=== PATIENT | male | born 1930 ===

== ENCOUNTER 2016-08-26 09:41 | Inpatient (IN) | payer MEDICAID, MEDICARE ==
[2016-08-26 09:52] VITALS: BMI 18.2
--- NOTE | 2016-08-26 09:57 | ED PDOC ---
Arrival/HPI - General Time Seen by Provider: 08/26/16 09:44 Historian: EMS EM Caveat: Altered Mental Status - History of Present Illness Narrative History of Present Illness (Text): 08/26/16 09:54 A 86 year old male who is brought into the emergency department via EMS reportedly for history of altered mental status upon awaking this morning. Patient is a poor historian due to what appears to be altered mental status/ difficulty speaking. No family present at this time to obtain further history. Initial history obtain through ambulance personnel. 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 - Renal Hx Renal Disorder: No - Endocrine/Metabolic Hx Diabetes Mellitus Type 2: Yes - Hematological/Oncological Hx Blood Transfusions: No Hx Blood Transfusion Reaction: No - Integumentary Hx Dermatological Disorder: No - Musculoskeletal/Rheumatological Hx Musculoskeletal Disorders: Yes - Gastrointestinal Hx Gastrointestinal Disorders: Yes (PANCREATITIS,PANCREATIC MASS,) - Genitourinary/Gynecological Hx Genitourinary Disorders: No Hx Reproductive Disorders: Yes (PROSTATE CA) - Psychiatric Hx Emotional Abuse: No Hx Physical Abuse: No Hx Substance Use: No - Past Surgical History Past Surgical History: Unable to Obtain - Surgical History Other/Comment: Abdominal Aortic Aneurysm repair - Anesthesia Hx Anesthesia Reactions: No Hx Malignant Hyperthermia: No - Suicidal Assessment Feels Threatened In Home Enviroment: No Family/Social History - Physician Review Nursing Documentation Reviewed: Yes Family/Social History: Unknown Family HX Smoking Status: Former Smoker Hx Alcohol Use: No Hx Substance Use: No Hx Substance Use Treatment: No Allergies/Home Meds Allergies/Adverse Reactions: Allergies No Known Allergies Allergy (Verified 08/04/15 18:24) Home Medications: Home Meds Medication Instructions Recorded Confirmed Alfuzosin HCl [Uroxatral] 10 mg PO DAILY 05/03/15 08/30/15 Dutasteride 0.5 mg PO DAILY 06/02/15 08/30/15 GlipiZIDE [Glucotrol] 5 mg PO QAM 08/30/15 08/30/15 Ciprofloxacin [Cipro] 500 mg PO BID 08/31/15 08/31/15 Review of Systems - Review of Systems Systems not reviewed;Unavailable: Other (difficulty speaking) Constitutional: Weight Change (as per son) Neurological: Speech Changes (as per son since 7 pm last night) Physical Exam - Physical Exam Narrative Physical Exam (Text): Head: Atraumatic. Normocephalic. Eyes: PERRL. EOMI. Sclera appear pale, icteric. ENT: Mucous membranes are dry, poor dentition. Neck: Supple. Full ROM. No JVD. No lymphadenopathy. No pain with range of motion. No midline pain. Cardiovascular: Regular rate. Regular rhythm. Systolic murmur. Distal pulses are 2+ and symmetric. Pulmonary/Chest: No evidence of respiratory distress. Clear to auscultation bilaterally. No wheezing, rales or rhonchi. Abdominal: Soft, mildly distended. There is no tenderness. No rebound, guarding, or rigidity. No organomegaly. Good bowel sounds. Rectal: no gross blood or melena, no active bleeding Back: No CVA tenderness. No midline tenderness. Extremities: Bilateral nonpitting edema, mild. No cyanosis. No clubbing. Full range of motion in all extremities. No calf tenderness. Skin: Skin is pale. Neurological: Awake. Garbled speech, appears to have expressive aphasia. He will follow some simple commands. No pronator drift noted. Possibly mild weak drasp most notable on right. No noted asterixis. No facial droop. Reflexes intact. No facial droop. Psychiatric: Poor interaction, will follow some commands. Nonsensical speaking. Appears to express frustration from difficulty speaking. 08/26/16 16:02 Vital Signs Reviewed: Yes Vital Signs Temp Pulse Resp BP Pulse Ox 08/26/16 15:37 66 18 125/68 97 08/26/16 12:25 64 18 128/65 97 08/26/16 11:45 62 18 131/61 97 08/26/16 11:20 97.8 F 08/26/16 09:56 98.2 F 64 18 132/59 L 97 Temperature: Afebrile Appearance: Positive for: Non-Toxic, Comfortable Mental Status: Positive for: other (difficulty speaking) Medical Decision Making ED Course and Treatment: 08/26/16 09:54 Impression: A 86 year old male brought in reportedly initially for altered mental status. Will obtain EKG, Head CT, Chest X-ray, labs and urinalysis. Will attempt to contact family members and PMD regarding patient past history and baseline mental status Differential Diagnosis include but are not limited to: CVA, hypoglycemia, infection Prior Visits: Notes and results from previous visits were reviewed. The patient last presented to the emergency department on 07/31/15 for evaluation of abnormal LFTs. Progress Notes: Patient evaluated upon arrival. History obtained from ambulance personnel. Patient appears to follow commands, understand some questions, although has difficulty speaking. Unknown initially what his baseline mental status is. 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 There is no fever. No notable trauma. Time of onset of symptoms unknown. I discussed case with Dr. Montana who reports that patient is typically conversive and interactive. 08/26/16 11:50 I called the patient's family member and spoke with the patient's son. He states the patient has a history of dementia, although is normal able to speak without difficulty. He reports to me that the patient's stated he has some slurred speech that she noticed at 1900 yesterday. Son says that when he checked on his father this morning after waking up he noticed the patient had some difficulty speaking. Due to the prolonged time of onset and uncertainty of time of onset the patient is not a TPA candidate. I discussed timing of symptoms in depth with patient's son and patient.On currently examination the patient expresses aphasia, although will follow all commends and is able to move all [address] head pending. I feel given history as given by family, exam and history consistent with CVA, by history greater than 6 hours since time of onset of symptoms. Case discussed with Dr. Montana. 08/26/16 12:10 Chest X-ray: Dictator : Patricio Valentine MD COMPARISON: 07/31/2015 FINDINGS: LUNGS: Clear. PLEURA: No pneumothorax or pleural fluid seen. CARDIOVASCULAR: No radiographic findings to suggest acute or significant cardiovascular disease. OSSEOUS STRUCTURES: No significant abnormalities. VISUALIZED UPPER ABDOMEN: Normal. OTHER FINDINGS: None. IMPRESSION: No active disease. No acute/significant interval changes. 08/26/16 13:[address]: Creator : LAYLA MCCABE COMPARISON: None available. FINDINGS: HEMORRHAGE: No intracranial hemorrhage. BRAIN: No mass effect or edema. Cortical atrophy, periventricular small vessel disease. Focal areas of encephalomalacia change frontal, frontal parietal regions. VENTRICLES: Unremarkable. No hydrocephalus. CALVARIUM: Unremarkable. PARANASAL SINUSES: Unremarkable as visualized. No significant inflammatory changes. MASTOID AIR CELLS: Unremarkable as visualized. No inflammatory changes. OTHER FINDINGS: None. IMPRESSION: No acute intracranial abnormalities. No significant findings to account for the clinical presentation. CT head reviewed. Case discussed with neurologist, Dr. Vidhya Zhang. CT findings reviewed with family and patient, limitations of CT reviewed with family and suspicion of CVA discussed once again despite initial unremarkable CT. Patient seen and evaluated by neurologist in ED, further studies ordered. Patient admitted at 12:[address] Montana's service. 08/26/16 14:52 MRI report called in by radiologist. I spoke to Dr. Vidhya Zhang about MRI results. No change in patient's exam from initial presentation. Patient admitted, care turned over to admitting PMD and recommendations as per neurology. - Critical Care Critical Care Minutes: 30 minutes - Lab Interpretations Lab Results: 08/26/16 10:32 08/26/16 10:32 Lab Results 08/26/16 11:41: Ammonia < 9 L 08/26/16 11:06: Urine Color Yellow, Urine Appearance Clear, Urine pH 6.0, Ur Specific [place] 1.010, Urine Protein Negative, Urine Glucose (UA) Negative, Urine Ketones Negative, Urine Blood Trace-lysed H, Urine Nitrate Negative, Urine Bilirubin Negative, Urine Urobilinogen 0.2, Ur Leukocyte Esterase Negative , Urine RBC 0 - 2, Urine WBC Negative, Ur Epithelial Cells 0 - 2, Urine Bacteria Neg 08/26/16 11:06: Urine Opiates Screen Negative, Urine Methadone Screen Negative, Ur Barbiturates Screen Negative, Ur Phencyclidine Scrn Negative, Ur Amphetamines Screen Negative, U Benzodiazepines Scrn Negative, U Oth Cocaine Metabols Negative, U Cannabinoids Screen Negative 08/26/16 10:32: Salicylates < 1 L 08/26/16 10:32: PT 12.0 H, INR 1.11 H, APTT 28.1 08/26/16 10:32: WBC 6.4, RBC 3.84, Hgb 11.7 L, Hct 36.2 L, MCV 94.3, MCH 30.5, MCHC 32.3, RDW 15.1 H, Plt Count 164, MPV 11.9 H, Gran % 71.5 H, Lymph % (Auto) 18.2 L, [place] % (Auto) 7.7 H, Eos % (Auto) 2.3, Baso % (Auto) 0.3, Gran # 4.57, Lymph # 1.2, [place] # 0.5, Eos # 0.2, Baso # 0.02 08/26/16 10:32: Alcohol, Quantitative < 10 08/26/16 10:32: Sodium 139, Chloride 108 H, Potassium 4.5, Carbon Dioxide 26, Anion Gap 10, BUN 15, Creatinine 1.3, Est GFR ( Amer) > 60, Est GFR (Non- Af Amer) 53, Random Glucose 91, Calcium 8.7, Magnesium 1.7, Total Bilirubin 0.4 , AST 28, ALT 32, Alkaline Phosphatase 157 H, Lactate Dehydrogenase 428, Total Creatine Kinase 26 L, Troponin I < 0.01, Total Protein 6.1, Albumin 3.2, Globulin 2.9, Albumin/Globulin Ratio 1.1, Amylase 58, Lipase < 10 L 08/26/16 10:32: pO2 42, VBG pH 7.31 L, VBG pCO2 57.0, VBG HCO3 28.7 H, VBG Total CO2 30.4 H, VBG O2 Sat (Calc) 77.8 H, VBG Base Excess 1.5, VBG Potassium 4.6, Sodium 140.0, Chloride 111.0 H, Glucose 99, Lactate 0.7, FiO2 21.0, Venous Blood Potassium 4.6 I have reviewed the lab results: Yes - RAD Interpretation Radiology Orders: 08/26/16 09:54 HEAD W/O CONTRAST [CT] Stat 08/26/16 09:55 CHEST ONE VIEW [RAD] Stat Engineer Automated Equipment: Radiologist - EKG Interpretation EKG Interpretation (Text): 08/26/16 10:08 normal sinus rhythm, rate of 66, incomplete right bundle branch block Interpreted by ED Physician: Yes Type: 12 lead EKG - Medication Orders Current Medication Orders: Discontinued Medications Aspirin (Aspirin Chewable) 81 mg PO STAT STA Stop: 08/26/16 11:55 Last Admin: 08/26/16 14:40 Dose: Aspirin (Aspirin Supp) 300 mg RC STAT STA Stop: 08/26/16 14:49 Last Admin: 08/26/16 15:55 Dose: 300 mg NIHSS Scale ([place]) Time Performed: 10:00 - How Severe is the Stoke Baseline Level of Consciousness: 0=Alert LOC to Questions: 0=Both comments correct LOC to commands: 0=Obeys both correctly Best Gaze: 0=Normal Visual: 0=No visual loss Facial: 0=Normal Motor Arm - Left: 0=No drift Motor Arm - Right: 0=No drift Motor Leg - Left: 0=No drift Motor Leg - Right: 0=No drift Limb Ataxia: 0=Absent Sensory: 0=Normal Best Language: 1=Mild to moderate aphasia Dysarthia: 2=Severe, near unintelligible or worse Extinction & Inattention (Neglect): 0=Normal, no object Score: 3 Risk Level: Minor Stroke Risk rTPA Inclusion/Exclusion - Refusal of Treatment Patient Refused Treatment: No - Inclusion Criteria for Altepase Patient is 18 years or Older: Yes The Clinical Diagnosis of Ischemic Stroke That is Causing a Potentially Disabling Neurological Deficit: Yes Time of Onset is Well Established to be Less Than 270 Minute Before Treatment Would Begin: No Risk/Benefit Discussed With Patient/Family Member Present: Yes - Exclusion Criteria for Altepase Uncontrolled Hypertension at Time of Treatment (Systolic BP above 185 or Diastolic BP above 110 mmHg): No - Warning to TPA With Conditions Following Conditions Weighed Against Anticipated Benefit: Yes Condition: Age Greater Than 75 years (patient not a tpa candidate as time of onset of symptoms unknown, likely greater than 6 hours) - Scribe Statement The provider has reviewed the documentation as recorded by the Scribe Dmitriy Hamm Provider Scribe Attestation: All medical record entries made by the Scribe were at my direction and personally dictated by me. I have reviewed the chart and agree that the record accurately reflects my personal performance of the history, physical exam, medical decision making, and the department course for this patient. I have also personally directed, reviewed, and agree with the discharge instructions and disposition. Disposition/Present on Arrival - Present on Arrival Any Indicators Present on Arrival: No History of DVT/PE: No History of Uncontrolled Diabetes: No Urinary Catheter: No History Surgical Site Infection Following: None - Disposition Have Diagnosis and Disposition been Completed?: Yes Diagnosis: CVA (cerebral vascular accident), Aphasia Disposition: HOSPITALIZED Disposition Time: 12:15 Patient Plan: Admission, Telemetry Condition: SERIOUS
[2016-08-26 10:33] LABS: ADD MANUAL DIFF? NO
[2016-08-26 10:37] LABS: BASO # 0.02 K/mm3 (0.0-2.0); BASO % 0.3 % (0.0-3.0); EOS # 0.2 (0.0-0.7); EOS % 2.3 % (1.5-5.0); GRAN # 4.57 (1.4-6.5); GRAN % 71.5 % (50.0-68.0); HEMATOCRIT 36.2 % (42.0-52.0); LYMPH # 1.2 (1.2-3.4); LYMPH % 18.2 % (22.0-35.0); MEAN CELL VOLUME 94.3 fL (80.0-105.0); MEAN CORPUSCULAR HEMOGLOBIN 30.5 pg (25.0-35.0); MEAN CORPUSCULAR HGB CONC 32.3 g/dl (31.0-37.0); MEAN PLATELET VOLUME 11.9 fl (7.0-11.0); MONO # 0.5 (0.1-0.6); MONO % 7.7 % (1.0-6.0); PLATELET COUNT 164 10^3/uL (120.0-450.0); RED CELL DISTRIBUTION WIDTH 15.1 % (11.5-14.5); WHITE BLOOD COUNT 6.4 10^3/ul (4.5-11.0)
[2016-08-26 10:40] LABS: VENOUS BLOOD GAS BASE EXCESS 1.5 mmol/L (0.0-2.0); VENOUS BLOOD PH 7.31 (7.32-7.43)
[2016-08-26 10:48] LABS: ALB/GLOB RATIO 1.1 (1.1-1.8); ALKALINE PHOSPHATASE 157 U/L (38-133); ALT/SGPT 32 U/L (7-56); AMYLASE 58 U/L (35-125); AST/SGOT 28 U/L (15-59); BILIRUBIN,TOTAL 0.4 mg/dL (0.2-1.3); BLOOD UREA NITROGEN 15 mg/dL (7-21); CALCIUM 8.7 mg/dL (8.4-10.5); CARBON DIOXIDE 26 mmol/L (21-33); CHLORIDE 108 mmol/L (98-107); GFR AFRICAN-AMERICAN > 60; GLUCOSE,RANDOM 91 mg/dL (70-110); MAGNESIUM 1.7 mg/dL (1.7-2.2); POTASSIUM 4.5 mmol/L (3.6-5.0); SODIUM 139 mmol/L (132-148); TOTAL PROTEIN 6.1 g/dL (5.8-8.3)
[2016-08-26 10:49] LABS: INR 1.11 (0.93-1.08); PARTIAL THROMBOPLASTIN TIME 28.1 Seconds (23.7-30.8)
[2016-08-26 10:59] LABS: LIPASE < 10 U/L (23-300); TROPONIN I < 0.01 ng/mL
[2016-08-26 11:11] LABS: URINE BILIRUBIN NEGATIVE (NEGATIVE); URINE BLOOD TRACE-LYSED (NEGATIVE); URINE GLUCOSE (UA) NEGATIVE (NEGATIVE); URINE KETONE NEGATIVE (NEGATIVE); URINE LEUKOCYTE ESTERASE NEGATIVE Leu/uL (NEGATIVE); URINE PROTEIN NEGATIVE mg/dL (<30 mg/dL); URINE UROBILINOGEN 0.2 E.U./dL (<1 E.U./dL)
[2016-08-26 11:21] LABS: URINE APPEARANCE CLEAR (CLEAR); URINE COLOR YELLOW (YELLOW)
[2016-08-26 11:33] LABS: URINE BACTERIA NEG (NEG); URINE EPITHELIAL CELLS 0 - 2 /hpf (0-5); URINE RBC 0 - 2 /hpf (0-2); URINE WBC NEGATIVE /hpf (0-6)
--- NOTE | 2016-08-26 12:11 | RAD ---
PROCEDURE: CHEST RADIOGRAPH, 1 VIEW HISTORY: ams COMPARISON: 07/31/2015 FINDINGS: LUNGS: Clear. PLEURA: No pneumothorax or pleural fluid seen. CARDIOVASCULAR: No radiographic findings to suggest acute or significant cardiovascular disease. OSSEOUS STRUCTURES: No significant abnormalities. VISUALIZED UPPER ABDOMEN: Normal. OTHER FINDINGS: None. IMPRESSION: No active disease. No acute/significant interval changes.
--- NOTE | 2016-08-26 12:13 | CT ---
PROCEDURE: CT HEAD WITHOUT CONTRAST. HISTORY: ams COMPARISON: None available. TECHNIQUE: Axial computed tomography images were obtained through the head/brain without intravenous contrast. Radiation dose: Total exam DLP = 725.84 mGy-cm. This CT exam was performed using one or more of the following dose reduction techniques: Automated exposure control, adjustment of the mA and/or kV according to patient size, and/or use of iterative reconstruction technique. FINDINGS: HEMORRHAGE: No intracranial hemorrhage. BRAIN: No mass effect or edema. Cortical atrophy, periventricular small vessel disease. Focal areas of encephalomalacia change frontal, frontal parietal regions. VENTRICLES: Unremarkable. No hydrocephalus. CALVARIUM: Unremarkable. PARANASAL SINUSES: Unremarkable as visualized. No significant inflammatory changes. MASTOID AIR CELLS: Unremarkable as visualized. No inflammatory changes. OTHER FINDINGS: None. IMPRESSION: No acute intracranial abnormalities. No significant findings to account for the clinical presentation.
[2016-08-26 12:41] LABS: CHOLESTEROL 113 mg/dL (130-200)
--- NOTE | 2016-08-26 13:14 | CON ---
DATE: 08/26/2016 CHIEF COMPLAINT: Slurred speech. HISTORY OF PRESENT ILLNESS: An 86-year-old man with history of hard of hearing, dementia, history of pancreatitis in the past, history of prostate cancer in the past, history of type 2 diabetes mellitu s, hypertension, who is hard of hearing, he is [place] speaking, apparently was last seen normal in t erms of speaking at 7 p.m. last night, he was noticed by family to have slurred speech. Currently, d uring my evaluation he is able to understand and move all extremities equally with no pronator seen, but he has some form of expressive aphasia. He follows commands without any difficulty. CT head collin wed no acute intracranial abnormality, just some old encephalomalacia bilateral frontal parietal bay ons, otherwise no acute abnormalities at this time. He will be going for an MRI of the brain and janis l be monitored for stroke prevention, aspirin has been given 81 mg p.o. stat. His blood pressures ar e currently stable at 131/61. Case discussed with Dr. Dominique in the ED. PAST MEDICAL HISTORY: Diabetes, hypertension, dyslipidemia, hard of hearing on the right ear, pancre atitis, prior prostate cancer, history of abdominal aortic aneurysm repair. REVIEW OF SYSTEMS: A 14-point review of systems is negative except for the HPI. FAMILY HISTORY: Noncontributory. SOCIAL HISTORY: No illicit drug use, smoking or ETOH abuse. MEDICATIONS: Reviewed via nurses reconciliation sheet. ALLERGIES: No known drug allergies. REVIEW OF SYSTEMS: A 14-point review of systems negative except as listed in HPI. FAMILY HISTORY: Noncontributory. PHYSICAL EXAMINATION: VITAL SIGNS: Temperature of 97.8, pulse rate 62, blood pressure 130/61, respiratory rate 18, oxygen 97% via room air. GENERAL: The patient is sitting up in bed in no acute distress. HEENT: Atraumatic, normocephalic. PERRLA. Extraocular muscles were intact. NECK: Supple, no JVD, no adenopathy noted. LUNGS: Clear to auscultation. No adventitious sounds. HEART: S1, S2, normal rate and rhythm. No murmurs, rubs, or gallops. ABDOMEN: Soft, nontender, nondistended. Bowel sounds present. EXTREMITIES: No clubbing, no cyanosis. Peripheral pulses bilaterally. NEUROLOGIC: The patient is alert, oriented to person, place and year. Recall at 5 minutes is 0/3. Poor attention span. Slow thought process. His speech is slurred, has mild expressive aphasia, but understands the commands in [place]. Cranial nerves II-XII are intact. MOTOR: Moves all extremities equally. No pronator drift seen. May be slightly reduced finger tap o n the right. Otherwise, toes are equivocal. SENSORY: Light touch, pinprick, proprioception, vibration intact, withdraws to localized noxious sti mulus. DTRs are 2+ throughout and 1 at the ankles. COORDINATION: [id number] intact. GAIT: Deferred for now. LABORATORY DATA: Sodium is 139, potassium 4.5, chloride 108, carbon dioxide 26, BUN of 15, creatinin e 1.3, random glucose of 91. ASSESSMENT AND PLAN: This is an 86-year-old man with history of hypertension, dyslipidemia, dementia cognitive impairment type, history of pancreatitis, history of abdominal aortic aneurysm repair, his tory of diabetes, history of prostate cancer apparently, who came in with slurred speech, last seen n ha was at 08/25/2016 at 7 p.m. He has baseline cognitive impairment, but had difficulty expressin g his words and difficulty getting his out words. At this time, a CT head showed no acute intracrani al abnormalities, focal encephalomalacia in the bilateral frontal and parietal areas. Impression: I think his slurred speech could be secondary to the left middle cerebral artery small lacunar infarct secondary to diffuse atherosclerosis. He is not a TPA candidate due to more than 8 hours. At this time, I recommend: 1. Aspirin 81 mg p.o. daily. 2. Lipitor 40 mg p.o. daily. 3. Get an MRI of the brain to assess for infarction. 4. Get carotid Doppler and echocardiogram and speech assessment. At this time, continue current medical management. Thank you for this consult. Rakan Zhang MD cc: [id number] TT: 08/26/2016 13:12:40 Confirmation # [id number] Dictation # [id number] julio
--- NOTE | 2016-08-26 14:40 | MRI ---
PROCEDURE: MRI BRAIN WITHOUT CONTRAST HISTORY: cva COMPARISON: None. TECHNIQUE: Multiplanar, multisequence MR images of the brain were obtained without intravenous contrast enhancement. FINDINGS: HEMORRHAGE: None DWI: Small to moderate-sized left middle cerebral artery distribution infarct with both superficial components an 8 punctate deep component in the basal ganglia. BRAIN PARENCHYMA: No mass effect or edema. Chronic microvascular ischemic disease. VENTRICLES: Unremarkable. No hydrocephalus. CRANIUM: Unremarkable. ORBITS: Grossly unremarkable. PARANASAL SINUSES/MASTOIDS: Clear VASCULAR SYSTEM: Skull base flow voids intact. OTHER FINDINGS: None. IMPRESSION: Small to moderate-sized left middle cerebral artery distribution infarct with both superficial components an 8 punctate deep component in the basal ganglia. Dr. Dominique was notified these findings by telephone.
--- NOTE | 2016-08-26 15:40 | US ---
PROCEDURE: Bilateral carotid artery duplex ultrasound HISTORY: Carotid stenosis CVA PHYSICIAN(S): Valdo Bower MD. TECHNIQUE: Duplex sonography and color-flow Doppler were used to evaluate the carotid bifurcations and limited segments of the vertebral arteries bilaterally. FINDINGS: There is moderate heterogeneous echogenic plaque noted at the carotid bifurcations bilaterally. The peak systolic velocity in the proximal right internal carotid artery is 104 cm/sec. This corresponds to a 20 to 39% proximal right ICA stenosis. Normal systolic velocities are noted in the proximal right external carotid artery. There is antegrade flow in the right vertebral artery. The peak systolic velocity in the proximal left internal carotid artery is 73 cm/sec. This corresponds to a 20 to 39% proximal left ICA stenosis. Normal systolic velocities are noted in the proximal left external carotid artery. There is antegrade flow in the left vertebral artery. IMPRESSION: 1. Bilateral 20-39% proximal ICA stenoses. 2. Antegrade flow in both vertebral arteries.
[2016-08-26] MEDS ORDERED: Dextrose 5%/0.45% NS 1,000 ML IV SCH (16:30)
[2016-08-26] MEDS ORDERED: Pneumococcal 23-Valent Vaccine IM ONE (19:07)
[2016-08-26] MEDS: Insulin Reg-LOW-Coverage SC SCH (22:18)
[2016-08-27 08:06] LABS: ADD MANUAL DIFF? NO
[2016-08-27 08:18] LABS: BASO # 0.02 K/mm3 (0.0-2.0); BASO % 0.3 % (0.0-3.0); EOS # 0.2 (0.0-0.7); EOS % 3.5 % (1.5-5.0); GRAN # 4.01 (1.4-6.5); GRAN % 67.1 % (50.0-68.0); HEMATOCRIT 35.1 % (42.0-52.0); LYMPH # 1.3 (1.2-3.4); LYMPH % 21.1 % (22.0-35.0); MEAN CELL VOLUME 93.6 fL (80.0-105.0); MEAN CORPUSCULAR HEMOGLOBIN 30.4 pg (25.0-35.0); MEAN CORPUSCULAR HGB CONC 32.5 g/dl (31.0-37.0); MEAN PLATELET VOLUME 12.1 fl (7.0-11.0); MONO # 0.5 (0.1-0.6); PLATELET COUNT 164 10^3/uL (120.0-450.0)
[2016-08-27 08:27] LABS: BLOOD UREA NITROGEN 14 mg/dL (7-21); CALCIUM 8.5 mg/dL (8.4-10.5); CARBON DIOXIDE 27 mmol/L (21-33); CHLORIDE 108 mmol/L (95-110); CHOLESTEROL 105 mg/dL (130-200); GFR AFRICAN-AMERICAN > 60; GLUCOSE,RANDOM 87 mg/dL (70-110); POTASSIUM 3.8 mmol/L (3.6-5.0); SODIUM 139 mmol/L (132-148)
[2016-08-27 08:29] LABS: HOMOCYSTEINE 14.7 umol/L (<11.4)
[2016-08-27 08:34] LABS: IRON 45 ug/dL (45-180)
--- NOTE | 2016-08-27 09:56 | CARD ---
APPROVED REPORT EKG Measurement Heart [id number] <Conclusion> Normal sinus rhythm Incomplete right bundle branch block NSSTW changes No change
[2016-08-27] MEDS: ALFUZOSIN 10 MG PO SCH (10:06)
[2016-08-27] MEDS: DUTASTERIDE 0.5 MG PO SCH (10:07)
[2016-08-27] MEDS: Insulin Reg-LOW-Coverage SC SCH ×4 (11:45→22:00)
[2016-08-27 12:57] LABS: FOLATE > 20.0 ng/mL
--- NOTE | 2016-08-27 21:11 | PN ---
DATE: 08/27/2016 CHIEF COMPLAINT: Follow up for slurred speech. SUBJECTIVE: The patient seen and examined at bedside. His aphasia is slightly much better today. 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 He has very minimal weakness on examination, except for some mild right-sided finger tap slowin g. His carotid Doppler showed 20% to 39% proximal ICA stenosis. He is on aspirin 81 mg and atorvast atin 40 mg p.o. daily for stroke prevention. His LDL is 147, which is low. His B12 was 711, which w as normal. Homocysteine level was 14.7, which is elevated consistent with diffuse atherosclerotic di sease. PAST MEDICAL HISTORY: History of diabetes, hypertension, dyslipidemia, hard of hearing, pancreatitis , prior history of prostate cancer, history of abdominal aortic aneurysm. REVIEW OF SYSTEMS: A 14-point review of systems is negative except in the HPI. FAMILY HISTORY: Noncontributory. SOCIAL HISTORY: No illicit drug use, smoking or EtOH abuse. MEDICATIONS: Reviewed via nurse's reconciliation sheet. ALLERGIES: No known drug allergies. REVIEW OF SYSTEMS: A 14 systems was negative except as in the HPI. PHYSICAL EXAMINATION: VITAL SIGNS: Temperature of 98, pulse of 80, blood pressure of 122/52, respiratory rate of 16. GENERAL: The patient is sitting up in bed in no acute distress. HEENT: Atraumatic, normocephalic. PERRLA. Extraocular muscles intact. NECK: Supple, no JVD, no adenopathy noted. LUNGS: Clear to auscultation. No adventitious sounds. HEART: S1, S2, normal rate and rhythm. No murmurs, rubs, or gallops. ABDOMEN: Soft, nontender, nondistended. Bowel sounds are present. EXTREMITIES: No clubbing, no cyanosis. Peripheral pulses 2+ felt bilaterally. NEUROLOGIC: The patient is alert, oriented to person, place, month and year. Recall after 5 minutes is 0/3. Poor attention span, slow thought process. He has slurred speech with mild expressive apha dl, but understands the commands in Georgian. Cranial nerves II-XII are intact. Motor: Moves all extremities equally. No pronator drift seen. Some mild right slow finger tap slow ing compared to the left. Sensory: Light touch, pinprick, proprioception and vibration intact, with draws to localized noxious stimulus. DTRs 2+ at the ankles. Coordination: Lpbiwm-qm-bucd in tact. Gait is deferred for now. LABORATORY DATA: Elevated homocysteine level as well as a blood sugar of 164. LDL is 47, triglyceri gilmer 96, cholesterol is 105, HDL is 38. ASSESSMENT: This is an 86-year-old man with past history of hypertension, dyslipidemia, dementia, co gnitive impairment, history of pancreatitis, history of abdominal aortic aneurysm, history of diabete s, history of prostate cancer, came in for slurred speech on 08/25/2016 and found to have difficulty getting out his words, which is consistent with the left MCA territory infarct. The MCA territory in farct is likely secondary to diffuse atherosclerosis. PLAN: At this time, would recommend: 1. Aspirin 81 mg and Lipitor 40 mg for stroke prevention. 2. Speech therapy and PT evaluation. 3. Echocardiogram. At this time, continue with current present medical management. Thank you for this followup. Rakan Zhang MD cc: [id number] TT: 08/27/2016 21:10:55 Confirmation # [id number] Dictation # [id number] mn
--- NOTE | 2016-08-28 08:36 | HP ---
CHIEF COMPLAINT: Altered mental status. HISTORY OF PRESENT ILLNESS: The patient is my private patient, is an 86-year- old male, with multiple medical problems, brought to the Emergency Room of [facility] with altered mental status. the patient is a poor historian and due to what appears to be altered mental status and difficulty in speaking. No family was present at the bedside but I discuss patient with Dr. petersen , the ER physician. The patient has a history of hypertension, hypercholesterolemia, a history of pancreatic tumor, dementia, coronary artery disease and diabetes mellitus. We admitted the patient to telemetry. A consult with neurologist Dr. Rakan Zhang who saw the patient in the Emergency Room and gave some orders relating to the stroke. PAST MEDICAL HISTORY: Diabetes mellitus type 2, history of pancreatic mass, status post biopsy done by Dr. nicole , history of prostate cancer, hypertension , hypercholesterolemia. FAMILY HISTORY: Father and mother noncontributory. HABITS: Former smoker, no alcohol, no substance abuse. ALLERGIES: The patient is not allergic to any medications. HOME MEDICATIONS: Eyedrops, docusate, glipizide, ciprofloxacin. REVIEW OF SYSTEMS: The patient was seen and examined on the bedside. Looks comfortable. Looks like change of mental status. He is not on his baseline. He speaks Romanian. No nausea, vomiting, or diarrhea. No fever or chills. Has partial aphasia. No headache, no dizziness. No chest pain, no palpitations. PHYSICAL EXAMINATION: VITAL SIGNS: Temperature 98.2, pulse 64, respiratory rate 18, blood pressure 113/59, and pulse oximetry 97. HEENT: Head normocephalic, atraumatic. Eyes: PERRLA. Extraocular muscles intact. Conjunctivae clear. Nose patent. Mucous membranes moist. NECK: Supple. No carotid bruits, JVD, or thyromegaly. CHEST: Bilaterally symmetrical. HEART: S1 and S2 positive. LUNGS: Clear to auscultation. ABDOMEN: Soft. Bowel sounds positive. No organomegaly. EXTREMITIES: No edema, no cyanosis. NEUROLOGIC: The patient is awake, moving all 4 extremities but is not at his baseline, partially aphasic. LABORATORY DATA: White blood cells 6.4, hemoglobin 11.7, hematocrit 36.2, platelets 164. Sodium 139, potassium 4.5, BUN 15, creatinine 1.3, glucose noted . ASSESSMENT AND PLAN: The patient is an 86-year-old male with hyperchloremia, anemia, hematuria. Toxicology is negative. He came in with altered mental status. Seen by Dr. Rakan Zhang . He went for a CAT scan of the head and bilateral carotid Doppler of the neck. Has a history of hypertension, dyslipidemia, hard of hearing of the right ear, history of pancreatic tumor, prostate cancer, history of abdominal aortic aneurysm repair, history of dementia, came with slurred speech. Last seen by the family was at 08/25/16 at 7 p.m. He was at his baseline. Now he had difficulty expressing his words, difficulty getting his words out of the mouth. CAT scan shows no acute intracranial abnormality, focal encephalomalacia in the lateral frontal and parietal area. speech is secondary to the left middle cerebral small lacunar infarction secondary to diffuse atherosclerosis. He is not a TPA candidate; it has been more than 8 hours. Continue aspirin and Lipitor. Get the patient's MRA of the brain and carotid Doppler of the neck as per Dr. Valdo Bower. 39% proximal ICA stenosis, antegrade flow in both vertebral arteries. We kept the patient and will observe overnight , repeat labs. Will followup. Delmy Montana MD cc: [id number] TT: 08/26/2016 20:54:11 scottie AUGUSTIN
--- NOTE | 2016-08-28 08:37 | PN ---
DATE: 08/27/2016 SUBJECTIVE: The patient was seen and examined on the bedside. Looks a little bit better. Got speech evaluation; passed that test. Advance the diet. , nephew, nieces, cousins were sitting on the bedside. No nausea, vomiting or diarrhea. No hematuria or hematochezia. No swelling of the legs. No chest pain. No palpitation. PHYSICAL EXAMINATION: VITAL SIGNS: Temperature 98, pulse 80, blood pressure 122/52, respiratory rate 16. HEENT: Head normocephalic, atraumatic. Eyes: PERRLA. Extraocular muscles intact. Conjunctivae are clear. Nose patent. Mucous membranes moist. NECK: Supple. No carotid bruit. No JVD or thyromegaly. CHEST: Bilaterally symmetrical. HEART: S1, S2 positive. LUNGS: Clear to auscultation. ABDOMEN: Soft. Bowel sounds present. No organomegaly. EXTREMITIES: No edema, no cyanosis. NEUROLOGIC: The patient is awake, alert, moving all 4 extremities. No focal deficits. MEDICATIONS: Aspirin, Claritin, Lasix, Lipitor, Seroquel. LABORATORY DATA: White blood cells 6.0, hemoglobin 11.4, hematocrit 35.1, platelets 164. Sodium 139, potassium 3.8, BUN 14, creatinine 1.2. Glucose 145 , 165, 257. TSH 0.25. Urine blood has lysed trace. ASSESSMENT AND PLAN: The patient is an 86-year-old male with anemia, uncontrolled diabetes mellitus, hyperthyroidism, hematuria, came with ams seen by Dr. Rakan Zhang, history of hypertension, dyslipidemia, hard of hearing, history of pancreatitis, history of prostate cancer, history of abdominal aortic aneurysm, came with swelling of feet, found to have difficulty getting his words which was consistent with left middle cerebral artery territory infarct. The middle cerebral artery territory infarct is likely secondary to diffuse atherosclerosis. The patient's neurologist is on the case ; recommended aspirin, speech therapy and PT evaluation, echocardiography. The patient went for bilateral carotid ultrasound of the neck, reviewed by me. Brain MRI reviewed by me. Physical therapy, out of bed. The patient passed the speech evaluation and now advance the diet. Still with aspiration precautions. Will follow up. Delmy Montana MD cc: [id number] TT: 08/28/2016 07:38:11 Confirmation # [id number] Dictation # [id number] jamin AUGUSTIN
[2016-08-28] MEDS: ALFUZOSIN 10 MG PO SCH (09:06)
[2016-08-28] MEDS: DUTASTERIDE 0.5 MG PO SCH (09:06)
[2016-08-28] MEDS: Insulin Reg-LOW-Coverage SC SCH ×4 (11:00→22:35)
--- NOTE | 2016-08-28 13:37 | CARD ---
APPROVED REPORT EXAM: Two-dimensional and M-mode echocardiogram with Doppler and color Doppler. INDICATION CVA/TIA 2D DIMENSIONS Left Atrium (2D)3.8 (1.6-4.0cm)IVSd0.8 (0.7-1.1cm) LVDd4.6 (3.9-5.9cm)PWd0.9 (0.7-1.1cm) LVEF (%)50.0 (>50%) M-Mode DIMENSIONS Aortic Root3.80 (2.2-3.7cm)Aortic Cusp Exc.1.50 (1.5-2.0cm) Aortic Valve AoV Peak Qbxcqutu447.0cm/Tyrone Peak GR.8mmHgAI P 1/2 [id number] Mitral Valve MV E Zsenaygq82.5cm/sMV A Jeofwwyz21.5cm/sE/A ratio0.5 TDI Lateral E' Peak V7.70cm/sMedial E' Peak V5.95cm/sE/Lateral E'4.6 E/Medial E'6.0 Pulmonary Valve PV Peak Mplxacbf02.7cm/sPV Peak Grad.1mmHg Tricuspid Valve TR Peak Mqbmjuvj694kq/sRAP CEHJXXXR84otTxRN Peak Gr.21mmHg [id number] LEFT VENTRICLE The left ventricle is normal size. There is normal left ventricular wall thickness. Left ventricle systolic function is borderline. Infero-Lateral hypokinesis Transmitral Doppler flow pattern is Grade I-abnormal relaxation pattern. RIGHT VENTRICLE The right ventricle is normal size. There is normal right ventricular wall thickness. The right ventricular systolic function is normal. ATRIA The left atrium size is normal. The right atrium size is normal. AORTIC VALVE The aortic valve is normal in structure. There is trace aortic regurgitation. MITRAL VALVE The mitral valve is normal in structure. TRICUSPID VALVE The tricuspid valve is normal in structure. GREAT VESSELS The aortic root is normal in size. The IVC is normal in size and collapses >50% with inspiration. PERICARDIAL EFFUSION There is no pericardial effusion. <Conclusion> The left ventricle is normal size. There is normal left ventricular wall thickness. Left ventricle systolic function is borderline. Infero-Lateral hypokinesis Transmitral Doppler flow pattern is Grade I-abnormal relaxation pattern. There is trace aortic regurgitation.
--- NOTE | 2016-08-29 07:37 | PN ---
DATE: 08/28/2016 SUBJECTIVE: The patient seen and examined on the bedside, looks comfortable. No nausea, vomiting, or diarrhea. No hematuria or hematochezia. No swelling of the leg. No chest pain or palpitation. PHYSICAL EXAMINATION: VITAL SIGNS: Temperature 98, pulse 59, blood pressure 104/52, respiratory rate 20. HEENT: Head normocephalic, atraumatic. Eyes: PERRLA. Extraocular muscles intact. Conjunctivae clear. Nose patent. Mucous membranes moist. NECK: Supple. No carotid bruit, JVD or thyromegaly. CHEST: Bilaterally symmetrical. HEART: S1, S2 positive. LUNGS: Clear to auscultation. ABDOMEN: Soft. Bowel sounds present. No organomegaly. EXTREMITIES: No edema, no cyanosis. NEUROLOGIC: The patient is awake, alert, moving all 4 extremities. No focal deficit. MEDICATIONS: Aspirin, Claritin, Lasix, Lipitor, Seroquel. LABORATORY DATA: White blood cells 6.0, hemoglobin 11.4, hematocrit 35.1, platelets 164. Glucose 99, 183, 239. ASSESSMENT AND PLAN: The patient is an 86-year-old male with anemia, uncontrolled diabetes mellitus, hematuria, seen by Dr. Rakan Zhang, neurologist. History of hypertension, dyslipidemia, history of pancreatitis, abdominal aortic aneurysm, history of prostate cancer, came with slurring of speech, found to have difficulty in his words which I consistent with left middle cerebral artery territory infarction. Plan: Continue present treatment. Neurologist is on the case. Physical therapy. Gastrointestinal and deep vein thrombosis prophylaxis. We will follow up. Delmy Montana MD cc: [id number] TT: 08/29/2016 07:37:27 Confirmation # [id number] Dictation # [id number] margo AUGUSTIN
[2016-08-29] MEDS: Insulin Reg-LOW-Coverage SC SCH ×3 (08:20→17:04)
[2016-08-29] MEDS: DUTASTERIDE 0.5 MG PO SCH (09:17)
[2016-08-29] MEDS: ALFUZOSIN 10 MG PO SCH (09:17)
--- NOTE | 2016-08-29 12:04 | CP.PCM.PN ---
Subjective - Date & Time of Evaluation Date of Evaluation: 08/29/16 Time of Evaluation: 09:00 - Subjective Subjective: Patient: KARRIE RIVERA [facility] #:[id number] Unit: [id number] : 1930 Loc: [facility] Room/Bed: [facility] [place] Age/Sex: 86 / M ADM Status: ADM IN ADM Date: [id number] DIS Date: Progress note: DATE: 08/28/2016 CHIEF COMPLAINT: Follow up for slurred speech. SUBJECTIVE: The patient seen and examined at bedside. His aphasia is slightly much better today. His carotid Doppler showed 20% to 39% proximal ICA stenosis. He is on aspirin 81 mg and atorvastatin 40 mg p.o. daily for stroke prevention. No acute events overnight. PAST MEDICAL HISTORY: History of diabetes, hypertension, dyslipidemia, hard of hearing, pancreatitis, prior history of prostate cancer, history of abdominal aortic aneurysm. REVIEW OF SYSTEMS: A 14-point review of systems is negative except in the HPI. FAMILY HISTORY: Noncontributory. SOCIAL HISTORY: No illicit drug use, smoking or EtOH abuse. MEDICATIONS: Reviewed via nurse's reconciliation sheet. ALLERGIES: No known drug allergies. REVIEW OF SYSTEMS: A 14 systems was negative except as in the HPI. PHYSICAL EXAMINATION: VITAL SIGNS:Reviewed. GENERAL: The patient is sitting up in bed in no acute distress. HEENT: Atraumatic, normocephalic. PERRLA. Extraocular muscles intact. NECK: Supple, no JVD, no adenopathy noted. LUNGS: Clear to auscultation. No adventitious sounds. HEART: S1, S2, normal rate and rhythm. No murmurs, rubs, or gallops. ABDOMEN: Soft, nontender, nondistended. Bowel sounds are present. EXTREMITIES: No clubbing, no cyanosis. Peripheral pulses 2+ felt bilaterally. NEUROLOGIC: The patient is alert, oriented to person, place, month and year. Recall after 5 minutes is 0/3. Poor attention span, slow thought process. He has slurred speech with mild expressive aphasia, but understands the commands in Persian. Cranial nerves II-XII are intact. Motor: Moves all extremities equally. No pronator drift seen. Some mild right slow finger tap slowing compared to the left. Sensory: Light touch, pinprick, proprioception and vibration intact, withdraws to localized noxious stimulus. DTRs 2+ and 1 at the ankles. Coordination: Caqnzz-vh-xqwd intact. Gait is deferred for now. LABORATORY DATA: Reviewed. ASSESSMENT: This is an 86-year-old man with past history of hypertension, dyslipidemia, dementia, cognitive impairment, history of pancreatitis, history of abdominal aortic aneurysm, history of diabetes, history of prostate cancer, came in for slurred speech on 08/25/2016 and found to have difficulty getting out his words , which is consistent with the left MCA territory infarct. The MCA territory infarct is likely secondary to diffuse atherosclerosis. PLAN: At this time, would recommend: 1. Aspirin 81 mg and Lipitor 40 mg for stroke prevention. 2. Speech therapy and PT evaluation. 3. Will benefit from mild SELVIN. Get PT recommendations. 4. Will follow up as outpatient. At this time, continue with current present medical management. Thank you for this followup. Rakan Zhang MD Objective - Vital Signs/Intake and Output Vital Signs (last 24 hours): Temp Pulse Resp BP Pulse Ox 98.2 F 71 18 105/57 L 95 08/29/16 08:21 08/29/16 08:21 08/29/16 08:21 08/29/16 09:17 08/29/16 08:21 Intake and Output: 08/29/16 08/29/16 06:59 18:59 Intake Total 720 Output Total 1100 Balance -380 - Medications Medications: Current Medications Aspirin (Aspirin Chewable) 81 mg PO DAILY [facility] Last Admin: 08/29/16 09:17 Dose: 81 mg Atorvastatin Calcium (Lipitor) 20 mg PO DIN [facility] Last Admin: 08/28/16 19:52 Dose: 20 mg Furosemide (Lasix) 20 mg PO DAILY [facility] Last Admin: 08/29/16 09:17 Dose: 20 mg Home Med (Home Med) 1 unit PO DAILY [facility] Last Admin: 08/29/16 09:17 Dose: 1 unit Home Med (Home Med) 1 unit PO DAILY [facility] Last Admin: 08/29/16 09:17 Dose: 1 unit Insulin Human Regular (Humulin R Low) 0 units SC ACHS [facility] PRN Reason: Protocol Last Admin: 08/29/16 11:51 Dose: 4 units Loratadine (Claritin) 10 mg PO DAILY [facility] Last Admin: 08/29/16 09:18 Dose: 10 mg Quetiapine Fumarate (Seroquel) 50 mg PO BID [facility] PRN Reason: Protocol Last Admin: 08/29/16 09:18 Dose: 50 mg - Labs Labs: 08/27/16 08:04 08/27/16 08:04 PT 12.0 Seconds (9.9-11.8) H 08/26/16 10:32 INR 1.11 (0.93-1.08) H 08/26/16 10:32 APTT 28.1 Seconds (23.7-30.8) 08/26/16 10:32
[2016-08-29 17:05] VITALS: BP 101/58; PULSE 88; RESP 20; TEMP 97.6; O2SAT 97
== END 2016-08-29 18:22 | disposition home or self-care (01) | DRG 66 ==
LOC: ED 09:41 → ERH 12:25 → 2RSO 16:48 → 3RSO 08-28 20:50
PROVIDERS: ADMIT Internal Medicine; ATTEND Internal Medicine
DX: I63.512 Cerebral infarction due to unspecified occlusion or stenosis of left middle cerebral artery (principal); R47.01 Aphasia; I10 Essential (primary) hypertension; E11.65 Type 2 diabetes mellitus with hyperglycemia; F03.90 Unspecified dementia, unspecified severity, without behavioral disturbance, psychotic disturbance, mood disturbance, and anxiety; D64.9 Anemia, unspecified; I25.10 Atherosclerotic heart disease of native coronary artery without angina pectoris; I65.23 Occlusion and stenosis of bilateral carotid arteries; E78.00 Pure hypercholesterolemia, unspecified; R31.9 Hematuria, unspecified; H91.90 Unspecified hearing loss, unspecified ear; E78.5 Hyperlipidemia, unspecified; R29.703 NIHSS score 3; E05.90 Thyrotoxicosis, unspecified without thyrotoxic crisis or storm; Z85.46 Personal history of malignant neoplasm of prostate; Z86.79 Personal history of other diseases of the circulatory system; Z87.891 Personal history of nicotine dependence

== ENCOUNTER 2017-04-30 12:00 | Inpatient (IN) | payer MEDICARE, MEDICAID ==
--- NOTE | 2017-04-30 12:34 | ED PDOC ---
Arrival/HPI - General Chief Complaint: Lower Extremity Problem/Injury Time Seen by Provider: 04/30/17 12:29 Historian: Patient - History of Present Illness Narrative History of Present Illness (Text): 04/30/17 12:31 Godwin Link is an 87 year old male who presents to the emergency department complaining of swelling and discoloration to right ankle and foot. Patient states that he dropped a luggage bag on his right foot two days ago and rates his present pain at a 2/10. Patient also indicates swelling to both of his lower extremities that began about 2 months ago but has not been evaluated. Patient denies any chest pain, shortness of breath, or any other complaints at this time. 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 - Renal Hx Renal Disorder: No - Endocrine/Metabolic Hx Diabetes Mellitus Type 2: Yes - Hematological/Oncological Hx Cancer: Yes (prostate) - Integumentary Hx Dermatological Disorder: No - Musculoskeletal/Rheumatological Hx Musculoskeletal Disorders: Yes Hx Falls: Yes Hx Unsteady Gait: Yes (CANE) - Gastrointestinal Hx Gastrointestinal Disorders: Yes (PANCREATITIS,PANCREATIC MASS,) Other/Comment: HERNIA REPAIR,HEMORRHOIDECTOMY - Genitourinary/Gynecological Hx Genitourinary Disorders: No - Psychiatric Hx Emotional Abuse: No Hx Physical Abuse: No Hx Substance Use: No - Past Surgical History Past Surgical History: Unable to Obtain - Surgical History Other/Comment: Abdominal Aortic Aneurysm repair - Anesthesia Hx Anesthesia Reactions: No Hx Malignant Hyperthermia: No - Suicidal Assessment Feels Threatened In Home Enviroment: No Family/Social History - Physician Review Nursing Documentation Reviewed: Yes Family/Social History: No Known Family HX Smoking Status: Never Smoked Hx Alcohol Use: No Hx Substance Use: No Hx Substance Use Treatment: No Allergies/Home Meds Allergies/Adverse Reactions: Allergies No Known Allergies Allergy (Verified 08/26/16 18:43) Home Medications: Home Meds Medication Instructions Recorded Confirmed Alfuzosin HCl [Uroxatral] 10 mg PO DAILY 05/03/15 08/26/16 Dutasteride 0.5 mg PO DAILY 06/02/15 08/26/16 GlipiZIDE [Glucotrol] 5 mg PO QAM 08/30/15 08/26/16 Cetirizine HCl [All Day Allergy] 10 mg PO DAILY 08/26/16 08/26/16 Diphenhydramine HCl [Wal-Dryl] 25 mg PO HS 08/26/16 08/26/16 Furosemide [Lasix] 20 mg PO DAILY 08/26/16 08/26/16 QUEtiapine [SEROquel] 50 mg PO BID 08/26/16 08/26/16 Review of Systems - Physician Review All systems were reviewed & negative as marked: Yes - Review of Systems Constitutional: absent: Fevers, Night Sweats Eyes: absent: Vision Changes ENT: absent: Hearing Changes Respiratory: absent: SOB, Cough Cardiovascular: absent: Chest Pain Gastrointestinal: absent: Abdominal Pain Genitourinary Male: absent: Dysuria, Frequency Musculoskeletal: Other (Bilateral LE swelling and right foot pain) Skin: absent: Rash Neurological: absent: Headache Endocrine: absent: Diaphoresis Hemo/Lymphatic: absent: Adenopathy Psychiatric: absent: Anxiety Physical Exam Vital Signs Reviewed: Yes Vital Signs Temp Pulse Resp BP Pulse Ox 04/30/17 16:04 75 18 132/69 96 04/30/17 12:16 98.5 F 80 18 134/72 95 Temperature: Afebrile Blood Pressure: Normal Pulse: Regular Respiratory Rate: Normal Appearance: Positive for: Well-Appearing, Non-Toxic, Comfortable Pain Distress: None Mental Status: Positive for: Alert and Oriented X 3 - Systems Exam Head: Present: Atraumatic, Normocephalic Pupils: Present: PERRL Extroacular Muscles: Present: EOMI Conjunctiva: Present: Normal Mouth: Present: Moist Mucous Membranes Neck: Present: Normal Range of Motion Respiratory/Chest: Present: Clear to Auscultation, Good Air Exchange. No: Respiratory Distress, Accessory Muscle Use Cardiovascular: Present: Regular Rate and Rhythm, Normal S1, S2. No: Murmurs Abdomen: Present: Normal Bowel Sounds. No: Tenderness, Distention, Peritoneal Signs Back: Present: Normal Inspection Upper Extremity: Present: Normal Inspection. No: Cyanosis, Edema Lower Extremity: Present: Edema (Bilateral LE edema), NORMAL PULSES, Tenderness (Tenderness from 2nd to 4th toes on right foot), Neurovascularly Intact, Other ( Bruising to right foot) Neurological: Present: GCS=15, CN II-XII Intact, Speech Normal Skin: Present: Warm, Dry, Normal Color. No: Rashes Psychiatric: Present: Alert, Oriented x 3, Normal Insight, Normal Concentration Medical Decision Making ED Course and Treatment: 04/30/17 12:38 Impression: 87 year old male complaining of swelling and discoloration to right ankle and foot Differential Diagnosis included but are not limited to: Plan: -- Chest X-ray -- Right Foot x-ray -- Labs -- Reassess and disposition Prior Visits: Notes and results from previous visits were reviewed. Patient was last seen in the emergency department on 08/26/16 for altered mental status. Patient was admitted to telemetry for further evaluation. Progress Notes: 04/30/17 13:51 EKG shows NSR at 81bpm with sinus arrhythmia, non-specific ST changes. Cxray consistent with chf. R foot shows "No evidence of acute fracture or dislocation. Diffuse osteopenia" BNP elevated. Lasix ordered. Will admit to PMD for new onset chf. - Lab Interpretations Lab Results: 04/30/17 13:00 04/30/17 13:00 Lab Results 04/30/17 13:00: Sodium 134, Potassium 3.9, Chloride 105, Carbon Dioxide 21, Anion Gap 13, BUN 23 H, Creatinine 1.4, Est GFR ( Amer) 58, Est GFR (Non- Af Amer) 48, Random Glucose 194 H, Calcium 8.0 L, Total Bilirubin 0.6, AST 26, ALT 31, Alkaline Phosphatase 238 H, Total Creatine Kinase 38, Troponin I 0.01, NT-Pro-B Natriuret Pep 2740 H, Total Protein 5.5 L, Albumin 2.6 L, Globulin 3.0 , Albumin/Globulin Ratio 0.9 L 04/30/17 13:00: WBC 6.6, RBC 3.30 L, Hgb 9.9 L, Hct 30.2 L, MCV 91.5, MCH 30.0, MCHC 32.8, RDW 14.1, Plt Count 196, MPV 12.1 H, Gran % 80.4 H, Lymph % (Auto) 8.2 L, Stark % (Auto) 10.7 H, Eos % (Auto) 0.5 L, Baso % (Auto) 0.2, Gran # 5.27 , Lymph # (Auto) 0.5 L, Stark # (Auto) 0.7 H, Eos # (Auto) 0.0, Baso # (Auto) 0.01 - RAD Interpretation Radiology Orders: 04/30/17 12:30 CHEST PORTABLE [RAD] Stat FOOT RIGHT 3 VIEWS ROUTINE [RAD] Stat - Medication Orders Current Medication Orders: Discontinued Medications Aspirin (Aspirin Chewable) 324 mg PO STAT STA Stop: 04/30/17 13:53 Furosemide (Lasix) 80 mg IVP STAT STA Stop: 04/30/17 13:53 - Scribe Statement The provider has reviewed the documentation as recorded by the Momo Ureña Provider Scribe Attestation: All medical record entries made by the Scribe were at my direction and personally dictated by me. I have reviewed the chart and agree that the record accurately reflects my personal performance of the history, physical exam, medical decision making, and the department course for this patient. I have also personally directed, reviewed, and agree with the discharge instructions and disposition. Disposition/Present on Arrival - Present on Arrival Any Indicators Present on Arrival: No History of DVT/PE: No History of Uncontrolled Diabetes: No Urinary Catheter: No History of Decub. Ulcer: No History Surgical Site Infection Following: None - Disposition Have Diagnosis and Disposition been Completed?: Yes Diagnosis: Lower extremity edema Disposition: HOSPITALIZED Disposition Time: 13:53 Patient Plan: Admission Patient Problems: Current Active Problems Problem Status Onset Lower extremity edema Acute Condition: FAIR
[2017-04-30 13:23] LABS: BASO # 0.01 K/mm3 (0.0-2.0); BASO % 0.2 % (0.0-3.0); EOS % 0.5 % (1.5-5.0); GRAN # 5.27 (1.4-6.5); GRAN % 80.4 % (50.0-68.0); HEMOGLOBIN 9.9 g/dL (14.0-18.0); LYMPH # 0.5 (1.2-3.4); LYMPH % 8.2 % (22.0-35.0); MEAN CELL VOLUME 91.5 fl (80.0-105.0); MEAN CORPUSCULAR HGB CONC 32.8 g/dl (31.0-37.0); MEAN PLATELET VOLUME 12.1 fl (7.0-11.0); MONO # 0.7 (0.1-0.6); MONO % 10.7 % (1.0-6.0); RBC 3.3 10^6/uL (3.5-6.1); RED CELL DISTRIBUTION WIDTH 14.1 % (11.5-14.5); WHITE BLOOD COUNT 6.6 10^3/ul (4.5-11.0)
[2017-04-30 13:27] LABS: ALB/GLOB RATIO 0.9 (1.1-1.8); ALBUMIN 2.6 g/dL (3.0-4.8)
[2017-04-30 13:39] LABS: TROPONIN I 0.01 ng/mL
--- NOTE | 2017-04-30 14:06 | RAD ---
HISTORY: lower extremity edema COMPARISON: 08/26/2016. FINDINGS: LUNGS: The lungs are well inflated. There is interstitial thickening in the lower lobes. No focal consolidation. PLEURA: No significant pleural effusion identified, no pneumothorax apparent. CARDIOVASCULAR: Normal. OSSEOUS STRUCTURES: No significant abnormalities. VISUALIZED UPPER ABDOMEN: Normal. OTHER FINDINGS: None. IMPRESSION: No active pulmonary disease. Suspect interstitial fibrosis in the lower lobes.
--- NOTE | 2017-04-30 15:15 | CARD ---
APPROVED REPORT EKG Measurement Heart [id number] <Conclusion> Sinus rhythm with APC's Left anterior fascicular block NSSTW changes
--- NOTE | 2017-04-30 16:52 | RAD ---
PROCEDURE: Right Foot Radiographs. HISTORY: R foot pain COMPARISON: None. FINDINGS: BONES: Diffuse osteopenia noted. No evidence of acute fracture JOINTS: Mild arthritic changes. SOFT TISSUES: Normal. OTHER FINDINGS: None. IMPRESSION: No evidence of acute fracture or dislocation. Diffuse osteopenia.
[2017-04-30] MEDS: Enoxaparin 30 mg Syringe SC SCH (17:34)
[2017-04-30] MEDS ORDERED: Potassium Chloride 20 mEq ER Tab PO ONE (19:00)
[2017-04-30] MEDS: Insulin Reg-LOW-Coverage SC SCH ×2 (22:33)
[2017-04-30 23:16] VITALS: BMI 18.0
[2017-04-30] MEDS ORDERED: Pneumococcal 23-Valent Vaccine IM ONE (23:16)
[2017-04-30] MEDS ORDERED: Influenza Vaccine 60 mcg/0.5 mL SYR (4YR UP) IM ONE (23:16)
--- NOTE | 2017-05-01 03:57 | CON ---
DATE: 04/30/2017 SERVICE: Cardiology. CONSULTING PHYSICIAN: Saji Ramirez MD REASON FOR CONSULTATION AND FOLLOWUP: Cardiac evaluation, history of swelling of leg for two months, rule out congestive heart failure. BRIEF CLINICAL HISTORY: This is an 87-year-old male with past medical history significant for diabetes, hypertension, hyperlipidemia, pancreatic mass, history of prostate cancer, history of trauma to the right leg, history of myocutaneous graft, who came in with something fell down on his leg for evaluation, complaining of pain, complaining of swelling in legs for 2 months. Denies any chest pain, shortness of breath or any palpitation. PAST MEDICAL HISTORY: Significant for diabetes, hypertension, hyperlipidemia, status post pancreatic mass, status post biopsy, history of prostate cancer. SOCIAL HISTORY: Ex-smoker, quit many years ago. Denies any history of substance abuse. Denies any history of alcohol abuse. FAMILY HISTORY: Noncontributory. CURRENT MEDICATIONS: Patient at home was taking Seroquel, Glucotrol, Lasix, diphenhydramine. ALLERGIES TO MEDICATIONS: ATORVASTATIN AND ASPIRIN. REVIEW OF SYSTEMS: As per HPI. PHYSICAL EXAMINATION: As follows; VITAL SIGNS: Temperature afebrile, heart rate 75, blood pressure 132/69. HEENT: PERRLA. Extraocular muscles are intact. NECK: Supple. No carotid bruit, no thyromegaly. CHEST: Clear to auscultation. HEART: S1, S2 regular. ABDOMEN: Soft. EXTREMITIES: Clubbing and cyanosis negative. LABORATORY DATA: Blood workup as follows; WBC 6.6, hemoglobin 9.9, hematocrit 30.2, platelet count 196. Chemistry shows sodium 134, potassium 3.9, chloride 105, carbon dioxide 21, anion gap of 13, BUN 23, creatinine 1.4. BNP 2740. CPK 38, troponin 0.01, albumin 2.6. EKG shows normal sinus, left anterior fascicular block. Patient had last echocardiography done on 08/26/2016 that showed normal LV thickness, systolic function is borderline, inferolateral hypokinesis, trace aortic regurgitation, RV systolic pressure 31, ejection fraction 50. IMPRESSION: Protein-calorie malnutrition - moderate, present on admission today; anemia, an 87-year-old male with past medical history significant for pancreatic mass, prostate cancer, hypertension, hyperlipidemia, no documented coronary artery disease, hard of hearing, came in with complaint of something fell down on leg and having chronic leg edema. Denies any chest pain. Echo is borderline. RECOMMENDATION: We will give gentle diuretics, DVT prophylaxis, monitor, and evaluation for pancreatic mass and prostate CA. Increase nutritional support. Elevated BNP, but clinically patient does not appear to have any CHF. Chest x-ray was borderline, does not look like any pulmonary edema, maybe mild right-sided congestion in rotated films. We will give gentle diuretics. DVT prophylaxis. We will follow up with you. Thank you for providing us the opportunity in taking care of the patient, Godwin Link. Saji Ramirez MD
[2017-05-01 07:17] LABS: BASO # 0.02 K/mm3 (0.0-2.0); BASO % 0.2 % (0.0-3.0); EOS # 0.1 (0.0-0.7); EOS % 1.5 % (1.5-5.0); GRAN # 6.49 (1.4-6.5); GRAN % 80.5 % (50.0-68.0); HEMOGLOBIN 10.3 g/dL (14.0-18.0); LYMPH # 0.8 (1.2-3.4); LYMPH % 9.5 % (22.0-35.0); MEAN CELL VOLUME 89.7 fl (80.0-105.0); MEAN CORPUSCULAR HEMOGLOBIN 29.4 pg (25.0-35.0); MEAN CORPUSCULAR HGB CONC 32.8 g/dl (31.0-37.0); MEAN PLATELET VOLUME 12.3 fl (7.0-11.0); MONO # 0.7 (0.1-0.6); MONO % 8.3 % (1.0-6.0); RBC 3.5 10^6/uL (3.5-6.1); RED CELL DISTRIBUTION WIDTH 14.4 % (11.5-14.5); WHITE BLOOD COUNT 8.1 10^3/ul (4.5-11.0)
[2017-05-01 07:40] LABS: B-TYPE NATRIURETIC PEPTIDE 2750 pg/mL (0-450)
[2017-05-01 08:03] LABS: ALB/GLOB RATIO 0.9 (1.1-1.8); ALBUMIN 2.5 g/dL (3.0-4.8); ALT/SGPT 30 U/L (7-56); AST/SGOT 28 U/L (17-59); BLOOD UREA NITROGEN 23 mg/dL (7-21); CALCIUM 8.4 mg/dL (8.4-10.5); GFR AFRICAN-AMERICAN > 60; GFR NON-AFRICAN AMERICAN 52; HDL CHOLESTEROL 36 mg/dL (29-60); LDL CHOLESTEROL < 30 mg/dL (0-129); MAGNESIUM 1.7 mg/dL (1.7-2.2)
[2017-05-01] MEDS: Insulin Reg-LOW-Coverage SC SCH ×8 (08:43→22:03)
[2017-05-01] MEDS ORDERED: ALFUZOSIN HCL 10 MG PO SCH (10:00)
[2017-05-01] MEDS ORDERED: DUTASTERIDE 0.5 MG PO SCH (10:00)
[2017-05-01] MEDS ORDERED: Potassium Chloride 20 mEq ER Tab PO SCH (10:00)
[2017-05-01] MEDS: Enoxaparin 30 mg Syringe SC SCH (11:13)
--- NOTE | 2017-05-01 13:50 | HP ---
CHIEF COMPLAINT: Right foot pain and right ankle pain. HISTORY OF PRESENT ILLNESS: Mr. Godwin Link is an 87-year-old, my private patient, with history of multiple medical problems, noncompliant, came to the Emergency Department complaining about swelling and discoloration of the right foot and ankle. Patient states that he dropped a luggage bag on his right foot two days ago and has swelling of both legs from two months ago. Patient denies any chest pain. No nausea, vomiting or diarrhea. No headache, no dizziness. No fever, no chills. No hematuria, no hematochezia. PAST MEDICAL HISTORY: History of AAA, hypertension, history of cerebrovascular accident, bilateral cataract surgery, hard of hearing on the right ear, diabetes mellitus type 2, prostate cancer, unsteady gait, pancreatic mass, history of , hernia repair, hemorrhoidectomy. FAMILY HISTORY: Father and mother noncontributory. HABITS: History of smoking, quit long time ago. Alcohol, no. Substance abuse, no. ALLERGIES: THE PATIENT IS NOT ALLERGIC WITH ANY MEDICATIONS. HOME MEDICATIONS: Glucotrol, Lasix, Seroquel. REVIEW OF SYSTEMS: Patient was seen and examined on the bedside in the emergency room, still having swelling of the leg and right foot and ankle painful. Denied fever and night sweats. No vision changes. No hearing changes. No coughing or shortness of breath. No chest pain. No abdominal pain. No dysuria, frequency. Bilateral swelling of the legs, right foot is tender. No rash. No headache, no diaphoresis. No adenopathy. No anxiety. PHYSICAL EXAMINATION: VITAL SIGNS: Temperature 98.5, pulse of 80, respiratory rate 18, blood pressure 135/72, pulse oximetry 95. HEENT: Head normocephalic and atraumatic. Eyes: PERRLA. Extraocular muscles intact. Conjunctivae clear. Nose patent. Mucous membranes moist. NECK: Supple. No carotid bruit, JVD, or thyromegaly. CHEST: Bilaterally symmetrical. HEART: S1 and S2 positive. LUNGS: Clear to auscultation. ABDOMEN: Soft. Bowel sounds present. No organomegaly. EXTREMITIES: Upper both extremities, no edema no cyanosis. Lower extremities, bilateral swelling of the leg. Tenderness from second to fourth toes on the right foot, discoloration, bruising to the right foot. NEUROLOGIC: The patient is awake and alert. Moving all four extremities. Obeying simple order. Cranial nerves II through XII was intact. LABORATORY DATA: White blood cell is 6.6, hemoglobin 9.9, hematocrit 30.2, platelet 196, sodium 135, potassium 3.9, BUN 26, creatinine 1.4, glucose 194. ASSESSMENT AND PLAN: Mr. Godwin Link is an 87-year-old male came with swelling of the leg, discoloration of the right ankle and foot, anemia, adrenal insufficiency, hyperglycemia. X-ray of the foot done showed no evidence of any acute fracture or dislocation, diffuse osteopenia. Chest x-ray is done showed no active pulmonary disease, suspect interstitial fibrosis in the lower lobes. Patient has history of abdominal aortic aneurysm; hypertension; noncompliant; history of cerebrovascular accident; bilateral cataract surgery; hard of hearing; diabetes mellitus type 2; history of prostate cancer; ataxia, using cane; history of multiple positive pancreatitis and pancreatic mass; history of hernia repair; hemorrhoidectomy; readmitted the patient. Would consult with Dr. gomez rule out congestive heart failure. Dr. gomez saw the patient, started on Lasix. Gastrointestinal and deep venous thrombosis prophylaxis. Repeat lab. We will do MRI of the right foot. We will follow up. Delmy Montana MD MTDD
--- NOTE | 2017-05-01 15:13 | MRI ---
MRI right foot History: Foot pain. Comparison: None available. Technique: Multi-echo multiplanar sequences were performed through the right foot without the use of intravenous contrast. Findings: Prominent circumferential reticulation and edema within the soft tissues most prominent at the dorsal aspect of the midfoot suggestive for possible underlying cellulitic changes. Relative failure of fat suppression at the level of the 1st through 5th phalanges including the proximal middle and distal phalanges, markedly limit evaluation at these levels. Signal abnormality noted at the level of the 1st distal phalanx with some patchy increased STIR signal. Additional prominent signal changes noted at the 1st IP joint space with decreased T1 signal and increased STIR signal. These findings are of uncertain clinical etiology and may be the sequelae of severe degenerative changes; however, acute infectious and or inflammatory changes such as acute osteomyelitic changes cannot entirely be excluded. Clinical correlation. Alternatively, correlation with a contrast-enhanced MRI or three-phase bone scan may be helpful for further evaluation if clinically indicated. Mild nonspecific reactive edema at the head of the 5th proximal phalanx. Mild nonspecific reactive edema at the base of the 2nd metatarsal bone. Mild hallux valgus deformity. Mild fraying with some increased signal seen at the level of the Lisfranc ligament which may represent a low grade sprain and or mild partial tear. Clinical correlation. 3 millimeter subchondral cyst formation and or intraosseous ganglion formation at the lateral aspect of the base of the middle cuneiform bone. Achilles tendon is preserved. Plantar fascia is preserved. 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 Trace ankle joint effusion. Degenerative changes at the dorsal aspect of the talonavicular joint space. Reticulation and edema seen within the volar musculature of the midfoot suggestive for muscle strain and or partial tearing. Clinical correlation. 4 x 5 millimeter focal area of signal abnormality seen at the medial aspect of the talar dome at the articular surface demonstrating increased STIR signal and decreased T1 signal suggestive for a small osteochondral lesion/abnormality. Fraying with increased signal seen within the deep fibers of the deltoid ligament suggestive for partial tearing and or high grade strain. Clinical correlation. Rounded ossific density seen distal to the medial malleolus suggestive for a small chronic avulsion fragment. Impression: 1. Prominent circumferential reticulation and edema within the soft tissues most prominent at the dorsal aspect of the midfoot suggestive for possible underlying cellulitic changes. Relative failure of fat suppression at the level of the 1st through 5th phalanges including the proximal middle and distal phalanges, markedly limit evaluation at these levels. 2. Signal abnormality noted at the level of the 1st distal phalanx with some patchy increased STIR signal. Additional prominent signal changes noted at the 1st IP joint space with decreased T1 signal and increased STIR signal. These findings are of uncertain clinical etiology and may be the sequelae of severe degenerative changes; however, acute infectious and or inflammatory changes such as acute osteomyelitic changes cannot entirely be excluded. Clinical correlation. Alternatively, correlation with a contrast-enhanced MRI or three-phase bone scan may be helpful for further evaluation if clinically indicated. 3. Mild nonspecific reactive edema at the head of the 5th proximal phalanx. Mild nonspecific reactive edema at the base of the 2nd metatarsal bone. 4. Mild hallux valgus deformity. 5. Mild fraying with some increased signal seen at the level of the Lisfranc ligament which may represent a low grade sprain and or mild partial tear. Clinical correlation. 6. 3 millimeter subchondral cyst formation and or intraosseous ganglion formation at the lateral aspect of the base of the middle cuneiform bone. 7. 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 8. Trace ankle joint effusion. 9. Degenerative changes at the dorsal aspect of the talonavicular joint space. 10. Reticulation and edema seen within the volar musculature of the midfoot suggestive for muscle strain and or partial tearing. Clinical correlation. 11. 4 x 5 millimeter focal area of signal abnormality seen at the medial aspect of the talar dome at the articular surface demonstrating increased STIR signal and decreased T1 signal suggestive for a small osteochondral lesion/abnormality. 12. Fraying with increased signal seen within the deep fibers of the deltoid ligament suggestive for partial tearing and or high grade strain. Clinical correlation. Rounded ossific density seen distal to the medial malleolus suggestive for a small chronic avulsion fragment.
--- NOTE | 2017-05-01 16:02 | CP.PCM.CON ---
<[facility] - Last Filed: 05/01/17 15:55> History of Present Illness - History of Present Illness History of Present Illness: Consult note - Dr. Boyle 87 year old male patient with PMHx of DM, HTN, CAD, AAA, pancreatic head mass was seen and evaluated at bedside for right foot pain. Patient reports that he dropped a heavy bag on his foot couple of days ago. Patient reports that his foot changed color after the traumatic injury. Patient states that he has little pain when he moves his foot. Patient reports that the pain is well tolerated. Patient denies of any prior treatment before coming to the hospital. Patient denies of any recent F/N/V/C/SOB/CP/headache/diarrhea. Patient denies of any other pedal complains at this time. Review of Systems - Constitutional Constitutional: As Per HPI Past Patient History - Infectious Disease Hx of Infectious Diseases: None - Past Medical History & Family History Past Medical History?: Yes - Past Social History Smoking Status: Former Smoker - CARDIAC Hx Cardiac Disorders: Yes (AAA repair ,cad) Hx Hypercholesterolemia: Yes Hx Hypertension: Yes - PULMONARY Hx Respiratory Disorders: Yes (SMOKED CIGARETTES QUIT 1998 ,SMOKED PPD) Hx Chronic Obstructive Pulmonary Disease (COPD): Yes - NEUROLOGICAL Hx Alzheimer's Disease: Yes HX Cerebrovascular Accident: Yes (slurred speech) Hx Dementia: Yes - HEENT Hx HEENT Problems: Yes (eyeglasses) Hx Cataracts: Yes (BILATERAL SURGERY) Other/Comment: 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 - RENAL Hx Chronic Kidney Disease: No - ENDOCRINE/METABOLIC Hx Diabetes Mellitus Type 2: Yes - HEMATOLOGICAL/ONCOLOGICAL Hx Cancer: Yes (prostate) - INTEGUMENTARY Hx Dermatological Problems: Yes Other/Comment: r ft swelling +2 pitting bruising redness - MUSCULOSKELETAL/RHEUMATOLOGICAL Hx Falls: Yes (past) - GASTROINTESTINAL Hx Gastrointestinal Disorders: Yes (PANCREATITIS,PANCREATIC MASS,) Hx Gall Bladder Disease: Yes (gallstones) Hx Pancreatitis: (pancreatic mass) Other/Comment: HERNIA REPAIR,HEMORRHOIDECTOMY, ercp and biliary stent and replacement, prostate bx - GENITOURINARY/GYNECOLOGICAL Hx Genitourinary Disorders: No Hx Prostate Problems: Yes (ca and bx) - PSYCHIATRIC Hx Substance Use: No - SURGICAL HISTORY Other/Comment: Abdominal Aortic Aneurysm repair, hemorrhoid sx, hernia sx - ANESTHESIA Hx Anesthesia Reactions: No Hx Malignant Hyperthermia: No Meds Allergies/Adverse Reactions: Allergies Allergy/AdvReac Type Severity Reaction Status Date / Time No Known Allergies Allergy Verified 08/26/16 18:43 - Medications Medications: Current Medications Aspirin (Aspirin Chewable) 81 mg PO DAILY [facility] Last Admin: 05/01/17 11:13 Dose: 81 mg Atorvastatin Calcium (Lipitor) 20 mg PO DIN [facility] Enoxaparin Sodium (Lovenox) 30 mg SC DAILY [facility] PRN Reason: Protocol Last Admin: 05/01/17 11:13 Dose: 30 mg Furosemide (Lasix) 40 mg IV DAILY [facility] Last Admin: 05/01/17 11:45 Dose: 40 mg Glipizide (Glucotrol) 5 mg PO QAM [facility] Last Admin: 05/01/17 11:12 Dose: 5 mg Insulin Human Regular (Humulin R Low) 0 units SC ACHS [facility] PRN Reason: Protocol Last Admin: 05/01/17 11:44 Dose: Not Given Insulin Human Regular (Humulin R Low) 0 units SC ACHS [facility] PRN Reason: Protocol Last Admin: 05/01/17 11:46 Dose: Not Given Loratadine (Claritin) 10 mg PO DAILY [facility] Last Admin: 05/01/17 11:12 Dose: 10 mg Non-Formulary Medication (Alfuzosin Hcl [Uroxatral]) 10 mg PO DAILY [facility] Non-Formulary Medication (Dutasteride [Dutasteride]) 0.5 mg PO DAILY [facility] Potassium Chloride (K-Dur 20 Meq Er Tab) 20 meq PO DAILY [facility] Last Admin: 05/01/17 11:12 Dose: 20 meq Quetiapine Fumarate (Seroquel) 50 mg PO BID [facility] Last Admin: 05/01/17 11:12 Dose: 50 mg Physical Exam - Constitutional Appears: Well, Non-toxic, No Acute Distress - Extremities Exam Extremities exam: Negative for: calf tenderness Additional comments: Bilateral LE exam: VASC: DP/PT pulses are palpable 2/4, Cap refill time: < 3 sec to all digits, Temp gradient: warm to cool from proximal to distal, mild non-pitting edema with ecchymotic changes noted on the dorsum of the right foot DERM: Ecchymotic changes to the dorsum of the right foot and digits, no open lesions, no clinical suspicion of active infection NEURO: Protective sensation grossly intact ORTHO: MMT: 5/5 in all 4 compartments during ROM, no pain during active or passive DF, PF, inversion or eversion, no pain during ROM at the MTPJ - Neurological Exam Neurological exam: Alert, Oriented x3 - Psychiatric Exam Psychiatric exam: Normal Affect, Normal Mood Results - Vital Signs Recent Vital Signs: Last Vital Signs Temp 98.5 F 05/01/17 06:00 Pulse 73 05/01/17 06:00 Resp 18 05/01/17 06:00 BP 130/59 L 05/01/17 11:45 Pulse Ox 96 05/01/17 00:01 - Labs Result Diagrams: 05/01/17 06:30 05/01/17 06:30 Labs: Laboratory Results - last 24 hr 04/30/17 05/01/17 05/01/17 22:32 06:30 06:30 WBC 8.1 D RBC 3.50 Hgb 10.3 L Hct 31.4 L MCV 89.7 MCH 29.4 MCHC 32.8 RDW 14.4 Plt Count 199 MPV 12.3 H Gran % 80.5 H Lymph % (Auto) 9.5 L [place] % (Auto) 8.3 H Eos % (Auto) 1.5 Baso % (Auto) 0.2 Gran # 6.49 Lymph # (Auto) 0.8 L [place] # (Auto) 0.7 H Eos # (Auto) 0.1 Baso # (Auto) 0.02 Sodium 138 Potassium 4.5 Chloride 107 Carbon Dioxide 25 Anion Gap 11 BUN 23 H Creatinine 1.3 Est GFR ( Amer) > 60 Est GFR (Non-Af Amer) 52 POC Glucose (mg/dL) 162 H Random Glucose 105 Hemoglobin A1c Calcium 8.4 Phosphorus 2.8 Magnesium 1.7 Total Bilirubin 0.6 AST 28 ALT 30 Alkaline Phosphatase 248 H NT-Pro-B Natriuret Pep 2750 H Total Protein 5.4 L Albumin 2.5 L Globulin 2.9 Albumin/Globulin Ratio 0.9 L Triglycerides 78 Cholesterol 78 L LDL Cholesterol Direct < 30 HDL Cholesterol 36 TSH 3rd Generation 05/01/17 05/01/17 05/01/17 06:30 06:30 07:26 WBC RBC Hgb Hct MCV MCH MCHC RDW Plt Count MPV Gran % Lymph % (Auto) [place] % (Auto) Eos % (Auto) Baso % (Auto) Gran # Lymph # (Auto) [place] # (Auto) Eos # (Auto) Baso # (Auto) Sodium Potassium Chloride Carbon Dioxide Anion Gap BUN Creatinine Est GFR ( Amer) Est GFR (Non-Af Amer) POC Glucose (mg/dL) 92 Random Glucose Hemoglobin A1c 7.0 H D Calcium Phosphorus Magnesium Total Bilirubin AST ALT Alkaline Phosphatase NT-Pro-B Natriuret Pep Total Protein Albumin Globulin Albumin/Globulin Ratio Triglycerides Cholesterol LDL Cholesterol Direct HDL Cholesterol TSH 3rd Generation 0.86 05/01/17 11:38 WBC RBC Hgb Hct MCV MCH MCHC RDW Plt Count MPV Gran % Lymph % (Auto) [place] % (Auto) Eos % (Auto) Baso % (Auto) Gran # Lymph # (Auto) [place] # (Auto) Eos # (Auto) Baso # (Auto) Sodium Potassium Chloride Carbon Dioxide Anion Gap BUN Creatinine Est GFR ( Amer) Est GFR (Non-Af Amer) POC Glucose (mg/dL) 159 H Random Glucose Hemoglobin A1c Calcium Phosphorus Magnesium Total Bilirubin AST ALT Alkaline Phosphatase NT-Pro-B Natriuret Pep Total Protein Albumin Globulin Albumin/Globulin Ratio Triglycerides Cholesterol LDL Cholesterol Direct HDL Cholesterol TSH 3rd Generation Assessment & Plan - Assessment and Plan (Free Text) Assessment: 87 year old male patient with PMHx of DM, HTN, CAD, AAA, pancreatic head mass was evaluated for right foot pain secondary to contusion from a traumatic event Plan: Patient seen and evaluated with attending Dr. Boyle Labs, vitals and charts reviewed - afebrile X-rays and the MRI of the Right foot reviewed - No acute fractures, dislocations noted on the X-ray. Increase in signal intensity on the dorsum of the foot secondary to edema from a traumatic event. Increase in signal intensity on T2 image at the level of lisfranc's joint but clinically no symptoms present. Pain management as per primary CHASITY bandage applied to the right foot and ankle Surgical shoe ordered - patient to weight bear as tolerated in a surgical shoe Patient is stable from podiatry standpoint Thank you for the interesting consult - Date & Time Date: 05/01/17 Time: 16:17 <Nicoal Boyle - Last Filed: 05/02/17 14:20> Meds - Medications Medications: Current Medications Aspirin (Aspirin Chewable) 81 mg PO DAILY [facility] Last Admin: 05/02/17 13:06 Dose: 81 mg Atorvastatin Calcium (Lipitor) 20 mg PO DIN [facility] Last Admin: 05/01/17 17:26 Dose: 20 mg Enoxaparin Sodium (Lovenox) 30 mg SC DAILY [facility] PRN Reason: Protocol Last Admin: 05/02/17 13:06 Dose: 30 mg Furosemide (Lasix) 40 mg IV DAILY [facility] Last Admin: 05/02/17 13:07 Dose: 40 mg Glipizide (Glucotrol) 5 mg PO QAM [facility] Last Admin: 05/02/17 13:05 Dose: 5 mg Insulin Human Regular (Humulin R Low) 0 units SC [facility] PRN Reason: Protocol Last Admin: 05/02/17 08:51 Dose: Not Given Insulin Human Regular (Humulin R Low) 0 units SC [facility] PRN Reason: Protocol Last Admin: 05/02/17 08:53 Dose: Not Given Loratadine (Claritin) 10 mg PO DAILY [facility] Last Admin: 05/02/17 13:06 Dose: 10 mg Non-Formulary Medication (Alfuzosin Hcl [Uroxatral]) 10 mg PO DAILY [facility] Last Admin: 05/02/17 13:09 Dose: 10 mg Non-Formulary Medication (Dutasteride [Dutasteride]) 0.5 mg PO DAILY [facility] Last Admin: 05/02/17 13:09 Dose: 0.5 mg Quetiapine Fumarate (Seroquel) 50 mg PO BID [facility] Last Admin: 05/02/17 13:06 Dose: 50 mg Results - Vital Signs Recent Vital Signs: Last Vital Signs Temp 97.8 F 05/02/17 06:00 Pulse 74 05/02/17 06:00 Resp 19 05/02/17 06:00 BP 105/60 05/02/17 13:07 Pulse Ox 100 05/02/17 06:00 - Labs Result Diagrams: 05/02/17 06:00 05/02/17 06:00 Labs: Laboratory Results - last 24 hr 05/01/17 05/02/17 05/02/17 22:02 06:00 06:00 WBC 8.7 RBC 3.60 Hgb 10.7 L Hct 33.1 L MCV 91.9 MCH 29.7 MCHC 32.3 RDW 14.5 Plt Count 220 MPV 12.6 H Gran % 75.3 H Lymph % (Auto) 11.4 L [place] % (Auto) 11.3 H Eos % (Auto) 1.8 Baso % (Auto) 0.2 Gran # 6.53 H Lymph # (Auto) 1.0 L [place] # (Auto) 1.0 H Eos # (Auto) 0.2 Baso # (Auto) 0.02 Sodium 140 Potassium 5.3 H Chloride 105 Carbon Dioxide 30 Anion Gap 10 BUN 26 H Creatinine 1.4 Est GFR ( Amer) 58 Est GFR (Non-Af Amer) 48 POC Glucose (mg/dL) 203 H Random Glucose 77 Calcium 8.6 05/02/17 05/02/17 07:20 10:56 WBC RBC Hgb Hct MCV MCH MCHC RDW Plt Count MPV Gran % Lymph % (Auto) [place] % (Auto) Eos % (Auto) Baso % (Auto) Gran # Lymph # (Auto) [place] # (Auto) Eos # (Auto) Baso # (Auto) Sodium Potassium Chloride Carbon Dioxide Anion Gap BUN Creatinine Est GFR ( Amer) Est GFR (Non-Af Amer) POC Glucose (mg/dL) 112 H 144 H Random Glucose Calcium Attending/Attestation - Attestation I have personally seen and examined this patient.: Yes I have fully participated in the care of the patient.: Yes I have reviewed all pertinent clinical information: Yes
--- NOTE | 2017-05-01 17:22 | PN ---
DATE: SUBJECTIVE: The patient is 87-year-old male. The patient seen and examined at the bedside, looking comfortable. No nausea, vomiting or diarrhea. No hematuria or hematochezia. No headache. No dizziness. No chest pain or palpitations. No fever. No chills. Legs are still swollen. Went for MRI of the foot, seen by the surveillance system monitor. PHYSICAL EXAMINATION: VITAL SIGNS: Temperature 98.5, pulse 76, blood pressure 117/54, respiratory rate 18. HEENT: Head normocephalic, atraumatic. Eyes PERRLA. Extraocular muscles intact. Conjunctivae clear. Nose patent. Mucous membranes moist. NECK: Supple. No carotid bruit. No JVD or thyromegaly. CHEST: Bilaterally symmetrical. HEART: S1 and S2 positive. LUNGS: Clear to auscultation. ABDOMEN: Soft. Bowel sounds positive. No organomegaly. EXTREMITIES: Positive edema of both extremities. Right foot has discoloration and is tender. MEDICATIONS: Aspirin, Benadryl, Claritin, Glucotrol, insulin, potassium, Lasix, Lipitor, Lovenox, Seroquel. LABORATORY DATA: White blood cell 8.2, hemoglobin 10.3, hematocrit 31.4, platelets 199. Sodium 138, potassium 4.5, BUN 23, creatinine 1.3, alkaline phosphatase 248. ASSESSMENT AND PLAN: Mr. Godwin Link is an 87-year-old male with anemia, dehydration, hyperglycemia, congestive heart failure, went for MRI of the foot, the results are pending. protein-calorie malnutrition, history of pancreatic mass, prostate cancer, hypertension, hypercholesterolemia, coronary artery disease, hard of hearing, history of fall, Increase nutritional support. Gastrointestinal and deep venous thrombosis prophylaxis. Repeat labs. We will follow. Delmy Montana MD MTDSamara
--- NOTE | 2017-05-01 17:57 | PN ---
DATE: CONSULTING PHYSICIAN: Saji Ramirez MD REASON FOR CONSULTATION AND FOLLOWUP: Cardiac evaluation, history of swelling of the leg for two months, rule out congestive heart failure. SUBJECTIVE: Patient denies any chest pain, shortness of breath or any palpitation. OBJECTIVE: GENERAL: Not in apparent distress. VITAL SIGNS: Examination as follows; temperature afebrile, heart rate 70, blood pressure , respiratory rate is 18. HEENT: PERRLA intact. NECK: Supple. No carotid bruit, no thyromegaly. CHEST: Clear to auscultation. HEART: S1, S2 regular. ABDOMEN: Soft. EXTREMITIES: Clubbing and cyanosis negative. LABORATORY DATA: Blood workup as follows; WBC 8.1, hemoglobin 10.2, hematocrit 31.4, platelet count 199. Chemistry showed sodium 130, potassium 4.5, chloride 107, carbon dioxide 25, anion gap of 11, BUN 23, creatinine 1.3. IMPRESSION: An 87-year-old male with past medical history significant for leg injury, status post myocutaneous graft, history of hypertension, hyperlipidemia, status post pancreatic mass, status post biopsy, history of prostate cancer, admitted with two months history of swelling of the legs after something fell on the leg. Denies any chest pain, shortness of breath or any palpitation. Patient's echocardiogram on 08/26/2016 showed normal left ventricular thickness, systolic function is borderline, right ventricular systolic pressure 31, ejection fraction 50% PLAN: Recommended to continue DVT prophylaxis, Needs workup for prostate, he also has pancreatic mass. Continue DVT prophylaxis. Continue aspirin, atorvastatin and Lasix. Patient is going for MRI for the foot. We will follow with you. So far no evidence of acute [place]. Continue gentle diuretics. We will followup with you. We will discontinue . Thank you Dr. Montana for providing us the opportunity in taking care of the patient, Godwin Link. Saji Ramirez MD
[2017-05-02 06:39] LABS: BASO # 0.02 K/mm3 (0.0-2.0); BASO % 0.2 % (0.0-3.0); EOS # 0.2 (0.0-0.7); EOS % 1.8 % (1.5-5.0); GRAN # 6.53 (1.4-6.5); GRAN % 75.3 % (50.0-68.0); HEMOGLOBIN 10.7 g/dL (14.0-18.0); LYMPH % 11.4 % (22.0-35.0); MEAN CELL VOLUME 91.9 fl (80.0-105.0); MEAN CORPUSCULAR HEMOGLOBIN 29.7 pg (25.0-35.0); MEAN CORPUSCULAR HGB CONC 32.3 g/dl (31.0-37.0); MEAN PLATELET VOLUME 12.6 fl (7.0-11.0); MONO % 11.3 % (1.0-6.0); RBC 3.6 10^6/uL (3.5-6.1); RED CELL DISTRIBUTION WIDTH 14.5 % (11.5-14.5); WHITE BLOOD COUNT 8.7 10^3/ul (4.5-11.0)
[2017-05-02 07:01] LABS: CALCIUM 8.6 mg/dL (8.4-10.5)
[2017-05-02] MEDS: Insulin Reg-LOW-Coverage SC SCH ×8 (08:51→22:10)
[2017-05-02] MEDS: Enoxaparin 30 mg Syringe SC SCH (13:06)
[2017-05-02] MEDS: ALFUZOSIN HCL 10 MG PO SCH (13:09)
[2017-05-02] MEDS: DUTASTERIDE 0.5 MG PO SCH (13:09)
--- NOTE | 2017-05-02 13:13 | PN ---
DATE: REASON FOR CONSULTATION AND FOLLOWUP: Cardiac evaluation; history of swelling of the leg, two months; rule out congestive heart failure; status post trauma to the right foot. SUBJECTIVE: Patient denies any chest pain, shortness of breath or any palpitation. OBJECTIVE GENERAL: Not in apparent distress. VITAL SIGNS: Temperature afebrile, heart rate 72, blood pressure 105/60. HEENT: PERRLA. Extraocular muscles intact. NECK: Supple. No carotid bruit or thyromegaly. CHEST: Clear to auscultation. HEART: S1, S2 regular. ABDOMEN: Soft. EXTREMITIES: Clubbing and cyanosis negative. LABORATORY DATA: Blood workup as follows; Thank you Dr. Montana for providing us the opportunity in taking care of the patient, Godwin Link. Saji Ramirez MD
--- NOTE | 2017-05-02 13:15 | CP.PCM.PN ---
<Azul Hamm - Last Filed: 05/02/17 13:12> Subjective - Date & Time of Evaluation Date of Evaluation: 05/02/17 Time of Evaluation: 13:12 - Subjective Subjective: 87 year old male patient with PMHx of DM, HTN, CAD, AAA, pancreatic head mass was seen and evaluated at bedside for right foot pain. Patient is AAOx3 and is in NAD. Patient is seen while eating his lunch. Patient reports that he does not have any pain to the right foot or leg. Patient states that he has very minimal pain if someone moves the foot but is not concerned about that. Patient denies of having acute overnight events. Patient denies of any new pedal complains at this time. Objective - Vital Signs/Intake and Output Vital Signs (last 24 hours): Temp Pulse Resp BP Pulse Ox 97.8 F 74 19 105/60 100 05/02/17 06:00 05/02/17 06:00 05/02/17 06:00 05/02/17 06:00 05/02/17 06:00 Intake and Output: 05/02/17 05/02/17 06:59 18:59 Intake Total 240 Output Total 700 Balance -460 - Medications Medications: Current Medications Aspirin (Aspirin Chewable) 81 mg PO DAILY [facility] Last Admin: 05/01/17 11:13 Dose: 81 mg Atorvastatin Calcium (Lipitor) 20 mg PO DIN [facility] Last Admin: 05/01/17 17:26 Dose: 20 mg Enoxaparin Sodium (Lovenox) 30 mg SC DAILY [facility] PRN Reason: Protocol Last Admin: 05/01/17 11:13 Dose: 30 mg Furosemide (Lasix) 40 mg IV DAILY [facility] Last Admin: 05/01/17 11:45 Dose: 40 mg Glipizide (Glucotrol) 5 mg PO QAM [facility] Last Admin: 05/01/17 11:12 Dose: 5 mg Insulin Human Regular (Humulin R Low) [address] [facility] PRN Reason: Protocol Last Admin: 05/02/17 08:51 Dose: Not Given Insulin Human Regular (Humulin R Low) 0 units SC ACHS [facility] PRN Reason: Protocol Last Admin: 05/02/17 08:53 Dose: Not Given Loratadine (Claritin) 10 mg PO DAILY [facility] Last Admin: 05/01/17 11:12 Dose: 10 mg Non-Formulary Medication (Alfuzosin Hcl [Uroxatral]) 10 mg PO DAILY [facility] Non-Formulary Medication (Dutasteride [Dutasteride]) 0.5 mg PO DAILY [facility] Quetiapine Fumarate (Seroquel) 50 mg PO BID [facility] Last Admin: 05/01/17 21:58 Dose: 50 mg - Labs Labs: 05/02/17 06:00 05/02/17 06:00 - Constitutional Appears: Well, Non-toxic, No Acute Distress - Extremities Exam Extremities Exam: Full ROM, Normal Capillary Refill, Pedal Edema. absent: Calf Tenderness, Tenderness Additional comments: Bilateral LE exam: VASC: DP/PT pulses are palpable 2/4, Cap refill time: < 3 sec to all digits, Temp gradient: warm to cool from proximal to distal, mild non-pitting edema with ecchymotic changes noted on the dorsum of the right foot DERM: Ecchymotic changes to the dorsum of the right foot and digits, no open lesions, no clinical suspicion of active infection NEURO: Protective sensation grossly intact ORTHO: MMT: 5/5 in all 4 compartments during ROM, no pain during active or passive DF, PF, inversion or eversion, no pain during ROM at the MTPJ - Neurological Exam Neurological Exam: Alert, Awake, Oriented x3 - Psychiatric Exam Psychiatric exam: Normal Affect, Normal Mood Assessment and Plan - Assessment and Plan (Free Text) Assessment: 87 year old male patient with PMHx of DM, HTN, CAD, AAA, pancreatic head mass was evaluated for right foot pain secondary to contusion from a traumatic event Plan: Patient seen and evaluated with attending Dr. Mccann Labs, vitals and charts reviewed - afebrile X-rays and the MRI of the Right foot reviewed - No acute fractures, dislocations noted on the X-ray. Increase in signal intensity on the dorsum of the foot secondary to edema from a traumatic event. Increase in signal intensity on T2 image at the level of lisfranc's joint but clinically no symptoms present. Pain management as per primary CHASITY bandage applied to the right foot and ankle Surgical shoe - patient to weight bear as tolerated in a surgical shoe Patient is stable from podiatry standpoint -please re-consult as needed <Carla Mccann - Last Filed: 05/06/17 15:29> Objective - Vital Signs/Intake and Output Vital Signs (last 24 hours): Temp Pulse Resp BP Pulse Ox 98.2 F 68 18 120/70 95 05/06/17 12:00 05/06/17 12:00 05/06/17 12:00 05/06/17 12:00 05/05/17 12:00 Intake and Output: 05/06/17 05/06/17 06:59 18:59 Intake Total 960 Output Total 2075 Balance -1115 - Medications Medications: Current Medications Aspirin (Aspirin Chewable) 81 mg PO DAILY [facility] Last Admin: 05/06/17 09:20 Dose: 81 mg Atorvastatin Calcium (Lipitor) 20 mg PO DIN [facility] Last Admin: 05/05/17 17:46 Dose: 20 mg Enoxaparin Sodium (Lovenox) 30 mg SC DAILY [facility] PRN Reason: Protocol Last Admin: 05/06/17 09:18 Dose: 30 mg Furosemide (Lasix) 40 mg IV DAILY [facility] Last Admin: 05/06/17 09:14 Dose: 40 mg Glipizide (Glucotrol) 5 mg PO QAM [facility] Last Admin: 05/06/17 09:20 Dose: 5 mg Insulin Human Regular (Humulin R Low) 0 units SC ACHS [facility] PRN Reason: Protocol Last Admin: 05/06/17 12:28 Dose: 1 units Loratadine (Claritin) 10 mg PO DAILY [facility] Last Admin: 05/06/17 09:20 Dose: 10 mg Non-Formulary Medication (Alfuzosin Hcl [Uroxatral]) 10 mg PO DAILY [facility] Last Admin: 05/06/17 09:21 Dose: 10 mg Non-Formulary Medication (Dutasteride [Dutasteride]) 0.5 mg PO DAILY [facility] Last Admin: 05/06/17 09:22 Dose: 0.5 mg Quetiapine Fumarate (Seroquel) 50 mg PO BID [facility] Last Admin: 05/06/17 09:19 Dose: 50 mg - Labs Labs: 05/06/17 06:45 05/06/17 06:45 Attending/Attestation - Attestation I have personally seen and examined this patient.: Yes I have fully participated in the care of the patient.: Yes I have reviewed all pertinent clinical information, including history, physical exam and plan: Yes
--- NOTE | 2017-05-02 13:42 | CP.PCM.CON ---
<Stephen Saenz - Last Filed: 05/02/17 14:13> History of Present Illness - History of Present Illness History of Present Illness: GI Consult Note for Dr. 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 He had previously been [place] [facility]undice secondary to a pancreatic mass with biliary obstruction s/p ERCP with stent placement. He previously had 2 FNA biopsies of the pancreatic mass which were non-diagnostic. Pancreatic protocol CT from 08/02/15 revealed a 2.2cm pancreatic head mass with biliary and pancreatic duct dilatation. GI consulted for further evaluation/management of pancreatic head mass. Presently, he denied abdominal pain, nausea, vomiting, melena, hematochezia, jaundice, pruritis. 12point ROS as per HPI above otherwise negative PMH: as stated above PSHx: ERCP with metallic stent placement Allergies: NKDA Social Hx: Former tobacco and alcohol use Family Hx: No reported family history of pancreatic cancer Past Patient History - Infectious Disease Hx of Infectious Diseases: None - Past Medical History & Family History Past Medical History?: Yes - Past Social History Smoking Status: Former Smoker - CARDIAC Hx Cardiac Disorders: Yes (AAA repair ,cad) Hx Hypercholesterolemia: Yes Hx Hypertension: Yes - PULMONARY Hx Respiratory Disorders: Yes (SMOKED CIGARETTES QUIT 1998 ,SMOKED PPD) Hx Chronic Obstructive Pulmonary Disease (COPD): Yes - NEUROLOGICAL Hx Alzheimer's Disease: Yes HX Cerebrovascular Accident: Yes (slurred speech) Hx Dementia: Yes - HEENT Hx HEENT Problems: Yes (eyeglasses) Hx Cataracts: Yes (BILATERAL SURGERY) Other/Comment: 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 - RENAL Hx Chronic Kidney Disease: No - ENDOCRINE/METABOLIC Hx Diabetes Mellitus Type 2: Yes - HEMATOLOGICAL/ONCOLOGICAL Hx Cancer: Yes (prostate) - INTEGUMENTARY Hx Dermatological Problems: Yes Other/Comment: r ft swelling +2 pitting bruising redness - MUSCULOSKELETAL/RHEUMATOLOGICAL Hx Falls: Yes (past) - GASTROINTESTINAL Hx Gastrointestinal Disorders: Yes (PANCREATITIS,PANCREATIC MASS,) Hx Gall Bladder Disease: Yes (gallstones) Hx Pancreatitis: (pancreatic mass) Other/Comment: HERNIA REPAIR,HEMORRHOIDECTOMY, ercp and biliary stent and replacement, prostate bx - GENITOURINARY/GYNECOLOGICAL Hx Genitourinary Disorders: No Hx Prostate Problems: Yes (ca and bx) - PSYCHIATRIC Hx Substance Use: No - SURGICAL HISTORY Other/Comment: Abdominal Aortic Aneurysm repair, hemorrhoid sx, hernia sx - ANESTHESIA Hx Anesthesia Reactions: No Hx Malignant Hyperthermia: No Meds Allergies/Adverse Reactions: Allergies Allergy/AdvReac Type Severity Reaction Status Date / Time No Known Allergies Allergy Verified 08/26/16 18:43 - Medications Medications: Current Medications Aspirin (Aspirin Chewable) 81 mg PO DAILY [facility] Last Admin: 05/02/17 13:06 Dose: 81 mg Atorvastatin Calcium (Lipitor) 20 mg PO DIN [facility] Last Admin: 05/01/17 17:26 Dose: 20 mg Enoxaparin Sodium (Lovenox) 30 mg SC DAILY [facility] PRN Reason: Protocol Last Admin: 05/02/17 13:06 Dose: 30 mg Furosemide (Lasix) 40 mg IV DAILY [facility] Last Admin: 05/02/17 13:07 Dose: 40 mg Glipizide (Glucotrol) 5 mg PO QAM [facility] Last Admin: 05/02/17 13:05 Dose: 5 mg Insulin Human Regular (Humulin R Low) 0 units SC [facility] PRN Reason: Protocol Last Admin: 05/02/17 08:51 Dose: Not Given Insulin Human Regular (Humulin R Low) 0 units SC [facility] PRN Reason: Protocol Last Admin: 05/02/17 08:53 Dose: Not Given Loratadine (Claritin) 10 mg PO DAILY [facility] Last Admin: 05/02/17 13:06 Dose: 10 mg Non-Formulary Medication (Alfuzosin Hcl [Uroxatral]) 10 mg PO DAILY [facility] Last Admin: 05/02/17 13:09 Dose: 10 mg Non-Formulary Medication (Dutasteride [Dutasteride]) 0.5 mg PO DAILY [facility] Last Admin: 05/02/17 13:09 Dose: 0.5 mg Quetiapine Fumarate (Seroquel) 50 mg PO BID [facility] Last Admin: 05/02/17 13:06 Dose: 50 mg Physical Exam - Constitutional Appears: No Acute Distress - Head Exam Head Exam: ATRAUMATIC, NORMOCEPHALIC - Eye Exam Eye Exam: EOMI - ENT Exam ENT Exam: Mucous Membranes Moist - Neck Exam Neck exam: Positive for: Normal Inspection - Respiratory Exam Respiratory Exam: absent: Rales, Rhonchi, Wheezes - Cardiovascular Exam Cardiovascular Exam: +S1, +S2. absent: Gallop, Rubs - GI/Abdominal Exam GI & Abdominal Exam: Soft. absent: Distended, Firm, Guarding, Rigid, Tenderness - Neurological Exam Neurological exam: Alert, CN II-XII Intact, Oriented x3 - Psychiatric Exam Psychiatric exam: Normal Affect, Normal Mood - Skin Skin Exam: Dry, Intact, Normal Color, Warm Results - Vital Signs Recent Vital Signs: Last Vital Signs Temp 97.8 F 05/02/17 06:00 Pulse 74 05/02/17 06:00 Resp 19 05/02/17 06:00 BP 105/60 05/02/17 13:07 Pulse Ox 100 05/02/17 06:00 - Labs Result Diagrams: 05/02/17 06:00 05/02/17 06:00 Labs: Laboratory Results - last 24 hr 05/01/17 05/02/17 05/02/17 22:02 06:00 06:00 WBC 8.7 RBC 3.60 Hgb 10.7 L Hct 33.1 L MCV 91.9 MCH 29.7 MCHC 32.3 RDW 14.5 Plt Count 220 MPV 12.6 H Gran % 75.3 H Lymph % (Auto) 11.4 L [place] % (Auto) 11.3 H Eos % (Auto) 1.8 Baso % (Auto) 0.2 Gran # 6.53 H Lymph # (Auto) 1.0 L [place] # (Auto) 1.0 H Eos # (Auto) 0.2 Baso # (Auto) 0.02 Sodium 140 Potassium 5.3 H Chloride 105 Carbon Dioxide 30 Anion Gap 10 BUN 26 H Creatinine 1.4 Est GFR ( Amer) 58 Est GFR (Non-Af Amer) 48 POC Glucose (mg/dL) 203 H Random Glucose 77 Calcium 8.6 05/02/17 05/02/17 07:20 10:56 WBC RBC Hgb Hct MCV MCH MCHC RDW Plt Count MPV Gran % Lymph % (Auto) [place] % (Auto) Eos % (Auto) Baso % (Auto) Gran # Lymph # (Auto) [place] # (Auto) Eos # (Auto) Baso # (Auto) Sodium Potassium Chloride Carbon Dioxide Anion Gap BUN Creatinine Est GFR ( Amer) Est GFR (Non-Af Amer) POC Glucose (mg/dL) 112 H 144 H Random Glucose Calcium Assessment & Plan - Assessment and Plan (Free Text) Plan: 85yo male with history of DM, HTN, CAD, AAA, pancreatic head mass s/p EUS with FNA negative for malignancy and ERCP with metallic stent placement. GI consulted for evaluation of pancreatic mass. 1. Pancreatic mass 2. Hx of Biliary obstruction s/p metallic stent placement 3. Hx of Indeterminate biliary stricture Plan: -Pancreatic protocol CT pending -ERCP on 08/31/15 revealed malignant appearing distal common bile duct stricture and one covered metal stent was placed into the common bile duct -Biopsy of bile duct and FNA of mass was negative for malignancy -Continue diet as tolerated Patient seen and case discussed/reviewed with attending, Dr. Ventura <[facility] - Last Filed: 05/02/17 14:50> Meds - Medications Medications: Current Medications Aspirin (Aspirin Chewable) 81 mg PO DAILY [facility] Last Admin: 05/02/17 13:06 Dose: 81 mg Atorvastatin Calcium (Lipitor) 20 mg PO DIN [facility] Last Admin: 05/01/17 17:26 Dose: 20 mg Enoxaparin Sodium (Lovenox) 30 mg SC DAILY [facility] PRN Reason: Protocol Last Admin: 05/02/17 13:06 Dose: 30 mg Furosemide (Lasix) 40 mg IV DAILY [facility] Last Admin: 05/02/17 13:07 Dose: 40 mg Glipizide (Glucotrol) 5 mg PO QAM [facility] Last Admin: 05/02/17 13:05 Dose: 5 mg Insulin Human Regular (Humulin R Low) 0 units SC [facility] PRN Reason: Protocol Last Admin: 05/02/17 11:30 Dose: Not Given Insulin Human Regular (Humulin R Low) 0 units SC [facility] PRN Reason: Protocol Last Admin: 05/02/17 14:44 Dose: Not Given Loratadine (Claritin) 10 mg PO DAILY [facility] Last Admin: 05/02/17 13:06 Dose: 10 mg Non-Formulary Medication (Alfuzosin Hcl [Uroxatral]) 10 mg PO DAILY [facility] Last Admin: 05/02/17 13:09 Dose: 10 mg Non-Formulary Medication (Dutasteride [Dutasteride]) 0.5 mg PO DAILY [facility] Last Admin: 05/02/17 13:09 Dose: 0.5 mg Quetiapine Fumarate (Seroquel) 50 mg PO BID [facility] Last Admin: 05/02/17 13:06 Dose: 50 mg Results - Vital Signs Recent Vital Signs: Last Vital Signs Temp 97.8 F 05/02/17 06:00 Pulse 74 05/02/17 06:00 Resp 19 05/02/17 06:00 BP 105/60 05/02/17 13:07 Pulse Ox 100 05/02/17 06:00 - Labs Result Diagrams: 05/02/17 06:00 05/02/17 06:00 Labs: Laboratory Results - last 24 hr 05/01/17 05/02/17 05/02/17 22:02 06:00 06:00 WBC 8.7 RBC 3.60 Hgb 10.7 L Hct 33.1 L MCV 91.9 MCH 29.7 MCHC 32.3 RDW 14.5 Plt Count 220 MPV 12.6 H Gran % 75.3 H Lymph % (Auto) 11.4 L [place] % (Auto) 11.3 H Eos % (Auto) 1.8 Baso % (Auto) 0.2 Gran # 6.53 H Lymph # (Auto) 1.0 L [place] # (Auto) 1.0 H Eos # (Auto) 0.2 Baso # (Auto) 0.02 Sodium 140 Potassium 5.3 H Chloride 105 Carbon Dioxide 30 Anion Gap 10 BUN 26 H Creatinine 1.4 Est GFR ( Amer) 58 Est GFR (Non-Af Amer) 48 POC Glucose (mg/dL) 203 H Random Glucose 77 Calcium 8.6 05/02/17 05/02/17 07:20 10:56 WBC RBC Hgb Hct MCV MCH MCHC RDW Plt Count MPV Gran % Lymph % (Auto) [place] % (Auto) Eos % (Auto) Baso % (Auto) Gran # Lymph # (Auto) [place] # (Auto) Eos # (Auto) Baso # (Auto) Sodium Potassium Chloride Carbon Dioxide Anion Gap BUN Creatinine Est GFR ( Amer) Est GFR (Non-Af Amer) POC Glucose (mg/dL) 112 H 144 H Random Glucose Calcium Attending/Attestation - Attestation I have personally seen and examined this patient.: Yes I have fully participated in the care of the patient.: Yes I have reviewed all pertinent clinical information: Yes Notes (Text): 05/02/17 14:45 Patient seen earlier today with durable medical equipment technician. This is a 85 year old male admitted with injury to his foot, with history of DM, HTN, CAD, AAA, pancreatic head mass s/p EUS with FNA negative for malignancy and ERCP with metallic stent placement in bile duct stricture. GI consulted for evaluation of pancreatic mass. Will get pancreatic protocol CT to assess peritoneum and pancreas. LFt normal. No abdominal pain. Biliary stricture with negative biopsies in the past. PE- with soft abdomen, non tender, no fluid thrill. Will follow up plan after CT liver
--- NOTE | 2017-05-02 15:16 | CT ---
PROCEDURE: CT Abdomen and Pelvis with contrast HISTORY: r/o mets; hx of pancreatic mass, biliary stricture COMPARISON: Abdomen pelvis CT examination 07/22/2015. TECHNIQUE: Contrast dose: Omnipaque 350, 150 cc. Radiation dose: Total exam DLP = 678.36 mGy-cm. This CT exam was performed using one or more of the following dose reduction techniques: Automated exposure control, adjustment of the mA and/or kV according to patient size, and/or use of iterative reconstruction technique. FINDINGS: Helical CT of the abdomen pelvis was performed following intravenous contrast administration during arterial and portal venous phase contrast enhancement. Preliminary CT was performed through the abdomen prior to intravenous contrast administration. Reformatted datasets provided in sagittal axial and coronal planes. LOWER THORAX: An increase in extensive, chronic pulmonary fibrosis is noted at the bilateral lung bases with a 6 mm noncalcified nodule noted at the left upper lobe and image 7 series 2, noncalcified. Minimal right pleural effusion is noted with none on the left. No pericardial effusion. LIVER: No definitive hepatic mass identified and moderate pneumobilia is noted within the liver at its nondependent segments. GALLBLADDER AND BILE DUCTS: Gallbladder appears only mildly dilated with no pericholecystic reaction related grossly. Common duct appears normal in caliber measuring up to 5 to 6 mm. No radiodense cholelithiasis noted in gallbladder. The prior radiodense biliary stent is not identified currently. PANCREAS: Pancreatic head appears further increased in size with poorly enhancing mass poorly marginated throughout the pancreatic head. The pancreatic duct appears grossly dilated further, at the neck and proximal body measuring 13-14 mm greatest dimension compared to 6-7 mm previously. Digital limited margination of the periphery common is difficult to measure the pancreatic head lesion but it measures at least 3.3 x 2.9 cm in the interval compared to 2.2 cm previously. The pancreatic tail a majority of body appears grossly atrophic with the caliber of the pancreatic duct likely diminished at the majority of the body and tail in the interval. SPLEEN: Unremarkable. ADRENALS: Unremarkable. No mass. KIDNEYS AND URETERS: Large exophytic cyst related to the left kidney is further large measuring 12.9 cm greatest dimension with limited peripheral calcification noted at the superior margins of the cyst once again. A right renal cyst also appears minimally complex measuring 4.9 cm greatest dimension, not significantly changed in size in the interval. No obstructive uropathy or perinephric reaction bilaterally. VASCULATURE: An infrarenal abdominal aortic aneurysm remains fusiform in shape measuring 4.4 x 4.1 cm (transverse by anteroposterior dimensions) and 4.6 cm in length, not significantly changed in size in the interval. Moderate mural thrombus is again seen within the lumen. BOWEL: Bowel is limited evaluation due lack of oral contrast administration. No definite bowel obstruction is appreciated moderate fecal loading is seen throughout the colon. APPENDIX: Normal appendix. PERITONEUM: There is moderate ascites appreciated throughout the abdomen and pelvis. Ground-glass opacity at the upper abdominal mesenteries seen anteriorly and is difficult exclude omental caking here. LYMPH NODES: Unremarkable. No enlarged lymph nodes. BLADDER: Unremarkable. REPRODUCTIVE: Radiation seed implants are again seen related to the prostate gland. BONES: No suspicious bony lytic or blastic change or definite fracture appreciated. OTHER FINDINGS: None. IMPRESSION: 1. Findings suspicious for interval progression of pancreatic head mass extending into the neck, difficult to measure, but appearing to measure 3.3 cm greatest dimension compared to 2.[address] 08/01/2015. There has been marked, interval increased dilatation of the proximal to mid pancreatic duct which now measures 13-14 mm compared to 6 7 mm previously. Moderate diffuse ascites is noted and is difficult to exclude an element of omental caking at the superior anterior mesentery. 2. Prior biliary stent is not identified in the CBD at this time although CBD is normal caliber in the interval. Pneumobilia is noted within the nondependent intrahepatic bile ducts. 3. Large bilateral renal cysts are again appreciated minimally complex with left renal cyst slightly increased in size now measuring 12.9 cm greatest dimension. 4. Stable 4.7 cm infrarenal abdominal aortic aneurysm. 5. A sub cm nodule is seen noncalcified left lower lobe with chronic interstitial pulmonary disease again appreciated both lung bases. 6. Other lesser findings as discussed above.
--- NOTE | 2017-05-03 03:56 | PN ---
DATE: SUBJECTIVE: Patient is an 87-year-old male. Patient is seen and examined on the bedside, looking comfortable. Foot pain is better. No nausea, vomiting, or diarrhea. Swelling of the leg is getting better. No headache, no dizziness. No chest pain, no palpitation. No fever, no chills. No overnight event happened. OBJECTIVE: VITAL SIGNS: Temperature 97.8, pulse 74, blood pressure 105/60, respiratory rate 18. HEENT: Head, normocephalic, atraumatic. Eyes: PERRLA. Extraocular muscles intact. Conjunctivae clear. Nose patent. NECK: Supple. No carotid bruits, no JVD, no thyromegaly. CHEST: Bilaterally symmetrical. HEART: S1, S2 positive. LUNGS: Clear to auscultation. ABDOMEN: Soft. Bowel sounds present. No organomegaly. EXTREMITIES: Positive edema. No cyanosis. NEUROLOGICAL: The patient is awake, alert. Follows simple commands. MEDICATIONS: Aspirin, Claritin, docusate, Glucophage, insulin, furosemide, Lipitor, Lovenox, Seroquel. LABORATORY DATA: White blood cells 8.7, hemoglobin 10.7, hematocrit 33.1, platelets 220. Sodium 140, potassium 5.3, BUN 26, creatinine 1.4, glucose 157. ASSESSMENT AND PLAN: Mr. Godwin Link is an 87-year-old male with anemia, hyperkalemia, increased BUN, diabetes mellitus, history of hypertension, abdominal aortic aneurysm, pancreatic head mass, complicated by biliary obstruction with prior endoscopic retrograde cholangio-pancreatography and stent placement, now came with right ankle and foot swelling due to dropping of luggage bag on his foot 2 days ago. History of multiple-times jaundice secondary to pancreatic mass and biliary obstruction, status post endoscopic retrograde cholangio-pancreatography, metallic stent placement in the biliary system, two-times fine needle aspiration biopsies of the pancreatic mass which were nondiagnostic, pancreatic protocol CT of abdomen done in 2016 revealed 2.2 cm pancreatic head mass with biliary and pancreatic duct dilatation. Now, I had a length of time discussion done with Dr. Ventura. She is planning to do CT scan with pancreatic protocol. Patient is seen by the marine erector Dr. Boyle. MRI of the foot and x-rays appreciated. Pancreatic CAT scan is also reviewed by me. Findings are suspicious of interval progression of pancreatic head mass extending into the neck, difficult to measure, but appears to be measuring 3.3 cm in greater dimension compared to 2.2 cm in the prior CT. There is increased dilatation of the proximal to mid pancreatic duct. Prior biliary stent is not identified in the common bile duct at this time. Large bilateral renal cysts are being appreciated. Has pulmonary nodule. A sub-centimeter nodule is seen on calcified left lower lobe with chronic interstitial pulmonary disease again appreciated in both lungs. Meanwhile, we will continue present treatment. Gastrointestinal and deep venous thrombosis prophylaxes. Repeat labs. We will follow up. Delmy Montana MD
[2017-05-03 06:51] LABS: CALCIUM 8.5 mg/dL (8.4-10.5)
--- NOTE | 2017-05-03 07:28 | CP.PCM.PN ---
<Stephen Saenz - Last Filed: 05/03/17 08:41> Subjective - Date & Time of Evaluation Date of Evaluation: 05/03/17 Time of Evaluation: 07:25 - Subjective Subjective: GI progress note for Dr. Grove - Stephen Saenz PGY2 Reason for consult: Pancreatic mass Patient seen and examined at bedside this morning. No acute overnight events or new complaints reported. Denies abdominal pain, nausea, vomiting. States he has been eating and having normal bowel movements without issue. Discussed prior workup including results of recent imaging with the patient. IR has been consulted for paracentesis. 12point ROS as per above otherwise negative Objective - Vital Signs/Intake and Output Vital Signs (last 24 hours): Temp Pulse Resp BP Pulse Ox 98.1 F 72 18 102/56 L 96 05/03/17 00:01 05/03/17 00:01 05/03/17 00:01 05/03/17 00:01 05/03/17 00:01 Intake and Output: 05/03/17 05/03/17 06:59 18:59 Intake Total 120 Output Total 900 Balance -780 - Medications Medications: Current Medications Aspirin (Aspirin Chewable) 81 mg PO DAILY [facility] Last Admin: 05/02/17 13:06 Dose: 81 mg Atorvastatin Calcium (Lipitor) 20 mg PO DIN [facility] Last Admin: 05/02/17 18:18 Dose: 20 mg Enoxaparin Sodium (Lovenox) 30 mg SC DAILY [facility] PRN Reason: Protocol Last Admin: 05/02/17 13:06 Dose: 30 mg Furosemide (Lasix) 40 mg IV DAILY [facility] Last Admin: 05/02/17 13:07 Dose: 40 mg Glipizide (Glucotrol) 5 mg PO QAM [facility] Last Admin: 05/02/17 13:05 Dose: 5 mg Insulin Human Regular (Humulin R Low) 0 units SC [facility] PRN Reason: Protocol Last Admin: 05/02/17 22:05 Dose: Not Given Insulin Human Regular (Humulin R Low) 0 units SC [facility] PRN Reason: Protocol Last Admin: 05/02/17 22:10 Dose: Not Given Loratadine (Claritin) 10 mg PO DAILY [facility] Last Admin: 05/02/17 13:06 Dose: 10 mg Non-Formulary Medication (Alfuzosin Hcl [Uroxatral]) 10 mg PO DAILY [facility] Last Admin: 05/02/17 13:09 Dose: 10 mg Non-Formulary Medication (Dutasteride [Dutasteride]) 0.5 mg PO DAILY [facility] Last Admin: 05/02/17 13:09 Dose: 0.5 mg Quetiapine Fumarate (Seroquel) 50 mg PO BID [facility] Last Admin: 05/02/17 18:19 Dose: 50 mg - Labs Labs: 05/02/17 06:00 05/03/17 05:45 - Constitutional Appears: No Acute Distress - Head Exam Head Exam: ATRAUMATIC, NORMAL INSPECTION, NORMOCEPHALIC - Eye Exam Eye Exam: EOMI Pupil Exam: PERRL - ENT Exam ENT Exam: Mucous Membranes Moist - Respiratory Exam Respiratory Exam: absent: Rales, Rhonchi, Wheezes - Cardiovascular Exam Cardiovascular Exam: +S1, +S2. absent: Gallop, Rubs - GI/Abdominal Exam GI & Abdominal Exam: Distended, Soft. absent: Firm, Guarding, Rigid, Tenderness , Rebound - Neurological Exam Neurological Exam: Alert, Awake, Oriented x3 - Psychiatric Exam Psychiatric exam: Normal Affect, Normal Mood - Skin Skin Exam: Dry, Intact, Normal Color, Warm Assessment and Plan - Assessment and Plan (Free Text) Plan: 85yo male with history of DM, HTN, CAD, AAA, pancreatic head mass s/p EUS with FNA negative for malignancy and ERCP with metallic stent placement. GI consulted for evaluation of pancreatic mass. 1. Pancreatic mass 2. Hx of Biliary obstruction s/p metallic stent placement 3. Hx of Indeterminate biliary stricture Plan: -IR consulted for paracentesis for fluid analysis -Pancreatic protocol CT reviewed and revealed interval progression of pancreatic head mass approximately 3.3cm compared to 2.2cm on prior CT from 07/28, increased interval dilatation of the proximal to mid pancreatic duct from 6 -7mm previously to approximately 13-14mm now. Moderate diffuse ascites. (refer to full report) -ERCP on 08/31/15 revealed malignant appearing distal common bile duct stricture and one covered metal stent was placed into the common bile duct -Biopsy of bile duct and FNA of mass was previously negative for malignancy Patient seen and case discussed/reviewed with attending, Dr. Grove <Daljit Grove - Last Filed: 05/03/17 09:46> Objective - Vital Signs/Intake and Output Vital Signs (last 24 hours): Temp Pulse Resp BP Pulse Ox 98.1 F 72 18 102/56 L 96 05/03/17 00:01 05/03/17 00:01 05/03/17 00:01 05/03/17 00:01 05/03/17 00:01 Intake and Output: 05/03/17 05/03/17 06:59 18:59 Intake Total 120 Output Total 900 Balance -780 - Medications Medications: Current Medications Aspirin (Aspirin Chewable) 81 mg PO DAILY [facility] Last Admin: 05/02/17 13:06 Dose: 81 mg Atorvastatin Calcium (Lipitor) 20 mg PO DIN [facility] Last Admin: 05/02/17 18:18 Dose: 20 mg Enoxaparin Sodium (Lovenox) 30 mg SC DAILY [facility] PRN Reason: Protocol Last Admin: 05/02/17 13:06 Dose: 30 mg Furosemide (Lasix) 40 mg IV DAILY [facility] Last Admin: 05/02/17 13:07 Dose: 40 mg Glipizide (Glucotrol) 5 mg PO QAM [facility] Last Admin: 05/02/17 13:05 Dose: 5 mg Insulin Human Regular (Humulin R Low) 0 units SC [facility] PRN Reason: Protocol Last Admin: 05/03/17 09:03 Dose: Not Given Insulin Human Regular (Humulin R Low) 0 units SC [facility] PRN Reason: Protocol Last Admin: 05/02/17 22:10 Dose: Not Given Loratadine (Claritin) 10 mg PO DAILY [facility] Last Admin: 05/02/17 13:06 Dose: 10 mg Non-Formulary Medication (Alfuzosin Hcl [Uroxatral]) 10 mg PO DAILY [facility] Last Admin: 05/02/17 13:09 Dose: 10 mg Non-Formulary Medication (Dutasteride [Dutasteride]) 0.5 mg PO DAILY [facility] Last Admin: 05/02/17 13:09 Dose: 0.5 mg Quetiapine Fumarate (Seroquel) 50 mg PO BID [facility] Last Admin: 05/02/17 18:19 Dose: 50 mg - Labs Labs: 05/03/17 06:30 05/03/17 05:45 Attending/Attestation - Attestation I have personally seen and examined this patient.: Yes I have fully participated in the care of the patient.: Yes I have reviewed all pertinent clinical information, including history, physical exam and plan: Yes Notes (Text): 05/03/17 09:44 85 year old male with h/o DM, HTN, CAD, AAA, 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 1. Pancreatic mass 2. Ascites Plan: -recommend paracentesis, send fluid for cell count, culture, differential, cytology, TP/albumin -likely malignant ascites from progressive pancreatic cancer, with possible omental caking -tumor has increased in size, may be causing partial duodenal obstruction, though patient is asymptomatic -previously placed metal biliary is not visualized on CT, which may be due to tissue/tumor overgrowth, less likely migration as patient is not jaundiced
[2017-05-03 07:51] LABS: BASO # 0.03 K/mm3 (0.0-2.0); BASO % 0.4 % (0.0-3.0); EOS # 0.1 (0.0-0.7); EOS % 1.2 % (1.5-5.0); GRAN # 6.1 (1.4-6.5); GRAN % 79.2 % (50.0-68.0); HEMOGLOBIN 10.7 g/dL (14.0-18.0); LYMPH # 0.9 (1.2-3.4); MEAN CELL VOLUME 91.5 fl (80.0-105.0); MEAN CORPUSCULAR HEMOGLOBIN 29.2 pg (25.0-35.0); MEAN CORPUSCULAR HGB CONC 31.9 g/dl (31.0-37.0); MEAN PLATELET VOLUME 12.4 fl (7.0-11.0); MONO # 0.6 (0.1-0.6); MONO % 8.2 % (1.0-6.0); RBC 3.66 10^6/uL (3.5-6.1); RED CELL DISTRIBUTION WIDTH 14.7 % (11.5-14.5); WHITE BLOOD COUNT 7.7 10^3/ul (4.5-11.0)
[2017-05-03 07:58] LABS: ALB/GLOB RATIO 0.9 (1.1-1.8); ALBUMIN 2.5 g/dL (3.0-4.8); BILIRUBIN,DIRECT 0.3 mg/dL (0.0-0.4)
[2017-05-03] MEDS: Insulin Reg-LOW-Coverage SC SCH ×4 (09:03→23:10)
[2017-05-03] MEDS: Enoxaparin 30 mg Syringe SC SCH (10:00)
[2017-05-03 11:35] LABS: BODY FLUID TYPE PERITONEAL/ASCITES
[2017-05-03 12:59] LABS: BF GROSS APPEARANCE CLEAR (CLEAR)
[2017-05-03 13:00] LABS: BODY FLUID TOTAL COUNT 100 (0-0)
--- NOTE | 2017-05-03 13:26 | US ---
PROCEDURE: Ultrasound guided paracentesis. HISTORY: Pancreatic mass. Biliary obstruction. Indeterminate biopsy. Ascites with abdominal pain. Question malignant ascites. PHYSICIAN(S): Valdo Bower MD. TECHNIQUE: The relative risks and indications for the procedure were explained to the patient through a plasticator and informed written consent obtained. Sonography of the abdomen was performed in a supine position. This revealed a small amount of non-loculated ascites, greatest in the suprapubic region. A puncture site was selected and the area was prepped and draped in the usual sterile fashion. 1% Xylocaine was used to anesthetize the skin and soft tissues. A 7 Japanese paracentesis catheter was trocared into the suprapubic regionand 1300 cc of clear fluid aspirated. The appropriate labs were sent. IMPRESSION: Ultrasound-guided paracentesis in the suprapubic region. 1300 cc of fluid were aspirated. Labs were sent
[2017-05-03] MEDS: ALFUZOSIN HCL 10 MG PO SCH (13:44)
[2017-05-03] MEDS: DUTASTERIDE 0.5 MG PO SCH (13:46)
--- NOTE | 2017-05-03 14:51 | PN ---
DATE: 05/03/2017 REASON FOR CONSULTATION: Followup cardiac evaluation, history of swelling of leg for 2 months, rule out congestive heart failure, status post trauma to the right foot. SUBJECTIVE: The patient denies any chest pain, shortness of breath or any palpitation. OBJECTIVE: GENERAL: Not in any apparent distress. VITAL SIGNS: Temperature afebrile, heart rate , blood pressure 110/67. HEENT: PERRLA, intact. NECK: Supple. No carotid bruit or thyromegaly. CHEST: Clear to auscultation. HEART: S1 and S2 regular. ABDOMEN: Soft. EXTREMITIES: Clubbing and cyanosis negative. LABORATORY DATA: Blood workup as follows: WBC 7.7, hemoglobin , hematocrit 33.5, platelet count 215. Chemistry shows sodium 138, potassium , chloride 101, carbon dioxide 30, anion gap of 11, BUN 28, creatinine 1.4, total protein 5.5, albumin 2.5, albumin and globulin ratio 0.9. IMPRESSION: Trauma to the foot, history of previous trauma. No evidence of osteomyelitis, anemia; hypokalemia; pancreatic mass, status post biopsy; prostate cancer. No evidence of clinical heart failure. Status post endoscopic retrograde cholangiopancreatography and , status post stent in the biliary duct, status post fine needle aspiration with biopsy. CVS status is stable. History of pancreatic cancer, history of leg swelling 2 months ago. The patient's echo on 08/26/2016 shows normal LV function. Systolic function is borderline. Right ventricular systolic pressure 37. Ejection fraction 50%. RECOMMENDATION: Continue DVT prophylaxis. Needs workup for a pancreatic mass. Needs workup for prostate CA. Continue GI followup. CVS status is stable. No evidence of heart failure. We will sign off. Glad to follow up p.r.n. Thank you, Dr. Montana for providing us the opportunity in taking care of the patient, Godwin Link. We will be glad to follow up p.r.n. No active cardiac problem at this time. No active angina symptoms. No arrhythmia. We will sign off and glad to follow up p.r.n. Mohammad James, MD
--- NOTE | 2017-05-04 05:28 | CP.PCM.PN ---
<Stephen Saenz - Last Filed: 05/04/17 12:04> Subjective - Date & Time of Evaluation Date of Evaluation: 05/04/17 Time of Evaluation: 05:27 - Subjective Subjective: GI progress note for Dr. Cabezas - Stephen Saenz PGY2 Reason for consult: Pancreatic mass Patient seen and examined at bedside this morning. No acute overnight events or new complaints reported. Patient is tolerating diet well without issue. Reports no abdominal pain, nausea, vomiting, fever, chills, melena, hematochezia, hematemesis. 12point ROS as per above otherwise negative Objective - Vital Signs/Intake and Output Vital Signs (last 24 hours): Temp Pulse Resp BP Pulse Ox 97.8 F 80 18 95/58 L 94 L 05/03/17 23:25 05/03/17 23:25 05/03/17 23:25 05/03/17 23:25 05/03/17 23:25 - Medications Medications: Current Medications Aspirin (Aspirin Chewable) 81 mg PO DAILY [facility] Last Admin: 05/03/17 13:50 Dose: 81 mg Atorvastatin Calcium (Lipitor) 20 mg PO DIN [facility] Last Admin: 05/03/17 17:56 Dose: 20 mg Enoxaparin Sodium (Lovenox) 30 mg SC DAILY [facility] PRN Reason: Protocol Last Admin: 05/03/17 10:00 Dose: Not Given Furosemide (Lasix) 40 mg IV DAILY [facility] Last Admin: 05/03/17 10:00 Dose: Not Given Glipizide (Glucotrol) 5 mg PO QAM [facility] Last Admin: 05/03/17 13:51 Dose: 5 mg Insulin Human Regular (Humulin R Low) 0 units SC [facility] PRN Reason: Protocol Last Admin: 05/03/17 23:10 Dose: Not Given Insulin Human Regular (Humulin R Low) 0 units SC [facility] PRN Reason: Protocol Last Admin: 05/02/17 22:10 Dose: Not Given Loratadine (Claritin) 10 mg PO DAILY [facility] Last Admin: 05/03/17 13:51 Dose: 10 mg Non-Formulary Medication (Alfuzosin Hcl [Uroxatral]) 10 mg PO DAILY [facility] Last Admin: 05/03/17 13:44 Dose: 10 mg Non-Formulary Medication (Dutasteride [Dutasteride]) 0.5 mg PO DAILY [facility] Last Admin: 05/03/17 13:46 Dose: 0.5 mg Quetiapine Fumarate (Seroquel) 50 mg PO BID [facility] Last Admin: 05/03/17 17:56 Dose: 50 mg - Labs Labs: 05/03/17 06:30 05/03/17 05:45 - Constitutional Appears: No Acute Distress - Head Exam Head Exam: ATRAUMATIC, NORMAL INSPECTION, NORMOCEPHALIC - Eye Exam Eye Exam: EOMI Pupil Exam: PERRL - ENT Exam ENT Exam: Mucous Membranes Moist - Respiratory Exam Respiratory Exam: absent: Rales, Rhonchi, Wheezes - Cardiovascular Exam Cardiovascular Exam: +S1, +S2. absent: Gallop, Rubs - GI/Abdominal Exam GI & Abdominal Exam: Distended, Soft. absent: Firm, Guarding, Rigid, Tenderness , Rebound - Extremities Exam Extremities Exam: absent: Pedal Edema - Neurological Exam Neurological Exam: Alert, Awake, Oriented x3 - Psychiatric Exam Psychiatric exam: Normal Affect, Normal Mood - Skin Skin Exam: Dry, Intact, Normal Color, Warm Assessment and Plan - Assessment and Plan (Free Text) Plan: 85yo male with history of DM, HTN, CAD, AAA, pancreatic head mass s/p EUS with FNA negative for malignancy and ERCP with metallic stent placement. GI consulted for evaluation of pancreatic mass. 1. Pancreatic mass 2. Hx of Biliary obstruction s/p metallic stent placement 3. Hx of Indeterminate biliary stricture Plan: -s/p paracentesis pending cytology, TP/albumin -Ascites likely malignant in nature from progressive pancreatic cancer -Recommend oncology evaluation -ERCP on 08/31/15 revealed malignant appearing distal common bile duct stricture and one covered metal stent was placed into the common bile duct -Biopsy of bile duct and FNA of mass was previously negative for malignancy -Pancreatic protocol CT reviewed and revealed interval progression of pancreatic head mass approximately 3.3cm compared to 2.2cm on prior CT from 07/28, increased interval dilatation of the proximal to mid pancreatic duct from 6 -7mm previously to approximately 13-14mm now. Moderate diffuse ascites. (refer to full report) Patient seen and case discussed/reviewed with attending, Dr. Cabezas <Thom Cabezas - Last Filed: 05/04/17 13:22> Objective - Vital Signs/Intake and Output Vital Signs (last 24 hours): Temp Pulse Resp BP Pulse Ox 97.8 F 72 18 107/55 L 94 L 05/04/17 06:00 05/04/17 06:00 05/04/17 06:00 05/04/17 10:49 05/03/17 23:25 Intake and Output: 05/04/17 05/04/17 06:59 18:59 Intake Total 0 Output Total 400 Balance -400 - Medications Medications: Current Medications Aspirin (Aspirin Chewable) 81 mg PO DAILY [facility] Last Admin: 05/04/17 10:44 Dose: 81 mg Atorvastatin Calcium (Lipitor) 20 mg PO DIN [facility] Last Admin: 05/03/17 17:56 Dose: 20 mg Enoxaparin Sodium (Lovenox) 30 mg SC DAILY [facility] PRN Reason: Protocol Last Admin: 05/04/17 10:50 Dose: 30 mg Furosemide (Lasix) 40 mg IV DAILY [facility] Last Admin: 05/04/17 10:49 Dose: Not Given Glipizide (Glucotrol) 5 mg PO QAM [facility] Last Admin: 05/04/17 10:44 Dose: 5 mg Insulin Human Regular (Humulin R Low) 0 units SC [facility] PRN Reason: Protocol Last Admin: 05/04/17 12:37 Dose: 2 units Insulin Human Regular (Humulin R Low) 0 units SC [facility] PRN Reason: Protocol Last Admin: 05/04/17 12:22 Dose: Not Given Loratadine (Claritin) 10 mg PO DAILY [facility] Last Admin: 05/04/17 10:44 Dose: 10 mg Non-Formulary Medication (Alfuzosin Hcl [Uroxatral]) 10 mg PO DAILY [facility] Last Admin: 05/04/17 10:46 Dose: 10 mg Non-Formulary Medication (Dutasteride [Dutasteride]) 0.5 mg PO DAILY [facility] Last Admin: 05/04/17 10:48 Dose: 0.5 mg Quetiapine Fumarate (Seroquel) 50 mg PO BID [facility] Last Admin: 05/04/17 10:44 Dose: 50 mg - Labs Labs: 05/03/17 06:30 05/03/17 05:45 Attending/Attestation - Attestation I have personally seen and examined this patient.: Yes I have fully participated in the care of the patient.: Yes I have reviewed all pertinent clinical information, including history, physical exam and plan: Yes Notes (Text): 05/04/17 13:19 I have seen and examined patient with ophthalmic medical assistant. No acute events overnight, he is seen sitting in bed, appears quite comfortable. He complains of mild generalized discomfort but otherwise denies nausea, vomiting, diarrhea, fever/chills. Tolerating PO diet without difficulty. DM / HTN CAD AAA Metastatic pancreatic cancer Likely malignant ascites s/p paracentesis - Diet as tolerated - Awaiting ascitic fluid results including cytology - LFTs normal, continue to monitor - Patient non-operative candidate, suggest oncology evaluation - Will continue to monitor patient clinical course
--- NOTE | 2017-05-04 06:53 | PN ---
DATE: SUBJECTIVE: The patient is an 87-year-old male. The patient was seen and examined on the bedside, looking comfortable, sleepy, arousable. No acute event noted overnight. No fever, no chills. No nausea, vomiting, or diarrhea. Swelling of the legs is getting better. Paracentesis done by Dr. Valdo Bower. REVIEW OF SYSTEMS: A 12-point review of systems as per above, otherwise negative. PHYSICAL EXAMINATION: VITAL SIGNS: Temperature 98.1, pulse 72, respiratory rate 18, blood pressure 102/56, pulse oximetry 96%. HEENT: Head: Normocephalic and atraumatic. Eyes: PERRLA. Extraocular muscles are intact. Conjunctivae clear. Nose patent. Mucous membranes are moist. NECK: Supple. No carotid bruit. No JVD or thyromegaly. CHEST: Bilaterally symmetrical. HEART: S1 and S2 positive. LUNGS: Clear to auscultation. ABDOMEN: Soft. Bowel sounds present. No organomegaly. EXTREMITIES: No edema. No cyanosis. NEUROLOGIC: The patient is awake and alert, moving all 4 extremities. No focal deficit. MEDICATIONS: Aspirin, atorvastatin, Lovenox, Lasix, glipizide, insulin, Claritin, and Seroquel. LABORATORY DATA: We do not have recent lab today, but I reviewed old labs. ASSESSMENT AND PLAN: Mr. Godwin Link is an 87-year-old male with anemia, renal insufficiency, diabetes mellitus, hypertension, coronary artery disease, abdominal aortic aneurysm, pancreatic head mass, status post endoscopic ultrasound with fine needle, negative for malignancy x2, status post endoscopic retrograde cholangiopancreatography with metallic stent placement, history of biliary obstruction, history of indeterminate biliary stricture. The patient went for paracentesis by Dr. Valdo Bower. Pancreatic mass revealed interval progression of the pancreatic head mass, approximately 3.3 cm. It used to be 2.2 cm. Biopsy of the bile duct and FNA of the mass was previously negative for malignancy. The patient still has slight swelling of the legs. Discussion done with the patient's son on the bedside. Appreciated Dr. Ramirez, Dr. Bower and Dr. Grove's notes. History of hyperkalemia, history of right ankle and right foot swelling due to dropping of luggage bag on his foot 2 days ago, history of multiple times jaundice due to pancreatic mass and biliary obstruction. Now, we will continue present treatment, try to take the patient to TCU. We will make plan. Delmy Montana MD
[2017-05-04] MEDS: Insulin Reg-LOW-Coverage SC SCH ×8 (08:07→21:59)
[2017-05-04] MEDS: ALFUZOSIN HCL 10 MG PO SCH (10:46)
[2017-05-04] MEDS: DUTASTERIDE 0.5 MG PO SCH (10:48)
[2017-05-04] MEDS: Enoxaparin 30 mg Syringe SC SCH (10:50)
[2017-05-05] MEDS: Insulin Reg-LOW-Coverage SC SCH ×6 (08:11→22:27)
[2017-05-05] MEDS: Enoxaparin 30 mg Syringe SC SCH (09:51)
[2017-05-05] MEDS: ALFUZOSIN HCL 10 MG PO SCH (09:52)
[2017-05-05] MEDS: DUTASTERIDE 0.5 MG PO SCH (10:04)
--- NOTE | 2017-05-05 12:15 | CP.PCM.PN ---
<Yaa Dugan - Last Filed: 05/05/17 12:18> Subjective - Date & Time of Evaluation Date of Evaluation: 05/05/17 Time of Evaluation: 08:25 - Subjective Subjective: GI Fellow PGY4 Progress Note Patient seen and examined at bedside this morning. No acute overnight events or new complaints reported. Patient is tolerating diet well without issue. Reports no abdominal pain, nausea, vomiting, fever, chills, melena, hematochezia, hematemesis. 12point ROS as per above otherwise negative Objective - Vital Signs/Intake and Output Vital Signs (last 24 hours): Temp Pulse Resp BP Pulse Ox 98.2 F 95 H 20 103/64 97 05/05/17 06:00 05/05/17 06:00 05/05/17 06:00 05/05/17 09:52 05/05/17 06:00 Intake and Output: 05/05/17 05/05/17 06:59 18:59 Intake Total 360 Output Total 800 Balance -440 - Medications Medications: Current Medications Aspirin (Aspirin Chewable) 81 mg PO DAILY [facility] Last Admin: 05/05/17 09:51 Dose: 81 mg Atorvastatin Calcium (Lipitor) 20 mg PO DIN [facility] Last Admin: 05/04/17 16:58 Dose: 20 mg Enoxaparin Sodium (Lovenox) 30 mg SC DAILY [facility] PRN Reason: Protocol Last Admin: 05/05/17 09:51 Dose: 30 mg Furosemide (Lasix) 40 mg IV DAILY [facility] Last Admin: 05/05/17 09:52 Dose: 40 mg Glipizide (Glucotrol) 5 mg PO QAM [facility] Last Admin: 05/05/17 09:51 Dose: 5 mg Insulin Human Regular (Humulin R Low) 0 units SC [facility] PRN Reason: Protocol Last Admin: 05/05/17 11:53 Dose: 2 units Insulin Human Regular (Humulin R Low) 0 units SC [facility] PRN Reason: Protocol Last Admin: 05/05/17 11:55 Dose: Not Given Loratadine (Claritin) 10 mg PO DAILY [facility] Last Admin: 05/05/17 09:51 Dose: 10 mg Non-Formulary Medication (Alfuzosin Hcl [Uroxatral]) 10 mg PO DAILY [facility] Last Admin: 05/05/17 09:52 Dose: 10 mg Non-Formulary Medication (Dutasteride [Dutasteride]) 0.5 mg PO DAILY [facility] Last Admin: 05/05/17 10:04 Dose: 0.5 mg Quetiapine Fumarate (Seroquel) 50 mg PO BID [facility] Last Admin: 05/05/17 09:51 Dose: 50 mg - Labs Labs: 05/03/17 06:30 05/03/17 05:45 - Constitutional Appears: Non-toxic, No Acute Distress - Head Exam Head Exam: ATRAUMATIC, NORMAL INSPECTION, NORMOCEPHALIC - Eye Exam Eye Exam: EOMI, Normal appearance, PERRL Pupil Exam: PERRL - ENT Exam ENT Exam: Mucous Membranes Moist, Normal Exam - Respiratory Exam Respiratory Exam: Clear to Ausculation Bilateral, NORMAL BREATHING PATTERN - Cardiovascular Exam Cardiovascular Exam: REGULAR RHYTHM - GI/Abdominal Exam GI & Abdominal Exam: Soft, Normal Bowel Sounds. absent: Distended, Guarding, Rigid - Exam Exam: NORMAL INSPECTION - Back Exam Back Exam: NORMAL INSPECTION - Neurological Exam Neurological Exam: Alert, Awake, Oriented x3 - Skin Skin Exam: Dry, Intact, Normal Color, Warm Assessment and Plan - Assessment and Plan (Free Text) Assessment: 85yo male with history of DM, HTN, CAD, AAA, pancreatic head mass. GI consulted for evaluation of pancreatic mass. 1. Pancreatic mass 2. Hx of Biliary obstruction s/p metallic stent placement Plan: -s/p paracentesis pending cytology, TP/albumin -Ascites likely malignant in nature from progressive pancreatic cancer -Recommend oncology evaluation -Patient non-operative candidate, suggest oncology evaluation -LFTs normal, continue to monitor -Please call with any questions or concerns <Daljit Grove - Last Filed: 05/05/17 14:34> Objective - Vital Signs/Intake and Output Vital Signs (last 24 hours): Temp Pulse Resp BP Pulse Ox 98.2 F 95 H 20 103/64 97 05/05/17 06:00 05/05/17 06:00 05/05/17 06:00 05/05/17 09:52 05/05/17 06:00 Intake and Output: 05/05/17 05/05/17 06:59 18:59 Intake Total 360 Output Total 800 Balance -440 - Medications Medications: Current Medications Aspirin (Aspirin Chewable) 81 mg PO DAILY [facility] Last Admin: 05/05/17 09:51 Dose: 81 mg Atorvastatin Calcium (Lipitor) 20 mg PO DIN [facility] Last Admin: 05/04/17 16:58 Dose: 20 mg Enoxaparin Sodium (Lovenox) 30 mg SC DAILY [facility] PRN Reason: Protocol Last Admin: 05/05/17 09:51 Dose: 30 mg Furosemide (Lasix) 40 mg IV DAILY [facility] Last Admin: 05/05/17 09:52 Dose: 40 mg Glipizide (Glucotrol) 5 mg PO QAM [facility] Last Admin: 05/05/17 09:51 Dose: 5 mg Insulin Human Regular (Humulin R Low) 0 units SC [facility] PRN Reason: Protocol Last Admin: 05/05/17 11:53 Dose: 2 units Insulin Human Regular (Humulin R Low) 0 units SC [facility] PRN Reason: Protocol Last Admin: 05/05/17 11:55 Dose: Not Given Loratadine (Claritin) 10 mg PO DAILY [facility] Last Admin: 05/05/17 09:51 Dose: 10 mg Non-Formulary Medication (Alfuzosin Hcl [Uroxatral]) 10 mg PO DAILY [facility] Last Admin: 05/05/17 09:52 Dose: 10 mg Non-Formulary Medication (Dutasteride [Dutasteride]) 0.5 mg PO DAILY [facility] Last Admin: 05/05/17 10:04 Dose: 0.5 mg Quetiapine Fumarate (Seroquel) 50 mg PO BID [facility] Last Admin: 05/05/17 09:51 Dose: 50 mg - Labs Labs: 05/03/17 06:30 05/03/17 05:45 Attending/Attestation - Attestation I have personally seen and examined this patient.: Yes I have fully participated in the care of the patient.: Yes I have reviewed all pertinent clinical information, including history, physical exam and plan: Yes Notes (Text): 05/05/17 14:33 85 year old male with h/o DM, HTN, CAD, AAA, 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 1. Pancreatic mass 2. Ascites Plan: -s/p paracentesis, await cytology -likely malignant ascites from progressive pancreatic cancer, with possible omental caking -tumor has increased in size, may be causing partial duodenal obstruction, though patient is asymptomatic, tolerating diet, and not having any vomiting -previously placed metal biliary is not visualized on CT, which may be due to tissue/tumor overgrowth, less likely migration as patient is not jaundiced -will sign off at this time
--- NOTE | 2017-05-06 00:03 | PN ---
DATE: SUBJECTIVE: The patient is an 87-year-old male. The patient is seen and examined at the bedside, looking comfortable. No nausea, vomiting or diarrhea. No hematuria or hematochezia. Swelling of the leg is better. No acute event overnight noted. No fever, no chills, did bowel movement today. No abdominal pain. PHYSICAL EXAMINATION: VITAL SIGNS: Temperature is 98.2, pulse 95, respiratory rate 20, blood pressure is 103/64, pulse oximetry 97. HEENT: Head is normocephalic and atraumatic. Eyes: PERRLA. Extraocular muscles are intact. Conjunctivae are clear. Nose is patent. Mucous membranes are moist. NECK: Supple. No carotid bruits. No JVD or thyromegaly. CHEST: Bilaterally symmetrical. HEART: S1 and S2 positive. LUNGS: Clear to auscultation. ABDOMEN: Soft, bowel sound positive. No organomegaly. EXTREMITIES: Trace edema. No cyanosis. NEUROLOGIC: The patient is awake and alert. Moving all 4 extremities. No focal deficits. MEDICATIONS: Aspirin, Lipitor, Lovenox, Lasix, Glucotrol, insulin, Claritin. LABORATORY DATA: White blood cells 7.7, hemoglobin 10.7, hematocrit 33.5, platelets 215. Sodium 138, potassium 4.4, BUN 28, creatinine 1.4. ASSESSMENT AND PLAN: Mr. Godwin Link is an 87-year-old male with anemia; renal insufficiency; history of diabetes mellitus, uncontrolled; hypertension; coronary artery disease; abdominal aortic aneurysm; pancreatic head mass; history of biliary obstruction; status post metallic stent placement; status post paracentesis, cytology is pending. likely malignant in nature from progressive pancreatic cancer. Oncology consult called. The patient is a nonoperative candidate, suggested Oncology evaluation, called Oncology consult. Appreciate Dr. Daljit Grove's input. Seen by the boats renter and incident response lead. Gastrointestinal and deep venous thrombosis prophylaxis. Repeat labs. We will follow up. Delmy Montana MD [facility]
[2017-05-06 06:14] LABS: AMYLASE PERITONEAL FLUID <10 U/L
[2017-05-06 07:08] LABS: HEMOGLOBIN 10.2 g/dL (14.0-18.0); MEAN CELL VOLUME 91.3 fl (80.0-105.0); MEAN CORPUSCULAR HEMOGLOBIN 28.7 pg (25.0-35.0); MEAN CORPUSCULAR HGB CONC 31.5 g/dl (31.0-37.0); MEAN PLATELET VOLUME 12.4 fl (7.0-11.0); RBC 3.55 10^6/uL (3.5-6.1); RED CELL DISTRIBUTION WIDTH 14.5 % (11.5-14.5); WHITE BLOOD COUNT 6.5 10^3/ul (4.5-11.0)
[2017-05-06 07:09] LABS: GLUCOSE PERITONEAL FLUID 167 mg/dL; LDH PERITONEAL FLUID 54 U/L (<63)
[2017-05-06 07:18] LABS: CALCIUM 8.3 mg/dL (8.4-10.5)
[2017-05-06 07:55] VITALS: RESP 18
[2017-05-06] MEDS: Insulin Reg-LOW-Coverage SC SCH ×4 (08:07→22:51)
--- NOTE | 2017-05-06 09:17 | CP.PCM.PCO ---
Assessment & Plan - Assessment and Plan (Free Text) Assessment: Cytology ascitic fluid awaited. CA 125 elevated. Pelvic USG to r/o ovarian mass. Full consult note will be dictated. - Date & Time Date: 05/06/17 Time: 09:00
[2017-05-06] MEDS: Enoxaparin 30 mg Syringe SC SCH (09:18)
[2017-05-06] MEDS: ALFUZOSIN HCL 10 MG PO SCH (09:21)
[2017-05-06] MEDS: DUTASTERIDE 0.5 MG PO SCH (09:22)
[2017-05-06 12:43] VITALS: PULSE 68; TEMP 98.2; O2SAT 95
--- NOTE | 2017-05-07 08:58 | PN ---
DATE: 05/04/2017 SUBJECTIVE: Patient is 87-year-old male. The patient is seen and examined at the bedside, looking comfortable. No nausea, vomiting or diarrhea. No hematuria or hematochezia. Swelling of the legs is getting better. No acute event overnight noted. No new complaints. Patient is tolerating diet very well without any issues. Reports no pain in the abdomen. No melena. No chills. REVIEW OF SYSTEMS: A 12-point review of systems as per above, otherwise negative. PHYSICAL EXAMINATION: VITAL SIGNS: Temperature 97.8, pulse 80, respiratory rate 18, blood pressure 95/58, pulse oximetry 94. HEENT: Head: Normocephalic, atraumatic. Eyes: PERRLA. Extraocular muscles are intact. Conjunctivae clear. Nose patent. Mucous membranes moist. NECK: Supple. No carotid bruit, JVD, or thyromegaly. CHEST: Bilaterally symmetrical. HEART: S1 and S2 positive. LUNGS: Clear to auscultation. ABDOMEN: Soft. Bowel sounds present. No organomegaly. EXTREMITIES: No edema. No cyanosis. NEUROLOGIC: The patient is awake and alert, moving all four extremities. No focal deficit. MEDICATIONS: Aspirin, atorvastatin, Lovenox, Lasix, Glucotrol, insulin, Claritin, Seroquel. LABORATORY DATA: White blood cells 7.7, hemoglobin 10.7, hematocrit 33.5, platelets 215. Sodium 138, potassium 4.4, BUN 20, creatinine 1.4, glucose 95. ASSESSMENT AND PLAN: Mr. Godwin Link is an 87-year-old male with anemia, renal insufficiency, history of diabetes mellitus, hypertension, coronary artery disease, abdominal aortic aneurysm, pancreatic head mass status post endoscopic ultrasound with fine needle aspiration negative for malignancy, endoscopic retrograde cholangiopancreatography with metallic stent placement. Gastroenterology consult was called for pancreatic mass, ascites likely malignant in nature from progressive paracentric cancer. Recommended Oncology evaluation. Endoscopic retrograde cholangiopancreatography on revealed malignant appearance of distal common bile duct stricture, and one covered metallic stent was placed into the common bile duct. Biopsy of the bile duct and fine-needle aspiration of mass was previously negative for malignancy. Pancreatic protocol CT reviewed and revealed interval progression of pancreatic head mass. Gastrointestinal and deep venous thrombosis prophylaxis. Repeat labs. We will follow up. Delmy Montana MD [facility]
[2017-05-07] MEDS: Insulin Reg-LOW-Coverage SC SCH ×2 (09:25→11:30)
--- NOTE | 2017-05-07 09:33 | CON ---
DATE: 05/07/2017 CONSULT REQUESTED BY: Delmy Montana MD REASON FOR CONSULTATION: Pancreatic mass and ascites. HISTORY OF PRESENT ILLNESS: Mr. Link is an 87-year-old male admitted to the hospital with right foot and ankle pain. He dressed some leggings on his foot. He has a history of pancreatic mass in 2016, which was 2 cm. He was found to have ascites during this admission. Ascitic tap is done, ascitic fluid pathology is pending. He had metallic stent placed in the biliary system previously and biopsy of the pancreatic mass done in 2016, which was negative for malignancy. CAT scan of the abdomen showed slight increase in pancreatic mass around 3 cm now. He also reports profound weight loss, was not able to tell accurately how much weight he lost. He has fatigue. No nausea, no vomiting, no abdominal pain. He has a history of aortic aneurysm; history of hypertension, blood pressure controlled on current medications; history of CVA in the past. He has been noncompliant. Also, he has a history of prostate cancer. Unknown PSA. PAST MEDICAL HISTORY: Aortic aneurysm, hypertension, history of CVA, bilateral cataract, diabetes mellitus type 2, prostate cancer , history of pancreatic mass. PAST SURGICAL HISTORY: Hernia repair, hemorrhoidectomy. FAMILY HISTORY: Noncontributory. No positive family history in mother and father. PERSONAL HISTORY: History of smoking, quit a long time ago. No history of alcohol abuse. SOCIAL HISTORY: He lives at home. CURRENT MEDICATIONS: Aspirin 81 mg daily, Lipitor 20 mg daily, Lovenox 30 subcu daily, Lasix 40 mg daily, glipizide 5 mg daily, insulin, Claritin 10 mg daily, Seroquel 50 mg p.o. b.i.d. LABORATORY DATA: White count 6.5, hemoglobin 10.2, hematocrit 32.2, MCV 91, platelets 193. Sodium 138, potassium 4.3, BUN 33, creatinine 1.5, calcium 8.3. CEA 25.8, CA 125 of 902, CA 19-9 of 15.2. PHYSICAL EXAMINATION GENERAL: Comfortable in bed, in no acute distress, cachexia positive. VITAL SIGNS: Temperature 98.2, heart rate is 68 per minute, blood pressure 120/70, respiratory rate 18 per minute, oxygen saturation 98% on oxygen via nasal cannula. HEENT: Pallor positive. NECK: No lymphadenopathy. CHEST: Air entry is present and equal bilaterally. No added sounds. CARDIOVASCULAR: S1 and S2 normal. No murmur. No gallop. ABDOMEN: Soft, nontender, mildly distended, ascites present. No hepatosplenomegaly. EXTREMITIES: No edema. CENTRAL NERVOUS SYSTEM: Alert and oriented x3. No focal sensory or motor deficit. Moving all the limbs. SPINE: Nontender. SKIN: No petechiae, no rash. ASSESSMENT: 1. Pancreatic head mass. 2. Ascites. 3. Anemia. 4. Cachexia. 5. Hypertension. 6. Aortic aneurysm. 7. Diabetes mellitus type 2. 8. Depression. PLAN: 1. Tumor markers were sent. CA 125 elevated likely due to ascites. On abdominal CAT scan, there is also omental caking. Pancreatic head mass 3 cm. Ascitic fluid tap is pending. We will await pathology on ascitic fluid. CA 19-9 indicative of pancreatic cancer is within normal limits. He might have primary peritoneal neoplasm. He also has a history of prostate cancer, PSA ordered. PET scan will be done as an outpatient. I discussed with the patient that pathology pending on the ascitic fluid. We will give further recommendation once the pathology is back for workup and treatment. He has anemia. 2. Anemia workup. Send iron studies, B12, folate levels. 3. Cachexia, likely related to malignancy. 4. Diabetes mellitus, management as per Dr. Montana. 5. BNP elevated. Cardiology following, cardiovascular stable. Thank you, Dr. Montana, for allowing us to participate in Mr. Link' care. We will continue to follow. Priscila Pruitt MD
--- NOTE | 2017-05-07 10:27 | PN ---
DATE: 05/06/2017 SUBJECTIVE: The patient is an 87-year-old male. The patient is seen and examined at the bedside, looking comfortable. No nausea, vomiting, or diarrhea. No hematuria or hematochezia. No swelling of the legs. No chest pain. No palpitation. No headache. No dizziness. No fever. No chills. PHYSICAL EXAMINATION: VITAL SIGNS: Temperature 98.2, pulse 58, blood pressure 120/70, respiratory rate 18. HEENT: Head normocephalic, atraumatic. Eyes: PERRLA. Extraocular muscles intact. Conjunctivae clear. Nose patent. Mucous membrane moist. NECK: Supple. No carotid bruit. No JVD or thyromegaly. CHEST: Bilaterally symmetrical. HEART: S1 and S2 positive. LUNGS: Clear to auscultation. ABDOMEN: Soft. Bowel sounds positive. No organomegaly. EXTREMITIES: No edema. No cyanosis. NEUROLOGIC: The patient is awake and alert. Moving all 4 extremities. No focal deficits. MEDICATIONS: Aspirin, Claritin, docusate, glipizide, insulin, Lasix, Lipitor, Lovenox, and Seroquel. LABORATORY DATA: White blood cells 6.5, hemoglobin 10.2, hematocrit 32.4, platelets 193. Sodium 138, potassium 4.3, BUN 33, creatinine 1.5, glucose 178. ASSESSMENT AND PLAN: Mr. Godwin Link is an 87-year-old male with anemia, increased BUN, hyperglycemia, hypocalcemia. Seen by GI, Dr. Grove. With history of diabetes mellitus, hypertension, coronary artery disease, abdominal aortic aneurysm, looks like metastatic pancreatic cancer, admitted after a fall, history of ascites, paracentesis done, waiting for the cytology. Looks like malignant ascites from progressively pancreatic cancer with possibly omental caking. Tumor has increased in size and may be causing partial duodenal obstruction, though the patient is asymptomatic, tolerating diet, and not having any vomiting, previously placed metallic biliary stent is not visualized on CT scan at this time, may be due to tissue or tumor overgrowth, less likely migration as possible as the patient is not jaundiced. GI signed off the case. Called Oncology consult with Dr. Priscila Pruitt. C-125 elevated. Pelvic ultrasound , Gastrointestinal and deep venous thrombosis prophylaxis. Repeat labs. We will follow up. Delmy Montana MD [facility] # [id number] [facility]
[2017-05-07] MEDS: ALFUZOSIN HCL 10 MG PO SCH (12:39)
[2017-05-07] MEDS: DUTASTERIDE 0.5 MG PO SCH (12:40)
[2017-05-07] MEDS: Enoxaparin 30 mg Syringe SC SCH (12:40)
[2017-05-07 12:45] VITALS: BP 90/50
== END 2017-05-07 17:30 | disposition home health service (06) | DRG 435 ==
LOC: ED 12:00 → ERH 13:58 → 3RSO 22:53 → 2A 05-01 13:05
PROVIDERS: ADMIT Internal Medicine; ATTEND Internal Medicine
PROC: 0W9G3ZX Drainage of Peritoneal Cavity, Percutaneous Approach, Diagnostic (ICD-10-PCS; principal; 2017-05-03 09:30)
DX: C25.9 Malignant neoplasm of pancreas, unspecified (principal); K83.1 Obstruction of bile duct; K56.699 Other intestinal obstruction unspecified as to partial versus complete obstruction; R18.8 Other ascites; R64 Cachexia; E44.0 Moderate protein-calorie malnutrition; E11.65 Type 2 diabetes mellitus with hyperglycemia; E83.51 Hypocalcemia; Z68.1 Body mass index [BMI] 19.9 or less, adult; Z85.46 Personal history of malignant neoplasm of prostate; S90.31XA Contusion of right foot, initial encounter; G30.9 Alzheimer's disease, unspecified; F02.80 Dementia in other diseases classified elsewhere, unspecified severity, without behavioral disturbance, psychotic disturbance, mood disturbance, and anxiety; E86.0 Dehydration; D64.9 Anemia, unspecified; I71.4 Abdominal aortic aneurysm, without rupture; I25.10 Atherosclerotic heart disease of native coronary artery without angina pectoris; I10 Essential (primary) hypertension; Z79.84 Long term (current) use of oral hypoglycemic drugs; E78.5 Hyperlipidemia, unspecified; F32.9 Major depressive disorder, single episode, unspecified; H91.90 Unspecified hearing loss, unspecified ear; E87.5 Hyperkalemia; N28.1 Cyst of kidney, acquired; R91.1 Solitary pulmonary nodule; J44.9 Chronic obstructive pulmonary disease, unspecified; E78.00 Pure hypercholesterolemia, unspecified; M79.671 Pain in right foot; M25.571 Pain in right ankle and joints of right foot; W22.8XXA Striking against or struck by other objects, initial encounter; Z86.73 Personal history of transient ischemic attack (TIA), and cerebral infarction without residual deficits; Z91.19 Patient's noncompliance with other medical treatment and regimen; Z87.891 Personal history of nicotine dependence

== ENCOUNTER 2017-07-03 12:07 | Inpatient (IN) | payer MEDICARE, MEDICAID ==
[2017-07-03] MEDS ORDERED: Sodium Chloride 0.9% 1,000 ML IV STA (12:43)
--- NOTE | 2017-07-03 12:43 | ED PDOC ---
Arrival/HPI - General Chief Complaint: Weakness/Neurological Deficit Time Seen by Provider: 07/03/17 12:42 Historian: Patient, Caregiver, Quality Officer (scribe) - History of Present Illness Narrative History of Present Illness (Text): 07/03/17 12:43 A 87 year old male, whose past medical history includes diabetes and mild dementia, presents to the emergency department accompanied by homemaker and nephew complaining of progressively worsening abdominal and lower extremity swelling for 3 months, as well as mild abd cramps. Patient and family primarily speak Com[place], history obtained through scribe. Patient notes bilateral leg pain , left worse than right and mild abdominal discomfort. Nephew reports patient has been experiencing shortness of breath, worse with exertion. Patient notes dark yellow urine but denies any fever, chills, nausea, vomiting, diarrhea, stool changes, chest pain or any other complaints. Patient unable to ambulate due to swelling and pain. pt arrived to ED for further eval pt's without other complaints PMD: Dr. Montana pt lives with spouse at home Time/Duration: Other (3 months) Symptom Course: Worsening Severity Level: Moderate Activities at Onset: Rest Context: Home Past Medical History - Provider Review Nursing Documentation Reviewed: Yes - Travel History Have you recently traveled outside [place] w/in the past 3 mons?: No - Past History Past History: No Previous - Infectious Disease Hx of Infectious Diseases: None - Tetanus Immunization Tetanus Immunization: Unknown - Cardiac Hx Cardiac Disorders: Yes Hx Hypertension: Yes - Pulmonary Hx Respiratory Disorders: Yes (SMOKED CIGARETTES QUIT 1998 ,SMOKED PPD) Hx Chronic Obstructive Pulmonary Disease (COPD): Yes - Neurological HX Cerebrovascular Accident: Yes - HEENT Hx HEENT Disorder: Yes (eyeglasses) Hx Cataracts: Yes (BILATERAL SURGERY) Other/Comment: 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 - Renal Hx Renal Disorder: No - Endocrine/Metabolic Hx Diabetes Mellitus Type 2: Yes - Hematological/Oncological Hx Cancer: Yes (prostate) - Integumentary Hx Dermatological Disorder: Yes Other/Comment: r ft swelling +2 pitting bruising redness - Musculoskeletal/Rheumatological Hx Falls: Yes (past) - Gastrointestinal Hx Gastrointestinal Disorders: Yes (PANCREATITIS,PANCREATIC MASS,) Hx Gall Bladder Disease: Yes (gallstones) Hx Pancreatitis: (pancreatic mass) Other/Comment: HERNIA REPAIR,HEMORRHOIDECTOMY, ercp and biliary stent and replacement, prostate bx - Genitourinary/Gynecological Hx Genitourinary Disorders: No Hx Prostate Problems: Yes (ca and bx) - Psychiatric Hx Substance Use: No - Past Surgical History Past Surgical History: Unable to Obtain - Surgical History Other/Comment: Abdominal Aortic Aneurysm repair, hemorrhoid sx, hernia sx - Anesthesia Hx Anesthesia Reactions: No Hx Malignant Hyperthermia: No - Suicidal Assessment Feels Threatened In Home Enviroment: No Family/Social History - Physician Review Nursing Documentation Reviewed: Yes Family/Social History: No Known Family HX Smoking Status: Former Smoker Hx Alcohol Use: No Hx Substance Use: No Hx Substance Use Treatment: No Allergies/Home Meds Allergies/Adverse Reactions: Allergies No Known Allergies Allergy (Verified 08/26/16 18:43) Home Medications: Home Meds Medication Instructions Recorded Confirmed Alfuzosin HCl [Uroxatral] 10 mg PO DAILY 05/03/15 07/03/17 Dutasteride 0.5 mg PO DAILY 06/02/15 07/03/17 GlipiZIDE [Glucotrol] 5 mg PO QA 08/30/15 07/03/17 Cetirizine HCl [All Day Allergy] 10 mg PO DAILY 08/26/16 07/03/17 Diphenhydramine HCl [Wal-Dryl] 25 mg PO HS 08/26/16 07/03/17 Furosemide [Lasix] 40 mg PO DAILY 08/26/16 07/03/17 QUEtiapine [SEROquel] 50 mg PO BID 08/26/16 07/03/17 Alfuzosin HCl [Uroxatral] 10 mg PO DAILY 07/03/17 07/03/17 Diphenhydramine HCl [Wal-Dryl] 25 mg PO DAILY 07/03/17 07/03/17 Esomeprazole Magnesium [Nexium] 40 mg PO DAILY 07/03/17 07/03/17 Insulin Glargine,Hum.rec.anlog 9 unit IN 07/03/17 07/03/17 [Lantus Solostar] Omeprazole [Omeprazole] 20 mg PO DAILY 07/03/17 07/03/17 Potassium Chloride [Klor-Con 10 meq PO DAILY 07/03/17 07/03/17 Sprinkle] Review of Systems - Physician Review All systems were reviewed & negative as marked: Yes - Review of Systems Constitutional: absent: Fevers, Night Sweats Eyes: Normal ENT: Normal Respiratory: SOB Cardiovascular: Edema (to abdomen and bilateral lower extremities). absent: Chest Pain Gastrointestinal: Abdominal Pain. absent: Stool Changes, Diarrhea, Nausea, Vomiting Genitourinary Male: Other (dark yellow urine) Musculoskeletal: Other (leg swelling) Skin: Normal Neurological: Normal Endocrine: Normal Hemo/Lymphatic: Normal Psychiatric: Normal Physical Exam Vital Signs Reviewed: Yes Vital Signs Temp Pulse Resp BP Pulse Ox 07/03/17 22:53 65 18 119/82 97 07/03/17 19:30 68 16 120/70 97 07/03/17 17:01 75 18 118/66 98 07/03/17 15:31 79 18 110/65 98 07/03/17 15:05 76 16 118/68 97 07/03/17 13:25 18 07/03/17 13:14 107/65 07/03/17 12:08 97.9 F 85 18 108/61 98 Temperature: Afebrile Blood Pressure: Normal Pulse: Regular Respiratory Rate: Normal Appearance: Positive for: Well-Appearing, Non-Toxic, Uncomfortable, Other ( resting in bed, alert/awake, mildly uncomfortable, NAD, cooperative, GCS = 15, oriented x 2 (not to date/time)) Pain Distress: None Mental Status: Positive for: other (Alert and Oriented to person, place and time (month only)) - Systems Exam Head: Present: Atraumatic, Normocephalic, Other (mild bi-temporal wasting) Pupils: Present: PERRL, Other (no jaundice, sclera anicteric, no nystagmus, no photophobia, visual field intact b/l) Extroacular Muscles: Present: EOMI Conjunctiva: Present: Normal Ears: Present: Normal Mouth: Present: Dry, Other (poor dentitions, mild dry oral mucosa, noted pallor to sublingula papilla; no drooling/stridor/exudate/lesions, uvula/tongue are midline) Pharnyx: Present: Normal Nose (External): Present: Atraumatic Nose (Internal): Present: Normal Inspection Neck: Present: Normal Range of Motion, Meningeal Signs, Trachea Midline. No: MIDLINE TENDERNESS Respiratory/Chest: Present: Clear to Auscultation, Good Air Exchange, Other ( CTA b/l, no w/r/r, no accessory muscle use noted, no tachypenia). No: Respiratory Distress, Accessory Muscle Use Cardiovascular: Present: Regular Rate and Rhythm, Normal S1, S2. No: Murmurs Abdomen: Present: Distention, Other (distant bowel sounds, well nourished male, no focal tenderness, no masses/rebound/guarding/rigidity, no huerta's sign, no mcburney's point tenderness; no fluid waves noted). No: Tenderness, Peritoneal Signs Back: Present: Normal Inspection. No: CVA Tenderness, Midline Tenderness, Paraspinal Tenderness Upper Extremity: Present: Normal Inspection, Normal ROM, NORMAL PULSES, Neurovascularly Intact, Capillary Refill < 2s. No: Cyanosis, Edema Lower Extremity: Present: Edema (Bilateral pitting edema, right worse than left) , CALF TENDERNESS (bilateral LE tenderness, left worse than right), NORMAL PULSES, Other (+ pitting edema noted b/l lower ext up to prox knee, right >> left; ? rebekah's sign to right leg; neurovasc intact b/l, strength 5-/5 b/l, no gross deformities noted) Neurological: Present: GCS=15, CN II-XII Intact, Speech Normal Skin: Present: Warm, Dry, Pale. No: Rashes Psychiatric: Present: Alert, Oriented x 3 (To person, place and time (month only )), Normal Insight, Normal Concentration Medical Decision Making ED Course and Treatment: 07/03/17 12:43 Impression: A 87 year old male with worsening abdominal and lower extremity swelling. Associated abdominal discomfort and shortness of breath. Differential Diagnosis included but are not limited to: Rule out Ascites vs. Heart failure vs. Cancer Plan: -- Abdomen and pelvis CT -- Abdomen ultrasound -- Duplex LE ultrasound -- Chest xray -- EKG -- Labs -- Urinalysis -- Aspirin, Pepcid, Lasix and IV fluids -- Reassess and disposition Progress Notes: Spoke with [employer] service technician, reports positive for right partial DVT of common femoral vein and profunda femoral vein. 07/03/17 14:[address] [place], who is aware of and in agreement with admission. States to start patient on Lovenox for anticoagulation. Requests Dr. King and Dr. Grove for consult. 04/17/18 1500 pt is comfortable currently pt is awaiting bed placement 1800 pt's son is at bedside made aware of pt's medical results agrees with admission Re-evaluation Time: 14:30 Reassessment Condition: Improving,but remains with symptoms - Critical Care Critical Care Minutes: 30 minutes Critical Care Time: Excluding Proc Time Narrative Critical Care (Text): 07/03/17 23:54 critical care time: 30min, excluding procedure time, excluding time teaching residents/students/mid-level providers; including initial eval/diagnosis, diagnostic interpretation, re-eval, consultations, final disposition - Lab Interpretations Lab Results: 07/03/17 13:30 07/03/17 13:30 Lab Results 07/03/17 13:30: Iron 25 L, TIBC 189 L, % Saturation 13 L 07/03/17 13:30: Triglycerides 65, Cholesterol 95 L, LDL Cholesterol Direct < 30 , HDL Cholesterol 48, Vitamin B12 Pending, Folate Pending 07/03/17 13:30: Blood Type A POSITIVE, Antibody Screen Negative, BBK History Checked Patient has bt 07/03/17 13:30: Ammonia 26 07/03/17 13:30: pO2 37, VBG pH 7.33, VBG pCO2 40.0, VBG HCO3 21.1, VBG Total CO2 22.3, VBG O2 Sat (Calc) 70.8 H, VBG Base Excess -4.5 L, VBG Potassium 4.3, Sodium 140.0, Chloride 111.0 H, Glucose 204 H, Lactate 1.6, FiO2 21.0, Venous Blood Potassium 4.3 07/03/17 13:30: Sodium 142, Chloride 112 H, Potassium 4.1, Carbon Dioxide 21, Anion Gap 14, BUN 40 H, Creatinine 2.0 H, Est GFR ( Amer) 39, Est GFR ( Non-Af Amer) 32, Random Glucose 191 H, Calcium 8.3 L, Total Bilirubin 0.5, AST 24, ALT 34, Alkaline Phosphatase 270 H, Total Protein 5.9, Albumin 2.8 L, Globulin 3.2, Albumin/Globulin Ratio 0.9 L, Lipase < 10 L 07/03/17 13:30: PT 13.7 H, INR 1.19 H, APTT 31.0 07/03/17 13:30: WBC 9.1 D, RBC 3.46 L, Hgb 10.4 L, Hct 31.0 L, MCV 89.6, MCH 30.1, MCHC 33.5, RDW 16.6 H, Plt Count 102 L, Gran % 85.5 H, Lymph % (Auto) 6.2 L, [place] % (Auto) 8.0 H, Eos % (Auto) 0.1 L, Baso % (Auto) 0.2, Gran # 7.81 H, Lymph # (Auto) 0.6 L, [place] # (Auto) 0.7 H, Eos # (Auto) 0.0, Baso # (Auto) 0.02 I have reviewed the lab results: Yes Interpretation: Abnormal lab values (elevated BUN/CREAT) - RAD Interpretation Narrative RAD Interpretations (Text): Report Date : 07/03/2017 13:18 Procedure: Chest xray Dictator : Janice Goldstein MD IMPRESSION: No active pulmonary disease. 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 Simple cysts in both kidneys, the largest in the left upper pole measures 11.3 cm. Report Date : 07/03/2017 14:57:57 PROCEDURE: CT Abdomen and Pelvis without intravenous contrast Dictator : Janice Amato MD IMPRESSION: 1. Large abdominal and pelvic ascites. 2. Apparent mass in the head of the pancreas difficult to evaluate on noncontrast CT. 2. 4.4 x 4.0 cm saccular infrarenal aortic aneurysm. Radiology Orders: 07/03/17 12:43 CHEST PORTABLE [RAD] Stat 07/03/17 12:45 ABDOMEN COMPLETE [US] Stat DUPLEX LOWER EXTRM VEIN BILAT [US] Stat 07/03/17 12:48 ABD & PELVIS W/O PO OR IV CONT [CT] [employer] Professor: Radiologist - EKG Interpretation EKG Interpretation (Text): 07/03/17 23:55 NSR at 80 bpm, normal axis, + ectopy, poor baseline, low voltage inf leads, non- specific st-t changes, ABNL EKG; no gross changes compare with old ekg 04/2017 Interpreted by ED Physician: Yes Type: 12 lead EKG Comparison: Similar to previous EKG - Medication Orders Current Medication Orders: Albuterol/Ipratropium (Duoneb 3 Mg/0.5 Mg (3 Ml) Ud) 3 ml IH [id number] [facility] Last Admin: 07/03/17 20:49 Dose: 3 ml Aspirin (Aspirin Chewable) 81 mg PO DAILY [facility] Atorvastatin Calcium (Lipitor) 20 mg PO DIN [facility] Diphenhydramine HCl (Benadryl) 25 mg PO HS [facility] Enoxaparin Sodium (Lovenox) 50 mg SC Q12H [facility] PRN Reason: Protocol Last Admin: 07/03/17 20:48 Dose: Furosemide (Lasix) 40 mg PO DAILY [facility] Glipizide (Glucotrol) 5 mg PO QAM [facility] Sodium Chloride (Sodium Chloride 0.9%) 1,000 mls @ 75 mls/hr IV .[id number] STA Stop: 07/04/17 02:02 Last Admin: 07/03/17 13:13 Dose: 75 mls/hr eMAR Start Stop Document 07/03/17 13:13 SF (Rec: 07/03/17 13:13 SF [email or web address]) Intravenous Solution Start Date 07/03/17 Start Time 13:13 Insulin Detemir (Levemir) 9 unit SC [facility] Last Admin: 07/03/17 23:05 Dose: MAR Blood Glucose Document 07/03/17 23:05 FD (Rec: 07/03/17 23:05 [id number]) Blood Glucose Finger Stick Blood Glucose (70-120) 173 Insulin Human Regular (Humulin R Low) 0 units SC ACHS [facility] PRN Reason: Protocol Last Admin: 07/03/17 23:04 Dose: Not Given Non-Admin Reason: Blood Sugar Parameter MAR Blood Glucose Document 07/03/17 23:04 FDE (Rec: 07/03/17 23:04 [email or web address]) Blood Glucose Finger Stick Blood Glucose (70-120) 173 Loratadine (Claritin) 10 mg PO DAILY [facility] Non-Formulary Medication (Alfuzosin Hcl [Uroxatral]) 10 mg PO DAILY [facility] Non-Formulary Medication (Dutasteride [Dutasteride]) 0.5 mg PO DAILY [facility] Pantoprazole Sodium (Protonix Ec Tab) 40 mg PO ACB [facility] Quetiapine Fumarate (Seroquel) 50 mg PO BID [facility] Discontinued Medications Aspirin (Aspirin Chewable) 81 mg PO STAT STA Stop: 07/03/17 12:47 Last Admin: 07/03/17 13:13 Dose: 81 mg Enoxaparin Sodium (Lovenox) 60 mg SC STAT [facility] PRN Reason: Protocol Stop: 07/03/17 14:49 Last Admin: 07/03/17 16:09 Dose: 60 mg Subcutaneous Administrations Document 07/03/17 16:09 RG (Rec: 07/03/17 16:09 RG [id number]) Injection Site MAR Injection Site Right Abdomen Charges for Administration # of Subcutaneous Administrations 1 Famotidine (Pepcid) 20 mg IVP STAT STA Stop: 07/03/17 12:44 Last Admin: 07/03/17 13:13 Dose: 20 mg IVP Administration Document 07/03/17 13:13 SF (Rec: 07/03/17 13:13 SF [email or web address]) Charges for Administration # of IVP Administrations 1 Furosemide (Lasix) 40 mg IVP STAT STA Stop: 07/03/17 12:47 Last Admin: 07/03/17 13:14 Dose: 40 mg MAR Blood Pressure Document 07/03/17 13:14 SF (Rec: 07/03/17 13:14 SF [email or web address] Blood Pressure Blood Pressure (100/60-150/90) 107/65 IVP Administration Document 07/03/17 13:14 SF (Rec: 07/03/17 13:14 SF [email or web address]) Charges for Administration # of IVP Administrations 1 - Scribe Statement The provider has reviewed the documentation as recorded by the Momo Sauer Provider Scribe Attestation: All medical record entries made by the Scribheraclio were at my direction and personally dictated by me. I have reviewed the chart and agree that the record accurately reflects my personal performance of the history, physical exam, medical decision making, and the department course for this patient. I have also personally directed, reviewed, and agree with the discharge instructions and disposition. Disposition/Present on Arrival - Present on Arrival Any Indicators Present on Arrival: No History of DVT/PE: No History of Uncontrolled Diabetes: No Urinary Catheter: No History of Decub. Ulcer: No History Surgical Site Infection Following: None - Disposition Have Diagnosis and Disposition been Completed?: Yes Diagnosis: Leg edema, Right leg DVT, Abdominal distension, Acute renal insufficiency, Failure to thrive, Ascites of liver Disposition: HOSPITALIZED Disposition Time: 14:20 Patient Plan: Admission, Telemetry Patient Problems: Current Active Problems Problem Status Onset Acute renal insufficiency Acute Lower extremity edema Acute Right leg DVT Acute Abdominal distension Acute Failure to thrive Acute Ascites of liver Acute Condition: FAIR
[2017-07-03 13:17] VITALS: BMI 18.2
--- NOTE | 2017-07-03 13:19 | RAD ---
HISTORY: weakness, leg swelling COMPARISON: 04/30/2017. FINDINGS: LUNGS: The lungs are clear. There is bibasilar atelectasis/scarring PLEURA: No significant pleural effusion identified, no pneumothorax apparent. CARDIOVASCULAR: Normal. OSSEOUS STRUCTURES: No significant abnormalities. VISUALIZED UPPER ABDOMEN: Normal. OTHER FINDINGS: None. IMPRESSION: No active pulmonary disease.
[2017-07-03 13:49] LABS: BASO # 0.02 K/mm3 (0.0-2.0); BASO % 0.2 % (0.0-3.0); EOS % 0.1 % (1.5-5.0); GRAN # 7.81 (1.4-6.5); GRAN % 85.5 % (50.0-68.0); HEMOGLOBIN 10.4 g/dL (14.0-18.0); LYMPH # 0.6 (1.2-3.4); LYMPH % 6.2 % (22.0-35.0); MEAN CELL VOLUME 89.6 fl (80.0-105.0); MEAN CORPUSCULAR HEMOGLOBIN 30.1 pg (25.0-35.0); MEAN CORPUSCULAR HGB CONC 33.5 g/dl (31.0-37.0); MONO # 0.7 (0.1-0.6); PLATELET COUNT 102 10^3/uL (120.0-450.0); RBC 3.46 10^6/uL (3.5-6.1); RED CELL DISTRIBUTION WIDTH 16.6 % (11.5-14.5); WHITE BLOOD COUNT 9.1 10^3/ul (4.5-11.0)
[2017-07-03 13:52] LABS: VENOUS BLOOD GAS BASE EXCESS -4.5 mmol/L (0.0-2.0); VENOUS BLOOD GAS PO2 37 mm/Hg (30-55); VENOUS BLOOD PH 7.33 (7.32-7.43)
[2017-07-03 14:00] LABS: ALB/GLOB RATIO 0.9 (1.1-1.8); ALBUMIN 2.8 g/dL (3.0-4.8); ALT/SGPT 34 U/L (7-56); AST/SGOT 24 U/L (17-59); BLOOD UREA NITROGEN 40 mg/dL (7-21); CALCIUM 8.3 mg/dL (8.4-10.5); GFR AFRICAN-AMERICAN 39; GFR NON-AFRICAN AMERICAN 32; LIPASE < 10 U/L (23-300)
[2017-07-03 14:05] LABS: INR 1.19 (0.93-1.08); PROTHROMBIN TIME 13.7 SECONDS (9.4-12.5)
--- NOTE | 2017-07-03 14:19 | US ---
HISTORY: Leg pain and swelling. Evaluate for DVT PHYSICIAN(S): Valdo Bower MD. TECHNIQUE: Duplex sonography and color-flow Doppler with graded compression were used to evaluate the deep venous systems of both lower extremities. FINDINGS: There is occlusive thrombus in the right common femoral vein and proximal right deep femoral vein. The thrombus is somewhat echogenic and is likely subacute/chronic. The right femoral vein popliteal vein and visualized right tibial veins are patent and compressible. There is no sonographic evidence for deep venous thrombosis the visualized segments of the left lower extremity. IMPRESSION: Subacute/chronic occlusive thrombus in the right common femoral vein and proximal right deep femoral vein
--- NOTE | 2017-07-03 14:29 | US ---
HISTORY: Abdominal distention, weight changes, ? ascities COMPARISON: None. TECHNIQUE: Grayscale imaging was performed. FINDINGS: LIVER: Measures 13.8 cm. There is diffuse increased echogenicity and coarse echotexture with nodular contour. No mass. No intrahepatic bile duct dilatation. GALLBLADDER: There are no gallstones, wall thickening or pericholecystic fluid. The sonographic Zhou's sign is negative. COMMON BILE DUCT: Measures 6.1 mm. No stones. No dilatation. PANCREAS: Normal in size and echotexture. No mass. No ductal dilatation. RIGHT KIDNEY: Measures 10.9cm. Normal echogenicity. No calculus, mass, or hydronephrosis. There is a 4.7 x 4.1 x 4.2 cm simple cyst in the upper pole. LEFT KIDNEY: Measures 14.1cm. Normal echogenicity. No calculus, mass, or hydronephrosis. There is 11.3 x 10.1 x 10.8 cm simple cyst in the upper pole. SPLEEN: Normal in size and contour. No mass. AORTA: No aneurysmal dilatation. IVC: Unremarkable. OTHER FINDINGS: There is large abdominal ascites. 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 Simple cysts in both kidneys, the largest in the left upper pole measures 11.3 cm.
[2017-07-03] MEDS ORDERED: Enoxaparin 60 mg Syringe SC STA (14:48)
--- NOTE | 2017-07-03 14:59 | CT ---
PROCEDURE: CT Abdomen and Pelvis without intravenous contrast HISTORY: mild abd pain, significant distention, r/o masses COMPARISON: 05/02/2017. TECHNIQUE: CT scan of the abdomen and pelvis was performed without administration of intravenous contrast. Oral contrast was not administered. Coronal and sagittal reformatted images were obtained. Radiation dose: Total exam DLP = Total exam DLP = 337.03 mGy-cm. This CT exam was performed using one or more of the following dose reduction techniques: Automated exposure control, adjustment of the mA and/or kV according to patient size, and/or use of iterative reconstruction technique. FINDINGS: LOWER THORAX: There is centrilobular emphysema and mild fibrotic changes in the visualized lungs. There is a new trace mild dilatation of the ascending aorta. The heart is normal in size. There are calcifications in the left basilar pleura. LIVER: The liver is normal in size. There is pneumobilia in the left hepatic lobe likely related to sphincterotomy. GALLBLADDER AND BILE DUCTS: No calcified gallstones. PANCREAS: Apparent mass in the head of the pancreas with atrophy of the body and tail diffuse atrophy. The mass is difficult to evaluate on noncontrast CT and in the absence of oral contrast. SPLEEN: Borderline splenomegaly. There are punctate nonspecific benign calcifications in the spleen. ADRENALS: No discrete nodule. KIDNEYS AND URETERS: Both kidneys are normal in size without hydronephrosis or nephrolithiasis. No hydronephrosis. No solid mass. There is a stable septated cyst in the right upper pole and large simple cyst in the left upper pole. VASCULATURE: There is a saccular infrarenal aortic aneurysm measuring 4.1 x 4.4 cm. BOWEL: The small bowel loops are normal in caliber. There is large amount of stool in the colon. No bowel dilatation or obstruction APPENDIX: Normal appendix. PERITONEUM: There is large abdominal and pelvic ascites. No free air. LYMPH NODES: No enlarged lymph nodes. BLADDER: Grossly normal in appearance. REPRODUCTIVE: There are radiation seeds in the prostate gland. BONES: No acute fracture. OTHER FINDINGS: None. IMPRESSION: 1. Large abdominal and pelvic ascites. 2. Apparent mass in the head of the pancreas difficult to evaluate on noncontrast CT. 2. 4.4 x 4.0 cm saccular infrarenal aortic aneurysm.
[2017-07-03 15:53] LABS: URINE BILIRUBIN NEGATIVE (NEGATIVE); URINE BLOOD LARGE (NEGATIVE); URINE GLUCOSE (UA) NEGATIVE (NEGATIVE); URINE LEUKOCYTE ESTERASE NEGATIVE Leu/uL (NEGATIVE); URINE PROTEIN NEGATIVE mg/dL (<30 mg/dL); URINE UROBILINOGEN 0.2 E.U./dL (<1 E.U./dL)
[2017-07-03 15:57] LABS: URINE APPEARANCE SL CLOUDY (CLEAR); URINE COLOR YELLOW (YELLOW)
[2017-07-03 15:59] LABS: URINE HYALINE CAST 0 - 2 /hpf; URINE RBC 25 - 30 /hpf (0-2); URINE WBC NEGATIVE /hpf (0-6)
[2017-07-03] MEDS ORDERED: Enoxaparin 60 mg Syringe SC SCH (19:15)
[2017-07-03] MEDS: Albuterol-Ipratrop 3 mg / 0.5 (3 ml) UD IH SCH (20:49)
[2017-07-03 21:04] LABS: IRON 25 ug/dL (45-180)
[2017-07-03 21:05] LABS: HDL CHOLESTEROL 48 mg/dL (29-60)
[2017-07-03 21:13] LABS: % IRON SATURATION 13 % (20-55); TOTAL IRON BINDING CAPACITY 189 ug/dL (261-462)
[2017-07-03] MEDS: Insulin Detemir 100 units/ml Vial (Levemir) SC SCH ×2 (21:18→23:05)
--- NOTE | 2017-07-03 21:23 | CARD ---
APPROVED REPORT EKG Measurement Heart [id number] <Conclusion> Sinus rhythm with premature supraventricular complexes Left axis deviation Nonspecific ST and T wave abnormality Abnormal ECG
[2017-07-03 21:24] LABS: LDL CHOLESTEROL < 30 mg/dL (0-129)
[2017-07-03] MEDS: Insulin Reg-LOW-Coverage SC SCH (23:04)
[2017-07-04] MEDS: Albuterol-Ipratrop 3 mg / 0.5 (3 ml) UD IH SCH ×4 (03:14→20:18)
--- NOTE | 2017-07-04 03:27 | CON ---
DATE: 07/03/2017 PULMONARY CONSULT REFERRING PHYSICIAN: Delmy Montana MD. REASON FOR CONSULT: Chronic lung disease, leg swelling, DVT. HISTORY OF PRESENT ILLNESS: This is an 87-year-old gentleman with past medical history significant for chronic lung disease, dementia, hypertension, history of CVA, diabetes, history of pancreatic mass, history of gallstone, prostate cancer, who was brought in by the family because of persistent lower extremity swelling, short of breath. No fever. No chills. No nausea. No vomiting. PAST MEDICAL HISTORY: As per history of present illness. FAMILY HISTORY: No significant cardiopulmonary disease reported. ALLERGIES: NONE KNOWN. SOCIAL HISTORY: Stopped smoking many years ago. Denies any alcohol use. MEDICATIONS: He is on alfuzosin 10 mg daily, aspirin 81 mg daily, Benadryl 25 mg at bedtime, Claritin 10 mg daily, DuoNeb every 6 hours, dutasteride 0.5 mg daily, glipizide 5 mg daily, insulin coverage, Lasix 40 mg daily, Levemir 10 units subcu at bedtime, Lipitor 20 mg daily, Lovenox 50 mg every 12 hours, Protonix 40 mg daily, Seroquel 50 mg twice a day, IV fluid normal saline 75 mL per hour. REVIEW OF SYSTEMS: No headache. No rhinitis. Mild cough. Shortness of breath. No chest pain. Mild abdominal pain. No dysuria. Does have a leg swelling. PHYSICAL EXAMINATION: GENERAL: Lying in the bed, in no acute distress. VITAL SIGNS: Temp is 98, heart rate is 65, respiratory rate is 18, blood pressure 119/82, pulse ox 97% on nasal cannula. HEENT: Moist mucous membrane. No ulcer or thrush noted. NECK: Supple. No JVD. LUNGS: Have a fair airflow with rhonchi. HEART: S1 and S2. ABDOMEN: Soft and nontender. No organomegaly. EXTREMITIES: He has some edema. NEUROLOGICAL: Awake and alert. Follows simple command. LABORATORY DATA: Shows hemoglobin 10.4, hematocrit 31, WBC 9.1, platelet is 102. INR 1.19, PTT 31. VBG showed pH 7.33, pCO2 of 40, O2 of 37. Sodium 142, potassium 4.1, chloride 112, bicarbonate 21, BUN 40, creatinine 2, glucose is 191, calcium 8.3, iron is 25, AST 24, ALT 34, alk phos is 270, ammonia is 26, albumin is 2.8, triglycerides 65, cholesterol is 95, lipase less than 10. Vitamin B12 is pending. He has a CAT scan of the abdomen and pelvis done, which shows large abdominal and pelvic ascites. Apparently, mass in the head of the pancreas. Difficult to evaluate on noncontrast CT. Also has 4.4 x 4 cm saccular infrarenal aortic aneurysm. Venous Doppler of lower extremity shows subacute/chronic occlusive thrombus in the right common femoral vein and proximal right deep femoral vein. Chest x-ray shows no infiltrate. IMPRESSION AND PLAN: Deep venous thrombosis, chronic lung disease, aortic aneurysm, ascites, pancreatic mass, diabetes. Spoke to the patient's son at bedside. All the questions answered. I agree with Dr. Montana. Continue bronchodilator. Keep head at 45 degrees. Gastric prophylaxis. Hematology interventional consult was called. If the patient is high risk for bleeding secondary to aortic aneurysm, may need inferior vena cava filter. Will also need echocardiogram to assess left ventricular and right ventricular function. Continue inhaled bronchodilator. Thank you and we will follow with you. Saji King MD
[2017-07-04 06:19] LABS: HEMOGLOBIN 10.4 g/dL (14.0-18.0); MEAN CELL VOLUME 87.4 fl (80.0-105.0); MEAN CORPUSCULAR HEMOGLOBIN 29.1 pg (25.0-35.0); MEAN CORPUSCULAR HGB CONC 33.3 g/dl (31.0-37.0); MEAN PLATELET VOLUME 12.7 fl (7.0-11.0); RBC 3.57 10^6/uL (3.5-6.1); RED CELL DISTRIBUTION WIDTH 16.4 % (11.5-14.5)
[2017-07-04 07:05] LABS: WHITE BLOOD COUNT 11.8 10^3/ul (4.5-11.0)
[2017-07-04] MEDS ORDERED: Dextrose 50% SYRINGE Inj (50 ml) ONE (07:13)
[2017-07-04] MEDS ORDERED: Dextrose 50% SYRINGE Inj (50 ml) IV ONE (07:16)
[2017-07-04 07:24] LABS: CALCIUM 8.4 mg/dL (8.4-10.5)
[2017-07-04] MEDS: Insulin Reg-LOW-Coverage SC SCH ×4 (07:52→22:31)
[2017-07-04] MEDS: Pantoprazole 40 mg EC Tab PO SCH (08:11)
[2017-07-04] MEDS: DUTASTERIDE 0.5 MG PO SCH (10:14)
[2017-07-04] MEDS: ALFUZOSIN HCL 10 MG PO SCH (10:14)
--- NOTE | 2017-07-04 10:15 | CP.PCM.CON ---
<Vamsi Hamm - Last Filed: 07/04/17 10:30> History of Present Illness - History of Present Illness History of Present Illness: PGY4 Initial GI Consult Godwin Link is a 87 year old male, w/ a hx of diabetes, mild dementia, pancreatic mass who presented to the ER complaining of progressively worsening abdominal and lower extremity swelling for 3 months, as well as mild abd cramps. Patient notes bilateral leg pain, left worse than right and mild abdominal discomfort. He has a pancreatic head mass complicated by biliary obstruction with prior ERCP and stent placement ion 04/2015 and 08/2015. He had previously been admitted [place] [facility] [place] secondary to a pancreatic mass with biliary obstruction s/p ERCP with stent placement. He previously had 2 FNA biopsies of the pancreatic mass which were non-diagnostic. Pancreatic protocol CT from 08/02/15 revealed a 2.2cm pancreatic head mass with biliary and pancreatic duct dilatation. GI consulted for further evaluation/management of pancreatic head mass and abd distension. Presently, he denied abdominal pain, nausea, vomiting, melena, hematochezia, jaundice, pruritis. 12point ROS as per HPI above otherwise negative PMH: as stated above PSHx: ERCP with metallic stent placement Allergies: NKDA Social Hx: Former tobacco and alcohol use Family Hx: No reported family history of pancreatic cancer denies any fever, chills, nausea, vomiting, diarrhea, stool changes, chest pain or any other complaints. ROS: 12 point ROS conducted, neg other than above Past Patient History - Infectious Disease Hx of Infectious Diseases: None - Tetanus Immunizations Tetanus Immunization: Unknown - Past Medical History & Family History Past Medical History?: Yes - Past Social History Smoking Status: Former Smoker - CARDIAC Hx Cardiac Disorders: Yes Hx Hypertension: Yes - PULMONARY Hx Respiratory Disorders: Yes (SMOKED CIGARETTES QUIT 1998 ,SMOKED PPD) Hx Chronic Obstructive Pulmonary Disease (COPD): Yes - NEUROLOGICAL HX Cerebrovascular Accident: Yes - HEENT Hx HEENT Problems: Yes (eyeglasses) Hx Cataracts: Yes (BILATERAL SURGERY) Other/Comment: 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 - RENAL Hx Chronic Kidney Disease: No - ENDOCRINE/METABOLIC Hx Diabetes Mellitus Type 2: Yes - HEMATOLOGICAL/ONCOLOGICAL Hx Cancer: Yes (prostate) - INTEGUMENTARY Hx Dermatological Problems: Yes Other/Comment: r ft swelling +2 pitting bruising redness - MUSCULOSKELETAL/RHEUMATOLOGICAL Hx Falls: Yes (past) - GASTROINTESTINAL Hx Gastrointestinal Disorders: Yes (PANCREATITIS,PANCREATIC MASS,) Hx Gall Bladder Disease: Yes (gallstones) Hx Pancreatitis: (pancreatic mass) Other/Comment: HERNIA REPAIR,HEMORRHOIDECTOMY, ercp and biliary stent and replacement, prostate bx - GENITOURINARY/GYNECOLOGICAL Hx Genitourinary Disorders: No Hx Prostate Problems: Yes (ca and bx) - PSYCHIATRIC Hx Substance Use: No - SURGICAL HISTORY Other/Comment: Abdominal Aortic Aneurysm repair, hemorrhoid sx, hernia sx - ANESTHESIA Hx Anesthesia Reactions: No Hx Malignant Hyperthermia: No Meds Allergies/Adverse Reactions: Allergies Allergy/AdvReac Type Severity Reaction Status Date / Time No Known Allergies Allergy Verified 08/26/16 18:43 - Medications Medications: Current Medications Albuterol/Ipratropium (Duoneb 3 Mg/0.5 Mg (3 Ml) Ud) 3 ml [id number] [facility] Last Admin: 07/04/17 03:14 Dose: Not Given Aspirin (Aspirin Chewable) 81 mg PO DAILY [facility] Atorvastatin Calcium (Lipitor) 20 mg PO DIN [facility] Diphenhydramine HCl (Benadryl) 25 mg PO HS [facility] Last Admin: 07/04/17 00:09 Dose: 25 mg Enoxaparin Sodium (Lovenox) 50 mg SC Q24H [facility] PRN Reason: Protocol Furosemide (Lasix) 40 mg PO DAILY [facility] Glipizide (Glucotrol) 5 mg PO QAM [facility] Last Admin: 07/04/17 09:19 Dose: Not Given Insulin Detemir (Levemir) 9 unit SC [facility] Last Admin: 07/03/17 23:05 Dose: Not Given Insulin Human Regular (Humulin R Low) 0 units SC [facility] PRN Reason: Protocol Last Admin: 07/04/17 07:52 Dose: Not Given Loratadine (Claritin) 10 mg PO DAILY [facility] Non-Formulary Medication (Alfuzosin Hcl [Uroxatral]) 10 mg PO DAILY [facility] Non-Formulary Medication (Dutasteride [Dutasteride]) 0.5 mg PO DAILY [facility] Pantoprazole Sodium (Protonix Ec Tab) 40 mg PO ACB [facility] Last Admin: 07/04/17 08:11 Dose: 40 mg Quetiapine Fumarate (Seroquel) 50 mg PO BID [facility] Physical Exam - Constitutional Appears: Well, No Acute Distress - Head Exam Head Exam: ATRAUMATIC, NORMOCEPHALIC - Eye Exam Eye Exam: Normal appearance - ENT Exam ENT Exam: Mucous Membranes Moist, Normal Exam - Neck Exam Neck exam: Positive for: Normal Inspection - Respiratory Exam Respiratory Exam: Clear to Auscultation Bilateral, NORMAL BREATHING PATTERN. absent: Prolonged Expiratory Phase, Rales, Rhonchi, Wheezes, Respiratory Distress - Cardiovascular Exam Cardiovascular Exam: REGULAR RHYTHM, +S1, +S2 - GI/Abdominal Exam GI & Abdominal Exam: Distended, Normal Bowel Sounds, Soft. absent: Diminished Bowel Sounds, Firm, Guarding, Hernia, Organomegaly, Pulsatile Mass, Rebound, Rigid Additional comments: + fluid wave - Extremities Exam Extremities exam: Positive for: pedal edema. Negative for: joint swelling - Neurological Exam Neurological exam: Alert, Oriented x3 - Psychiatric Exam Psychiatric exam: Normal Affect, Normal Mood - Skin Skin Exam: Dry, Intact, Normal Color, Warm Results - Vital Signs Recent Vital Signs: Last Vital Signs Temp 97.8 F 07/04/17 06:00 Pulse 96 H 07/04/17 06:00 Resp 20 07/04/17 06:00 BP 101/60 07/04/17 06:00 Pulse Ox 99 07/04/17 06:00 - Labs Result Diagrams: 07/04/17 06:00 07/04/17 06:00 Labs: Laboratory Results - last 24 hr 07/03/17 07/03/17 07/03/17 15:45 21:21 23:00 WBC RBC Hgb Hct MCV MCH MCHC RDW Plt Count MPV Sodium Potassium Chloride Carbon Dioxide Anion Gap BUN Creatinine Est GFR ( Amer) Est GFR (Non-Af Amer) POC Glucose (mg/dL) 149 H 175 H Random Glucose Calcium TSH 3rd Generation Urine Color Yellow Urine Appearance Sl cloudy Urine pH 6.0 Ur Specific [place] 1.015 Urine Protein Negative Urine Glucose (UA) Negative Urine Ketones Negative Urine Blood Large H Urine Nitrate Negative Urine Bilirubin Negative Urine Urobilinogen 0.2 Ur Leukocyte Esterase Negative Urine RBC 25 - 30 Urine WBC Negative Hyaline Casts 0 - 2 07/04/17 07/04/17 07/04/17 06:00 06:00 06:00 WBC 11.8 H D RBC 3.57 Hgb 10.4 L Hct 31.2 L MCV 87.4 MCH 29.1 MCHC 33.3 RDW 16.4 H Plt Count 185 MPV 12.7 H Sodium 144 Potassium 3.4 L Chloride 114 H Carbon Dioxide 19 L Anion Gap 14 BUN 43 H Creatinine 2.1 H Est GFR ( Amer) 37 Est GFR (Non-Af Amer) 30 POC Glucose (mg/dL) Random Glucose 32 L* D Calcium 8.4 TSH 3rd Generation 1.33 Urine Color Urine Appearance Urine pH Ur Specific [place] Urine Protein Urine Glucose (UA) Urine Ketones Urine Blood Urine Nitrate Urine Bilirubin Urine Urobilinogen Ur Leukocyte Esterase Urine RBC Urine WBC Hyaline Casts Assessment & Plan - Assessment and Plan (Free Text) Assessment: 85yo male with history of DM, HTN, CAD, AAA, pancreatic head mass. GI consulted for evaluation of pancreatic mass and ascities. 1. Pancreatic mass 2. Hx of Biliary obstruction s/p metallic stent placement 3. Cirrhosis? on U/S Plan: -will order paracentesis pending cytology, TP/albumin, cell count, albumin -Ascites likely malignant in nature from progressive pancreatic cancer -Recommend oncology evaluation -Patient non-operative candidate, suggest oncology evaluation -LFTs normal, continue to monitor D/W Dr. Grove <Thom Cabezas Y - Last Filed: 07/04/17 14:20> Meds - Medications Medications: Current Medications Albuterol/Ipratropium (Duoneb 3 Mg/0.5 Mg (3 Ml) Ud) 3 ml IH [id number] [facility] Last Admin: 07/04/17 03:14 Dose: Not Given Aspirin (Aspirin Chewable) 81 mg PO DAILY [facility] Last Admin: 07/04/17 10:13 Dose: 81 mg Atorvastatin Calcium (Lipitor) 20 mg PO DIN [facility] Diphenhydramine HCl (Benadryl) 25 mg PO HS [facility] Last Admin: 07/04/17 00:09 Dose: 25 mg Enoxaparin Sodium (Lovenox) 50 mg SC Q24H [facility] PRN Reason: Protocol Furosemide (Lasix) 40 mg PO DAILY [facility] Last Admin: 07/04/17 10:13 Dose: 40 mg Insulin Human Regular (Humulin R Low) 0 units SC ACHS [facility] PRN Reason: Protocol Last Admin: 07/04/17 11:08 Dose: Not Given Loratadine (Claritin) 10 mg PO DAILY [facility] Last Admin: 07/04/17 10:13 Dose: 10 mg Metoprolol Tartrate (Lopressor) 12.5 mg PO BID [facility] Non-Formulary Medication (Alfuzosin Hcl [Uroxatral]) 10 mg PO DAILY [facility] Last Admin: 07/04/17 10:14 Dose: Not Given Non-Formulary Medication (Dutasteride [Dutasteride]) 0.5 mg PO DAILY [facility] Last Admin: 07/04/17 10:14 Dose: Not Given Pantoprazole Sodium (Protonix Ec Tab) 40 mg PO ACB [facility] Last Admin: 07/04/17 08:11 Dose: 40 mg Potassium Chloride (K-Dur 20 Meq Er Tab) 40 meq PO ONCE ONE Stop: 07/04/17 14:10 Quetiapine Fumarate (Seroquel) 50 mg PO BID [facility] Last Admin: 07/04/17 10:14 Dose: 50 mg Results - Vital Signs Recent Vital Signs: Last Vital Signs Temp 97.5 F L 07/04/17 12:00 Pulse 95 H 07/04/17 13:55 Resp 18 07/04/17 12:00 BP 100/58 L 07/04/17 12:00 Pulse Ox 99 07/04/17 06:00 - Labs Result Diagrams: 07/04/17 06:00 07/04/17 06:00 Labs: Laboratory Results - last 24 hr 07/03/17 07/03/17 07/03/17 15:45 21:21 23:00 WBC RBC Hgb Hct MCV MCH MCHC RDW Plt Count MPV Sodium Potassium Chloride Carbon Dioxide Anion Gap BUN Creatinine Est GFR ( Amer) Est GFR (Non-Af Amer) POC Glucose (mg/dL) 149 H 175 H Random Glucose Calcium Vitamin B12 Folate TSH 3rd Generation Urine Color Yellow Urine Appearance Sl cloudy Urine pH 6.0 Ur Specific [place] 1.015 Urine Protein Negative Urine Glucose (UA) Negative Urine Ketones Negative Urine Blood Large H Urine Nitrate Negative Urine Bilirubin Negative Urine Urobilinogen 0.2 Ur Leukocyte Esterase Negative Urine RBC 25 - 30 Urine WBC Negative Hyaline Casts 0 - 2 07/04/17 07/04/17 07/04/17 06:00 06:00 06:00 WBC 11.8 H D RBC 3.57 Hgb 10.4 L Hct 31.2 L MCV 87.4 MCH 29.1 MCHC 33.3 RDW 16.4 H Plt Count 185 MPV 12.7 H Sodium 144 Potassium 3.4 L Chloride 114 H Carbon Dioxide 19 L Anion Gap 14 BUN 43 H Creatinine 2.1 H Est GFR ( Amer) 37 Est GFR (Non-Af Amer) 30 POC Glucose (mg/dL) Random Glucose 32 L* D Calcium 8.4 Vitamin B12 896 Folate 15.1 TSH 3rd Generation 1.33 Urine Color Urine Appearance Urine pH Ur Specific [place] Urine Protein Urine Glucose (UA) Urine Ketones Urine Blood Urine Nitrate Urine Bilirubin Urine Urobilinogen Ur Leukocyte Esterase Urine RBC Urine WBC Hyaline Casts 07/04/17 07/04/17 07/04/17 07:08 07:10 07:52 WBC RBC Hgb Hct MCV MCH MCHC RDW Plt Count MPV Sodium Potassium Chloride Carbon Dioxide Anion Gap BUN Creatinine Est GFR ( Amer) Est GFR (Non-Af Amer) POC Glucose (mg/dL) < 20 L* < 20 L* 100 Random Glucose Calcium Vitamin B12 Folate TSH 3rd Generation Urine Color Urine Appearance Urine pH Ur Specific [place] Urine Protein Urine Glucose (UA) Urine Ketones Urine Blood Urine Nitrate Urine Bilirubin Urine Urobilinogen Ur Leukocyte Esterase Urine RBC Urine WBC Hyaline Casts 07/04/17 11:06 WBC RBC Hgb Hct MCV MCH MCHC RDW Plt Count MPV Sodium Potassium Chloride Carbon Dioxide Anion Gap BUN Creatinine Est GFR ( Amer) Est GFR (Non-Af Amer) POC Glucose (mg/dL) 51 L Random Glucose Calcium Vitamin B12 Folate TSH 3rd Generation Urine Color Urine Appearance Urine pH Ur Specific [place] Urine Protein Urine Glucose (UA) Urine Ketones Urine Blood Urine Nitrate Urine Bilirubin Urine Urobilinogen Ur Leukocyte Esterase Urine RBC Urine WBC Hyaline Casts Attending/Attestation - Attestation I have personally seen and examined this patient.: Yes I have fully participated in the care of the patient.: Yes I have reviewed all pertinent clinical information: Yes Notes (Text): 07/04/17 14:13 I have seen and examined patient with GI fellow. Agree with above documentation with the following additions. In brief, this is an 87 year old male with history of DM, dementia, pancreatic cancer who presents with complaint of progressive increase in abdominal girth and lower extremity swelling for the past 3 months. His prior endoscopic evaluations for pancreatic lesion have been non-diagnostic, though clinical scenario highly suggestive of underlying malignancy. He describes having generalized abdominal discomfort but denies nausea, vomiting, diarrhea, fever/chills, weight loss, or change in bowel habits. DM Dementia Pancreatic cancer Acute renal insufficency Abdominal pain - ascites - Low sodium diet as tolerated - Patient would benefit from therapeutic and diagnostic paracentesis (prior ascitic fluid non-diagnostic) - Follow up oncology recommendations - Patient non-operative candidate given advanced patient age and advanced disease - Continue with diuretic therapy, monitor creatinine - No further planned inpatient GI intervention, will sign off case. Please reconsult as necessary, thank you.
[2017-07-04 13:43] LABS: FOLATE 15.1 ng/mL
[2017-07-04] MEDS ORDERED: Potassium Chloride 20 mEq ER Tab PO ONE (14:09)
[2017-07-04] MEDS: Enoxaparin 60 mg Syringe SC SCH (16:00)
--- NOTE | 2017-07-04 16:18 | PN ---
DATE: 07/04/2017 PULMONARY PROGRESS NOTE REFERRING PHYSICIAN: Delmy Montana MD. SUBJECTIVE: He is sitting up in the bed, having lunch, feels better. No headache. No rhinitis. No chest pain. No nausea. No vomiting. Does have a leg swelling. MEDICATIONS: He is on aspirin 81 mg daily, Benadryl 25 mg at bedtime, Claritin 10 mg daily, DuoNeb every 6 hours, dutasteride 0.5 mg daily, Lasix 40 mg daily, Lipitor 20 mg daily, Lovenox 50 mg subcu twice a day, Protonix 40 mg daily, and Seroquel 50 mg twice a day. PHYSICAL EXAMINATION: GENERAL: In no acute distress. VITAL SIGNS: Temperature is 98, heart rate is 73, respiratory rate is 18, blood pressure 100/58, pulse ox 99% on 2 liters nasal cannula. HEENT: Moist mucous membrane. No ulcer or thrush noted. NECK: Supple. No JVD. LUNGS: Have a fair airflow with rhonchi. HEART: S1 and S2. ABDOMEN: Soft, nontender, no organomegaly. EXTREMITIES: Have edema. NEUROLOGIC: Awake, alert, and follows simple commands. LABORATORY DATA: Shows hemoglobin 10.4, hematocrit 31.2, WBC 11.8, platelet count is 185. Sodium is 144, potassium 3.4, chloride 114, bicarbonate 19, BUN 43, creatinine 2.1, glucose 51, calcium is 8.4. TSH 1.33. IMPRESSION AND PLAN: Deep venous thrombosis, chronic lung disease, aortic aneurysm, ascites, pancreatic mass, diabetes. Pulmonary point of view, he is doing okay. Keep head at 45 degrees. Aspiration precaution. Bronchodilator. History of biliary obstruction, requiring stent. GI following the patient concerning pancreatic mass. Awaiting for hematology/oncology evaluation. Thank you and we will follow with you. Saji King MD
--- NOTE | 2017-07-04 18:03 | CARD ---
APPROVED REPORT EXAM: Two-dimensional and M-mode echocardiogram with Doppler and color Doppler. INDICATION Congestive Heart Failure 2D DIMENSIONS Left Atrium (2D)4.1 (1.6-4.0cm)LVEF (%)45.0 (>50%) M-Mode DIMENSIONS Aortic Root3.30 (2.2-3.7cm)Aortic Cusp Exc.0.70 (1.5-2.0cm) Aortic Valve AoV Peak Wefdupls638.0cm/Tyrone Peak GR.4mmHg Mitral Valve E/A ratio0.0 TDI E/Lateral E'0.0E/Medial E'0.0 LEFT VENTRICLE The left ventricle is normal size. There is borderline concentric left ventricular hypertrophy. The systolic function is mildly impaired. Septal hypokinesis Transmitral Doppler flow pattern is Grade I-abnormal relaxation pattern. RIGHT VENTRICLE The right ventricle is normal size. There is normal right ventricular wall thickness. The right ventricular systolic function is normal. ATRIA The left atrium is borderline dilated. The right atrium size is normal. AORTIC VALVE The aortic valve is severely thickened. There is mild aortic regurgitation. MITRAL VALVE The mitral valve is moderately thickened. Mitral regurgitation is trace. GREAT VESSELS The aortic root is normal in size. <Conclusion> The left ventricle is normal size. There is borderline concentric left ventricular hypertrophy. The systolic function is mildly impaired. Septal hypokinesis Transmitral Doppler flow pattern is Grade I-abnormal relaxation pattern. There is mild aortic regurgitation.
[2017-07-04] MEDS: Dextrose 50% SYRINGE Inj (50 ml) ONE ×2 (23:13→23:28)
[2017-07-04] MEDS ORDERED: Dextrose 50% SYRINGE Inj (50 ml) IVP ONE (23:18)
[2017-07-05] MEDS: Albuterol-Ipratrop 3 mg / 0.5 (3 ml) UD IH SCH ×4 (01:06→20:56)
--- NOTE | 2017-07-05 01:09 | CON ---
DATE: 07/04/2017 CONSULT REQUESTED BY: Delmy Montana MD REASON FOR CONSULTATION: Pancreatic mass and ascites. HISTORY OF PRESENT ILLNESS: Mr. Link is an 87-year-old male. He was evaluated during previous admission when he was found to have vague pancreatic mass and ascites, ascetic fluid tap did not show malignant cell and CA 19-9, which is a tumor marker for pancreatic cancer was not elevated. He is admitted again to the hospital with worsening general condition, fatigue, weakness and distention of abdomen. The patient was contacted several times by our office for follow up in the office, but family refused any care as outpatient. He was discharged in April 2017 from the hospital. He is also complaining of bilateral leg pain, Doppler is negative for DVT. Appetite has been decreased. PAST MEDICAL HISTORY: Hypertension, COPD, diabetes mellitus type 2. PAST SURGICAL HISTORY: Abdominal aortic aneurysm repair, hemorrhoid surgery, hernia surgery. FAMILY HISTORY: Lives at home with . PERSONAL HISTORY: Former smoker. ALLERGIES: NO KNOWN DRUG ALLERGIES. MEDICATIONS: Glipizide, cetirizine, Benadryl, Lasix, omeprazole, potassium. REVIEW OF SYSTEMS: Positive for abdominal distention, shortness of breath, leg swelling. PHYSICAL EXAMINATION: GENERAL: Comfortable in bed, in no acute distress. VITAL SIGNS: Temperature 97.9, heart rate is 85 per minute, respiratory rate 18 per minute, blood pressure 119/82, pulse ox is 97% on room air. HEENT: Pallor positive. NECK: No lymphadenopathy. CHEST: Air entry is present and equal bilaterally. No added sounds. CARDIOVASCULAR: S1 and S2 normal. No murmur. No gallop. ABDOMEN: Distended, fluid present. EXTREMITIES: Bilateral pitting edema present. LABORATORY DATA: White count 9.4, hemoglobin 10.4, hematocrit 31, platelet 102. Sodium 142, potassium 4.1. BUN 40, creatinine 2. Glucose 191. CT abdomen showed ascites. Pancrease difficult to evaluate, where it could not be evaluated on noncontrast CT. He has aortic aneurysm, 4 cm. ASSESSMENT AND PLAN: 1. Ascites: Paracentesis done is April did not show malignant cells. Tumor marker CA 19-9 is not elevated. It is very difficult to label the diagnosis of pancreatic cancer when endoscopic biopsy of pancreatic mass and ascitic fluid cytology are negative. He might have ascites due to other medical conditions. Ascites fluid tap has been requested by Dr. Valdo Bower. I would like to reach the family to determine the level of care they want because they refused repeated request to be followed up in the office for further evaluation after last admission in the hospital in April. 2. Anemia related to chronic disease and iron deficiency, we will consider one dose of IV iron. We would recommend nutrition consults. He does not have nausea or vomiting. Doppler of lower extremity did not show deep vein thrombosis. Thank you, Dr. Montana, for allowing us to participate in Mr. Link' care. We will continue to follow. Priscila Pruitt MD
--- NOTE | 2017-07-05 01:38 | CON ---
DATE: REASON FOR CONSULTATION: Cardiac evaluation, swelling of leg, atrial fibrillation, shortness of breath. BRIEF CLINICAL HISTORY: An 87-year-old male with past medical history significant for chronic lung disease, dementia, hypertension, history of CVA, diabetes, pancreatic mass, history of gallstone, prostate cancer, brought by the family because of the swelling of the leg. The patient was found to be in atrial fibrillation. The patient denies any chest pain, shortness of breath or any palpitation. The patient is a very poor historian. PAST MEDICAL HISTORY: Significant for diabetes, hypertension, hyperlipidemia, status post pancreatic mass, status post biopsy, history of prostate CA. SOCIAL HISTORY: Ex-smoker, quit many years ago. Denies any history of alcohol abuse. He claims that he used to drink moderate. Denies any history of substance abuse. FAMILY HISTORY: Noncontributory. CURRENT MEDICATIONS: Patient is taking Seroquel, Glucotrol, Lasix, diphenhydramine, insulin, glipizide, Lasix, atorvastatin, aspirin, alfuzosin and omeprazole. ALLERGIES: NO KNOWN DRUG ALLERGY. PREVIOUS CARDIAC WORKUP: As follows: The patient's EKG on previous admission on 04/30/2017 shows a normal sinus with APCs, left fascicular block. Last echo of patient was on 05/02/2015 at [facility] that shows normal LV systolic function, calcified aortic valve, trace to mild aortic regurgitation, calcified aortic valve opens adequately, mild tricuspid regurgitation, RV systolic pressure 30. No pericardial effusion. Normal mitral valve reported. EKG presents with normal sinus with premature atrial contraction, left axis deviation. PHYSICAL EXAMINATION: As follows; VITAL SIGNS: Temperature afebrile, heart rate 95, blood pressure . HEENT: PERRLA. Extraocular muscles intact. NECK: Supple. No carotid bruit or thyromegaly. CHEST: Clear to auscultation. HEART: S1 and S2 regular. ABDOMEN: Soft. EXTREMITIES: Clubbing and cyanosis negative. 1+ pedal edema. IMPRESSION: An 87-year-old male with past medical history of hypertension, hyperlipidemia, history of pancreatic mass, leukocytosis, elevated BUN and creatinine, anemia; pancreatic mass, possible pancreatic cancer; arrhythmia, normal sinus with APCs; admitted with swelling of the lower extremity and shortness of breath, multifactorial. The patient has protein-calorie malnutrition moderate, was present since admission as well as history of pancreatic mass and pelvic ascites; so, it could be the cause for swelling of the leg. PLAN: We will monitor in telemetry for paroxysmal atrial fibrillation. Now the patient is in normal sinus with APCs. Because of the pelvic ascites and anemia, we will try to hold anticoagulation. We will get echo to assess LV function with lipid profile, TSH and hemoglobin A1c. Further recommendations depended on the hospital course. We will follow up with you. We will supplement potassium and monitor closely. Continue gentle diuretics. We will put low-dose beta-vitaly as blood pressure is tolerated to prevent going into AFib. Thank you Dr. Montana for providing us the opportunity in taking care of the patient, Godwin Link. Saji Ramirez MD
[2017-07-05] MEDS ORDERED: Dextrose 50% SYRINGE Inj (50 ml) IVP PRN (03:42)
[2017-07-05 06:14] LABS: BASO # 0.01 K/mm3 (0.0-2.0); BASO % 0.1 % (0.0-3.0); EOS # 0.1 (0.0-0.7); EOS % 0.6 % (1.5-5.0); GRAN # 9.13 (1.4-6.5); GRAN % 85.5 % (50.0-68.0); HEMOGLOBIN 10.1 g/dL (14.0-18.0); LYMPH # 0.5 (1.2-3.4); LYMPH % 4.8 % (22.0-35.0); MEAN CELL VOLUME 88.4 fl (80.0-105.0); MEAN CORPUSCULAR HEMOGLOBIN 29.4 pg (25.0-35.0); MEAN CORPUSCULAR HGB CONC 33.2 g/dl (31.0-37.0); PLATELET COUNT 117 10^3/uL (120.0-450.0); RBC 3.44 10^6/uL (3.5-6.1); RED CELL DISTRIBUTION WIDTH 16.4 % (11.5-14.5); WHITE BLOOD COUNT 10.7 10^3/ul (4.5-11.0)
[2017-07-05 07:02] LABS: BAND 4 % (0-2); LYMPHOCYTE 3 % (22.0-35.0); MONOCYTE 8 % (1.0-6.0); NEUTROPHIL 85 % (50.0-70.0)
[2017-07-05 07:03] LABS: ANISOCYTOSIS SLIGHT; PLATELET ESTIMATE LOW (NORMAL); POIKILOCYTOSIS SLIGHT; SCHISTOCYTES SLIGHT
--- NOTE | 2017-07-05 07:21 | CP.PCM.PN ---
Subjective - Date & Time of Evaluation Date of Evaluation: 07/05/17 Time of Evaluation: 06:35 - Subjective Subjective: Seen and examined by me and Dr. Ramirez Reason for consultation and follow up: Cardiac evaluation,Atrial fibrillation, leg swelling, hypertension, shortness of breath Subjective: denies chest pain, denies shortness of breath, no distress Objective - Vital Signs/Intake and Output Vital Signs (last 24 hours): Temp Pulse Resp BP Pulse Ox 98.2 F 71 19 106/49 L 100 07/05/17 06:00 07/05/17 06:00 07/05/17 06:00 07/05/17 06:00 07/05/17 06:00 Intake and Output: 07/05/17 07/05/17 06:59 18:59 Intake Total 100 Output Total 0 Balance 100 - Medications Medications: Current Medications Albuterol/Ipratropium (Duoneb 3 Mg/0.5 Mg (3 Ml) Ud) 3 ml IH [id number] [facility] Last Admin: 07/05/17 01:06 Dose: 3 ml Aspirin (Aspirin Chewable) 81 mg PO DAILY [facility] Last Admin: 07/04/17 10:13 Dose: 81 mg Atorvastatin Calcium (Lipitor) 20 mg PO DIN [facility] Last Admin: 07/04/17 16:00 Dose: 20 mg Dextrose (Dextrose 50% Inj) 50 ml IVP PRN PRN PRN Reason: blood glucose less than 80 Last Admin: 07/05/17 03:51 Dose: 50 ml Diphenhydramine HCl (Benadryl) 25 mg PO HS [facility] Last Admin: 07/04/17 22:33 Dose: Not Given Enoxaparin Sodium (Lovenox) 50 mg SC Q24H [facility]RIE PRN Reason: Protocol Last Admin: 07/04/17 16:00 Dose: 50 mg Furosemide (Lasix) 40 mg PO DAILY [facility] Last Admin: 07/04/17 10:13 Dose: 40 mg Insulin Human Regular (Humulin R Low) 0 units SC ACHS [facility] PRN Reason: Protocol Last Admin: 07/04/17 22:31 Dose: Not Given Loratadine (Claritin) 10 mg PO DAILY [facility] Last Admin: 07/04/17 10:13 Dose: 10 mg Metoprolol Tartrate (Lopressor) 12.5 mg PO BID [facility] Last Admin: 07/04/17 17:14 Dose: 12.5 mg Non-Formulary Medication (Alfuzosin Hcl [Uroxatral]) 10 mg PO DAILY [facility] Last Admin: 07/04/17 10:14 Dose: Not Given Non-Formulary Medication (Dutasteride [Dutasteride]) 0.5 mg PO DAILY [facility] Last Admin: 07/04/17 10:14 Dose: Not Given Pantoprazole Sodium (Protonix Ec Tab) 40 mg PO ACB [facility] Last Admin: 07/04/17 08:11 Dose: 40 mg Quetiapine Fumarate (Seroquel) 50 mg PO BID [facility] Last Admin: 07/04/17 17:14 Dose: 50 mg - Labs Labs: 07/05/17 05:15 07/04/17 06:00 PT 13.7 SECONDS (9.4-12.5) H 07/03/17 13:30 INR 1.19 (0.93-1.08) H 07/03/17 13:30 APTT 31.0 Seconds (25.1-36.5) 07/03/17 13:30 - Constitutional Appears: No Acute Distress - Head Exam Head Exam: NORMAL INSPECTION - Eye Exam Eye Exam: Normal appearance Pupil Exam: NORMAL ACCOMODATION - ENT Exam ENT Exam: Mucous Membranes Moist, Normal Exam - Respiratory Exam Respiratory Exam: Clear to Ausculation Bilateral, NORMAL BREATHING PATTERN - Cardiovascular Exam Cardiovascular Exam: REGULAR RHYTHM, +S1, +S2 Additional comments: negative JVD - GI/Abdominal Exam GI & Abdominal Exam: Soft Additional comments: non tender, denies nausea and vomiting - Extremities Exam Extremities Exam: Full ROM, Normal Capillary Refill Additional comments: no clubbing 1-2+ pedal edema - Neurological Exam Neurological Exam: Alert, Awake, Oriented x3 - Psychiatric Exam Psychiatric exam: Normal Affect, Normal Mood - Skin Skin Exam: Intact, Normal Color, Warm Assessment and Plan - Assessment and Plan (Free Text) Assessment: IMPRESSION: A 87 year old male who was admitted due leg swelling and shortness of breath. Atrial fibrillation,Patient has history pancreatic mass. possible pancreatic cancer,hypertension, hyperlipidemia,leukocytosis, elevated BUN, CVA, diabetes mellitus, history of prostate cancer, ex-smoker. Plan: For Ultrasound guided paracentesis today, NPO post midnight Stable heart rate NSR at 67/min Controlled blood pressure Continue telemetry to monitor occurence of Afib On ASA 81 mg daily,Lipitor 20 mg daily,Lasix 40 mg daily, Lopressor 12.5 mg BID Continue current medications ECHO result from yesterday Normal LV function, mild aortic regurgitation Labs reviewed, K+, phos and magnesium within normal limits Will follow up Plan and treatment discussed with Dr. Ramirez
[2017-07-05 07:35] LABS: ALB/GLOB RATIO 0.9 (1.1-1.8); ALBUMIN 2.7 g/dL (3.0-4.8); ALT/SGPT 35 U/L (7-56); AST/SGOT 35 U/L (17-59); BLOOD UREA NITROGEN 43 mg/dL (7-21); CALCIUM 8.2 mg/dL (8.4-10.5); GFR AFRICAN-AMERICAN 39; GFR NON-AFRICAN AMERICAN 32; HDL CHOLESTEROL 50 mg/dL (29-60)
[2017-07-05] MEDS: Insulin Reg-LOW-Coverage SC SCH ×4 (08:20→22:25)
[2017-07-05 09:03] LABS: LDL CHOLESTEROL < 30 mg/dL (0-129)
--- NOTE | 2017-07-05 09:32 | HP ---
CHIEF COMPLAINT: Swelling of the leg and abdominal pain. HISTORY OF PRESENT ILLNESS: Mr. Godwin Link is an 87-year-old, my private patient with past medical history of diabetes mellitus, mild dementia, pancreatic lesion, came yesterday to my office, accompanying with the homemaker and his nephew, complaining of progressively worsening abdominal pain and lower extremity swelling for 3 months as well as mild abdominal cramps. The patient was feeling so weak and it was hard for him to walk, and was getting shortness of breath also. Then, I called Rodolfo. who transferred patient to [facility]. According to patient, he is getting pain of both legs, left worse than the right, and abdominal discomfort. Nephew reports the patient has been experiencing shortness of breath worse with exertion. Patient has dark yellow urine, but denies any fever, chills, nausea, vomiting or diarrhea. No chest pain. Patient is not able to ambulate due to swelling and shortness of breath. PAST MEDICAL HISTORY: Hypertension, COPD, he smoked cigarette and quit in 1998, history of cerebrovascular accident, bilateral cataract eye surgery, hard of hearing, diabetes mellitus type 2, history of prostate cancer; history of pancreatitis, pancreatic mass, status post biopsy, was benign; history of cholelithiasis, hernia repair, hemorrhoidectomy, history of abdominal aortic aneurysm repair. FAMILY HISTORY: Father and mother, noncontributory. HABITS: Former smoker, now quit smoking. No drugs. No ethanol. ALLERGIES: PATIENT IS NOT ALLERGIC WITH ANY MEDICATION. HOME MEDICATIONS: Uroxatral, Glucotrol, cetirizine, diphenhydramine, Lasix, Seroquel, Nexium, omeprazole, and potassium. REVIEW OF SYSTEMS: Patient was seen and examined at the bedside on 07/04/2017. Looking comfortable. Still having shortness of breath, swelling of the leg and abdominal distention. No fever. No chills. No hematuria or hematochezia. Tolerated food very well by sitting on the chair also. No headache. No rhinitis. PHYSICAL EXAMINATION VITAL SIGNS: Temperature 98, heart rate 73, respiratory rate 18, blood pressure 100/58, pulse oximetry 99% on 2 L nasal cannula. HEENT: Head normocephalic, atraumatic. Eyes PERRLA. Extraocular muscles intact. Conjunctivae clear. Nose patent. Mucous membranes moist. NECK: Supple. No carotid bruit. No JVD or thyromegaly. CHEST: Bilaterally symmetrical. HEART: S1 and S2 positive. LUNGS: Clear to auscultation. ABDOMEN: Hard and distended. EXTREMITIES: Positive edema. NEUROLOGIC: Patient is awake, alert. Follows simple commands. Moving all 4 extremities. LABORATORY DATA: Hemoglobin 10.4, hematocrit 31.2, platelets 11.8. Sodium 144, potassium 3.4, BUN 46, creatinine 2.1, glucose of 51. TSH 1.33. MEDICATIONS: Aspirin, Benadryl, Claritin, DuoNeb, Lipitor, Levoxyl, Protonix, ASSESSMENT AND PLAN: Mr. Godwin Link is a 87-year-old male with deep vein thrombosis, new-onset; chronic lung disease, aortic aneurysm, ascites, pancreatic mass, diabetes mellitus. Keep head elevated at 45 degrees. Aspiration precaution. Bronchodilator. History of biliary obstruction requiring metal stent. GI is on the case. Working on patient's pancreatic mass. Hematology evaluation will be done. Seen by GI, Dr. Thom Cabezas. History of mild dementia, progressively worsening abdominal and lower extremity swelling, acute renal insufficiency, abdominal pain, ascites. Gastrointestinal and deep venous thrombosis prophylaxis. Repeat labs. We will follow up. Delmy Montana MD MTDD
[2017-07-05 11:36] LABS: BODY FLUID TYPE PERITONEAL/ASCITES
[2017-07-05 12:07] LABS: BF GROSS APPEARANCE CLEAR (CLEAR); BODY FLUID TOTAL COUNT 100 (0-0)
[2017-07-05] MEDS: ALFUZOSIN HCL 10 MG PO SCH (12:34)
[2017-07-05] MEDS: DUTASTERIDE 0.5 MG PO SCH (13:01)
[2017-07-05] MEDS: Pantoprazole 40 mg EC Tab PO SCH (13:02)
[2017-07-05] MEDS: Enoxaparin 60 mg Syringe SC SCH (17:31)
--- NOTE | 2017-07-05 17:38 | US ---
PROCEDURE: Ultrasound guided paracentesis. HISTORY: Pancreatic mass. Recurrent ascites with abdominal pain and distension. PHYSICIAN(S): Valdo Bower MD. TECHNIQUE: The relative risks and indications for the procedure were explained to the patient's family and informed written consent obtained. Sonography of the abdomen was performed in a supine position. This revealed a moderate amount of non-loculated ascites, greatest in the right lower quadrant. A puncture site was selected and the area was prepped and draped in the usual sterile fashion. 1% Xylocaine was used to anesthetize the skin and soft tissues. A 7 Nauruan paracentesis catheter was trocared into the right lower quadrantand 1750 cc of clear, straw-colored fluid aspirated. The appropriate labs were sent. IMPRESSION: Ultrasound-guided paracentesis in the right lower quadrant. 1750 cc of fluid were aspirated. Labs were sent
--- NOTE | 2017-07-05 21:09 | CARD ---
APPROVED REPORT EKG Measurement Heart [id number] <Conclusion> Sinus rhythm with premature atrial complexes Low voltage QRS Left anterior fascicular block Prolonged QT Abnormal ECG
--- NOTE | 2017-07-06 02:41 | PN ---
DATE: SUBJECTIVE: Patient is seen and examined at the bedside status post paracentesis, feeling a little bit lethargic. No pain. No nausea, vomiting or diarrhea. Later on patient had low-grade fever. I ordered some Tylenol. No hematuria. No hematochezia. PHYSICAL EXAMINATION: VITAL SIGNS: Temperature 97.9, T-max 99.2; pulse 74, blood pressure 135/74, respiratory rate 20. HEENT: Head is normocephalic and atraumatic. Eyes, PERRLA. Extraocular muscles are intact. Conjunctivae are clear. Nose is patent. Mucous membranes are moist. NECK: Supple. No carotid bruits. No JVD or thyromegaly. CHEST: Bilaterally symmetrical. HEART: S1 and S2 positive. LUNGS: Clear to auscultation. ABDOMEN: Soft. Bowel sounds present. No organomegaly. EXTREMITIES: No edema. No cyanosis. NEUROLOGIC: Patient is awake and alert, moving all 4 extremities. No focal deficit. MEDICATIONS: Uroxatral, aspirin, Benadryl, Claritin, dextrose, insulin, Lasix, Lipitor, Lopressor, Lovenox, Protonix, Seroquel, Tylenol. LABORATORY DATA: White blood cell 10.7, hemoglobin 10.1, hematocrit 30.4, platelets 117. Glucose 159 and 122. ASSESSMENT AND PLAN: Mr. Godwin Link is an 87-year-old male with the history of leukocytosis, anemia, thrombocytopenia, uncontrolled diabetes mellitus, hyperchloremia, renal insufficiency, hypocalcemia, abnormal liver function test, hematuria, was admitted with swelling of the legs, shortness of breath, atrial fibrillation, history of pancreatic mass. Last time, biopsy was done, that was negative for malignancy. Has ascites, paracentesis was done, fluid sent for examination, and no malignancy. Hypertension, hypercholesterolemia. Continue telemetry monitoring, aspirin. Echo is done. Seen by Dr. Ramirez and Dr. Priscila Pruitt, senior engineering associate. Dr. Francois spoke to the patient's son Sammy, and according to Sammy, they wanted to do everything, so Dr. Pruitt upholstery department supervisor patient with Dr. Valdo Bower for biopsy. History of hypertension, chronic obstructive pulmonary disease. Paracentesis of April did not show any malignant cell. The tumor markers, CA 19-9 was not elevated. It is difficult to label the diagnosis of pancreatic cancer by an endoscopic biopsy of pancreatic mass, and ascitic fluid cytology was negative. He might have ascites due to other medical condition. Again, ascites tap is done by Dr. Valdo Bower. Anemia related to chronic disease and iron deficiency. Dr. Pruitt gave dose of intravenous iron. Doppler of the lower extremity do not show any deep vein thrombosis. Gastrointestinal and deep venous thrombosis prophylaxis. Repeat labs. We will follow up. Delmy Montana MD MTDSamara
--- NOTE | 2017-07-06 03:49 | PN ---
DATE: REFERRING PHYSICIAN: Delmy Montana MD. SUBJECTIVE: He is lying in the bed, head at 45 degrees. He is sleepy, arousable, night was unremarkable. No headache. No rhinitis. Short of breath with exertion. No chest pain. No nausea. No vomiting. No diarrhea. No leg swelling. PHYSICAL EXAMINATION: GENERAL: In no acute distress. VITAL SIGNS: Temperature is 98, heart rate is 74, respiratory rate is 20, blood pressure 135/74, pulse ox 100% on nasal cannula. HEENT: Small oral cavity. Crowded airway. NECK: Supple. No JVD. LUNGS: Have fair airflow with rhonchi. HEART: S1 and S2. ABDOMEN: Soft, nontender, no organomegaly. EXTREMITIES: No edema. NEUROLOGIC: Sleepy, arousable, follows simple commands. MEDICATIONS: He is on Uroxatral 10 mg daily, aspirin 81 mg daily, Benadryl p.r.n. basis, Claritin 10 mg daily, DuoNeb every 6 hours, dutasteride 0.5 mg daily, Lasix 40 mg daily, Lipitor 20 mg daily, metoprolol tartrate 12.5 mg twice a day, Lovenox 50 mg subcu twice a day, Protonix 40 mg daily, and Seroquel 50 mg twice a day. Tylenol p.r.n. basis. LABORATORY DATA: Shows hemoglobin 10.1, hematocrit 30.4, WBC 10.7, platelet count is 117. Blood sugar 159. Peritoneal fluid shows rbc 382, wbc 209. IMPRESSION AND PLAN: Deep venous thrombosis, chronic lung disease, aortic aneurysm, ascites, pancreatic mass, diabetes, status post paracentesis. Pulmonary point of view, doing okay. Keep head at 45 degrees. Aspiration precaution. Gastric prophylaxis, sequential compression devices to lower exremities. GI and Oncology followup. Fall precautions. Follow up labs in the morning. Thank you and we will follow with you. Saji King MD
[2017-07-06] MEDS: Albuterol-Ipratrop 3 mg / 0.5 (3 ml) UD IH SCH ×3 (08:02→21:37)
[2017-07-06] MEDS: Insulin Reg-LOW-Coverage SC SCH ×4 (08:34→22:42)
[2017-07-06] MEDS: ALFUZOSIN HCL 10 MG PO SCH (10:56)
[2017-07-06] MEDS: DUTASTERIDE 0.5 MG PO SCH (10:56)
[2017-07-06] MEDS: Pantoprazole 40 mg EC Tab PO SCH (11:10)
--- NOTE | 2017-07-06 13:49 | CARD ---
APPROVED REPORT EKG Measurement Heart [id number] <Conclusion> Atrial fibrillation Left axis deviation Low voltage QRS Possible Lateral infarct, age undetermined Increased R/S ratio in V1, consider early transition or posterior infarct Abnormal ECG
--- NOTE | 2017-07-06 14:31 | PN ---
DATE: 07/06/2017 REASON FOR CONSULTATION AND FOLLOWUP: Cardiac evaluation; swelling of the leg, atrial fibrillation, shortness of breath, status post abdominal ultrasound-guided paracentesis. SUBJECTIVE: The patient is lying flat on the bed. Denies any chest pain, shortness of breath or any palpitation. PHYSICAL EXAMINATION GENERAL: Not in any apparent distress. VITAL SIGNS: Temperature afebrile, heart rate 66, blood pressure 115/49. HEENT: PERRLA. Intact. NECK: Supple. No carotid bruit or thyromegaly. CHEST: Clear to auscultation. HEART: S1, S2 regular. ABDOMEN: Soft. EXTREMITIES: Clubbing and cyanosis negative. LABORATORY DATA: Telemetry shows normal sinus rhythm with APCs. EKG repeat yesterday was normal sinus rhythm, APCs. This morning I saw while it is being done, shows normal sinus rhythm with APCs. Blood workup as follows; WBC 10.7, hemoglobin 10.1, hematocrit 30.4, platelet count 117. Chemistry shows sodium 143, potassium 4.4, chloride 114, carbon dioxide 99, anion gap of 15, BUN 43, creatinine 2. IMPRESSION: An 87-year-old male with past medical history significant for chronic lung disease, dementia, hypertension, history of cerebrovascular accident, diabetes, pancreatic mass, history of gallstone, prostate cancer, brought in by family because of increased leg swelling, found to be in atrial fibrillation. Now, the patient has normal sinus rhythm with atrial premature complexes; status post abdominal paracentesis, 1750 mL from right lower quadrant. Abdominal paracentesis was done. Echo done yesterday that shows normal left ventricular function, mild aortic regurgitation, systolic function is mildly impaired, calculated ejection fraction 45%, trace mitral regurgitation. 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 RECOMMENDATIONS: Continue GI workup to rule out malignancy. Cytology from ascitic fluid is pending. Continue gentle diuretics. Continue metoprolol as blood pressure is tolerated, we will give 12.5 b.i.d. Now, the patient is in normal sinus. We will follow with you. Consider discontinue telemetry. We will repeat the blood workup in the morning. Thank you Dr. Montana for providing us the opportunity in taking care of the patient, Godwin Link. Saji Ramirez MD [facility] # [id number]
[2017-07-06] MEDS ORDERED: Midazolam 2 MG/2 ML VIAL ONE (15:44)
[2017-07-06] MEDS ORDERED: Lidocaine 1% Inj (20ml) ONE (15:45)
[2017-07-06] MEDS ORDERED: Sodium Chloride 0.45% 1,000 ML IV SCH (17:45)
--- NOTE | 2017-07-06 18:24 | CT ---
PROCEDURE: CT guided paracentesis HISTORY: Pancreatic mass. Recurrent ascites with abdominal pain and distension. Recent paracentesis. Leaking. Needs additional fluid PHYSICIAN(S): Valdo Bower MD. TECHNIQUE: The relative risks and indications of the procedure were explained to the patient's son and consent obtained. The patient was placed supine on the CT scanner and preliminary images through the mid to low abdomen obtained. A moderate amount of ascites is noted in the abdomen. A puncture site in the right lower quadrant was selected the area prepped and draped usual sterile fashion. 1 percent xylocaine was used to anesthetize the skin soft tissues. 7 Trinidadian paracentesis catheter was trocar into the right lower quadrant. 2900 cc of cherry fluid was removed. The patient tolerated the procedure well IMPRESSION: 1. CT-guided paracentesis in the right lower quadrant. 2900 cc of fluid was removed. No labs were sent due to the recent paracentesis
--- NOTE | 2017-07-06 18:25 | CT ---
PROCEDURE: CT guided pancreatic biopsy. HISTORY: Pancreatic mass. Evaluate for malignancy. PHYSICIAN(S): Valdo Bower MD. TECHNIQUE: The relative risks and indications of the procedure were explained to the patient's son and consent obtained. The patient was placed decubitus position on the CT scanner and preliminary images through the pancreas obtained. Conscious sedation and monitoring were provided throughout the procedure by a nurse. There is a 5.3 cm mass in the head of the pancreas.. A posterior paraspinal approach was selected and the area prepped and draped in the usual sterile fashion. 1% Xylocaine was used to anesthetize the skin and soft tissues. A 17-gauge guiding needle was advanced into the 5 cm pancreatic head mass. Its position was confirmed with CT. Using coaxial technique, multiple core biopsies were obtained. The postprocedure images show no evidence of significant hemorrhage. IMPRESSION: 1. CT-guided pancreatic biopsy as described above.
[2017-07-06] MEDS: Enoxaparin 60 mg Syringe SC SCH (18:39)
--- NOTE | 2017-07-07 01:08 | PN ---
DATE: 07/06/2017 PULMONARY PROGRESS NOTE REFERRING PHYSICIAN: Delmy Montana MD. SUBJECTIVE: He is lying in the bed, head at 45 degrees, sleepy, arousable. No cough. No sputum production. No hemoptysis, no hematemesis, no hematuria. No diarrhea reported. PHYSICAL EXAMINATION: GENERAL: In no acute distress. VITAL SIGNS: Temperature is 98, heart rate is 63, respiratory rate is 15, blood pressure 99/51, pulse ox 93% on 3 liter nasal cannula. HEENT: Moist mucous membrane. Crowded airway. NECK: Supple. No JVD. LUNGS: Have a scattered rhonchi. HEART: S1 and S2. ABDOMEN: Soft, nontender, no organomegaly. EXTREMITIES: No edema. NEUROLOGIC: Sleepy, arousable, follows simple commands. MEDICATIONS: He received today Claritin 10 mg daily, DuoNeb every 6 hours, dutasteride 0.5 mg daily, insulin coverage, Lasix 40 mg daily, Lipitor 20 mg daily, metoprolol tartrate 12.5 mg twice a day, Lovenox 50 mg twice a day, Protonix 40 mg a.c.b, Seroquel 50 mg twice a day, IV fluid half normal saline 80 mL per hour, Tylenol p.r.n. basis. LABORATORY DATA: Shows blood sugar 125. Ascitic fluid 24 hours, there is no growth. He has a paracentesis done with removal of 2900 mL of ascitic fluid. Also had pancreatic biopsy done. IMPRESSION AND PLAN: Deep venous thrombosis; chronic lung disease; aortic aneurysm; large ascites, status post paracentesis; pancreatic mass, status post biopsy; diabetes. Pulmonary point of view, doing okay. Keep head at 45 degrees. Follow electrolyte closely. Follow blood pressure closely. Aspiration precaution. Gastric prophylaxis. When cleared by Interventional Radiology, may start anticoagulation. Thank you and we will follow with you. Saji King MD
--- NOTE | 2017-07-07 01:31 | PN ---
DATE: SUBJECTIVE: The patient is 87-year-old male. The patient is seen and examined on the bedside, looking comfortable, very lethargic, sleepy, arousable, moving all 4 extremities. No fever. No chills. No nausea, vomiting, diarrhea. Appetite is not very great. PHYSICAL EXAMINATION: VITAL SIGNS: Temperature 97, pulse 63, blood pressure 99/61, respiratory rate of 15. HEENT: Head: Normocephalic, atraumatic. Eyes: PERRLA. Extraocular muscles intact. Conjunctivae clear. Nose patent. Mucous membrane moist. NECK: Supple. No carotid bruit. No JVD or thyromegaly. CHEST: Bilaterally symmetrical. HEART: S1 and S2 positive. LUNGS: Clear to auscultation. ABDOMEN: Soft. Bowel sounds positive. No organomegaly. EXTREMITIES: No edema. No cyanosis. NEUROLOGIC: The patient is sleepy, but arousable. Follows simple commands. LABORATORY DATA: White blood cells 7.7, hemoglobin 10.1, hematocrit 30.4, platelets 117. Glucose 125. MEDICATIONS: Aspirin, Benadryl, Claritin, dextrose, DuoNeb, Lasix, Lipitor, Lopressor, Lovenox, Protonix, Seroquel, Tylenol. ASSESSMENT AND PLAN: Mr. Godwin Link is an 87-year-old male with leukocytosis, improved; anemia; diabetes mellitus, uncontrolled; hematuria. Has ascites, CAT scan guided paracentesis done by Dr. Valdo Bower. Now, CAT scan guided biopsy done. History of deep vein thrombosis; chronic lung disease; aortic aneurysm; history of pancreatic tumor in the past, which was biopsied, was negative; history of repeated paracentesis in the past, ascites fluid do not look like malignant. I reviewed notes. The patient has history of chronic obstructive pulmonary disease, asthma. Has shortness of breath. I reviewed Dr. Ramirez's notes and Dr. Pruitt's notes. Gastrointestinal prophylaxis. The patient is getting Lovenox for deep venous thrombosis. Dementia, hypertension, history of cerebrovascular accident, history of cholelithiasis, prostate cancer, atrial fibrillation. Now, the patient has normal sinus rhythm with atrial premature complexes. With paracentesis, 1750 mL of fluid was taken out. Ejection fraction 45% on echocardiogram. 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 Continue workup for malignancy. Cytology from ascites fluid is pending. Continue gentle diuresis. Continue metoprolol. Gastrointestinal and deep venous thrombosis prophylaxis. Repeat labs. We will follow up. Delmy Montana MD [facility]
[2017-07-07] MEDS: Albuterol-Ipratrop 3 mg / 0.5 (3 ml) UD IH SCH ×4 (03:00→19:19)
[2017-07-07 06:57] LABS: BASO # 0.02 K/mm3 (0.0-2.0); BASO % 0.1 % (0.0-3.0); EOS % 0.1 % (1.5-5.0); GRAN # 13.93 (1.4-6.5); GRAN % 92.5 % (50.0-68.0); HEMOGLOBIN 10.4 g/dL (14.0-18.0); LYMPH # 0.4 (1.2-3.4); LYMPH % 2.7 % (22.0-35.0); MEAN CELL VOLUME 89.5 fl (80.0-105.0); MEAN CORPUSCULAR HEMOGLOBIN 29.5 pg (25.0-35.0); MEAN PLATELET VOLUME 12.3 fl (7.0-11.0); MONO # 0.7 (0.1-0.6); MONO % 4.6 % (1.0-6.0); RBC 3.52 10^6/uL (3.5-6.1); RED CELL DISTRIBUTION WIDTH 16.4 % (11.5-14.5); WHITE BLOOD COUNT 15.1 10^3/ul (4.5-11.0)
[2017-07-07 07:15] LABS: ALB/GLOB RATIO 0.9 (1.1-1.8); ALBUMIN 2.6 g/dL (3.0-4.8); CALCIUM 8.2 mg/dL (8.4-10.5)
[2017-07-07] MEDS: Insulin Reg-LOW-Coverage SC SCH ×4 (08:00→22:39)
[2017-07-07] MEDS: Pantoprazole 40 mg EC Tab PO SCH (08:03)
[2017-07-07] MEDS: DUTASTERIDE 0.5 MG PO SCH (10:40)
[2017-07-07] MEDS: ALFUZOSIN HCL 10 MG PO SCH (10:41)
--- NOTE | 2017-07-07 13:05 | PN ---
DATE: 07/07/2017 PULMONARY PROGRESS NOTE REFERRING PHYSICIAN: Delmy Montana MD. SUBJECTIVE: He is lying in the bed, head at 45 degrees. Feels okay. No headache, no rhinitis. Mild abdominal discomfort. No nausea. No vomiting, diarrhea, leg pain, leg swelling. OBJECTIVE: GENERAL: In no acute distress. VITAL SIGNS: Temp is 98, heart rate is 63, respiratory rate is 20, blood pressure 109/58, pulse ox 99% on room air. HEENT: Moist mucous membranes. Small oral cavity. NECK: Supple. No JVD. LUNGS: Have a fair airflow with few rhonchi. HEART: S1 and S2. ABDOMEN: Positive bowel sounds. Soft, nondistended. EXTREMITIES: There is no edema. NEUROLOGIC: Awake and alert. Follows simple command. MEDICATIONS: He is on aspirin 81 mg daily, Claritin 10 mg daily, IV fluid, DuoNeb every 6 hours, dutasteride 0.5 mg daily, insulin coverage, Lasix 40 mg daily, Lipitor 20 mg daily, metoprolol tartrate 12.5 mg twice a day, Lovenox 50 mg every 12 hours, Protonix 40 mg daily, Tylenol p.r.n. basis. LABORATORY DATA: Shows hemoglobin 10.4, hematocrit 31.5, WBC 15.1, platelet is 136. Sodium 145, potassium 4.1, chloride 114, bicarbonate 19, BUN 41, creatinine 1.6, calcium is 8.2, magnesium is 2, phosphorus 3.9, AST 35, ALT 40, alk phos is 241. Albumin is 2.6. Microbiology: Ascitic fluid, so far there is no growth. IMPRESSION AND PLAN: Deep venous thrombosis; chronic lung disease; aortic aneurysm; large ascites, status post paracentesis; also has a pancreatic mass, status post biopsy; renal insufficiency; diabetes. Pulmonary point of view, doing okay. Keep head at 45 degrees. Gastric prophylaxis. Continue anticoagulation. Follow up electrolytes. Fall precaution. Thank you and we will follow with you. Saji King MD
[2017-07-07] MEDS: Enoxaparin 60 mg Syringe SC SCH (18:04)
--- NOTE | 2017-07-07 23:39 | PN ---
DATE: 07/07/2017 SUBJECTIVE: He is comfortable in bed, in no acute distress. He is arousable, not very alert. Oriented to place. He underwent CT-guided biopsy of the pancreatic mass yesterday by Dr. Valdo Bower. Also had paracentesis yesterday. Appetite is poor. Oral intake is poor. Denies any chest pain or shortness of breath. No events overnight. REVIEW OF SYSTEMS: As per HPI. Rest of 12-point review of systems reviewed and negative. MEDICATIONS: Tylenol 650 every 6 hours p.r.n., DuoNeb t.i.d., aspirin 81 mg daily, Lipitor 20 mg daily, dextrose p.r.n., Lovenox 50 mg subcu every 24 hours, Lasix 40 mg daily, insulin, Claritin 10 mg daily, metoprolol 12.5 mg p.o. b.i.d., Protonix 40 mg daily. LABORATORY DATA: White count 15,000, hemoglobin 10.4, hematocrit 31.5, platelet count 136. Sodium 145, potassium 4.1, BUN 41, creatinine 1.6, iron 25. PHYSICAL EXAMINATION: GENERAL: Comfortable in bed, in no acute distress. Arousable. Not very communicative. VITAL SIGNS: Heart rate is 97 per minute, blood pressure 116/60, respiratory rate 20 per minute, oxygen saturation 92% on room air. Temperature 98.5. HEENT: Pallor positive. NECK: No lymphadenopathy. CHEST: Air entry present and equal bilaterally. No added sound. CARDIOVASCULAR: S1 and S2 normal. No murmur. No gallop. ABDOMEN: Distended. Soft. Nontender. EXTREMITIES: No edema. CENTRAL NERVOUS SYSTEM: Arousable. Not communicative. Moving all the limbs. No focal sensory or motor deficit. ASSESSMENT AND PLAN: 1. Ascites. 2. Pancreatic mass, status post CT-guided biopsy. 3. Failure to thrive. 4. Cachexia. 5. Iron-deficiency anemia. PLAN: 1. He underwent CT-guided biopsy of pancreatic mass. Ascitic fluid was drained. I had a discussion with the son. He wants to consider treatment if this is pancreatic malignancy. He has cachexia and need Nutrition consult. I will discuss with the family after we have results of biopsy. Poor p.o. intake. 2. Iron-deficiency anemia, will receive one dose of IV iron. We will consider continuation of IV iron. 3. . 4. History of deep venous thrombosis, currently on Lovenox 50 mg subcu daily. Thank you Dr. Hardin. We will continue to follow during hospitalization. Priscila Pruitt MD [facility]
[2017-07-08] MEDS: Albuterol-Ipratrop 3 mg / 0.5 (3 ml) UD IH SCH ×4 (02:04→19:22)
[2017-07-08 02:56] LABS: TOTAL PROTEIN PERITONEAL FLUID <3.0 g/dL
[2017-07-08] MEDS: Pantoprazole 40 mg EC Tab PO SCH (06:36)
[2017-07-08] MEDS: Insulin Reg-LOW-Coverage SC SCH ×4 (08:47→21:47)
--- NOTE | 2017-07-08 09:29 | PN ---
DATE: 07/08/2017 FOLLOWUP NOTE SUBJECTIVE: He is comfortable in bed, in no acute distress. Oral intake is poor. He is not very alert. Arousable, communicative. He underwent CT-guided biopsy of pancreatic mass on Sunday. Pathology is still awaited. No chest pain. No shortness of breath. No cough with expectoration. No fever. REVIEW OF SYSTEMS: As per HPI. Rest of 12-point review of systems reviewed and negative. PHYSICAL EXAMINATION: GENERAL: Comfortable in bed, in no acute distress. VITAL SIGNS: Stable. Temperature 98.7, heart rate 80 per minute, blood pressure 110/70, respiratory rate 18 per minute, oxygen saturation 98% on room air. HEENT: Pallor positive. NECK: No lymphadenopathy. CHEST: Air entry present and equal bilaterally. No added sound. CARDIOVASCULAR: S1 and S2 normal. No murmur. No gallop. ABDOMEN: Soft, nontender, distended. No rebound tenderness. CENTRAL NERVOUS SYSTEM: Arousable. Not communicative. No focal sensory or motor deficit. LABORATORY DATA: Sodium 145, potassium 4.1, creatinine 1.6, alkaline phosphatase 241. White count 15,000, hemoglobin 10.4, hematocrit 31.5, platelet 136. MEDICATIONS: Tylenol 650 every 6 hours p.r.n., DuoNeb t.i.d., aspirin 81 mg daily, Lipitor 20 mg daily, IV fluids, Lovenox 50 mg daily, Lasix 40 mg daily, loratadine 10 mg daily, metoprolol 12.5 mg p.o. b.i.d., Protonix 40 mg daily. ASSESSMENT: 1. Pancreatic mass. 2. Ascites. 3. Iron deficiency anemia. 4. Cachexia. PLAN: Pathology awaited from CT-guided biopsy of pancreatic mass. Communicated to the son. Ascitic fluid was tapped. He is comfortable. He is cachectic. Oral intake is poor. Currently on Lovenox for DVT prophylaxis. We will consider Megace to appetite. Iron sucrose 200 mg IV . Leukocytosis, white count elevated 15,000. CBC and BMP will be ordered to be done tomorrow. Priscila Pruitt MD [facility]
[2017-07-08] MEDS: DUTASTERIDE 0.5 MG PO SCH (09:46)
[2017-07-08] MEDS: ALFUZOSIN HCL 10 MG PO SCH (09:46)
[2017-07-08 10:15] LABS: ALB/GLOB RATIO 0.8 (1.1-1.8); ALBUMIN 2.4 g/dL (3.0-4.8); CALCIUM 8.2 mg/dL (8.4-10.5)
[2017-07-08] MEDS ORDERED: Iodixanol 320 MG/ML 100 ML BOTTLE IV ONE (15:48)
--- NOTE | 2017-07-08 16:33 | CT ---
PROCEDURE: CT scan of the brain and CTA neck and brain dated 07/08/2017 HISTORY: Rule out stroke COMPARISON: Comparison made with prior study 08/26/2016. TECHNIQUE: Axial computed tomography images were obtained through the head/brain without intravenous contrast. . CT CTA of the neck and brain performed on following intravenous injection of approximately 100 cc of Omnipaque [address] brain - Radiation dose: Total exam DLP = 862.35 mGy-cm. CTA neck and brain - Radiation dose: Total exam DLP = 297.33 mGy-cm. This CT exam was performed using one or more of the following dose reduction techniques: Automated exposure control, adjustment of the mA and/or kV according to patient size, and/or use of iterative reconstruction technique. FINDINGS: HEMORRHAGE: No acute parenchymal, subarachnoid or extra-axial hemorrhage. BRAIN: Moderate to significant diffuse confluent chronic white matter ischemic changes seen extending peripherally into the deep and subcortical white matter both cerebral hemispheres. Multiple more discrete bilateral frontal infarct changes are seen left-sided which larger than right and both of which extend into the parietal regions again more so on the left side. There are chronic bilateral basal nuclei lacunar type infarcts left more numerous and somewhat larger than the right as well. Bilateral chronic cerebellar lacunar type infarcts also felt present. No obvious parenchymal nor extra-axial mass or collection identified. Moderate to fairly significant volume loss a somewhat more central evidenced by disproportionate enlargement of the ventricles compared the sulci. Aortic arch widely patent. Minor calcified plaque changes along lateral and inferior borders. No significant stenosis. There is a soft plaque within the posteromedial aspect of the proximal descending thoracic aorta. . There is fairly significant atherosclerotic plaque along the proximal on right brachiocephalic artery to the level of the bifurcation of the right subclavian and right common carotid artery with plaque extending into the proximal right subclavian artery. There is also atherosclerotic plaque felt to be present along the origin of the left common carotid artery with questionable ulcerated plaque at this level. . The remaining left common carotid artery is widely patent on despite some minor calcified plaque changes along mid and distal common carotid artery. Partially calcified atherosclerotic plaque left carotid bifurcation with some extension into the proximal margins of the left internal carotid artery however no occlusion or significant stenosis. Right common carotid artery is also widely patent. Calcified plaque seen along the right carotid bifurcation which appears to result in narrowing at approximately 60 percent at the level of the bifurcation. There is a short retropharyngeal course of the right common carotid artery. The distal internal carotid arteries including the petrous cavernous and supraclinoid segments are patent. Mild atherosclerotic plaque along both carotid siphons result in minor narrowing more so on the right side. The proximal anterior and middle cerebral arteries are patent. The distal anterior cerebral arteries are relatively symmetric as well. . There appears to be some very minimal asymmetry of the distal branches of the with a slight paucity of vasculature on the left side likely due to large chronic infarct. Both vertebral arteries are patent throughout right-sided which is larger in caliber/ more dominant than the left side. Basilar artery is patent. The proximal posterior cerebral arteries are patent. The distal posterior cerebral arteries appear relatively symmetric so far as can be seen. No evidence of large aneurysm nor vascular malformation. VENTRICLES: No obstructive hydrocephalus. CALVARIUM: Unremarkable. There are no acute calvarial fractures. PARANASAL SINUSES: Unremarkable as visualized. No significant inflammatory changes. MASTOID AIR CELLS: Unremarkable as visualized. No inflammatory changes. OTHER FINDINGS: Enlarged heterogeneous thyroid gland. Followup thyroid ultrasound recommended. Significant centrilobular emphysematous changes and fibrosis seen in the upper lobes and lung apices. Significant multilevel degenerative spondylosis of the cervical spine IMPRESSION: Moderate to significant chronic white matter ischemic changes with more discrete bilateral frontal infarct changes which extend posteriorly into the frontoparietal regions bilateral left larger and more extensive than the right-side. There are bilateral basal nuclei and cerebellar infarcts. No evidence of acute intracranial hemorrhage. Moderate to significant volume loss somewhat more central on as above. Partially calcified atherosclerotic plaque seen at the origin of the left common carotid artery and brachiocephalic artery. . Questionable of ulcerated plaque along the origin of the left common carotid artery. Soft plaque also noted along the medial aspect proximal descending thoracic aorta. Partially calcified plaque right carotid bifurcation resulting in narrowing estimated at approximately % or so. There also mild calcified plaque changes seen at the level of the cavernous carotid arteries resulting in mild narrowing . No evidence of occlusion nor significant stenosis of the intra cerebral vasculature at/above the level of the supraclinoid carotid arteries. No evidence of large aneurysm nor vascular malformation.
[2017-07-08] MEDS ORDERED: Sodium Chloride 0.9% 1,000 ML IV SCH (17:15)
[2017-07-08] MEDS: Enoxaparin 60 mg Syringe SC SCH (17:58)
--- NOTE | 2017-07-08 23:26 | PN ---
DATE: 07/08/2017 PULMONARY PROGRESS NOTE REFERRING PHYSICIAN: Delmy Montana MD. SUBJECTIVE: The patient is lying in the bed, head at 45 degrees. Night was unremarkable. Sleepy, but arousable. No chest pain. No nausea. No abdominal pain. No dysuria, leg pain or leg swelling. OBJECTIVE: GENERAL: In no acute distress. VITAL SIGNS: Temperature is 98, heart rate 91, respiratory rate is 18, blood pressure 95/47. HEENT: Moist mucous membranes. No ulcer or thrush. NECK: Supple. No JVD. LUNGS: Have a fair airflow with few rhonchi. HEART: S1 and S2. ABDOMEN: Soft, nondistended. EXTREMITIES: No edema. NEUROLOGIC: Awake and alert. Follows simple command. MEDICATIONS: He is on aspirin 81 mg daily, Claritin 10 mg daily, IV fluid p.r.n. basis, albuterol/Atrovent nebulizer every 6 hours, dutasteride 0.5 mg daily, Lipitor 20 mg daily, metoprolol tartrate 12.5 mg twice a day, Lovenox 50 mg subcu daily, Protonix 40 mg daily, IV fluid normal saline 60 mL per hour, Tylenol p.r.n. basis. LABORATORY DATA: Reviewed and noted. Sodium 145, potassium 3.6, chloride 114, bicarbonate 21, BUN 44, creatinine 1.7, glucose 141, calcium is 8.2, AST 31, ALT 35, alk phos is 251. Albumin is 2.4. He had a CAT scan of the head done today, which shows moderate significant chronic white matter ischemic changes and more discrete bilateral frontal infarct changes, it extend posteriorly into the frontoparietal region bilaterally, left larger and more extensive than the right side with bilateral basal nuclei and cerebellar infarcts. No evidence of acute intracranial hemorrhage, moderate to significant volume loss. There is partially a calcified plaque left common carotid artery, also an ulcerative plaque along the region of the left common carotid artery. IMPRESSION AND PLAN: Deep venous thrombosis; chronic lung disease; aortic aneurysm; large ascites, status post paracentesis; status post pancreatic mass biopsy; renal insufficiency; diabetes; probably have old stroke; pulmonary point of view, doing okay; also with oropharyngeal dysphagia, started modified diet. Continue IV fluids. Keep head at 45 degrees. Oncology followup. Follow up labs in the morning. Thank you and we will follow with you. Saji King MD
[2017-07-09] MEDS: Albuterol-Ipratrop 3 mg / 0.5 (3 ml) UD IH SCH ×4 (04:10→19:51)
[2017-07-09 07:39] LABS: ALB/GLOB RATIO 0.7 (1.1-1.8); ALBUMIN 2.3 g/dL (3.0-4.8); CALCIUM 7.8 mg/dL (8.4-10.5)
[2017-07-09] MEDS: Pantoprazole 40 mg EC Tab PO SCH (08:38)
[2017-07-09] MEDS: Insulin Reg-LOW-Coverage SC SCH ×4 (08:38→17:49)
--- NOTE | 2017-07-09 09:45 | PN ---
DATE: 07/07/2017 SUBJECTIVE: The patient is 87-year-old male. The patient was seen and examined on the bedside, looking comfortable,. No nausea, vomiting, or diarrhea. No hematuria. No hematochezia. No swelling of the legs. No chest pain or palpitations. No headache. No dizziness. Complaining of mild abdominal pain. He is a little bit lethargic. PHYSICAL EXAMINATION: VITAL SIGNS: Temperature is 98, heart rate 80 , respiratory rate 20, blood pressure 109/58. Pulse oximetry 99% on room air. HEENT: Head is normocephalic and atraumatic. Eyes, PERRLA. Extraocular muscles are intact. Conjunctivae are clear. Nose is patent. Mucous membranes are moist. NECK: Supple. No carotid bruits. No JVD or thyromegaly. CHEST: Bilaterally symmetrical. HEART: S1 and S2 positive. LUNGS: Clear to auscultation. ABDOMEN: Soft. Bowel sounds present. No organomegaly. EXTREMITIES: No edema. No cyanosis. NEUROLOGIC: The patient is lethargic, but awake, moving all 4 extremities. Following simple commands. MEDICATIONS: Aspirin, Claritin, IV fluids, DuoNeb, insulin coverage, Lasix, Lipitor, metoprolol, Lovenox, Protonix, and Tylenol. LABORATORY DATA: Hemoglobin 10.4, hematocrit 31.5, white blood cells 15.1, platelets 136. Sodium 145, potassium 4.1, BUN 41, creatinine 1.6. AST 35, ALT 40. Ascitic fluid has so far no growth. ASSESSMENT AND PLAN: Mr. Godwin Link is an 87-year-old male with multiple medical problems; deep venous thrombosis, getting Lovenox; chronic lung disease, getting oxygen; aortic aneurysm; large ascites, status post paracentesis x2. The patient has pancreatic mass, status post biopsy, getting . Length of time discussion done with Dr. Pruitt and patient's son, Godwin together and treatment plan was discussed. Renal insufficiency, diabetes mellitus. Gastric and deep venous thrombosis prophylaxis. Physical therapy. Continue anticoagulation. Fall precautions. According to son, he wants everything to be done for his father, still awaiting for the pathology results. Father's condition explained to the son. Maybe after the hospital, they are looking for rehab. Repeat labs. We will follow up. The patient's is also in the hospital on the medical floor. We will follow up. Delmy Montana MD [facility]
[2017-07-09] MEDS: ALFUZOSIN HCL 10 MG PO SCH (11:31)
[2017-07-09] MEDS: DUTASTERIDE 0.5 MG PO SCH (11:31)
--- NOTE | 2017-07-09 13:43 | CP.PCM.CON ---
History of Present Illness - History of Present Illness History of Present Illness: Mr. 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 He was noted to be slightly weaker by his son, and neurology was consulted for further evaluation. 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 Today, the patient was having his lunch and his diet was advanced. He did not have any complaints. Review of Systems - Review of Systems All systems: reviewed and no additional remarkable complaints except Past Patient History - Infectious Disease Hx of Infectious Diseases: None - Tetanus Immunizations Tetanus Immunization: Unknown - Past Medical History & Family History Past Medical History?: Yes - Past Social History Smoking Status: Former Smoker - CARDIAC Hx Cardiac Disorders: Yes Hx Congestive Heart Failure: Yes - PULMONARY Hx Respiratory Disorders: Yes (SMOKED CIGARETTES QUIT 1998 ,SMOKED PPD) Hx Chronic Obstructive Pulmonary Disease (COPD): Yes - NEUROLOGICAL HX Cerebrovascular Accident: Yes (L sided weakness and expressive apahsia) - HEENT Hx HEENT Problems: Yes (eyeglasses) Hx Cataracts: Yes (BILATERAL SURGERY) Other/Comment: 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 - RENAL Hx Chronic Kidney Disease: No - ENDOCRINE/METABOLIC Hx Diabetes Mellitus Type 2: Yes - HEMATOLOGICAL/ONCOLOGICAL Hx Cancer: Yes (prostate) - INTEGUMENTARY Hx Dermatological Problems: Yes Other/Comment: r ft swelling +2 pitting bruising redness - MUSCULOSKELETAL/RHEUMATOLOGICAL Hx Falls: Yes (past) - GASTROINTESTINAL Hx Gastrointestinal Disorders: Yes (PANCREATITIS,PANCREATIC MASS,) Hx Gall Bladder Disease: Yes (gallstones) Hx Pancreatitis: (pancreatic mass) Other/Comment: HERNIA REPAIR,HEMORRHOIDECTOMY, ercp and biliary stent and replacement, prostate bx - GENITOURINARY/GYNECOLOGICAL Hx Genitourinary Disorders: No Hx Prostate Problems: Yes (ca and bx) - PSYCHIATRIC Hx Substance Use: No - SURGICAL HISTORY Hx Surgeries: Yes - ANESTHESIA Hx Anesthesia Reactions: No Hx Malignant Hyperthermia: No Meds Allergies/Adverse Reactions: Allergies Allergy/AdvReac Type Severity Reaction Status Date / Time No Known Allergies Allergy Verified 08/26/16 18:43 - Medications Medications: Current Medications Acetaminophen (Tylenol 325mg Tab) 650 mg PO Q6H PRN PRN Reason: Fever >100.4 F Albuterol/Ipratropium (Duoneb 3 Mg/0.5 Mg (3 Ml) Ud) 3 ml IH [id number] [facility] Last Admin: 07/09/17 07:40 Dose: 3 ml Aspirin (Aspirin Chewable) 81 mg PO DAILY [facility] Last Admin: 07/09/17 11:31 Dose: 81 mg Atorvastatin Calcium (Lipitor) 20 mg PO DIN [facility] Last Admin: 07/08/17 17:58 Dose: 20 mg Clopidogrel Bisulfate (Plavix) 75 mg PO DAILY [facility] Last Admin: 07/09/17 13:13 Dose: 75 mg Dextrose (Dextrose 50% Inj) 50 ml IVP PRN PRN PRN Reason: blood glucose less than 80 Last Admin: 07/05/17 03:51 Dose: 50 ml Enoxaparin Sodium (Lovenox) 50 mg SC Q24H [facility] PRN Reason: Protocol Last Admin: 07/08/17 17:58 Dose: 50 mg Insulin Human Regular (Humulin R Low) 0 units SC ACHS [facility] PRN Reason: Protocol Last Admin: 07/09/17 12:11 Dose: 1 units Loratadine (Claritin) 10 mg PO DAILY [facility] Last Admin: 07/09/17 11:31 Dose: 10 mg Metoprolol Tartrate (Lopressor) 12.5 mg PO BID [facility] Last Admin: 07/09/17 11:31 Dose: Not Given Non-Formulary Medication (Alfuzosin Hcl [Uroxatral]) 10 mg PO DAILY [facility] Last Admin: 07/09/17 11:31 Dose: Not Given Non-Formulary Medication (Dutasteride [Dutasteride]) 0.5 mg PO DAILY [facility] Last Admin: 07/09/17 11:31 Dose: Not Given Pantoprazole Sodium (Protonix Ec Tab) 40 mg PO ACB [facility] Last Admin: 07/09/17 08:38 Dose: 40 mg Physical Exam - Neurological Exam Neurological exam: Abnormal Gait, Alert, Altered, CN II-XII Intact Additional comments: Reflexes are brisk on the left. 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 Sensation is intact throughout. Bilateral upgoing plantar responses. Results - Vital Signs Recent Vital Signs: Last Vital Signs Temp 99.2 F 07/09/17 05:51 Pulse 109 H 07/09/17 10:00 Resp 18 07/09/17 05:51 BP 96/57 L 07/09/17 11:31 Pulse Ox 93 L 07/09/17 05:51 - Labs Result Diagrams: 07/07/17 06:30 07/09/17 05:45 Labs: Laboratory Results - last 24 hr 07/08/17 07/08/17 07/09/17 16:45 21:18 05:45 Sodium 148 Potassium 3.2 L Chloride 115 H Carbon Dioxide 21 Anion Gap 15 BUN 52 H Creatinine 2.0 H Est GFR ( Amer) 39 Est GFR (Non-Af Amer) 32 POC Glucose (mg/dL) 297 H 158 H Random Glucose 159 H Calcium 7.8 L Total Bilirubin 0.6 AST 49 ALT 38 Alkaline Phosphatase 248 H Total Protein 5.4 L Albumin 2.3 L Globulin 3.1 Albumin/Globulin Ratio 0.7 L 07/09/17 11:27 Sodium Potassium Chloride Carbon Dioxide Anion Gap BUN Creatinine Est GFR ( Amer) Est GFR (Non-Af Amer) POC Glucose (mg/dL) 198 H Random Glucose Calcium Total Bilirubin AST ALT Alkaline Phosphatase Total Protein Albumin Globulin Albumin/Globulin Ratio Assessment & Plan (1) History of stroke Assessment and Plan: The underlying cause for these infarcts is likely due to severe atherosclerotic disease and intracranial atherosclerotic disease. He has poor baseline function. I recommend continuing dual antiplatelet therapy for secondary stroke prevention. Evaluation with PT/OT and continue supportive care. The patient does not appear to have had any acute infarct at this time. His symptoms are likely due to chronic infarcts and some exacerbation due to current medical illness. No further recommendations at this time. Thank you for this consultation. Status: Acute Priority: High
--- NOTE | 2017-07-09 14:01 | PN ---
DATE: 07/08/2017 SUBJECTIVE: Patient is an 87-year-old male. Patient was seen and examined on bedside on 07/08/2017. Son was also on the bedside. Patient looks like lethargic, sleepy, arousable, moving all four extremities, but looking weak in the left lower extremity. Power is less. Patient is very poor historian, but according to son and myself, patient's status is changed, looks little bit weak and lethargic. PHYSICAL EXAMINATION: VITAL SIGNS: Temperature 98, heart rate 91, respiratory rate 18, blood pressure 95/47. HEENT: Head: Normocephalic, atraumatic. Eyes: PERRLA. Extraocular muscles intact. Conjunctivae clear. Nose patent. Mucous membranes moist. NECK: Supple. No carotid bruit. No JVD or thyromegaly. CHEST: Bilaterally symmetrical. HEART: S1 and S2 positive. LUNGS: Clear to auscultation. ABDOMEN: Soft, nondistended. EXTREMITIES: No edema. No cyanosis. NEUROLOGIC: Patient is awake and alert. Follow simple commands. MEDICATIONS: Aspirin, Claritin, albuterol, Lipitor, metoprolol, Lovenox, Protonix. LABORATORY DATA: Sodium 145, potassium 3.6, BUN 44, creatinine 1.7, albumin 2.5, glucose 141, calcium 8.2. CAT scan of the head done, reviewed by me shows no evidence of acute intracranial hemorrhage, moderate to significant volume loss. There is a partially classified plaque in the left carotid artery, also an ulcerative plaque along the region of the left common carotid artery. ASSESSMENT AND PLAN: Mr. Godwin Link with deep vein thrombosis, chronic lung disease, aortic aneurysm, large ascites status post paracentesis, status post pancreatic mass biopsy, renal insufficiency, uncontrolled diabetes mellitus, history of old stroke, oropharyngeal dysphagia, having modified diet. scan was done with contrast, so we gave some IV fluid. Oncology, Pulmonary, Cardiology is on the case and GI is on the case also. Length of time discussion done with patient's son and all questions answered. Patient is getting Lovenox for deep vein thrombosis, getting gastrointestinal prophylaxis. We will follow up. Delmy Montana MD [facility] # [id number] [place]DS[place]
[2017-07-09] MEDS: Enoxaparin 60 mg Syringe SC SCH (16:47)
--- NOTE | 2017-07-09 19:39 | PN ---
DATE: REASON FOR CONSULTATION AND FOLLOWUP: Cardiac evaluation, swelling of the leg, atrial fibrillation, status post abdominal CT-guided paracentesis. SUBJECTIVE: The patient is lying flat on the bed. denies chest pain, shortness of breath, or any palpitations. PHYSICAL EXAMINATION: GENERAL: Not in apparent distress. VITAL SIGNS: Temperature afebrile, heart rate 74, blood pressure 115/56. HEENT: PERRLA, intact. NECK: Supple. No carotid bruit or thyromegaly. CHEST: Clear to auscultation. HEART: S1 and S2, regular. ABDOMEN: Soft. EXTREMITIES: Clubbing and cyanosis negative. LABORATORY DATA: WBC 15.1, hemoglobin 10.1, hematocrit 31.5, platelet count 136. Chemistry shows sodium 140, potassium 3.2, chloride 115, carbon dioxide 21, anion gap of 15. BUN 52, creatinine 2. IMPRESSION: Acute kidney injury on chronic renal insufficiency, anemia, history of cerebrovascular accident in the past, history of pancreatic biopsy, dementia, history of chronic lung disease, history of cerebrovascular accident, multiple strokes in the past, pancreatic mass, history of gallbladder, prostate cancer. The patient on admission showed normal sinus rhythm with atrial premature complexes, status post large volume abdominal paracentesis with 1750 mL off from right lower quadrant. Paracentesis was done. Echo was done yesterday that shows mild aortic regurgitation, systolic function availed is mildly impaired, ejection fraction of 45%, trace mitral regurgitation. Baseline renal insufficiency, stage 3 to 4 chronic kidney disease. Overall, the patient's condition is critical, long-term prognosis is extremely guarded. RECOMMENDATIONS: Continue GI workup. Continue low-dose metoprolol to prevent going back to AFib as blood pressure is tolerated. Consider DNR/DNI because the patient's overall condition is critical, long-term extended care facility for the rehab facility. We will discuss with you. Supplement electrolytes and monitor closely. Increase nutritional support. We will put supplement Ensure to increase nutritional support. Overall, the patient's condition is critical, long-term prognosis extremely guarded. As mentioned, a strong consideration should be done for DNR/DNI. Repeat the blood work in the morning. We will discontinue telemetry. Thank you Dr. Montana for providing us the opportunity in taking care of the patient, Godwin Link. Saji Ramirez MD cc: Delmy Montana MD
[2017-07-09 20:26] LABS: ALB/GLOB RATIO 0.8 (1.1-1.8); ALBUMIN 2.5 g/dL (3.0-4.8); CALCIUM 7.9 mg/dL (8.4-10.5)
--- NOTE | 2017-07-09 20:57 | PCM.RRT ---
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 absent: Rhonchi, Wheezes, Respiratory Distress - Cardiovascular Exam Cardiovascular Exam: Tachycardia, +S1, +S2. absent: REGULAR RHYTHM - GI/Abdominal Exam GI & Abdominal Exam: Soft, Normal Bowel Sounds. absent: Distended, Firm, Tenderness - Neurological Exam Neurological Exam: Alert, Awake. absent: Oriented x3 Plan - Assessment of Findings&Treatment Plan 87 yo male with PMH of 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 fib was found to be clutching his chest, complaining of chest pain. Patient is Lithuanian speaking but unable to answer question with etl software engineer or with son at bedside. Patient had completed breathing treatment with duoneb. Patient was found to have rectal temp of 103.3 and lactate of 3.9. Patient was found to be in septic shock with unknown source. He was given stat Tylenol, and placed on cooling blanket. ABG with lactate for 3.9 with respiratory alkalosis. CXR. CMC, CMP, blood cultures urine cultures were ordered. Patient has history CHF, given bolus of 250cc. Patient was continued to have low blood pressure and given second 250cc bolus, BP improved. Will order ID consult and ICU consult.
[2017-07-09] MEDS ORDERED: Sodium Chloride 0.45% 1,000 ML IV SCH (21:00)
[2017-07-09 21:06] LABS: ARTERIAL BLOOD GAS HCO3 14.2 mmol/L (21-28); ARTERIAL BLOOD GAS O2 SAT 98.7 % (95-98); ARTERIAL BLOOD GAS PCO2 20 mm/Hg (35-45); ARTERIAL BLOOD GAS PH 7.46 (7.35-7.45); ARTERIAL BLOOD GAS TCO2 14.8 mmol.L (22-28)
[2017-07-09 21:18] LABS: HEMOGLOBIN 9.5 g/dL (14.0-18.0); MEAN CELL VOLUME 88.4 fl (80.0-105.0); MEAN CORPUSCULAR HEMOGLOBIN 29.9 pg (25.0-35.0); MEAN CORPUSCULAR HGB CONC 33.8 g/dl (31.0-37.0); RBC 3.18 10^6/uL (3.5-6.1); RED CELL DISTRIBUTION WIDTH 16.2 % (11.5-14.5); WHITE BLOOD COUNT 11.5 10^3/ul (4.5-11.0)
[2017-07-09 21:40] LABS: ALB/GLOB RATIO 0.7 (1.1-1.8); ALBUMIN 2.2 g/dL (3.0-4.8); CALCIUM 7.5 mg/dL (8.4-10.5)
[2017-07-09 21:54] LABS: PH,URINE 5.5 (4.7-8.0); URINE APPEARANCE CLEAR (CLEAR); URINE BILIRUBIN NEGATIVE (NEGATIVE); URINE BLOOD LARGE (NEGATIVE); URINE COLOR YELLOW (YELLOW); URINE GLUCOSE (UA) NEGATIVE (NEGATIVE); URINE LEUKOCYTE ESTERASE TRACE Leu/uL (NEGATIVE); URINE PROTEIN 100 mg/dL (<30 mg/dL); URINE UROBILINOGEN 0.2 E.U./dL (<1 E.U./dL)
[2017-07-09 21:59] LABS: URINE RBC TNTC /hpf (0-2)
[2017-07-09 22:00] LABS: URINE AMORPHOUS SEDIMENT FEW; URINE BACTERIA MANY (NEG)
[2017-07-09] MEDS ORDERED: Meropenem IV 1 gm in NS 50 ML IVPB SCH (22:00)
--- NOTE | 2017-07-09 22:03 | CP.PCM.CON ---
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 fib, prostate cancer initially presented to the hospital with abd distension. COLLATERAL SPECIALIST was called due to AMS, tachycardia and desaturation. Patient found to have severe sepsis with unknown source. During COLLATERAL SPECIALIST patient had rectal temperature of 103.3. He was given Tylenol and placed on cooling blanket. His blood pressure was also low and he was given 2 bolus of 250cc. Over the hospital course patient had paracentesis and biopsy of pancreatic mass. 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 fib, prostate cancer PSH: hernia repair, hemorrhoidectomy social history: former smoker, no illicit drug ir alcohol use allergy: NKD Review of Systems - Review of Systems Systems not reviewed;Unavailable: Dementia, Altered Mental Status Past Patient History - Infectious Disease Hx of Infectious Diseases: None - Tetanus Immunizations Tetanus Immunization: Unknown - Past Medical History & Family History Past Medical History?: Yes - Past Social History Smoking Status: Former Smoker - CARDIAC Hx Cardiac Disorders: Yes Hx Congestive Heart Failure: Yes - PULMONARY Hx Respiratory Disorders: Yes (SMOKED CIGARETTES QUIT 1998 ,SMOKED PPD) Hx Chronic Obstructive Pulmonary Disease (COPD): Yes - NEUROLOGICAL HX Cerebrovascular Accident: Yes (L sided weakness and expressive apahsia) - HEENT Hx HEENT Problems: Yes (eyeglasses) Hx Cataracts: Yes (BILATERAL SURGERY) Other/Comment: 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 - RENAL Hx Chronic Kidney Disease: No - ENDOCRINE/METABOLIC Hx Diabetes Mellitus Type 2: Yes - HEMATOLOGICAL/ONCOLOGICAL Hx Cancer: Yes (prostate) - INTEGUMENTARY Hx Dermatological Problems: Yes Other/Comment: r ft swelling +2 pitting bruising redness - MUSCULOSKELETAL/RHEUMATOLOGICAL Hx Falls: Yes (past) - GASTROINTESTINAL Hx Gastrointestinal Disorders: Yes (PANCREATITIS,PANCREATIC MASS,) Hx Gall Bladder Disease: Yes (gallstones) Hx Pancreatitis: (pancreatic mass) Other/Comment: HERNIA REPAIR,HEMORRHOIDECTOMY, ercp and biliary stent and replacement, prostate bx - GENITOURINARY/GYNECOLOGICAL Hx Genitourinary Disorders: No Hx Prostate Problems: Yes (ca and bx) - PSYCHIATRIC Hx Substance Use: No - SURGICAL HISTORY Hx Surgeries: Yes - ANESTHESIA Hx Anesthesia Reactions: No Hx Malignant Hyperthermia: No Meds Allergies/Adverse Reactions: Allergies Allergy/AdvReac Type Severity Reaction Status Date / Time No Known Allergies Allergy Verified 08/26/16 18:43 - Medications Medications: Current Medications Acetaminophen (Tylenol 325mg Tab) 650 mg PO Q6H PRN PRN Reason: Fever >100.4 F Last Admin: 07/09/17 19:54 Dose: 650 mg Albuterol/Ipratropium (Duoneb 3 Mg/0.5 Mg (3 Ml) Ud) 3 ml IH [id number] [facility] Last Admin: 07/09/17 19:51 Dose: 3 ml Aspirin (Aspirin Chewable) 81 mg PO DAILY [facility] Last Admin: 07/09/17 11:31 Dose: 81 mg Atorvastatin Calcium (Lipitor) 20 mg PO DIN [facility] Last Admin: 07/09/17 17:50 Dose: 20 mg Clopidogrel Bisulfate (Plavix) 75 mg PO DAILY [facility] Last Admin: 07/09/17 13:13 Dose: 75 mg Dextrose (Dextrose 50% Inj) 50 ml IVP PRN PRN PRN Reason: blood glucose less than 80 Last Admin: 07/05/17 03:51 Dose: 50 ml Enoxaparin Sodium (Lovenox) 50 mg SC Q24H [facility] PRN Reason: Protocol Last Admin: 07/09/17 16:47 Dose: 50 mg Sodium Chloride (Sodium Chloride 0.45%) 1,000 mls @ 250 mls/hr IV .Q4H [facility] Stop: 07/09/17 22:01 Meropenem (Merrem Iv 1 Gm Premix) 50 mls @ 100 mls/hr IVPB Q8 [facility] PRN Reason: Protocol Stop: 07/10/17 06:29 Last Admin: 07/09/17 21:40 Dose: 100 mls/hr Insulin Human Regular (Humulin R Low) 0 units SC ACHS [facility] PRN Reason: Protocol Last Admin: 07/09/17 17:49 Dose: 2 units Loratadine (Claritin) 10 mg PO DAILY [facility] Last Admin: 07/09/17 11:31 Dose: 10 mg Metoprolol Tartrate (Lopressor) 12.5 mg PO BID [facility] Last Admin: 07/09/17 17:49 Dose: 12.5 mg Non-Formulary Medication (Alfuzosin Hcl [Uroxatral]) 10 mg PO DAILY [facility] Last Admin: 07/09/17 11:31 Dose: Not Given Non-Formulary Medication (Dutasteride [Dutasteride]) 0.5 mg PO DAILY [facility] Last Admin: 07/09/17 11:31 Dose: Not Given Pantoprazole Sodium (Protonix Ec Tab) 40 mg PO ACB [facility] Last Admin: 07/09/17 08:38 Dose: 40 mg Physical Exam - Constitutional Appears: Cachectic, Chronically Ill - Head Exam Head Exam: ATRAUMATIC, NORMOCEPHALIC - Eye Exam Eye Exam: Normal appearance - ENT Exam ENT Exam: Mucous Membranes Dry - Respiratory Exam Respiratory Exam: Clear to Auscultation Bilateral, NORMAL BREATHING PATTERN. absent: Decreased Breath Sounds, Rales, Rhonchi, Wheezes, Respiratory Distress - Cardiovascular Exam Cardiovascular Exam: Tachycardia, +S1. absent: REGULAR RHYTHM, Systolic Murmur - GI/Abdominal Exam GI & Abdominal Exam: Normal Bowel Sounds, Soft. absent: Distended, Firm, Guarding, Tenderness - Extremities Exam Extremities exam: Positive for: normal inspection. Negative for: pedal edema, tenderness - Neurological Exam Neurological exam: Alert - Skin Skin Exam: Dry, Intact, Normal Color, Warm Results - Vital Signs Recent Vital Signs: Last Vital Signs Temp 98.2 F 07/09/17 17:17 Pulse 89 07/09/17 17:49 Resp 18 07/09/17 17:17 BP 110/49 L 07/09/17 17:49 Pulse Ox 93 L 07/09/17 05:51 - Labs Result Diagrams: 07/09/17 21:15 07/09/17 21:15 Labs: Laboratory Results - last 24 hr 07/08/17 07/08/17 07/09/17 16:45 21:18 05:45 WBC RBC Hgb Hct MCV MCH MCHC RDW Plt Count MPV pCO2 pO2 HCO3 ABG pH ABG Total CO2 ABG O2 Saturation ABG Base Excess ABG Potassium Glucose Lactate FiO2 Sodium 148 Potassium 3.2 L Chloride 115 H Carbon Dioxide 21 Anion Gap 15 BUN 52 H Creatinine 2.0 H Est GFR ( Amer) 39 Est GFR (Non-Af Amer) 32 POC Glucose (mg/dL) 297 H 158 H Random Glucose 159 H Calcium 7.8 L Total Bilirubin 0.6 AST 49 ALT 38 Alkaline Phosphatase 248 H Total Protein 5.4 L Albumin 2.3 L Globulin 3.1 Albumin/Globulin Ratio 0.7 L Arterial Blood Potassium 07/09/17 07/09/17 07/09/17 11:27 16:22 20:13 WBC RBC Hgb Hct MCV MCH MCHC RDW Plt Count MPV pCO2 pO2 HCO3 ABG pH ABG Total CO2 ABG O2 Saturation ABG Base Excess ABG Potassium Glucose Lactate FiO2 Sodium 148 Potassium 3.7 Chloride 113 H Carbon Dioxide 18 L Anion Gap 20 BUN 56 H Creatinine 2.2 H Est GFR ( Amer) 35 Est GFR (Non-Af Amer) 29 POC Glucose (mg/dL) 198 H 202 H Random Glucose 134 H Calcium 7.9 L Total Bilirubin 0.7 AST 55 ALT 42 Alkaline Phosphatase 257 H Total Protein 5.8 Albumin 2.5 L Globulin 3.3 Albumin/Globulin Ratio 0.8 L Arterial Blood Potassium 07/09/17 07/09/17 07/09/17 20:30 21:00 21:15 WBC 11.5 H D RBC 3.18 L Hgb 9.5 L Hct 28.1 L MCV 88.4 MCH 29.9 MCHC 33.8 RDW 16.2 H Plt Count 125 MPV 12.0 H pCO2 20 L pO2 158.0 H HCO3 14.2 L ABG pH 7.46 H ABG Total CO2 14.8 L ABG O2 Saturation 98.7 H ABG Base Excess -7.3 L ABG Potassium 3.4 L Glucose 120 H Lactate 3.9 H FiO2 100.0 Sodium 141.0 Potassium Chloride 116.0 H Carbon Dioxide Anion Gap BUN Creatinine Est GFR ( Amer) Est GFR (Non-Af Amer) POC Glucose (mg/dL) 125 H Random Glucose Calcium Total Bilirubin AST ALT Alkaline Phosphatase Total Protein Albumin Globulin Albumin/Globulin Ratio Arterial Blood Potassium 3.4 L 07/09/17 21:15 WBC RBC Hgb Hct MCV MCH MCHC RDW Plt Count MPV pCO2 pO2 HCO3 ABG pH ABG Total CO2 ABG O2 Saturation ABG Base Excess ABG Potassium Glucose Lactate FiO2 Sodium 145 Potassium 3.5 L Chloride 113 H Carbon Dioxide 17 L Anion Gap 19 BUN 55 H Creatinine 2.2 H Est GFR ( Amer) 35 Est GFR (Non-Af Amer) 29 POC Glucose (mg/dL) Random Glucose 114 H Calcium 7.5 L Total Bilirubin 0.7 AST 50 ALT 38 Alkaline Phosphatase 243 H Total Protein 5.4 L Albumin 2.2 L Globulin 3.2 Albumin/Globulin Ratio 0.7 L Arterial Blood Potassium Assessment & Plan - Assessment and Plan (Free Text) Assessment: 87 yo male with PMH of 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 fib, prostate cancer consulted for severe sepsis most likel due to intrabdominal infection with UTI, acute cystitis. Plan: Neuro - AMS at time of COLLATERAL SPECIALIST, improved - most likely due to sepsis with underlying dementia - will continue to monitor - neurology following cardiovascular - during COLLATERAL SPECIALIST patient received IVF 500cc bolus, BP was responsive - conservative fluids due to h/o CHF, mild systolic and diastolic dysfunction - will give another 500cc bolus, start IVF @100cc/hr - will consider fluid restriction once patient is resuscitated - if BP drops consider albumin - h/o a. fib - maintain map> 65 Pulm - h/o COPD - cxr did not show consolidation, official read pending - patient is saturating well on nonrebreather mask after COLLATERAL SPECIALIST - will place patient on nasal cannula up to 5 L - supplemental O2 to maintain SaO2> 90 GI - recent paracentesis and pancreatic biopsy, possible source of infection after multiple foreign bodies were introduced - will order sbd/pelvis CT with pO contrast, without IV contrast due to JN - NPO - GI ppx infectious - severe sepsis unknown source, most likely due to intra-abdominal infection, patient has had multiple procedure over hospital course, and UTI acute cystitis - fever rectal 103.3 - lactate 3.9, repeat lactate in 4 hours - IVF 500 cc bolus given - cxr did not show consolidation, official read pending - ordered blood and urine cultures - started on abx, meropenem and vanco - ID consulted endo - continue ISS - blood sugar is controlled - fingersticks achs - patient is NPO currently renal - Acute renal failure on chronic renal failure - most likely prerenal - will continue fluid resuscitation - brooks inserted, dark shanna urine - UA and urine cultures pending - strict I&O - will add heparin for DVT ppx due to patient's renal function GI ppx- Protonix DVT ppx- heparin case reviewed and discussed with attending <Justino Bustillo - Last Filed: 07/10/17 03:30> Meds - Medications Medications: Current Medications Acetaminophen (Tylenol 325mg Tab) 650 mg PO Q6H PRN PRN Reason: Fever >100.4 F Last Admin: 07/09/17 19:54 Dose: 650 mg Albuterol/Ipratropium (Duoneb 3 Mg/0.5 Mg (3 Ml) Ud) 3 ml IH [id number] [facility] Last Admin: 07/10/17 02:26 Dose: 3 ml Aspirin (Aspirin Chewable) 81 mg PO DAILY [facility] Last Admin: 07/09/17 11:31 Dose: 81 mg Atorvastatin Calcium (Lipitor) 20 mg PO DIN [facility] Last Admin: 07/09/17 17:50 Dose: 20 mg Clopidogrel Bisulfate (Plavix) 75 mg PO DAILY [facility] Last Admin: 07/09/17 13:13 Dose: 75 mg Dextrose (Dextrose 50% Inj) 50 ml IVP PRN PRN PRN Reason: blood glucose less than 80 Last Admin: 07/05/17 03:51 Dose: 50 ml Heparin Sodium (Porcine) (Heparin) 5,000 units SC Q12 [facility] PRN Reason: Protocol Meropenem (Merrem Iv 1 Gm Premix) 50 mls @ 100 mls/hr IVPB Q12 [facility] PRN Reason: Protocol Stop: 07/17/17 10:01 Sodium Chloride (Sodium Chloride 0.9%) 1,000 mls @ 100 mls/hr IV .Q10H [facility] Last Admin: 07/10/17 00:28 Dose: 100 mls/hr Insulin Human Regular (Humulin R Low) 0 units SC ACHS [facility] PRN Reason: Protocol Last Admin: 07/09/17 17:49 Dose: 2 units Loratadine (Claritin) 10 mg PO DAILY [facility] Last Admin: 07/09/17 11:31 Dose: 10 mg Metoprolol Tartrate (Lopressor) 12.5 mg PO BID [facility] Last Admin: 07/09/17 17:49 Dose: 12.5 mg Non-Formulary Medication (Alfuzosin Hcl [Uroxatral]) 10 mg PO DAILY [facility] Last Admin: 07/09/17 11:31 Dose: Not Given Non-Formulary Medication (Dutasteride [Dutasteride]) 0.5 mg PO DAILY [facility] Last Admin: 07/09/17 11:31 Dose: Not Given Pantoprazole Sodium (Protonix Ec Tab) 40 mg PO ACB [facility] Last Admin: 07/09/17 08:38 Dose: 40 mg Results - Vital Signs Recent Vital Signs: Last Vital Signs Temp 99.1 F 07/10/17 02:20 Pulse 154 H 07/10/17 02:20 Resp 22 07/10/17 02:20 BP 88/28 L 07/10/17 02:05 Pulse Ox 80 L 07/10/17 02:20 - Labs Result Diagrams: 07/09/17 21:15 07/09/17 21:15 Labs: Laboratory Results - last 24 hr 07/05/17 07/09/17 07/09/17 10:33 05:45 11:27 WBC RBC Hgb Hct MCV MCH MCHC RDW Plt Count MPV pCO2 pO2 HCO3 ABG pH ABG Total CO2 ABG O2 Saturation ABG Base Excess ABG Potassium VBG pH VBG pCO2 VBG HCO3 VBG Total CO2 VBG O2 Sat (Calc) VBG Base Excess VBG Potassium Glucose Lactate FiO2 Sodium 148 Potassium 3.2 L Chloride 115 H Carbon Dioxide 21 Anion Gap 15 BUN 52 H Creatinine 2.0 H Est GFR ( Amer) 39 Est GFR (Non-Af Amer) 32 POC Glucose (mg/dL) 198 H Random Glucose 159 H Lactic Acid Calcium 7.8 L Total Bilirubin 0.6 AST 49 ALT 38 Alkaline Phosphatase 248 H Total Protein 5.4 L Albumin 2.3 L Globulin 3.1 Albumin/Globulin Ratio 0.7 L Arterial Blood Potassium Venous Blood Potassium Urine Color Urine Appearance Urine pH Ur Specific [place] Urine Protein Urine Glucose (UA) Urine Ketones Urine Blood Urine Nitrate Urine Bilirubin Urine Urobilinogen Ur Leukocyte Esterase Urine RBC Urine WBC Ur Epithelial Cells Amorphous Sediment Urine Bacteria Fluid Albumin 0.5 07/09/17 07/09/17 07/09/17 16:22 20:13 20:30 WBC RBC Hgb Hct MCV MCH MCHC RDW Plt Count MPV pCO2 pO2 HCO3 ABG pH ABG Total CO2 ABG O2 Saturation ABG Base Excess ABG Potassium VBG pH VBG pCO2 VBG HCO3 VBG Total CO2 VBG O2 Sat (Calc) VBG Base Excess VBG Potassium Glucose Lactate FiO2 Sodium 148 Potassium 3.7 Chloride 113 H Carbon Dioxide 18 L Anion Gap 20 BUN 56 H Creatinine 2.2 H Est GFR ( Amer) 35 Est GFR (Non-Af Amer) 29 POC Glucose (mg/dL) 202 H 125 H Random Glucose 134 H Lactic Acid Calcium 7.9 L Total Bilirubin 0.7 AST 55 ALT 42 Alkaline Phosphatase 257 H Total Protein 5.8 Albumin 2.5 L Globulin 3.3 Albumin/Globulin Ratio 0.8 L Arterial Blood Potassium Venous Blood Potassium Urine Color Urine Appearance Urine pH Ur Specific [place] Urine Protein Urine Glucose (UA) Urine Ketones Urine Blood Urine Nitrate Urine Bilirubin Urine Urobilinogen Ur Leukocyte Esterase Urine RBC Urine WBC Ur Epithelial Cells Amorphous Sediment Urine Bacteria Fluid Albumin 07/09/17 07/09/17 07/09/17 21:00 21:15 21:15 WBC 11.5 H D RBC 3.18 L Hgb 9.5 L Hct 28.1 L MCV 88.4 MCH 29.9 MCHC 33.8 RDW 16.2 H Plt Count 125 MPV 12.0 H pCO2 20 L pO2 158.0 H HCO3 14.2 L ABG pH 7.46 H ABG Total CO2 14.8 L ABG O2 Saturation 98.7 H ABG Base Excess -7.3 L ABG Potassium 3.4 L VBG pH VBG pCO2 VBG HCO3 VBG Total CO2 VBG O2 Sat (Calc) VBG Base Excess VBG Potassium Glucose 120 H Lactate 3.9 H FiO2 100.0 Sodium 141.0 145 Potassium 3.5 L Chloride 116.0 H 113 H Carbon Dioxide 17 L Anion Gap 19 BUN 55 H Creatinine 2.2 H Est GFR ( Amer) 35 Est GFR (Non-Af Amer) 29 POC Glucose (mg/dL) Random Glucose 114 H Lactic Acid Calcium 7.5 L Total Bilirubin 0.7 AST 50 ALT 38 Alkaline Phosphatase 243 H Total Protein 5.4 L Albumin 2.2 L Globulin 3.2 Albumin/Globulin Ratio 0.7 L Arterial Blood Potassium 3.4 L Venous Blood Potassium Urine Color Urine Appearance Urine pH Ur Specific [place] Urine Protein Urine Glucose (UA) Urine Ketones Urine Blood Urine Nitrate Urine Bilirubin Urine Urobilinogen Ur Leukocyte Esterase Urine RBC Urine WBC Ur Epithelial Cells Amorphous Sediment Urine Bacteria Fluid Albumin 07/09/17 07/10/17 07/10/17 21:35 00:20 00:20 WBC RBC Hgb Hct MCV MCH MCHC RDW Plt Count MPV pCO2 pO2 25 L HCO3 ABG pH ABG Total CO2 ABG O2 Saturation ABG Base Excess ABG Potassium VBG pH 7.34 VBG pCO2 35.0 L VBG HCO3 18.9 L VBG Total CO2 20.0 L VBG O2 Sat (Calc) 49.5 VBG Base Excess -6.1 L VBG Potassium 3.2 L Glucose 203 H Lactate 3.2 H FiO2 21.0 Sodium 140.0 Potassium Chloride 109.0 H Carbon Dioxide Anion Gap BUN Creatinine Est GFR ( Amer) Est GFR (Non-Af Amer) POC Glucose (mg/dL) Random Glucose Lactic Acid 3.2 H Calcium Total Bilirubin AST ALT Alkaline Phosphatase Total Protein Albumin Globulin Albumin/Globulin Ratio Arterial Blood Potassium Venous Blood Potassium 3.2 L Urine Color Yellow Urine Appearance Clear Urine pH 5.5 Ur Specific [place] 1.020 Urine Protein 100 H Urine Glucose (UA) Negative Urine Ketones Negative Urine Blood Large H Urine Nitrate Negative Urine Bilirubin Negative Urine Urobilinogen 0.2 Ur Leukocyte Esterase Trace H Urine RBC Tntc Urine WBC 5 - 10 Ur Epithelial Cells None Amorphous Sediment Few Urine Bacteria Many Fluid Albumin Attending/Attestation - Attestation I have personally seen and examined this patient.: Yes I have fully participated in the care of the patient.: Yes I have reviewed all pertinent clinical information: Yes Notes (Text): 07/10/17 03:28 I agree with the above mentioned note and exam by the resident as listed above with the addition/exception of the followin87 y/o male with an extensive PMHx as outlined above was an COLLATERAL SPECIALIST earlier for an episode of oxygen desaturation along with a drop in blood pressure and elevated temp of 103. Patient was a code Sepsis, however the house doctor did not give him the entire fluid resuscitation bolus due to his history of heart failure. Patient appears to have severe sepsis which has been fluid responsive and has been started on broad spectrum IV abx (Vanco/Merrem). Patient transferred to the ICU for closer care and monitoring case discussed with Dr. Reyes at length labs and images available to myself reviewed; CT Abd/pelvis without any acute findings total time of care: 40 minutes
[2017-07-09] MEDS ORDERED: Vancomycin 1.5 GM in Sodium Chloride 0.9% 500 ML IVPB ONE (22:07)
[2017-07-09] MEDS ORDERED: Sodium Chloride 0.9% 1,000 ML IV SCH (22:45)
[2017-07-09] MEDS ORDERED: Iohexol 240 (50 ml) ONE (22:46)
[2017-07-10 00:33] LABS: VENOUS BLOOD GAS BASE EXCESS -6.1 mmol/L (0.0-2.0); VENOUS BLOOD GAS PO2 25 mm/Hg (30-55); VENOUS BLOOD PH 7.34 (7.32-7.43)
--- NOTE | 2017-07-10 01:51 | CT ---
EXAM: CT Abdomen and Pelvis With Intravenous Contrast CLINICAL HISTORY: 87 years old, male; Signs and symptoms; Other: Sepsis TECHNIQUE: Axial computed tomography images of the abdomen and pelvis with intravenous contrast. All CT scans at this facility use one or more dose reduction techniques, viz.: automated exposure control; ma/kV adjustment per patient size (including targeted exams where dose is matched to indication; i.e. head); or iterative reconstruction technique. Coronal and sagittal reformatted images were created and reviewed. CONTRAST: 24 mL of OMNI 240 administered intravenously. COMPARISON: CT - ABD PELVIS W/O PO OR IV CONT 2017-07-03 14:24 FINDINGS: Lung bases: Patchy bilateral lower lobe infiltrates could be secondary to pneumonia. Mediastinum: A moderate hiatal hernia is present. ABDOMEN: Liver: The liver is shrunken and nodular in contour suggesting cirrhosis. Pneumobilia is noted in the left hepatic lobe. Gallbladder and bile ducts: Limited. Possible tiny gallstones.. No ductal dilation. Pancreas: The pancreatic body and tail are atrophic. The pancreatic head is limited and not well delineated from the adjacent small bowel. There is soft tissue fullness in the region of the pancreatic head and uncinate process. This could be secondary to unopacified small bowel. Pancreatic mass is not completely excluded. No significant pancreatic duct dilatation. Spleen: Granulomatous calcifications in the spleen. No splenomegaly. Adrenals: Unremarkable. No mass. Kidneys and ureters: The left kidney is atrophic. Large bilateral renal cysts. The left renal cyst measures 9.0 cm and the right renal cyst measures 5.2 cm. Stomach and bowel: The cecum and ascending colon are thick walled which could be secondary to colitis. The stomach is distended. PELVIS: Bladder: The bladder is decompressed by New catheter. Reproductive: There are multiple hyperdense radiation seeds within the prostate parenchyma. ABDOMEN and PELVIS: Intraperitoneal space: There is a large amount of free fluid in the abdomen and pelvis. No free air. Bones/joints: Degenerative changes. No acute fracture. No dislocation. Soft tissues: Unremarkable. Vasculature: There is an aneurysm of the proximal abdominal aorta measuring 4.5 cm. no fracture. The vasculature demonstrates diffuse moderate atherosclerotic calcification. Lymph nodes: Unremarkable. No enlarged lymph nodes. IMPRESSION: Large ascites. Shrunken nodular liver suggesting cirrhosis. Pneumobilia probably secondary to previous sphincterotomy. Limited gallbladder with possible gallstones. Atrophic pancreas. Prominent soft tissue in the region of the pancreatic head/uncinate process which could be secondary to unopacified small bowel. Pancreatic mass is difficult to completely exclude. Further evaluation with MRI could be obtained if clinically indicated. Bilateral renal cysts. Atrophic left kidney.
--- NOTE | 2017-07-10 02:04 | PCM.SEPTIC ---
Sepsis Progress Note - Reassessment Type Date of Evaluation: 07/10/17 Time of Evaluation: 02:03 Reassessment Type: Non-invasive reassessment - Non Invasive Reassessment Were the most recent vital sign reviewed: Yes Vital Sign (Latest): Temp Pulse Resp BP Pulse Ox 98.2 F 89 18 110/49 L 93 L 07/09/17 17:17 07/09/17 17:49 07/09/17 17:17 07/09/17 17:49 07/09/17 05:51 Cardiovascular: Yes: Regular Rate, Rhythm, Tachycardia. No: Chest Non Tender, Murmur, Bradycardia, Irregularly Irregular Respiratory: Yes: Normal Breath Sounds. No: Decreased Breath Sounds, Accessory Muscle Use, Crackles, Rales, Rhonchi, Wheezing, Respiratory Distress Capillary Refill: Normal (Less than 2 sec) Skin: Pale
--- NOTE | 2017-07-10 02:17 | PN ---
DATE: 07/09/2017 PULMONARY PROGRESS NOTE REFERRING PHYSICIAN: Dr. Delmy Vila. SUBJECTIVE: He is lying in the bed, head at 45 degrees. Night was unremarkable. No headache. No rhinitis. No nausea. No vomiting. Again, recurrence of abdominal ascites. No leg pain or leg swelling. PHYSICAL EXAMINATION: GENERAL: In no acute distress. VITAL SIGNS: Temperature is 98, heart rate 89, respiratory rate is 20, blood pressure is 110/49, pulse ox 93% on nasal cannula. HEENT: Moist mucous membrane. No ulcer or thrush noted. NECK: Supple. No JVD. LUNGS: Have scattered rhonchi. HEART: S1 and S2. ABDOMEN: Soft, nontender, no organomegaly. He has some ascites. EXTREMITIES: There is no edema. NEUROLOGIC: Awake, alert, and follow simple commands. MEDICATIONS: He is on aspirin 81 mg daily, Claritin 10 mg daily, DuoNeb every 6 hour, dutasteride 0.5 mg daily, insulin coverage, Lipitor 20 mg daily, metoprolol tartrate 12.5 mg twice a day, Lovenox 50 mg subcutaneous twice a day, meropenem 1 g IV every 8 hours, Plavix 75 mg daily, Protonix 40 mg daily, IV fluid half-normal saline boluses being given, Tylenol p.r.n. LABORATORY DATA: Shows hemoglobin 9.5,hematocrit 28.1, WBC 11.5, platelet count is 125. His ABG show pH 7.41, PCO2 of 28, O2 of 115 that is on 100% oxygen, apparently was done after I have seen the patient. Sodium 145, potassium 3.5, chloride 113, bicarbonate 17, BUN 55, creatinine 2.2, calcium 7.5. AST 50, ALT 38, alk phos 243, albumin 2.2. The pleural fluid shows wbc 209, rbc 382, fluid total cell count 100. Ascitic fluid Gram stain unremarkable. Microbiology cultures are negative. IMPRESSION AND PLAN: Apparently, after I have seen, evening rapid response was called, found to have fever up to 103, became hypotensive, fluid challenge was given, broad-spectrum antibiotics were started, supplement oxygen was given. Originally, has paracentesis with volume draining and also pancreatic biopsy, chronic lung disease, history of aortic aneurysm, large ascites, renal insufficiency, diabetes, history of old stroke. So, continue IV fluid, continue antibiotics, supplement oxygen. Still waiting for the biopsy pathology and fluid cytology. Followup arterial blood gases, chest x-ray, CBC, CMP in the morning. Thank you and we will follow with you. Saji King MD
[2017-07-10] MEDS: Albuterol-Ipratrop 3 mg / 0.5 (3 ml) UD IH SCH ×4 (02:26→20:15)
--- NOTE | 2017-07-10 04:54 | PN ---
DATE: SUBJECTIVE: Patient is an 87-year-old male. Patient was seen and examined at the bedside. Son was standing at the bedside also. There was Rapid Response before I have to reach there. Patient had dementia, altered mental status, was feeling shivering and chest pain. Rapid Response was called. was at the bedside also. Son was at the bedside. Patient was having cooling blanket and was getting Venti[employer]. He was not able to give review of system, but according to patient, he is feeling little bit better right now. No hematuria or hematochezia. No headache. No dizziness. Patient has fever. No diarrhea. No constipation. PHYSICAL EXAMINATION: VITAL SIGNS: Temperature 98.2, T-max 103.3, pulse 153, blood pressure 185/70, before that it was 110/69, respiratory rate 28. HEENT: Head normocephalic, atraumatic. Eyes PERRLA. Extraocular muscles intact. Conjunctivae clear. Nose patent. NECK: Supple. No carotid bruit. No JVD or thyromegaly. CHEST: Bilaterally symmetrical. HEART: S1 and S2 positive. LUNGS: Clear to auscultation. ABDOMEN: Soft. Bowel sounds positive. No organomegaly. EXTREMITIES: No edema. No cyanosis. NEUROLOGICAL: The patient is awake and alert. Moving all four extremities. No focal deficit right now. MEDICATIONS: Aspirin, Claritin, dextrose, DuoNeb, heparin, Lipitor, Lopressor, Merrem, Plavix, Protonix, NS, Tylenol, vancomycin. LABORATORY DATA: White blood cells 11.5, hemoglobin 9.5, hematocrit 28.1, platelets 125. Sodium 145, potassium 3.5, BUN 55, creatinine 2.2, glucose 114, calcium 7.5. ASSESSMENT AND PLAN: Mr. Godwin Link is an 87-year-old male with leukocytosis, anemia, hypokalemia, renal insufficiency, hypoglycemia, hypocalcemia, abnormal liver function test, proteinuria, hematuria, urinary tract infection. 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 Today Rapid Response was called regarding mental status, tachycardia, desaturation. Patient was found to have severe sepsis with unknown source, maybe urinary tract infection. During Rapid Response, patient's rectal temperature was 103.3. He was given Tylenol, placed on cooling blanket. Blood pressure was also low. He was given 2 boluses of D50. Patient has a history of paracentesis, and biopsy of pancreatic mass. Discussion done with patient's son, house physician , and patient's nursing staff. Plan was to transfer the patient to the unit, because patient is going to have septic shock. Patient is full code. Rule out cystitis. During the Rapid Response, patient received IV fluid and responding very well and blood pressure went up, but we will hold fluid due to the patient's history of congestive heart failure, history of chronic obstructive pulmonary disease. Patient has a history of paracentesis and biopsy. Maybe his infection is due to procedures, above knee amputation. Lactate is 3.9. We will repeat lactate in 4 hours. Ordered septic workup. Started on meropenem and vancomycin. Infectious Disease consult called. Patient has deep vein thrombosis. Continue present treatment. Repeat Labs. We will follow up. Delmy Montana MD MTDD
[2017-07-10 06:19] LABS: BASO # 0.01 K/mm3 (0.0-2.0); BASO % 0.1 % (0.0-3.0); GRAN # 16.27 (1.4-6.5); GRAN % 87.7 % (50.0-68.0); HEMOGLOBIN 8.6 g/dL (14.0-18.0); LYMPH # 1.2 (1.2-3.4); LYMPH % 6.3 % (22.0-35.0); MEAN CELL VOLUME 88.6 fl (80.0-105.0); MEAN CORPUSCULAR HEMOGLOBIN 29.7 pg (25.0-35.0); MEAN CORPUSCULAR HGB CONC 33.5 g/dl (31.0-37.0); MONO # 1.1 (0.1-0.6); MONO % 5.9 % (1.0-6.0); PLATELET COUNT 110 10^3/uL (120.0-450.0); RED CELL DISTRIBUTION WIDTH 16.4 % (11.5-14.5); WHITE BLOOD COUNT 18.5 10^3/ul (4.5-11.0)
[2017-07-10] MEDS: Insulin Reg-LOW-Coverage SC SCH ×5 (07:29→22:32)
--- NOTE | 2017-07-10 07:33 | RAD ---
HISTORY: channel opener outsoles COMPARISON: 07/03/2017 FINDINGS: LUNGS: No active pulmonary disease. PLEURA: No significant pleural effusion identified, no pneumothorax apparent. CARDIOVASCULAR: Normal. OSSEOUS STRUCTURES: No significant abnormalities. VISUALIZED UPPER ABDOMEN: Normal. OTHER FINDINGS: None. IMPRESSION: No active disease.
[2017-07-10 08:10] LABS: ALB/GLOB RATIO 0.7 (1.1-1.8); CALCIUM 6.7 mg/dL (8.4-10.5)
--- NOTE | 2017-07-10 08:53 | CP.CCUPN ---
<Stephanie Beth - Last Filed: 07/10/17 10:52> CCU Subjective - Physician Review Subjective (Free Text): 07/10/17 09:55 Patient seen and examined at bedside. Pt transferred to ICU overnight for severe sepsis. Currently, denies fever, chills, nausea, vomiting, abdominal pain , dysuria, leg swelling, sob. Critical Care Time Spent (in minutes): 30 CCU Objective - Vital Signs / Intake & Output Vital Signs (Last 4 hours): Vital Signs Temp Pulse Resp Pulse Ox 07/10/17 06:00 99.1 F 93 H 20 96 Intake and Output (Last 8hrs): Intake & Output 07/09/17 07/10/17 07/10/17 22:59 06:59 14:59 Intake Total 900 1000 Output Total 325 Balance 900 675 Intake: IV 1000 Right Forearm 1000 Oral 900 Output: Urine 325 2-way Urethral 325 Other: # Bowel Movements 1 - Physical Exam Head: Positive for: Atraumatic, Normocephalic Pupils: Positive for: PERRL, Other (no jaundice, sclera anicteric, no nystagmus , no photophobia, visual field intact b/l) Extroacular Muscles: Positive for: EOMI Conjunctiva: Positive for: Normal Ears: Positive for: Normal Mouth: Positive for: Moist Mucous Membranes, Other (poor dentitions, mild dry oral mucosa, noted pallor to sublingula papilla; no drooling/stridor/exudate/ lesions, uvula/tongue are midline) Pharnyx: Positive for: Normal Nose (External): Positive for: Atraumatic Nose (Internal): Positive for: Normal Inspection Neck: Positive for: Normal Range of Motion, Meningeal Signs, Trachea Midline. Negative for: MIDLINE TENDERNESS Respiratory/Chest: Positive for: Good Air Exchange, Other (+ crackles bilaterally). Negative for: Respiratory Distress, Accessory Muscle Use, Wheezes , Retracting, Tachypneic Cardiovascular: Positive for: Regular Rate and Rhythm, Normal S1, S2. Negative for: Murmurs Abdomen: Positive for: Distention (mild), Normal Bowel Sounds, Other (distant bowel sounds, well nourished male, no focal tenderness, no masses/rebound/ guarding/rigidity, no huerta's sign, no mcburney's point tenderness; no fluid waves noted). Negative for: Tenderness, Peritoneal Signs, Rebound, Guarding, Feeding Tubes Back: Positive for: Normal Inspection. Negative for: CVA Tenderness, Midline Tenderness, Paraspinal Tenderness Upper Extremity: Positive for: Normal Inspection, Normal ROM, NORMAL PULSES, Neurovascularly Intact, Capillary Refill < 2s. Negative for: Cyanosis, Edema Lower Extremity: Positive for: NORMAL PULSES, Neurovascularly Intact, Capillary Refill < 2 s. Negative for: Tenderness, Swelling, Erythema Neurological: Positive for: GCS=15, CN II-XII Intact, Speech Normal Skin: Positive for: Warm, Dry. Negative for: Rashes Psychiatric: Positive for: Alert, Oriented x 3 (To person, place and time ( month only)), Normal Insight, Normal Concentration - Medications Active Medications: Active Medications Generic Name Dose Route Start Last Admin Trade Name Freq PRN Reason Stop Dose Admin Acetaminophen 650 mg 07/05/17 18:38 07/09/17 19:54 Tylenol 325mg Tab PO 650 mg Q6H PRN Administration Fever >100.4 F Albuterol/Ipratropium 3 ml 07/03/17 20:00 07/10/17 07:21 Duoneb 3 Mg/0.5 Mg (3 Ml) Ud IH 3 ml [id number] CARRIE Administration Aspirin 81 mg 07/04/17 10:00 07/09/17 11:31 Aspirin Chewable PO 81 mg DAILY CARRIE Administration Atorvastatin Calcium 20 mg 07/04/17 17:00 07/09/17 17:50 Lipitor PO 20 mg DIN CARRIE Administration Clopidogrel Bisulfate 75 mg 07/09/17 13:15 07/09/17 13:13 Plavix PO 75 mg DAILY CARRIE Administration Dextrose 50 ml 07/05/17 03:42 07/05/17 03:51 Dextrose 50% Inj IVP 50 ml PRN PRN Administration blood glucose less than 80 Heparin Sodium (Porcine) 5,000 units 07/10/17 10:00 Heparin SC Q12 [facility] Protocol Meropenem 50 mls @ 100 mls/hr 07/10/17 10:00 Merrem Iv 1 Gm Premix IVPB 07/17/17 10:01 Q12 [facility] Protocol Sodium Chloride 1,000 mls @ 100 mls/hr 07/09/17 22:45 07/10/17 00:28 Sodium Chloride 0.9% IV 100 mls/hr .Q10H CARRIE Administration Potassium Chloride 20 meq in 100 mls @ 50 mls/hr 07/10/17 08:16 Potassium Chloride 20 Meq/100 Ml IVPB 07/10/17 10:15 ONCE ONE Insulin Human Regular 0 units 07/03/17 22:00 07/10/17 07:29 Humulin R Low SC Not Given ACHS [facility]RI[facility] Protocol Loratadine 10 mg 07/04/17 10:00 07/09/17 11:31 Claritin PO 10 mg DAILY CARRIE Administration Metoprolol Tartrate 12.5 mg 07/04/17 18:00 07/09/17 17:49 Lopressor PO 12.5 mg BID CARRIE Administration Non-Formulary Medication 10 mg 07/04/17 10:00 07/09/17 11:31 Alfuzosin Hcl [Uroxatral] PO Not Given DAILY CARRIE Non-Formulary Medication 0.5 mg 07/04/17 10:00 07/09/17 11:31 Dutasteride [Dutasteride] PO Not Given DAILY CARRIE Pantoprazole Sodium 40 mg 07/04/17 07:30 07/09/17 08:38 Protonix Ec Tab PO 40 mg ACB CARRIE Administration - Patient Studies Lab Studies: Microbiology Studies 07/05/17 11:17 Body Fluid Culture - Final Ascitic Fluid No growth. Lab Studies 07/10/17 07/10/17 07/10/17 Range/Units 07:32 05:30 05:30 WBC 18.5 H D (4.5-11.0) 10^3/ul RBC 2.90 L (3.5-6.1) 10^6/uL Hgb 8.6 L (14.0-18.0) g/dL Hct 25.7 L (42.0-52.0) % MCV 88.6 (80.0-105.0) fl MCH 29.7 (25.0-35.0) pg MCHC 33.5 (31.0-37.0) g/dl RDW 16.4 H (11.5-14.5) % Plt Count 110 L (120.0-450.0) 10^3/uL MPV (7.0-11.0) fl Gran % 87.7 H (50.0-68.0) % Lymph % (Auto) 6.3 L (22.0-35.0) % [place] % (Auto) 5.9 (1.0-6.0) % Eos % (Auto) 0.0 L (1.5-5.0) % Baso % (Auto) 0.1 (0.0-3.0) % Gran # 16.27 H (1.4-6.5) Lymph # (Auto) 1.2 (1.2-3.4) [place] # (Auto) 1.1 H (0.1-0.6) Eos # (Auto) 0.0 (0.0-0.7) Baso # (Auto) 0.01 (0.0-2.0) K/mm3 pCO2 (35-45) mm/Hg pO2 (80-100) mm/Hg HCO3 (21-28) mmol/L ABG pH (7.35-7.45) ABG Total CO2 (22-28) mmol.L ABG O2 Saturation (95-98) % ABG Base Excess (-2.0-3.0) mmol/L ABG Potassium (3.6-5.2) mmol/L VBG pH (7.32-7.43) VBG pCO2 (40-60) VBG HCO3 (21-28) mmol/l VBG Total CO2 (22-28) mmol.L VBG O2 Sat (Calc) (40-65) % VBG Base Excess (0.0-2.0) mmol/L VBG Potassium (3.6-5.2) mmol/L Glucose (75-110) mg/dl Lactate (0.7-2.1) mmol/L FiO2 % Sodium 140 (132-148) mmol/L Potassium 3.4 L (3.6-5.0) mmol/L Chloride 111 H (98-107) mmol/L Carbon Dioxide 16 L (21-33) mmol/L Anion Gap 17 (10-20) BUN 58 H (7-21) mg/dL Creatinine 2.1 H (0.8-1.5) mg/dl Est GFR ( Amer) 37 Est GFR (Non-Af Amer) 30 POC Glucose (mg/dL) 340 H (65-110) mg/dL Random Glucose 294 H (70-110) mg/dL Lactic Acid (0.7-2.1) mmol/L Calcium 6.7 L* (8.4-10.5) mg/dL Phosphorus 3.6 (2.5-4.5) mg/dL Magnesium 1.8 (1.7-2.2) mg/dL Total Bilirubin 0.5 (0.2-1.3) mg/dL AST 48 (17-59) U/L ALT 41 (7-56) U/L Alkaline Phosphatase 205 H (38-126) U/L Total Protein 4.9 L (5.8-8.3) g/dL Albumin 2.0 L (3.0-4.8) g/dL Globulin 2.9 gm/dL Albumin/Globulin Ratio 0.7 L (1.1-1.8) Arterial Blood Potassium (3.6-5.2) mmol/L Venous Blood Potassium (3.6-5.2) mmol/L Urine Color (YELLOW) Urine Appearance (CLEAR) Urine pH (4.7-8.0) Ur Specific [place] (1.005-1.035) Urine Protein (<30 mg/dL) mg/dL Urine Glucose (UA) (NEGATIVE) mg/dL Urine Ketones (NEGATIVE) mg/dL Urine Blood (NEGATIVE) Urine Nitrate (NEGATIVE) Urine Bilirubin (NEGATIVE) Urine Urobilinogen (<1 E.U./dL) E.U./dL Ur Leukocyte Esterase (NEGATIVE) Xander/uL Urine RBC (0-2) /hpf Urine WBC (0-6) /hpf Ur Epithelial Cells (0-5) /hpf Amorphous Sediment Urine Bacteria (NEG) Fluid Albumin g/dL 07/10/17 07/10/17 07/09/17 Range/Units 00:20 00:20 21:35 WBC (4.5-11.0) 10^3/ul RBC (3.5-6.1) 10^6/uL Hgb (14.0-18.0) g/dL Hct (42.0-52.0) % MCV (80.0-105.0) fl MCH (25.0-35.0) pg MCHC (31.0-37.0) g/dl RDW (11.5-14.5) % Plt Count (120.0-450.0) 10^3/uL MPV (7.0-11.0) fl Gran % (50.0-68.0) % Lymph % (Auto) (22.0-35.0) % [place] % (Auto) (1.0-6.0) % Eos % (Auto) (1.5-5.0) % Baso % (Auto) (0.0-3.0) % Gran # (1.4-6.5) Lymph # (Auto) (1.2-3.4) [place] # (Auto) (0.1-0.6) Eos # (Auto) (0.0-0.7) Baso # (Auto) (0.0-2.0) K/mm3 pCO2 (35-45) mm/Hg pO2 25 L (80-100) mm/Hg HCO3 (21-28) mmol/L ABG pH (7.35-7.45) ABG Total CO2 (22-28) mmol.L ABG O2 Saturation (95-98) % ABG Base Excess (-2.0-3.0) mmol/L ABG Potassium (3.6-5.2) mmol/L VBG pH 7.34 (7.32-7.43) VBG pCO2 35.0 L (40-60) VBG HCO3 18.9 L (21-28) mmol/l VBG Total CO2 20.0 L (22-28) mmol.L VBG O2 Sat (Calc) 49.5 (40-65) % VBG Base Excess -6.1 L (0.0-2.0) mmol/L VBG Potassium 3.2 L (3.6-5.2) mmol/L Glucose 203 H (75-110) mg/dl Lactate 3.2 H (0.7-2.1) mmol/L FiO2 21.0 % Sodium 140.0 (132-148) mmol/L Potassium (3.6-5.0) mmol/L Chloride 109.0 H (98-107) mmol/L Carbon Dioxide (21-33) mmol/L Anion Gap (10-20) BUN (7-21) mg/dL Creatinine (0.8-1.5) mg/dl Est GFR ( Amer) Est GFR (Non-Af Amer) POC Glucose (mg/dL) (65-110) mg/dL Random Glucose (70-110) mg/dL Lactic Acid 3.2 H (0.7-2.1) mmol/L Calcium (8.4-10.5) mg/dL Phosphorus (2.5-4.5) mg/dL Magnesium (1.7-2.2) mg/dL Total Bilirubin (0.2-1.3) mg/dL AST (17-59) U/L ALT (7-56) U/L Alkaline Phosphatase (38-126) U/L Total Protein (5.8-8.3) g/dL Albumin (3.0-4.8) g/dL Globulin gm/dL Albumin/Globulin Ratio (1.1-1.8) Arterial Blood Potassium (3.6-5.2) mmol/L Venous Blood Potassium 3.2 L (3.6-5.2) mmol/L Urine Color Yellow (YELLOW) Urine Appearance Clear (CLEAR) Urine pH 5.5 (4.7-8.0) Ur Specific [place] 1.020 (1.005-1.035) Urine Protein 100 H (<30 mg/dL) mg/dL Urine Glucose (UA) Negative (NEGATIVE) mg/dL Urine Ketones Negative (NEGATIVE) mg/dL Urine Blood Large H (NEGATIVE) Urine Nitrate Negative (NEGATIVE) Urine Bilirubin Negative (NEGATIVE) Urine Urobilinogen 0.2 (<1 E.U./dL) E.U./dL Ur Leukocyte Esterase Trace H (NEGATIVE) Xander/uL Urine RBC Tntc (0-2) /hpf Urine WBC 5 - 10 (0-6) /hpf Ur Epithelial Cells None (0-5) /hpf Amorphous Sediment Few Urine Bacteria Many (NEG) Fluid Albumin g/dL 07/09/17 07/09/17 07/09/17 Range/Units 21:15 21:15 21:00 WBC 11.5 H D (4.5-11.0) 10^3/ul RBC 3.18 L (3.5-6.1) 10^6/uL Hgb 9.5 L (14.0-18.0) g/dL Hct 28.1 L (42.0-52.0) % MCV 88.4 (80.0-105.0) fl MCH 29.9 (25.0-35.0) pg MCHC 33.8 (31.0-37.0) g/dl RDW 16.2 H (11.5-14.5) % Plt Count 125 (120.0-450.0) 10^3/uL MPV 12.0 H (7.0-11.0) fl Gran % (50.0-68.0) % Lymph % (Auto) (22.0-35.0) % [place] % (Auto) (1.0-6.0) % Eos % (Auto) (1.5-5.0) % Baso % (Auto) (0.0-3.0) % Gran # (1.4-6.5) Lymph # (Auto) (1.2-3.4) [place] # (Auto) (0.1-0.6) Eos # (Auto) (0.0-0.7) Baso # (Auto) (0.0-2.0) K/mm3 pCO2 20 L (35-45) mm/Hg pO2 158.0 H (80-100) mm/Hg HCO3 14.2 L (21-28) mmol/L ABG pH 7.46 H (7.35-7.45) ABG Total CO2 14.8 L (22-28) mmol.L ABG O2 Saturation 98.7 H (95-98) % ABG Base Excess -7.3 L (-2.0-3.0) mmol/L ABG Potassium 3.4 L (3.6-5.2) mmol/L VBG pH (7.32-7.43) VBG pCO2 (40-60) VBG HCO3 (21-28) mmol/l VBG Total CO2 (22-28) mmol.L VBG O2 Sat (Calc) (40-65) % VBG Base Excess (0.0-2.0) mmol/L VBG Potassium (3.6-5.2) mmol/L Glucose 120 H (75-110) mg/dl Lactate 3.9 H (0.7-2.1) mmol/L FiO2 100.0 % Sodium 145 141.0 (132-148) mmol/L Potassium 3.5 L (3.6-5.0) mmol/L Chloride 113 H 116.0 H (98-107) mmol/L Carbon Dioxide 17 L (21-33) mmol/L Anion Gap 19 (10-20) BUN 55 H (7-21) mg/dL Creatinine 2.2 H (0.8-1.5) mg/dl Est GFR ( Amer) 35 Est GFR (Non-Af Amer) 29 POC Glucose (mg/dL) (65-110) mg/dL Random Glucose 114 H (70-110) mg/dL Lactic Acid (0.7-2.1) mmol/L Calcium 7.5 L (8.4-10.5) mg/dL Phosphorus (2.5-4.5) mg/dL Magnesium (1.7-2.2) mg/dL Total Bilirubin 0.7 (0.2-1.3) mg/dL AST 50 (17-59) U/L ALT 38 (7-56) U/L Alkaline Phosphatase 243 H (38-126) U/L Total Protein 5.4 L (5.8-8.3) g/dL Albumin 2.2 L (3.0-4.8) g/dL Globulin 3.2 gm/dL Albumin/Globulin Ratio 0.7 L (1.1-1.8) Arterial Blood Potassium 3.4 L (3.6-5.2) mmol/L Venous Blood Potassium (3.6-5.2) mmol/L Urine Color (YELLOW) Urine Appearance (CLEAR) Urine pH (4.7-8.0) Ur Specific [place] (1.005-1.035) Urine Protein (<30 mg/dL) mg/dL Urine Glucose (UA) (NEGATIVE) mg/dL Urine Ketones (NEGATIVE) mg/dL Urine Blood (NEGATIVE) Urine Nitrate (NEGATIVE) Urine Bilirubin (NEGATIVE) Urine Urobilinogen (<1 E.U./dL) E.U./dL Ur Leukocyte Esterase (NEGATIVE) Xander/uL Urine RBC (0-2) /hpf Urine WBC (0-6) /hpf Ur Epithelial Cells (0-5) /hpf Amorphous Sediment Urine Bacteria (NEG) Fluid Albumin g/dL 07/09/17 07/09/17 07/09/17 Range/Units 20:30 20:13 16:22 WBC (4.5-11.0) 10^3/ul RBC (3.5-6.1) 10^6/uL Hgb (14.0-18.0) g/dL Hct (42.0-52.0) % MCV (80.0-105.0) fl MCH (25.0-35.0) pg MCHC (31.0-37.0) g/dl RDW (11.5-14.5) % Plt Count (120.0-450.0) 10^3/uL MPV (7.0-11.0) fl Gran % (50.0-68.0) % Lymph % (Auto) (22.0-35.0) % [place] % (Auto) (1.0-6.0) % Eos % (Auto) (1.5-5.0) % Baso % (Auto) (0.0-3.0) % Gran # (1.4-6.5) Lymph # (Auto) (1.2-3.4) [place] # (Auto) (0.1-0.6) Eos # (Auto) (0.0-0.7) Baso # (Auto) (0.0-2.0) K/mm3 pCO2 (35-45) mm/Hg pO2 (80-100) mm/Hg HCO3 (21-28) mmol/L ABG pH (7.35-7.45) ABG Total CO2 (22-28) mmol.L ABG O2 Saturation (95-98) % ABG Base Excess (-2.0-3.0) mmol/L ABG Potassium (3.6-5.2) mmol/L VBG pH (7.32-7.43) VBG pCO2 (40-60) VBG HCO3 (21-28) mmol/l VBG Total CO2 (22-28) mmol.L VBG O2 Sat (Calc) (40-65) % VBG Base Excess (0.0-2.0) mmol/L VBG Potassium (3.6-5.2) mmol/L Glucose (75-110) mg/dl Lactate (0.7-2.1) mmol/L FiO2 % Sodium 148 (132-148) mmol/L Potassium 3.7 (3.6-5.0) mmol/L Chloride 113 H (98-107) mmol/L Carbon Dioxide 18 L (21-33) mmol/L Anion Gap 20 (10-20) BUN 56 H (7-21) mg/dL Creatinine 2.2 H (0.8-1.5) mg/dl Est GFR ( Amer) 35 Est GFR (Non-Af Amer) 29 POC Glucose (mg/dL) 125 H 202 H (65-110) mg/dL Random Glucose 134 H (70-110) mg/dL Lactic Acid (0.7-2.1) mmol/L Calcium 7.9 L (8.4-10.5) mg/dL Phosphorus (2.5-4.5) mg/dL Magnesium (1.7-2.2) mg/dL Total Bilirubin 0.7 (0.2-1.3) mg/dL AST 55 (17-59) U/L ALT 42 (7-56) U/L Alkaline Phosphatase 257 H (38-126) U/L Total Protein 5.8 (5.8-8.3) g/dL Albumin 2.5 L (3.0-4.8) g/dL Globulin 3.3 gm/dL Albumin/Globulin Ratio 0.8 L (1.1-1.8) Arterial Blood Potassium (3.6-5.2) mmol/L Venous Blood Potassium (3.6-5.2) mmol/L Urine Color (YELLOW) Urine Appearance (CLEAR) Urine pH (4.7-8.0) Ur Specific [place] (1.005-1.035) Urine Protein (<30 mg/dL) mg/dL Urine Glucose (UA) (NEGATIVE) mg/dL Urine Ketones (NEGATIVE) mg/dL Urine Blood (NEGATIVE) Urine Nitrate (NEGATIVE) Urine Bilirubin (NEGATIVE) Urine Urobilinogen (<1 E.U./dL) E.U./dL Ur Leukocyte Esterase (NEGATIVE) Xander/uL Urine RBC (0-2) /hpf Urine WBC (0-6) /hpf Ur Epithelial Cells (0-5) /hpf Amorphous Sediment Urine Bacteria (NEG) Fluid Albumin g/dL 07/09/17 07/05/17 Range/Units 11:27 10:33 WBC (4.5-11.0) 10^3/ul RBC (3.5-6.1) 10^6/uL Hgb (14.0-18.0) g/dL Hct (42.0-52.0) % MCV (80.0-105.0) fl MCH (25.0-35.0) pg MCHC (31.0-37.0) g/dl RDW (11.5-14.5) % Plt Count (120.0-450.0) 10^3/uL MPV (7.0-11.0) fl Gran % (50.0-68.0) % Lymph % (Auto) (22.0-35.0) % [place] % (Auto) (1.0-6.0) % Eos % (Auto) (1.5-5.0) % Baso % (Auto) (0.0-3.0) % Gran # (1.4-6.5) Lymph # (Auto) (1.2-3.4) [place] # (Auto) (0.1-0.6) Eos # (Auto) (0.0-0.7) Baso # (Auto) (0.0-2.0) K/mm3 pCO2 (35-45) mm/Hg pO2 (80-100) mm/Hg HCO3 (21-28) mmol/L ABG pH (7.35-7.45) ABG Total CO2 (22-28) mmol.L ABG O2 Saturation (95-98) % ABG Base Excess (-2.0-3.0) mmol/L ABG Potassium (3.6-5.2) mmol/L VBG pH (7.32-7.43) VBG pCO2 (40-60) VBG HCO3 (21-28) mmol/l VBG Total CO2 (22-28) mmol.L VBG O2 Sat (Calc) (40-65) % VBG Base Excess (0.0-2.0) mmol/L VBG Potassium (3.6-5.2) mmol/L Glucose (75-110) mg/dl Lactate (0.7-2.1) mmol/L FiO2 % Sodium (132-148) mmol/L Potassium (3.6-5.0) mmol/L Chloride (98-107) mmol/L Carbon Dioxide (21-33) mmol/L Anion Gap (10-20) BUN (7-21) mg/dL Creatinine (0.8-1.5) mg/dl Est GFR ( Amer) Est GFR (Non-Af Amer) POC Glucose (mg/dL) 198 H (65-110) mg/dL Random Glucose (70-110) mg/dL Lactic Acid (0.7-2.1) mmol/L Calcium (8.4-10.5) mg/dL Phosphorus (2.5-4.5) mg/dL Magnesium (1.7-2.2) mg/dL Total Bilirubin (0.2-1.3) mg/dL AST (17-59) U/L ALT (7-56) U/L Alkaline Phosphatase (38-126) U/L Total Protein (5.8-8.3) g/dL Albumin (3.0-4.8) g/dL Globulin gm/dL Albumin/Globulin Ratio (1.1-1.8) Arterial Blood Potassium (3.6-5.2) mmol/L Venous Blood Potassium (3.6-5.2) mmol/L Urine Color (YELLOW) Urine Appearance (CLEAR) Urine pH (4.7-8.0) Ur Specific [place] (1.005-1.035) Urine Protein (<30 mg/dL) mg/dL Urine Glucose (UA) (NEGATIVE) mg/dL Urine Ketones (NEGATIVE) mg/dL Urine Blood (NEGATIVE) Urine Nitrate (NEGATIVE) Urine Bilirubin (NEGATIVE) Urine Urobilinogen (<1 E.U./dL) E.U./dL Ur Leukocyte Esterase (NEGATIVE) Xander/uL Urine RBC (0-2) /hpf Urine WBC (0-6) /hpf Ur Epithelial Cells (0-5) /hpf Amorphous Sediment Urine Bacteria (NEG) Fluid Albumin 0.5 g/dL Laboratory Results - last 24 hr 07/05/17 07/09/17 07/09/17 10:33 11:27 16:22 WBC RBC Hgb Hct MCV MCH MCHC RDW Plt Count MPV Gran % Lymph % (Auto) [place] % (Auto) Eos % (Auto) Baso % (Auto) Gran # Lymph # (Auto) [place] # (Auto) Eos # (Auto) Baso # (Auto) pCO2 pO2 HCO3 ABG pH ABG Total CO2 ABG O2 Saturation ABG Base Excess ABG Potassium VBG pH VBG pCO2 VBG HCO3 VBG Total CO2 VBG O2 Sat (Calc) VBG Base Excess VBG Potassium Glucose Lactate FiO2 Sodium Potassium Chloride Carbon Dioxide Anion Gap BUN Creatinine Est GFR ( Amer) Est GFR (Non-Af Amer) POC Glucose (mg/dL) 198 H 202 H Random Glucose Lactic Acid Calcium Phosphorus Magnesium Total Bilirubin AST ALT Alkaline Phosphatase Total Protein Albumin Globulin Albumin/Globulin Ratio Arterial Blood Potassium Venous Blood Potassium Urine Color Urine Appearance Urine pH Ur Specific [place] Urine Protein Urine Glucose (UA) Urine Ketones Urine Blood Urine Nitrate Urine Bilirubin Urine Urobilinogen Ur Leukocyte Esterase Urine RBC Urine WBC Ur Epithelial Cells Amorphous Sediment Urine Bacteria Fluid Albumin 0.5 07/09/17 07/09/17 07/09/17 20:13 20:30 21:00 WBC RBC Hgb Hct MCV MCH MCHC RDW Plt Count MPV Gran % Lymph % (Auto) [place] % (Auto) Eos % (Auto) Baso % (Auto) Gran # Lymph # (Auto) [place] # (Auto) Eos # (Auto) Baso # (Auto) pCO2 20 L pO2 158.0 H HCO3 14.2 L ABG pH 7.46 H ABG Total CO2 14.8 L ABG O2 Saturation 98.7 H ABG Base Excess -7.3 L ABG Potassium 3.4 L VBG pH VBG pCO2 VBG HCO3 VBG Total CO2 VBG O2 Sat (Calc) VBG Base Excess VBG Potassium Glucose 120 H Lactate 3.9 H FiO2 100.0 Sodium 148 141.0 Potassium 3.7 Chloride 113 H 116.0 H Carbon Dioxide 18 L Anion Gap 20 BUN 56 H Creatinine 2.2 H Est GFR ( Amer) 35 Est GFR (Non-Af Amer) 29 POC Glucose (mg/dL) 125 H Random Glucose 134 H Lactic Acid Calcium 7.9 L Phosphorus Magnesium Total Bilirubin 0.7 AST 55 ALT 42 Alkaline Phosphatase 257 H Total Protein 5.8 Albumin 2.5 L Globulin 3.3 Albumin/Globulin Ratio 0.8 L Arterial Blood Potassium 3.4 L Venous Blood Potassium Urine Color Urine Appearance Urine pH Ur Specific [place] Urine Protein Urine Glucose (UA) Urine Ketones Urine Blood Urine Nitrate Urine Bilirubin Urine Urobilinogen Ur Leukocyte Esterase Urine RBC Urine WBC Ur Epithelial Cells Amorphous Sediment Urine Bacteria Fluid Albumin 07/09/17 07/09/17 07/09/17 21:15 21:15 21:35 WBC 11.5 H D RBC 3.18 L Hgb 9.5 L Hct 28.1 L MCV 88.4 MCH 29.9 MCHC 33.8 RDW 16.2 H Plt Count 125 MPV 12.0 H Gran % Lymph % (Auto) [place] % (Auto) Eos % (Auto) Baso % (Auto) Gran # Lymph # (Auto) [place] # (Auto) Eos # (Auto) Baso # (Auto) pCO2 pO2 HCO3 ABG pH ABG Total CO2 ABG O2 Saturation ABG Base Excess ABG Potassium VBG pH VBG pCO2 VBG HCO3 VBG Total CO2 VBG O2 Sat (Calc) VBG Base Excess VBG Potassium Glucose Lactate FiO2 Sodium 145 Potassium 3.5 L Chloride 113 H Carbon Dioxide 17 L Anion Gap 19 BUN 55 H Creatinine 2.2 H Est GFR ( Amer) 35 Est GFR (Non-Af Amer) 29 POC Glucose (mg/dL) Random Glucose 114 H Lactic Acid Calcium 7.5 L Phosphorus Magnesium Total Bilirubin 0.7 AST 50 ALT 38 Alkaline Phosphatase 243 H Total Protein 5.4 L Albumin 2.2 L Globulin 3.2 Albumin/Globulin Ratio 0.7 L Arterial Blood Potassium Venous Blood Potassium Urine Color Yellow Urine Appearance Clear Urine pH 5.5 Ur Specific [place] 1.020 Urine Protein 100 H Urine Glucose (UA) Negative Urine Ketones Negative Urine Blood Large H Urine Nitrate Negative Urine Bilirubin Negative Urine Urobilinogen 0.2 Ur Leukocyte Esterase Trace H Urine RBC Tntc Urine WBC 5 - 10 Ur Epithelial Cells None Amorphous Sediment Few Urine Bacteria Many Fluid Albumin 07/10/17 07/10/17 07/10/17 00:20 00:20 05:30 WBC 18.5 H D RBC 2.90 L Hgb 8.6 L Hct 25.7 L MCV 88.6 MCH 29.7 MCHC 33.5 RDW 16.4 H Plt Count 110 L MPV Gran % 87.7 H Lymph % (Auto) 6.3 L [place] % (Auto) 5.9 Eos % (Auto) 0.0 L Baso % (Auto) 0.1 Gran # 16.27 H Lymph # (Auto) 1.2 [place] # (Auto) 1.1 H Eos # (Auto) 0.0 Baso # (Auto) 0.01 pCO2 pO2 25 L HCO3 ABG pH ABG Total CO2 ABG O2 Saturation ABG Base Excess ABG Potassium VBG pH 7.34 VBG pCO2 35.0 L VBG HCO3 18.9 L VBG Total CO2 20.0 L VBG O2 Sat (Calc) 49.5 VBG Base Excess -6.1 L VBG Potassium 3.2 L Glucose 203 H Lactate 3.2 H FiO2 21.0 Sodium 140.0 Potassium Chloride 109.0 H Carbon Dioxide Anion Gap BUN Creatinine Est GFR ( Amer) Est GFR (Non-Af Amer) POC Glucose (mg/dL) Random Glucose Lactic Acid 3.2 H Calcium Phosphorus Magnesium Total Bilirubin AST ALT Alkaline Phosphatase Total Protein Albumin Globulin Albumin/Globulin Ratio Arterial Blood Potassium Venous Blood Potassium 3.2 L Urine Color Urine Appearance Urine pH Ur Specific [place] Urine Protein Urine Glucose (UA) Urine Ketones Urine Blood Urine Nitrate Urine Bilirubin Urine Urobilinogen Ur Leukocyte Esterase Urine RBC Urine WBC Ur Epithelial Cells Amorphous Sediment Urine Bacteria Fluid Albumin 07/10/17 07/10/17 05:30 07:32 WBC RBC Hgb Hct MCV MCH MCHC RDW Plt Count MPV Gran % Lymph % (Auto) [place] % (Auto) Eos % (Auto) Baso % (Auto) Gran # Lymph # (Auto) [place] # (Auto) Eos # (Auto) Baso # (Auto) pCO2 pO2 HCO3 ABG pH ABG Total CO2 ABG O2 Saturation ABG Base Excess ABG Potassium VBG pH VBG pCO2 VBG HCO3 VBG Total CO2 VBG O2 Sat (Calc) VBG Base Excess VBG Potassium Glucose Lactate FiO2 Sodium 140 Potassium 3.4 L Chloride 111 H Carbon Dioxide 16 L Anion Gap 17 BUN 58 H Creatinine 2.1 H Est GFR ( Amer) 37 Est GFR (Non-Af Amer) 30 POC Glucose (mg/dL) 340 H Random Glucose 294 H Lactic Acid Calcium 6.7 L* Phosphorus 3.6 Magnesium 1.8 Total Bilirubin 0.5 AST 48 ALT 41 Alkaline Phosphatase 205 H Total Protein 4.9 L Albumin 2.0 L Globulin 2.9 Albumin/Globulin Ratio 0.7 L Arterial Blood Potassium Venous Blood Potassium Urine Color Urine Appearance Urine pH Ur Specific [place] Urine Protein Urine Glucose (UA) Urine Ketones Urine Blood Urine Nitrate Urine Bilirubin Urine Urobilinogen Ur Leukocyte Esterase Urine RBC Urine WBC Ur Epithelial Cells Amorphous Sediment Urine Bacteria Fluid Albumin Fingerstick Blood Sugar Results: 120 Review of Systems - Review of Systems Systems not reviewed;Unavailable: Other (dementia) Critical Care Progress Note - Nutrition Nutrition: Nutrition Category Date Time Status NPO Diet [DIET] Diets 07/09/17 Dinner Ordered Assessment/Plan - Assessment and Plan (Free Text) Assessment: 87 yo male with PMH of 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 fib, prostate cancer consulted for severe sepsis 2/2 mild UTI: Neuro - Currently AOx3, at baseline - will continue to monitor - neurology following cardiovascular - hx of afib - Cardiology on board. f/u recs - Lopressor 12.5 mg PO BID - NS @ 100 - Echo 06/2017: LVEF 45%. borderline concentric LVH. systolic function is mildly impaired. septal hypokinesis. grade 1 diastolic dysfunction. mild aortic regurg. - if BP drops consider albumin - maintain map> 65 Pulm - h/o COPD - cxr neg for infiltrates - duonebs prn - ICS, OOB to chair - supplemental O2 to maintain SaO2> 90 GI - recent paracentesis and pancreatic biopsy, possible source of infection after multiple foreign bodies were introduced - CT abd pelvis 07/09: Neg for acute pathology. Large ascites. Shrunken nodular liver suggesting cirrhosis. Pneumobilia probably secondary to previous sphincterotomy. Limited gallbladder with possible gallstones. Atrophic pancreas. Bilateral renal cysts. Atrophic left kidney. - bedside swallow - CLD - GI ppx infectious - severe sepsis 2/2 UTI - UA shows mild infection - CT abd pelvis neg for acute pathology - cxr did not show consolidation - F/u blood and urine cultures - Cont with Merrem - ID consulted - f/u procal endo - continue ISS - fingersticks achs - CLD renal - Acute renal failure on chronic renal failure - most likely prerenal - maintenance fluid - F/u urine culture - strict I&O GI ppx- Protonix DVT ppx- heparin Case reviewed and discussed with attending Dr Alcazar. Stephanie Beth, PGY1 - Date & Time Date: 07/10/17 Time: 10:09 <Shiv Alcazar - Last Filed: 07/10/17 11:30> CCU Objective - Vital Signs / Intake & Output Intake and Output (Last 8hrs): Intake & Output 07/09/17 07/10/17 07/10/17 22:59 06:59 14:59 Intake Total 900 1000 Output Total 325 Balance 900 675 Intake: IV 1000 Right Forearm 1000 Oral 900 Output: Urine 325 2-way Urethral 325 Other: # Bowel Movements 1 - Medications Active Medications: Active Medications Generic Name Dose Route Start Last Admin Trade Name Freq PRN Reason Stop Dose Admin Acetaminophen 650 mg 07/05/17 18:38 07/09/17 19:54 Tylenol 325mg Tab PO 650 mg Q6H PRN Administration Fever >100.4 F Albumin Human 12.5 gm 07/10/17 11:15 Albumin Human 25% (12.5 Gm/50 Ml) IV 07/11/17 10:30 Q6H CARRIE Albuterol/Ipratropium 3 ml 07/03/17 20:00 07/10/17 07:21 Duoneb 3 Mg/0.5 Mg (3 Ml) Ud IH 3 ml [id number] CARRIE Administration Aspirin 81 mg 07/04/17 10:00 07/10/17 09:35 Aspirin Chewable PO 81 mg DAILY CARRIE Administration Atorvastatin Calcium 20 mg 07/04/17 17:00 07/09/17 17:50 Lipitor PO 20 mg DIN CARRIE Administration Clopidogrel Bisulfate 75 mg 07/09/17 13:15 07/10/17 09:35 Plavix PO 75 mg DAILY CARRIE Administration Dextrose 50 ml 07/05/17 03:42 07/05/17 03:51 Dextrose 50% Inj IVP 50 ml PRN PRN Administration blood glucose less than 80 Digoxin 0.25 mg 07/10/17 16:00 Lanoxin IVP 07/10/17 16:01 ONCE ONE Heparin Sodium (Porcine) 5,000 units 07/10/17 10:00 07/10/17 09:35 Heparin SC 5,000 units Q12 CARRIE Administration Protocol Meropenem 50 mls @ 100 mls/hr 07/10/17 10:00 Merrem Iv 1 Gm Premix IVPB 07/17/17 10:01 Q12 CARRIE Protocol Sodium Chloride 1,000 mls @ 100 mls/hr 07/09/17 22:45 07/10/17 00:28 Sodium Chloride 0.9% IV 100 mls/hr .Q10H CARRIE Administration NOREPINEPHRINE BIT/0.9 % NACL 4 mg in 250 mls @ 15 mls/hr 07/10/17 10:09 Levophed 4 Mg/ 250 Ml Ns Premixed IV .[id number] PRN TITRATE PER MD ORDER Protocol 4 MCG/MIN Sodium Chloride 1,000 mls @ 50 mls/hr 07/10/17 10:30 Sodium Chloride 0.9% IV .Q20H CARRIE Sodium Chloride 1,000 mls @ 999 mls/hr 07/10/17 11:20 Sodium Chloride 0.9% IV 07/10/17 12:20 .[id number] STA Insulin Human Regular 0 units 07/03/17 22:00 07/10/17 08:30 Humulin R Low SC 4 units ACHS CARRIE Administration Protocol Loratadine 10 mg 07/04/17 10:00 07/10/17 09:35 Claritin PO 10 mg DAILY CARRIE Administration Metoprolol Tartrate 12.5 mg 07/04/17 18:00 07/09/17 17:49 Lopressor PO 12.5 mg BID CARRIE Administration Non-Formulary Medication 10 mg 07/04/17 10:00 07/09/17 11:31 Alfuzosin Hcl [Uroxatral] PO Not Given DAILY CARRIE Non-Formulary Medication 0.5 mg 07/04/17 10:00 07/09/17 11:31 Dutasteride [Dutasteride] PO Not Given DAILY CARRIE Pantoprazole Sodium 40 mg 07/04/17 07:30 07/10/17 09:38 Protonix Ec Tab PO 40 mg ACB CARRIE Administration - Patient Studies Lab Studies: Microbiology Studies 07/05/17 11:17 Body Fluid Culture - Final Ascitic Fluid No growth. Lab Studies 07/10/17 07/10/17 07/10/17 Range/Units 09:30 09:30 07:32 WBC (4.5-11.0) 10^3/ul RBC (3.5-6.1) 10^6/uL Hgb (14.0-18.0) g/dL Hct (42.0-52.0) % MCV (80.0-105.0) fl MCH (25.0-35.0) pg MCHC (31.0-37.0) g/dl RDW (11.5-14.5) % Plt Count (120.0-450.0) 10^3/uL MPV (7.0-11.0) fl Gran % (50.0-68.0) % Lymph % (Auto) (22.0-35.0) % [place] % (Auto) (1.0-6.0) % Eos % (Auto) (1.5-5.0) % Baso % (Auto) (0.0-3.0) % Gran # (1.4-6.5) Lymph # (Auto) (1.2-3.4) [place] # (Auto) (0.1-0.6) Eos # (Auto) (0.0-0.7) Baso # (Auto) (0.0-2.0) K/mm3 PT 14.6 H (9.4-12.5) SECONDS INR 1.26 H (0.93-1.08) APTT 41.3 H (25.1-36.5) Seconds pCO2 (35-45) mm/Hg pO2 (80-100) mm/Hg HCO3 (21-28) mmol/L ABG pH (7.35-7.45) ABG Total CO2 (22-28) mmol.L ABG O2 Saturation (95-98) % ABG Base Excess (-2.0-3.0) mmol/L ABG Potassium (3.6-5.2) mmol/L VBG pH (7.32-7.43) VBG pCO2 (40-60) VBG HCO3 (21-28) mmol/l VBG Total CO2 (22-28) mmol.L VBG O2 Sat (Calc) (40-65) % VBG Base Excess (0.0-2.0) mmol/L VBG Potassium (3.6-5.2) mmol/L Glucose (75-110) mg/dl Lactate (0.7-2.1) mmol/L FiO2 % Sodium (132-148) mmol/L Potassium (3.6-5.0) mmol/L Chloride (98-107) mmol/L Carbon Dioxide (21-33) mmol/L Anion Gap (10-20) BUN (7-21) mg/dL Creatinine (0.8-1.5) mg/dl Est GFR ( Amer) Est GFR (Non-Af Amer) POC Glucose (mg/dL) 340 H (65-110) mg/dL Random Glucose (70-110) mg/dL Lactic Acid 2.0 (0.7-2.1) mmol/L Calcium (8.4-10.5) mg/dL Phosphorus (2.5-4.5) mg/dL Magnesium (1.7-2.2) mg/dL Total Bilirubin (0.2-1.3) mg/dL AST (17-59) U/L ALT (7-56) U/L Alkaline Phosphatase (38-126) U/L Total Protein (5.8-8.3) g/dL Albumin (3.0-4.8) g/dL Globulin gm/dL Albumin/Globulin Ratio (1.1-1.8) Arterial Blood Potassium (3.6-5.2) mmol/L Venous Blood Potassium (3.6-5.2) mmol/L Urine Color (YELLOW) Urine Appearance (CLEAR) Urine pH (4.7-8.0) Ur Specific [place] (1.005-1.035) Urine Protein (<30 mg/dL) mg/dL Urine Glucose (UA) (NEGATIVE) mg/dL Urine Ketones (NEGATIVE) mg/dL Urine Blood (NEGATIVE) Urine Nitrate (NEGATIVE) Urine Bilirubin (NEGATIVE) Urine Urobilinogen (<1 E.U./dL) E.U./dL Ur Leukocyte Esterase (NEGATIVE) Xander/uL Urine RBC (0-2) /hpf Urine WBC (0-6) /hpf Ur Epithelial Cells (0-5) /hpf Amorphous Sediment Urine Bacteria (NEG) Fluid Albumin g/dL 07/10/17 07/10/17 07/10/17 Range/Units 05:30 05:30 00:20 WBC 18.5 H D (4.5-11.0) 10^3/ul RBC 2.90 L (3.5-6.1) 10^6/uL Hgb 8.6 L (14.0-18.0) g/dL Hct 25.7 L (42.0-52.0) % MCV 88.6 (80.0-105.0) fl MCH 29.7 (25.0-35.0) pg MCHC 33.5 (31.0-37.0) g/dl RDW 16.4 H (11.5-14.5) % Plt Count 110 L (120.0-450.0) 10^3/uL MPV (7.0-11.0) fl Gran % 87.7 H (50.0-68.0) % Lymph % (Auto) 6.3 L (22.0-35.0) % [place] % (Auto) 5.9 (1.0-6.0) % Eos % (Auto) 0.0 L (1.5-5.0) % Baso % (Auto) 0.1 (0.0-3.0) % Gran # 16.27 H (1.4-6.5) Lymph # (Auto) 1.2 (1.2-3.4) [place] # (Auto) 1.1 H (0.1-0.6) Eos # (Auto) 0.0 (0.0-0.7) Baso # (Auto) 0.01 (0.0-2.0) K/mm3 PT (9.4-12.5) SECONDS INR (0.93-1.08) APTT (25.1-36.5) Seconds pCO2 (35-45) mm/Hg pO2 (80-100) mm/Hg HCO3 (21-28) mmol/L ABG pH (7.35-7.45) ABG Total CO2 (22-28) mmol.L ABG O2 Saturation (95-98) % ABG Base Excess (-2.0-3.0) mmol/L ABG Potassium (3.6-5.2) mmol/L VBG pH (7.32-7.43) VBG pCO2 (40-60) VBG HCO3 (21-28) mmol/l VBG Total CO2 (22-28) mmol.L VBG O2 Sat (Calc) (40-65) % VBG Base Excess (0.0-2.0) mmol/L VBG Potassium (3.6-5.2) mmol/L Glucose (75-110) mg/dl Lactate (0.7-2.1) mmol/L FiO2 % Sodium 140 (132-148) mmol/L Potassium 3.4 L (3.6-5.0) mmol/L Chloride 111 H (98-107) mmol/L Carbon Dioxide 16 L (21-33) mmol/L Anion Gap 17 (10-20) BUN 58 H (7-21) mg/dL Creatinine 2.1 H (0.8-1.5) mg/dl Est GFR ( Amer) 37 Est GFR (Non-Af Amer) 30 POC Glucose (mg/dL) (65-110) mg/dL Random Glucose 294 H (70-110) mg/dL Lactic Acid 3.2 H (0.7-2.1) mmol/L Calcium 6.7 L* (8.4-10.5) mg/dL Phosphorus 3.6 (2.5-4.5) mg/dL Magnesium 1.8 (1.7-2.2) mg/dL Total Bilirubin 0.5 (0.2-1.3) mg/dL AST 48 (17-59) U/L ALT 41 (7-56) U/L Alkaline Phosphatase 205 H (38-126) U/L Total Protein 4.9 L (5.8-8.3) g/dL Albumin 2.0 L (3.0-4.8) g/dL Globulin 2.9 gm/dL Albumin/Globulin Ratio 0.7 L (1.1-1.8) Arterial Blood Potassium (3.6-5.2) mmol/L Venous Blood Potassium (3.6-5.2) mmol/L Urine Color (YELLOW) Urine Appearance (CLEAR) Urine pH (4.7-8.0) Ur Specific [place] (1.005-1.035) Urine Protein (<30 mg/dL) mg/dL Urine Glucose (UA) (NEGATIVE) mg/dL Urine Ketones (NEGATIVE) mg/dL Urine Blood (NEGATIVE) Urine Nitrate (NEGATIVE) Urine Bilirubin (NEGATIVE) Urine Urobilinogen (<1 E.U./dL) E.U./dL Ur Leukocyte Esterase (NEGATIVE) Xander/uL Urine RBC (0-2) /hpf Urine WBC (0-6) /hpf Ur Epithelial Cells (0-5) /hpf Amorphous Sediment Urine Bacteria (NEG) Fluid Albumin g/dL 07/10/17 07/09/17 07/09/17 Range/Units 00:20 21:35 21:15 WBC (4.5-11.0) 10^3/ul RBC (3.5-6.1) 10^6/uL Hgb (14.0-18.0) g/dL Hct (42.0-52.0) % MCV (80.0-105.0) fl MCH (25.0-35.0) pg MCHC (31.0-37.0) g/dl RDW (11.5-14.5) % Plt Count (120.0-450.0) 10^3/uL MPV (7.0-11.0) fl Gran % (50.0-68.0) % Lymph % (Auto) (22.0-35.0) % [place] % (Auto) (1.0-6.0) % Eos % (Auto) (1.5-5.0) % Baso % (Auto) (0.0-3.0) % Gran # (1.4-6.5) Lymph # (Auto) (1.2-3.4) [place] # (Auto) (0.1-0.6) Eos # (Auto) (0.0-0.7) Baso # (Auto) (0.0-2.0) K/mm3 PT (9.4-12.5) SECONDS INR (0.93-1.08) APTT (25.1-36.5) Seconds pCO2 (35-45) mm/Hg pO2 25 L (80-100) mm/Hg HCO3 (21-28) mmol/L ABG pH (7.35-7.45) ABG Total CO2 (22-28) mmol.L ABG O2 Saturation (95-98) % ABG Base Excess (-2.0-3.0) mmol/L ABG Potassium (3.6-5.2) mmol/L VBG pH 7.34 (7.32-7.43) VBG pCO2 35.0 L (40-60) VBG HCO3 18.9 L (21-28) mmol/l VBG Total CO2 20.0 L (22-28) mmol.L VBG O2 Sat (Calc) 49.5 (40-65) % VBG Base Excess -6.1 L (0.0-2.0) mmol/L VBG Potassium 3.2 L (3.6-5.2) mmol/L Glucose 203 H (75-110) mg/dl Lactate 3.2 H (0.7-2.1) mmol/L FiO2 21.0 % Sodium 140.0 145 (132-148) mmol/L Potassium 3.5 L (3.6-5.0) mmol/L Chloride 109.0 H 113 H (98-107) mmol/L Carbon Dioxide 17 L (21-33) mmol/L Anion Gap 19 (10-20) BUN 55 H (7-21) mg/dL Creatinine 2.2 H (0.8-1.5) mg/dl Est GFR ( Amer) 35 Est GFR (Non-Af Amer) 29 POC Glucose (mg/dL) (65-110) mg/dL Random Glucose 114 H (70-110) mg/dL Lactic Acid (0.7-2.1) mmol/L Calcium 7.5 L (8.4-10.5) mg/dL Phosphorus (2.5-4.5) mg/dL Magnesium (1.7-2.2) mg/dL Total Bilirubin 0.7 (0.2-1.3) mg/dL AST 50 (17-59) U/L ALT 38 (7-56) U/L Alkaline Phosphatase 243 H (38-126) U/L Total Protein 5.4 L (5.8-8.3) g/dL Albumin 2.2 L (3.0-4.8) g/dL Globulin 3.2 gm/dL Albumin/Globulin Ratio 0.7 L (1.1-1.8) Arterial Blood Potassium (3.6-5.2) mmol/L Venous Blood Potassium 3.2 L (3.6-5.2) mmol/L Urine Color Yellow (YELLOW) Urine Appearance Clear (CLEAR) Urine pH 5.5 (4.7-8.0) Ur Specific [place] 1.020 (1.005-1.035) Urine Protein 100 H (<30 mg/dL) mg/dL Urine Glucose (UA) Negative (NEGATIVE) mg/dL Urine Ketones Negative (NEGATIVE) mg/dL Urine Blood Large H (NEGATIVE) Urine Nitrate Negative (NEGATIVE) Urine Bilirubin Negative (NEGATIVE) Urine Urobilinogen 0.2 (<1 E.U./dL) E.U./dL Ur Leukocyte Esterase Trace H (NEGATIVE) Xander/uL Urine RBC Tntc (0-2) /hpf Urine WBC 5 - 10 (0-6) /hpf Ur Epithelial Cells None (0-5) /hpf Amorphous Sediment Few Urine Bacteria Many (NEG) Fluid Albumin g/dL 07/09/17 07/09/17 07/09/17 Range/Units 21:15 21:00 20:30 WBC 11.5 H D (4.5-11.0) 10^3/ul RBC 3.18 L (3.5-6.1) 10^6/uL Hgb 9.5 L (14.0-18.0) g/dL Hct 28.1 L (42.0-52.0) % MCV 88.4 (80.0-105.0) fl MCH 29.9 (25.0-35.0) pg MCHC 33.8 (31.0-37.0) g/dl RDW 16.2 H (11.5-14.5) % Plt Count 125 (120.0-450.0) 10^3/uL MPV 12.0 H (7.0-11.0) fl Gran % (50.0-68.0) % Lymph % (Auto) (22.0-35.0) % [place] % (Auto) (1.0-6.0) % Eos % (Auto) (1.5-5.0) % Baso % (Auto) (0.0-3.0) % Gran # (1.4-6.5) Lymph # (Auto) (1.2-3.4) [place] # (Auto) (0.1-0.6) Eos # (Auto) (0.0-0.7) Baso # (Auto) (0.0-2.0) K/mm3 PT (9.4-12.5) SECONDS INR (0.93-1.08) APTT (25.1-36.5) Seconds pCO2 20 L (35-45) mm/Hg pO2 158.0 H (80-100) mm/Hg HCO3 14.2 L (21-28) mmol/L ABG pH 7.46 H (7.35-7.45) ABG Total CO2 14.8 L (22-28) mmol.L ABG O2 Saturation 98.7 H (95-98) % ABG Base Excess -7.3 L (-2.0-3.0) mmol/L ABG Potassium 3.4 L (3.6-5.2) mmol/L VBG pH (7.32-7.43) VBG pCO2 (40-60) VBG HCO3 (21-28) mmol/l VBG Total CO2 (22-28) mmol.L VBG O2 Sat (Calc) (40-65) % VBG Base Excess (0.0-2.0) mmol/L VBG Potassium (3.6-5.2) mmol/L Glucose 120 H (75-110) mg/dl Lactate 3.9 H (0.7-2.1) mmol/L FiO2 100.0 % Sodium 141.0 (132-148) mmol/L Potassium (3.6-5.0) mmol/L Chloride 116.0 H (98-107) mmol/L Carbon Dioxide (21-33) mmol/L Anion Gap (10-20) BUN (7-21) mg/dL Creatinine (0.8-1.5) mg/dl Est GFR ( Amer) Est GFR (Non-Af Amer) POC Glucose (mg/dL) 125 H (65-110) mg/dL Random Glucose (70-110) mg/dL Lactic Acid (0.7-2.1) mmol/L Calcium (8.4-10.5) mg/dL Phosphorus (2.5-4.5) mg/dL Magnesium (1.7-2.2) mg/dL Total Bilirubin (0.2-1.3) mg/dL AST (17-59) U/L ALT (7-56) U/L Alkaline Phosphatase (38-126) U/L Total Protein (5.8-8.3) g/dL Albumin (3.0-4.8) g/dL Globulin gm/dL Albumin/Globulin Ratio (1.1-1.8) Arterial Blood Potassium 3.4 L (3.6-5.2) mmol/L Venous Blood Potassium (3.6-5.2) mmol/L Urine Color (YELLOW) Urine Appearance (CLEAR) Urine pH (4.7-8.0) Ur Specific [place] (1.005-1.035) Urine Protein (<30 mg/dL) mg/dL Urine Glucose (UA) (NEGATIVE) mg/dL Urine Ketones (NEGATIVE) mg/dL Urine Blood (NEGATIVE) Urine Nitrate (NEGATIVE) Urine Bilirubin (NEGATIVE) Urine Urobilinogen (<1 E.U./dL) E.U./dL Ur Leukocyte Esterase (NEGATIVE) Xander/uL Urine RBC (0-2) /hpf Urine WBC (0-6) /hpf Ur Epithelial Cells (0-5) /hpf Amorphous Sediment Urine Bacteria (NEG) Fluid Albumin g/dL 07/09/17 07/09/17 07/09/17 Range/Units 20:13 16:22 11:27 WBC (4.5-11.0) 10^3/ul RBC (3.5-6.1) 10^6/uL Hgb (14.0-18.0) g/dL Hct (42.0-52.0) % MCV (80.0-105.0) fl MCH (25.0-35.0) pg MCHC (31.0-37.0) g/dl RDW (11.5-14.5) % Plt Count (120.0-450.0) 10^3/uL MPV (7.0-11.0) fl Gran % (50.0-68.0) % Lymph % (Auto) (22.0-35.0) % [place] % (Auto) (1.0-6.0) % Eos % (Auto) (1.5-5.0) % Baso % (Auto) (0.0-3.0) % Gran # (1.4-6.5) Lymph # (Auto) (1.2-3.4) [place] # (Auto) (0.1-0.6) Eos # (Auto) (0.0-0.7) Baso # (Auto) (0.0-2.0) K/mm3 PT (9.4-12.5) SECONDS INR (0.93-1.08) APTT (25.1-36.5) Seconds pCO2 (35-45) mm/Hg pO2 (80-100) mm/Hg HCO3 (21-28) mmol/L ABG pH (7.35-7.45) ABG Total CO2 (22-28) mmol.L ABG O2 Saturation (95-98) % ABG Base Excess (-2.0-3.0) mmol/L ABG Potassium (3.6-5.2) mmol/L VBG pH (7.32-7.43) VBG pCO2 (40-60) VBG HCO3 (21-28) mmol/l VBG Total CO2 (22-28) mmol.L VBG O2 Sat (Calc) (40-65) % VBG Base Excess (0.0-2.0) mmol/L VBG Potassium (3.6-5.2) mmol/L Glucose (75-110) mg/dl Lactate (0.7-2.1) mmol/L FiO2 % Sodium 148 (132-148) mmol/L Potassium 3.7 (3.6-5.0) mmol/L Chloride 113 H (98-107) mmol/L Carbon Dioxide 18 L (21-33) mmol/L Anion Gap 20 (10-20) BUN 56 H (7-21) mg/dL Creatinine 2.2 H (0.8-1.5) mg/dl Est GFR ( Amer) 35 Est GFR (Non-Af Amer) 29 POC Glucose (mg/dL) 202 H 198 H (65-110) mg/dL Random Glucose 134 H (70-110) mg/dL Lactic Acid (0.7-2.1) mmol/L Calcium 7.9 L (8.4-10.5) mg/dL Phosphorus (2.5-4.5) mg/dL Magnesium (1.7-2.2) mg/dL Total Bilirubin 0.7 (0.2-1.3) mg/dL AST 55 (17-59) U/L ALT 42 (7-56) U/L Alkaline Phosphatase 257 H (38-126) U/L Total Protein 5.8 (5.8-8.3) g/dL Albumin 2.5 L (3.0-4.8) g/dL Globulin 3.3 gm/dL Albumin/Globulin Ratio 0.8 L (1.1-1.8) Arterial Blood Potassium (3.6-5.2) mmol/L Venous Blood Potassium (3.6-5.2) mmol/L Urine Color (YELLOW) Urine Appearance (CLEAR) Urine pH (4.7-8.0) Ur Specific [place] (1.005-1.035) Urine Protein (<30 mg/dL) mg/dL Urine Glucose (UA) (NEGATIVE) mg/dL Urine Ketones (NEGATIVE) mg/dL Urine Blood (NEGATIVE) Urine Nitrate (NEGATIVE) Urine Bilirubin (NEGATIVE) Urine Urobilinogen (<1 E.U./dL) E.U./dL Ur Leukocyte Esterase (NEGATIVE) Xander/uL Urine RBC (0-2) /hpf Urine WBC (0-6) /hpf Ur Epithelial Cells (0-5) /hpf Amorphous Sediment Urine Bacteria (NEG) Fluid Albumin g/dL 07/05/17 Range/Units 10:33 WBC (4.5-11.0) 10^3/ul RBC (3.5-6.1) 10^6/uL Hgb (14.0-18.0) g/dL Hct (42.0-52.0) % MCV (80.0-105.0) fl MCH (25.0-35.0) pg MCHC (31.0-37.0) g/dl RDW (11.5-14.5) % Plt Count (120.0-450.0) 10^3/uL MPV (7.0-11.0) fl Gran % (50.0-68.0) % Lymph % (Auto) (22.0-35.0) % [place] % (Auto) (1.0-6.0) % Eos % (Auto) (1.5-5.0) % Baso % (Auto) (0.0-3.0) % Gran # (1.4-6.5) Lymph # (Auto) (1.2-3.4) [place] # (Auto) (0.1-0.6) Eos # (Auto) (0.0-0.7) Baso # (Auto) (0.0-2.0) K/mm3 PT (9.4-12.5) SECONDS INR (0.93-1.08) APTT (25.1-36.5) Seconds pCO2 (35-45) mm/Hg pO2 (80-100) mm/Hg HCO3 (21-28) mmol/L ABG pH (7.35-7.45) ABG Total CO2 (22-28) mmol.L ABG O2 Saturation (95-98) % ABG Base Excess (-2.0-3.0) mmol/L ABG Potassium (3.6-5.2) mmol/L VBG pH (7.32-7.43) VBG pCO2 (40-60) VBG HCO3 (21-28) mmol/l VBG Total CO2 (22-28) mmol.L VBG O2 Sat (Calc) (40-65) % VBG Base Excess (0.0-2.0) mmol/L VBG Potassium (3.6-5.2) mmol/L Glucose (75-110) mg/dl Lactate (0.7-2.1) mmol/L FiO2 % Sodium (132-148) mmol/L Potassium (3.6-5.0) mmol/L Chloride (98-107) mmol/L Carbon Dioxide (21-33) mmol/L Anion Gap (10-20) BUN (7-21) mg/dL Creatinine (0.8-1.5) mg/dl Est GFR ( Amer) Est GFR (Non-Af Amer) POC Glucose (mg/dL) (65-110) mg/dL Random Glucose (70-110) mg/dL Lactic Acid (0.7-2.1) mmol/L Calcium (8.4-10.5) mg/dL Phosphorus (2.5-4.5) mg/dL Magnesium (1.7-2.2) mg/dL Total Bilirubin (0.2-1.3) mg/dL AST (17-59) U/L ALT (7-56) U/L Alkaline Phosphatase (38-126) U/L Total Protein (5.8-8.3) g/dL Albumin (3.0-4.8) g/dL Globulin gm/dL Albumin/Globulin Ratio (1.1-1.8) Arterial Blood Potassium (3.6-5.2) mmol/L Venous Blood Potassium (3.6-5.2) mmol/L Urine Color (YELLOW) Urine Appearance (CLEAR) Urine pH (4.7-8.0) Ur Specific [place] (1.005-1.035) Urine Protein (<30 mg/dL) mg/dL Urine Glucose (UA) (NEGATIVE) mg/dL Urine Ketones (NEGATIVE) mg/dL Urine Blood (NEGATIVE) Urine Nitrate (NEGATIVE) Urine Bilirubin (NEGATIVE) Urine Urobilinogen (<1 E.U./dL) E.U./dL Ur Leukocyte Esterase (NEGATIVE) Xander/uL Urine RBC (0-2) /hpf Urine WBC (0-6) /hpf Ur Epithelial Cells (0-5) /hpf Amorphous Sediment Urine Bacteria (NEG) Fluid Albumin 0.5 g/dL Laboratory Results - last 24 hr 07/05/17 07/09/17 07/09/17 10:33 11:27 16:22 WBC RBC Hgb Hct MCV MCH MCHC RDW Plt Count MPV Gran % Lymph % (Auto) [place] % (Auto) Eos % (Auto) Baso % (Auto) Gran # Lymph # (Auto) [place] # (Auto) Eos # (Auto) Baso # (Auto) PT INR APTT pCO2 pO2 HCO3 ABG pH ABG Total CO2 ABG O2 Saturation ABG Base Excess ABG Potassium VBG pH VBG pCO2 VBG HCO3 VBG Total CO2 VBG O2 Sat (Calc) VBG Base Excess VBG Potassium Glucose Lactate FiO2 Sodium Potassium Chloride Carbon Dioxide Anion Gap BUN Creatinine Est GFR ( Amer) Est GFR (Non-Af Amer) POC Glucose (mg/dL) 198 H 202 H Random Glucose Lactic Acid Calcium Phosphorus Magnesium Total Bilirubin AST ALT Alkaline Phosphatase Total Protein Albumin Globulin Albumin/Globulin Ratio Arterial Blood Potassium Venous Blood Potassium Urine Color Urine Appearance Urine pH Ur Specific [place] Urine Protein Urine Glucose (UA) Urine Ketones Urine Blood Urine Nitrate Urine Bilirubin Urine Urobilinogen Ur Leukocyte Esterase Urine RBC Urine WBC Ur Epithelial Cells Amorphous Sediment Urine Bacteria Fluid Albumin 0.5 07/09/17 07/09/17 07/09/17 20:13 20:30 21:00 WBC RBC Hgb Hct MCV MCH MCHC RDW Plt Count MPV Gran % Lymph % (Auto) [place] % (Auto) Eos % (Auto) Baso % (Auto) Gran # Lymph # (Auto) [place] # (Auto) Eos # (Auto) Baso # (Auto) PT INR APTT pCO2 20 L pO2 158.0 H HCO3 14.2 L ABG pH 7.46 H ABG Total CO2 14.8 L ABG O2 Saturation 98.7 H ABG Base Excess -7.3 L ABG Potassium 3.4 L VBG pH VBG pCO2 VBG HCO3 VBG Total CO2 VBG O2 Sat (Calc) VBG Base Excess VBG Potassium Glucose 120 H Lactate 3.9 H FiO2 100.0 Sodium 148 141.0 Potassium 3.7 Chloride 113 H 116.0 H Carbon Dioxide 18 L Anion Gap 20 BUN 56 H Creatinine 2.2 H Est GFR ( Amer) 35 Est GFR (Non-Af Amer) 29 POC Glucose (mg/dL) 125 H Random Glucose 134 H Lactic Acid Calcium 7.9 L Phosphorus Magnesium Total Bilirubin 0.7 AST 55 ALT 42 Alkaline Phosphatase 257 H Total Protein 5.8 Albumin 2.5 L Globulin 3.3 Albumin/Globulin Ratio 0.8 L Arterial Blood Potassium 3.4 L Venous Blood Potassium Urine Color Urine Appearance Urine pH Ur Specific [place] Urine Protein Urine Glucose (UA) Urine Ketones Urine Blood Urine Nitrate Urine Bilirubin Urine Urobilinogen Ur Leukocyte Esterase Urine RBC Urine WBC Ur Epithelial Cells Amorphous Sediment Urine Bacteria Fluid Albumin 07/09/17 07/09/17 07/09/17 21:15 21:15 21:35 WBC 11.5 H D RBC 3.18 L Hgb 9.5 L Hct 28.1 L MCV 88.4 MCH 29.9 MCHC 33.8 RDW 16.2 H Plt Count 125 MPV 12.0 H Gran % Lymph % (Auto) [place] % (Auto) Eos % (Auto) Baso % (Auto) Gran # Lymph # (Auto) [place] # (Auto) Eos # (Auto) Baso # (Auto) PT INR APTT pCO2 pO2 HCO3 ABG pH ABG Total CO2 ABG O2 Saturation ABG Base Excess ABG Potassium VBG pH VBG pCO2 VBG HCO3 VBG Total CO2 VBG O2 Sat (Calc) VBG Base Excess VBG Potassium Glucose Lactate FiO2 Sodium 145 Potassium 3.5 L Chloride 113 H Carbon Dioxide 17 L Anion Gap 19 BUN 55 H Creatinine 2.2 H Est GFR ( Amer) 35 Est GFR (Non-Af Amer) 29 POC Glucose (mg/dL) Random Glucose 114 H Lactic Acid Calcium 7.5 L Phosphorus Magnesium Total Bilirubin 0.7 AST 50 ALT 38 Alkaline Phosphatase 243 H Total Protein 5.4 L Albumin 2.2 L Globulin 3.2 Albumin/Globulin Ratio 0.7 L Arterial Blood Potassium Venous Blood Potassium Urine Color Yellow Urine Appearance Clear Urine pH 5.5 Ur Specific [place] 1.020 Urine Protein 100 H Urine Glucose (UA) Negative Urine Ketones Negative Urine Blood Large H Urine Nitrate Negative Urine Bilirubin Negative Urine Urobilinogen 0.2 Ur Leukocyte Esterase Trace H Urine RBC Tntc Urine WBC 5 - 10 Ur Epithelial Cells None Amorphous Sediment Few Urine Bacteria Many Fluid Albumin 07/10/17 07/10/17 07/10/17 00:20 00:20 05:30 WBC 18.5 H D RBC 2.90 L Hgb 8.6 L Hct 25.7 L MCV 88.6 MCH 29.7 MCHC 33.5 RDW 16.4 H Plt Count 110 L MPV Gran % 87.7 H Lymph % (Auto) 6.3 L [place] % (Auto) 5.9 Eos % (Auto) 0.0 L Baso % (Auto) 0.1 Gran # 16.27 H Lymph # (Auto) 1.2 [place] # (Auto) 1.1 H Eos # (Auto) 0.0 Baso # (Auto) 0.01 PT INR APTT pCO2 pO2 25 L HCO3 ABG pH ABG Total CO2 ABG O2 Saturation ABG Base Excess ABG Potassium VBG pH 7.34 VBG pCO2 35.0 L VBG HCO3 18.9 L VBG Total CO2 20.0 L VBG O2 Sat (Calc) 49.5 VBG Base Excess -6.1 L VBG Potassium 3.2 L Glucose 203 H Lactate 3.2 H FiO2 21.0 Sodium 140.0 Potassium Chloride 109.0 H Carbon Dioxide Anion Gap BUN Creatinine Est GFR ( Amer) Est GFR (Non-Af Amer) POC Glucose (mg/dL) Random Glucose Lactic Acid 3.2 H Calcium Phosphorus Magnesium Total Bilirubin AST ALT Alkaline Phosphatase Total Protein Albumin Globulin Albumin/Globulin Ratio Arterial Blood Potassium Venous Blood Potassium 3.2 L Urine Color Urine Appearance Urine pH Ur Specific [place] Urine Protein Urine Glucose (UA) Urine Ketones Urine Blood Urine Nitrate Urine Bilirubin Urine Urobilinogen Ur Leukocyte Esterase Urine RBC Urine WBC Ur Epithelial Cells Amorphous Sediment Urine Bacteria Fluid Albumin 07/10/17 07/10/17 07/10/17 05:30 07:32 09:30 WBC RBC Hgb Hct MCV MCH MCHC RDW Plt Count MPV Gran % Lymph % (Auto) [place] % (Auto) Eos % (Auto) Baso % (Auto) Gran # Lymph # (Auto) [place] # (Auto) Eos # (Auto) Baso # (Auto) PT INR APTT pCO2 pO2 HCO3 ABG pH ABG Total CO2 ABG O2 Saturation ABG Base Excess ABG Potassium VBG pH VBG pCO2 VBG HCO3 VBG Total CO2 VBG O2 Sat (Calc) VBG Base Excess VBG Potassium Glucose Lactate FiO2 Sodium 140 Potassium 3.4 L Chloride 111 H Carbon Dioxide 16 L Anion Gap 17 BUN 58 H Creatinine 2.1 H Est GFR ( Amer) 37 Est GFR (Non-Af Amer) 30 POC Glucose (mg/dL) 340 H Random Glucose 294 H Lactic Acid 2.0 Calcium 6.7 L* Phosphorus 3.6 Magnesium 1.8 Total Bilirubin 0.5 AST 48 ALT 41 Alkaline Phosphatase 205 H Total Protein 4.9 L Albumin 2.0 L Globulin 2.9 Albumin/Globulin Ratio 0.7 L Arterial Blood Potassium Venous Blood Potassium Urine Color Urine Appearance Urine pH Ur Specific [place] Urine Protein Urine Glucose (UA) Urine Ketones Urine Blood Urine Nitrate Urine Bilirubin Urine Urobilinogen Ur Leukocyte Esterase Urine RBC Urine WBC Ur Epithelial Cells Amorphous Sediment Urine Bacteria Fluid Albumin 07/10/17 09:30 WBC RBC Hgb Hct MCV MCH MCHC RDW Plt Count MPV Gran % Lymph % (Auto) [place] % (Auto) Eos % (Auto) Baso % (Auto) Gran # Lymph # (Auto) [place] # (Auto) Eos # (Auto) Baso # (Auto) PT 14.6 H INR 1.26 H APTT 41.3 H pCO2 pO2 HCO3 ABG pH ABG Total CO2 ABG O2 Saturation ABG Base Excess ABG Potassium VBG pH VBG pCO2 VBG HCO3 VBG Total CO2 VBG O2 Sat (Calc) VBG Base Excess VBG Potassium Glucose Lactate FiO2 Sodium Potassium Chloride Carbon Dioxide Anion Gap BUN Creatinine Est GFR ( Amer) Est GFR (Non-Af Amer) POC Glucose (mg/dL) Random Glucose Lactic Acid Calcium Phosphorus Magnesium Total Bilirubin AST ALT Alkaline Phosphatase Total Protein Albumin Globulin Albumin/Globulin Ratio Arterial Blood Potassium Venous Blood Potassium Urine Color Urine Appearance Urine pH Ur Specific [place] Urine Protein Urine Glucose (UA) Urine Ketones Urine Blood Urine Nitrate Urine Bilirubin Urine Urobilinogen Ur Leukocyte Esterase Urine RBC Urine WBC Ur Epithelial Cells Amorphous Sediment Urine Bacteria Fluid Albumin EKG/Cardiology Studies: Cardiology / EKG Studies 07/10/17 11:19 EKG [ELECTROCARDIOGRAM] Stat Comment: Reason For Exam: tachycardia Critical Care Progress Note - Nutrition Nutrition: Nutrition Category Date Time Status Liquid Diet [DIET] Diets 07/10/17 Breakfast Ordered Assessment/Plan - Assessment and Plan (Free Text) Assessment: Patient seen and examined on rounds with resident, agree with note with following additions/exceptions: Patient is 87yo male with PMhx of dementia, multiple CVA, cachexia, DM, pancreatic mass, prostate ca, presented to the ICU from floor for severe sepsis , UTI. Pt is minimally verbal, at baseline, complaining of back pain, and LE pain. UTI Severe Sepsis Dehydration Pancreatic Mass Cachexia Dementia Recommend: - supp o2 as needed - follow up cultures, Procal, UCx, BCx - Broad spectrum abx, Merrem Vanco, renally dosed - IV fluids - hold BB, BP meds - monitor HH - monitor FS - I/Os - Duonebs PRN - GI ppx - DVT ppx - extremely poor prognosis, given comorbid conditions, would obtain palliative care consult for goals of care
[2017-07-10] MEDS: Pantoprazole 40 mg EC Tab PO SCH (09:38)
[2017-07-10 10:00] LABS: INR 1.26 (0.93-1.08); PARTIAL THROMBOPLASTIN TIME 41.3 Seconds (25.1-36.5); PROTHROMBIN TIME 14.6 SECONDS (9.4-12.5)
[2017-07-10] MEDS ORDERED: Albumin Human 25% (12.5 gm/50 ml) IV ONE (10:06)
[2017-07-10] MEDS ORDERED: NOREPINEPHRINE BIT/0.9 % NACL 4 MG/250 ML BAG IV PRN (10:09)
[2017-07-10] MEDS ORDERED: Digoxin 500 mcg/2ml (0.5 mg/2ml) Inj IVP ONE ×2 (10:24→16:00)
[2017-07-10] MEDS: Sodium Chloride 0.9% 1,000 ML IV SCH (10:30)
[2017-07-10] MEDS ORDERED: Sodium Chloride 0.9% 1,000 ML IV STA (11:20)
[2017-07-10] MEDS ORDERED: Metoprolol 1 mg/ml Inj IVP ONE ×2 (11:34→11:49)
[2017-07-10] MEDS: Meropenem IV 1 gm in NS 50 ML IVPB SCH ×2 (11:44→22:31)
[2017-07-10] MEDS: Albumin Human 25% (12.5 gm/50 ml) IV SCH ×2 (11:59→20:00)
[2017-07-10 12:26] LABS: BASO # 0.01 K/mm3 (0.0-2.0); BASO % 0.2 % (0.0-3.0); EOS % 0.2 % (1.5-5.0); GRAN # 4.78 (1.4-6.5); GRAN % 83.6 % (50.0-68.0); HEMOGLOBIN 9.7 g/dL (14.0-18.0); LYMPH # 0.8 (1.2-3.4); LYMPH % 14.3 % (22.0-35.0); MEAN CELL VOLUME 90.7 fl (80.0-105.0); MEAN CORPUSCULAR HEMOGLOBIN 29.1 pg (25.0-35.0); MEAN CORPUSCULAR HGB CONC 32.1 g/dl (31.0-37.0); MONO # 0.1 (0.1-0.6); MONO % 1.7 % (1.0-6.0); PLATELET COUNT 148 10^3/uL (120.0-450.0); RBC 3.33 10^6/uL (3.5-6.1); RED CELL DISTRIBUTION WIDTH 16.6 % (11.5-14.5); WHITE BLOOD COUNT 5.7 10^3/ul (4.5-11.0)
[2017-07-10] MEDS: DUTASTERIDE 0.5 MG PO SCH (12:47)
[2017-07-10] MEDS: ALFUZOSIN HCL 10 MG PO SCH (14:20)
--- NOTE | 2017-07-10 14:34 | CP.PCM.CON ---
History of Present Illness - History of Present Illness History of Present Illness: Palliative consult requested by Dr Khanh Alcazar copied to Dr Vidhya [place] 87 year old male with history of multiple CVA' s Past Patient History - Infectious Disease Hx of Infectious Diseases: None - Tetanus Immunizations Tetanus Immunization: Unknown - Past Medical History & Family History Past Medical History?: Yes - Past Social History Smoking Status: Former Smoker - CARDIAC Hx Cardiac Disorders: Yes Hx Congestive Heart Failure: Yes - PULMONARY Hx Respiratory Disorders: Yes (SMOKED CIGARETTES QUIT 1998 ,SMOKED PPD) Hx Chronic Obstructive Pulmonary Disease (COPD): Yes - NEUROLOGICAL HX Cerebrovascular Accident: Yes (L sided weakness and expressive apahsia) - HEENT Hx HEENT Problems: Yes (eyeglasses) Hx Cataracts: Yes (BILATERAL SURGERY) Other/Comment: 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 - RENAL Hx Chronic Kidney Disease: No - ENDOCRINE/METABOLIC Hx Diabetes Mellitus Type 2: Yes - HEMATOLOGICAL/ONCOLOGICAL Hx Cancer: Yes (prostate) - INTEGUMENTARY Hx Dermatological Problems: Yes Other/Comment: r ft swelling +2 pitting bruising redness - MUSCULOSKELETAL/RHEUMATOLOGICAL Hx Falls: Yes (past) - GASTROINTESTINAL Hx Gastrointestinal Disorders: Yes (PANCREATITIS,PANCREATIC MASS,) Hx Gall Bladder Disease: Yes (gallstones) Hx Pancreatitis: (pancreatic mass) Other/Comment: HERNIA REPAIR,HEMORRHOIDECTOMY, ercp and biliary stent and replacement, prostate bx - GENITOURINARY/GYNECOLOGICAL Hx Genitourinary Disorders: No Hx Prostate Problems: Yes (ca and bx) - PSYCHIATRIC Hx Substance Use: No - SURGICAL HISTORY Hx Surgeries: Yes - ANESTHESIA Hx Anesthesia Reactions: No Hx Malignant Hyperthermia: No Meds Allergies/Adverse Reactions: Allergies Allergy/AdvReac Type Severity Reaction Status Date / Time No Known Allergies Allergy Verified 08/26/16 18:43 - Medications Medications: Current Medications Acetaminophen (Tylenol 325mg Tab) 650 mg PO Q6H PRN PRN Reason: Fever >100.4 F Last Admin: 07/09/17 19:54 Dose: 650 mg Albumin Human (Albumin Human 25% (12.5 Gm/50 Ml)) 12.5 gm IV Q6H [facility] Stop: 07/11/17 10:30 Last Admin: 07/10/17 11:59 Dose: 12.5 gm Albuterol/Ipratropium (Duoneb 3 Mg/0.5 Mg (3 Ml) Ud) 3 ml IH [id number] [facility] Last Admin: 07/10/17 13:04 Dose: 3 ml Aspirin (Aspirin Chewable) 81 mg PO DAILY [facility] Last Admin: 07/10/17 09:35 Dose: 81 mg Atorvastatin Calcium (Lipitor) 20 mg PO DIN [facility] Last Admin: 07/09/17 17:50 Dose: 20 mg Clopidogrel Bisulfate (Plavix) 75 mg PO DAILY [facility] Last Admin: 07/10/17 09:35 Dose: 75 mg Dextrose (Dextrose 50% Inj) 50 ml IVP PRN PRN PRN Reason: blood glucose less than 80 Last Admin: 07/05/17 03:51 Dose: 50 ml Digoxin (Lanoxin) 0.25 mg IVP ONCE ONE Stop: 07/10/17 16:01 Heparin Sodium (Porcine) (Heparin) 5,000 units SC Q12 [facility] PRN Reason: Protocol Last Admin: 07/10/17 09:35 Dose: 5,000 units Meropenem (Merrem Iv 1 Gm Premix) 50 mls @ 100 mls/hr IVPB Q12 [facility] PRN Reason: Protocol Stop: 07/17/17 10:01 Last Admin: 07/10/17 11:44 Dose: 100 mls/hr NOREPINEPHRINE BIT/0.9 % NACL (Levophed 4 Mg/ 250 Ml Ns Premixed) 4 mg in 250 mls @ 15 mls/hr IV .[id number] PRN; Protocol; 4 MCG/MIN PRN Reason: TITRATE PER MD ORDER Sodium Chloride (Sodium Chloride 0.9%) 1,000 mls @ 50 mls/hr IV .Q20H [facility] Last Admin: 07/10/17 10:30 Dose: 50 mls/hr Insulin Human Regular (Humulin R Low) 0 units SC ACHS [facility] PRN Reason: Protocol Last Admin: 07/10/17 12:00 Dose: Not Given Loratadine (Claritin) 10 mg PO DAILY [facility] Last Admin: 07/10/17 09:35 Dose: 10 mg Metoprolol Tartrate (Lopressor) 12.5 mg PO BID [facility] Last Admin: 07/10/17 11:58 Dose: Not Given Non-Formulary Medication (Alfuzosin Hcl [Uroxatral]) 10 mg PO DAILY [facility] Last Admin: 07/10/17 14:20 Dose: Not Given Non-Formulary Medication (Dutasteride [Dutasteride]) 0.5 mg PO DAILY [facility] Last Admin: 07/10/17 12:47 Dose: Not Given Pantoprazole Sodium (Protonix Ec Tab) 40 mg PO ACB [facility] Last Admin: 07/10/17 09:38 Dose: 40 mg Results - Vital Signs Recent Vital Signs: Last Vital Signs Temp 98.4 F 07/10/17 13:00 Pulse 95 H 07/10/17 13:00 Resp 24 07/10/17 13:00 BP 105/68 07/10/17 13:00 Pulse Ox 94 L 07/10/17 13:00 - Labs Result Diagrams: 07/10/17 12:10 07/10/17 05:30 Labs: Laboratory Results - last 24 hr 07/05/17 07/09/17 07/09/17 10:33 16:22 20:13 WBC RBC Hgb Hct MCV MCH MCHC RDW Plt Count MPV Gran % Lymph % (Auto) [place] % (Auto) Eos % (Auto) Baso % (Auto) Gran # Lymph # (Auto) [place] # (Auto) Eos # (Auto) Baso # (Auto) PT INR APTT pCO2 pO2 HCO3 ABG pH ABG Total CO2 ABG O2 Saturation ABG Base Excess ABG Potassium VBG pH VBG pCO2 VBG HCO3 VBG Total CO2 VBG O2 Sat (Calc) VBG Base Excess VBG Potassium Glucose Lactate FiO2 Sodium 148 Potassium 3.7 Chloride 113 H Carbon Dioxide 18 L Anion Gap 20 BUN 56 H Creatinine 2.2 H Est GFR ( Amer) 35 Est GFR (Non-Af Amer) 29 POC Glucose (mg/dL) 202 H Random Glucose 134 H Lactic Acid Calcium 7.9 L Phosphorus Magnesium Total Bilirubin 0.7 AST 55 ALT 42 Alkaline Phosphatase 257 H Total Protein 5.8 Albumin 2.5 L Globulin 3.3 Albumin/Globulin Ratio 0.8 L Procalcitonin Arterial Blood Potassium Venous Blood Potassium Urine Color Urine Appearance Urine pH Ur Specific [place] Urine Protein Urine Glucose (UA) Urine Ketones Urine Blood Urine Nitrate Urine Bilirubin Urine Urobilinogen Ur Leukocyte Esterase Urine RBC Urine WBC Ur Epithelial Cells Amorphous Sediment Urine Bacteria Fluid Albumin 0.5 07/09/17 07/09/17 07/09/17 20:30 21:00 21:15 WBC 11.5 H D RBC 3.18 L Hgb 9.5 L Hct 28.1 L MCV 88.4 MCH 29.9 MCHC 33.8 RDW 16.2 H Plt Count 125 MPV 12.0 H Gran % Lymph % (Auto) [place] % (Auto) Eos % (Auto) Baso % (Auto) Gran # Lymph # (Auto) [place] # (Auto) Eos # (Auto) Baso # (Auto) PT INR APTT pCO2 20 L pO2 158.0 H HCO3 14.2 L ABG pH 7.46 H ABG Total CO2 14.8 L ABG O2 Saturation 98.7 H ABG Base Excess -7.3 L ABG Potassium 3.4 L VBG pH VBG pCO2 VBG HCO3 VBG Total CO2 VBG O2 Sat (Calc) VBG Base Excess VBG Potassium Glucose 120 H Lactate 3.9 H FiO2 100.0 Sodium 141.0 Potassium Chloride 116.0 H Carbon Dioxide Anion Gap BUN Creatinine Est GFR ( Amer) Est GFR (Non-Af Amer) POC Glucose (mg/dL) 125 H Random Glucose Lactic Acid Calcium Phosphorus Magnesium Total Bilirubin AST ALT Alkaline Phosphatase Total Protein Albumin Globulin Albumin/Globulin Ratio Procalcitonin Arterial Blood Potassium 3.4 L Venous Blood Potassium Urine Color Urine Appearance Urine pH Ur Specific [place] Urine Protein Urine Glucose (UA) Urine Ketones Urine Blood Urine Nitrate Urine Bilirubin Urine Urobilinogen Ur Leukocyte Esterase Urine RBC Urine WBC Ur Epithelial Cells Amorphous Sediment Urine Bacteria Fluid Albumin 07/09/17 07/09/17 07/10/17 21:15 21:35 00:20 WBC RBC Hgb Hct MCV MCH MCHC RDW Plt Count MPV Gran % Lymph % (Auto) [place] % (Auto) Eos % (Auto) Baso % (Auto) Gran # Lymph # (Auto) [place] # (Auto) Eos # (Auto) Baso # (Auto) PT INR APTT pCO2 pO2 25 L HCO3 ABG pH ABG Total CO2 ABG O2 Saturation ABG Base Excess ABG Potassium VBG pH 7.34 VBG pCO2 35.0 L VBG HCO3 18.9 L VBG Total CO2 20.0 L VBG O2 Sat (Calc) 49.5 VBG Base Excess -6.1 L VBG Potassium 3.2 L Glucose 203 H Lactate 3.2 H FiO2 21.0 Sodium 145 140.0 Potassium 3.5 L Chloride 113 H 109.0 H Carbon Dioxide 17 L Anion Gap 19 BUN 55 H Creatinine 2.2 H Est GFR ( Amer) 35 Est GFR (Non-Af Amer) 29 POC Glucose (mg/dL) Random Glucose 114 H Lactic Acid Calcium 7.5 L Phosphorus Magnesium Total Bilirubin 0.7 AST 50 ALT 38 Alkaline Phosphatase 243 H Total Protein 5.4 L Albumin 2.2 L Globulin 3.2 Albumin/Globulin Ratio 0.7 L Procalcitonin Arterial Blood Potassium Venous Blood Potassium 3.2 L Urine Color Yellow Urine Appearance Clear Urine pH 5.5 Ur Specific [place] 1.020 Urine Protein 100 H Urine Glucose (UA) Negative Urine Ketones Negative Urine Blood Large H Urine Nitrate Negative Urine Bilirubin Negative Urine Urobilinogen 0.2 Ur Leukocyte Esterase Trace H Urine RBC Tntc Urine WBC 5 - 10 Ur Epithelial Cells None Amorphous Sediment Few Urine Bacteria Many Fluid Albumin 07/10/17 07/10/17 07/10/17 00:20 05:30 05:30 WBC 18.5 H D RBC 2.90 L Hgb 8.6 L Hct 25.7 L MCV 88.6 MCH 29.7 MCHC 33.5 RDW 16.4 H Plt Count 110 L MPV Gran % 87.7 H Lymph % (Auto) 6.3 L [place] % (Auto) 5.9 Eos % (Auto) 0.0 L Baso % (Auto) 0.1 Gran # 16.27 H Lymph # (Auto) 1.2 [place] # (Auto) 1.1 H Eos # (Auto) 0.0 Baso # (Auto) 0.01 PT INR APTT pCO2 pO2 HCO3 ABG pH ABG Total CO2 ABG O2 Saturation ABG Base Excess ABG Potassium VBG pH VBG pCO2 VBG HCO3 VBG Total CO2 VBG O2 Sat (Calc) VBG Base Excess VBG Potassium Glucose Lactate FiO2 Sodium Potassium Chloride Carbon Dioxide Anion Gap BUN Creatinine Est GFR ( Amer) Est GFR (Non-Af Amer) POC Glucose (mg/dL) Random Glucose Lactic Acid 3.2 H Calcium Phosphorus Magnesium Total Bilirubin AST ALT Alkaline Phosphatase Total Protein Albumin Globulin Albumin/Globulin Ratio Procalcitonin 7.53 H Arterial Blood Potassium Venous Blood Potassium Urine Color Urine Appearance Urine pH Ur Specific [place] Urine Protein Urine Glucose (UA) Urine Ketones Urine Blood Urine Nitrate Urine Bilirubin Urine Urobilinogen Ur Leukocyte Esterase Urine RBC Urine WBC Ur Epithelial Cells Amorphous Sediment Urine Bacteria Fluid Albumin 04/07/10/17 07/10/17 05:30 07:32 09:30 WBC RBC Hgb Hct MCV MCH MCHC RDW Plt Count MPV Gran % Lymph % (Auto) [place] % (Auto) Eos % (Auto) Baso % (Auto) Gran # Lymph # (Auto) [place] # (Auto) Eos # (Auto) Baso # (Auto) PT INR APTT pCO2 pO2 HCO3 ABG pH ABG Total CO2 ABG O2 Saturation ABG Base Excess ABG Potassium VBG pH VBG pCO2 VBG HCO3 VBG Total CO2 VBG O2 Sat (Calc) VBG Base Excess VBG Potassium Glucose Lactate FiO2 Sodium 140 Potassium 3.4 L Chloride 111 H Carbon Dioxide 16 L Anion Gap 17 BUN 58 H Creatinine 2.1 H Est GFR ( Amer) 37 Est GFR (Non-Af Amer) 30 POC Glucose (mg/dL) 340 H Random Glucose 294 H Lactic Acid 2.0 Calcium 6.7 L* Phosphorus 3.6 Magnesium 1.8 Total Bilirubin 0.5 AST 48 ALT 41 Alkaline Phosphatase 205 H Total Protein 4.9 L Albumin 2.0 L Globulin 2.9 Albumin/Globulin Ratio 0.7 L Procalcitonin Arterial Blood Potassium Venous Blood Potassium Urine Color Urine Appearance Urine pH Ur Specific [place] Urine Protein Urine Glucose (UA) Urine Ketones Urine Blood Urine Nitrate Urine Bilirubin Urine Urobilinogen Ur Leukocyte Esterase Urine RBC Urine WBC Ur Epithelial Cells Amorphous Sediment Urine Bacteria Fluid Albumin 07/10/17 07/10/17 09:30 12:10 WBC 5.7 D RBC 3.33 L Hgb 9.7 L Hct 30.2 L MCV 90.7 MCH 29.1 MCHC 32.1 RDW 16.6 H Plt Count 148 MPV Gran % 83.6 H Lymph % (Auto) 14.3 L [place] % (Auto) 1.7 Eos % (Auto) 0.2 L Baso % (Auto) 0.2 Gran # 4.78 Lymph # (Auto) 0.8 L [place] # (Auto) 0.1 Eos # (Auto) 0.0 Baso # (Auto) 0.01 PT 14.6 H INR 1.26 H APTT 41.3 H pCO2 pO2 HCO3 ABG pH ABG Total CO2 ABG O2 Saturation ABG Base Excess ABG Potassium VBG pH VBG pCO2 VBG HCO3 VBG Total CO2 VBG O2 Sat (Calc) VBG Base Excess VBG Potassium Glucose Lactate FiO2 Sodium Potassium Chloride Carbon Dioxide Anion Gap BUN Creatinine Est GFR ( Amer) Est GFR (Non-Af Amer) POC Glucose (mg/dL) Random Glucose Lactic Acid Calcium Phosphorus Magnesium Total Bilirubin AST ALT Alkaline Phosphatase Total Protein Albumin Globulin Albumin/Globulin Ratio Procalcitonin Arterial Blood Potassium Venous Blood Potassium Urine Color Urine Appearance Urine pH Ur Specific [place] Urine Protein Urine Glucose (UA) Urine Ketones Urine Blood Urine Nitrate Urine Bilirubin Urine Urobilinogen Ur Leukocyte Esterase Urine RBC Urine WBC Ur Epithelial Cells Amorphous Sediment Urine Bacteria Fluid Albumin
--- NOTE | 2017-07-10 14:43 | CP.PCM.CON ---
History of Present Illness - History of Present Illness History of Present Illness: Palliative consult requested by Dr Khanh Linder coped to to Dr Pia Montana 87 year old male with history of CV's, left sided weakness, dementia and DM who presented to the hospital with abdominal distention.large abdominal ascites and a mass at the head of the pancreas. Biopsy result of mass pending. Patient has had paracentisis X 2. Last evening became a rapid response with altered mental status. Family reports patient has been weak, fatigued and losing weight over the past several weeks. PMHX: CVA with left sided weakness, dementia, DM, A Fib, prostate cancers and pancreatic mass PSH: hernia repair, hemorrhoidectomy. Social History: Former smoker, no alcohol or drug use. Lives with spouse Family History: Non contributory Advance Care Plan: The patient does not have an Advanced Directive. Review of Systems: As per HPI, otherwise negative review Past Patient History - Infectious Disease Hx of Infectious Diseases: None - Tetanus Immunizations Tetanus Immunization: Unknown - Past Medical History & Family History Past Medical History?: Yes - Past Social History Smoking Status: Former Smoker - CARDIAC Hx Cardiac Disorders: Yes Hx Congestive Heart Failure: Yes - PULMONARY Hx Respiratory Disorders: Yes (SMOKED CIGARETTES QUIT 1998 ,SMOKED PPD) Hx Chronic Obstructive Pulmonary Disease (COPD): Yes - NEUROLOGICAL HX Cerebrovascular Accident: Yes (L sided weakness and expressive apahsia) - HEENT Hx HEENT Problems: Yes (eyeglasses) Hx Cataracts: Yes (BILATERAL SURGERY) Other/Comment: 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 - RENAL Hx Chronic Kidney Disease: No - ENDOCRINE/METABOLIC Hx Diabetes Mellitus Type 2: Yes - HEMATOLOGICAL/ONCOLOGICAL Hx Cancer: Yes (prostate) - INTEGUMENTARY Hx Dermatological Problems: Yes Other/Comment: r ft swelling +2 pitting bruising redness - MUSCULOSKELETAL/RHEUMATOLOGICAL Hx Falls: Yes (past) - GASTROINTESTINAL Hx Gastrointestinal Disorders: Yes (PANCREATITIS,PANCREATIC MASS,) Hx Gall Bladder Disease: Yes (gallstones) Hx Pancreatitis: (pancreatic mass) Other/Comment: HERNIA REPAIR,HEMORRHOIDECTOMY, ercp and biliary stent and replacement, prostate bx - GENITOURINARY/GYNECOLOGICAL Hx Genitourinary Disorders: No Hx Prostate Problems: Yes (ca and bx) - PSYCHIATRIC Hx Substance Use: No - SURGICAL HISTORY Hx Surgeries: Yes - ANESTHESIA Hx Anesthesia Reactions: No Hx Malignant Hyperthermia: No Meds Allergies/Adverse Reactions: Allergies Allergy/AdvReac Type Severity Reaction Status Date / Time No Known Allergies Allergy Verified 08/26/16 18:43 - Medications Medications: Current Medications Acetaminophen (Tylenol 325mg Tab) 650 mg PO Q6H PRN PRN Reason: Fever >100.4 F Last Admin: 07/09/17 19:54 Dose: 650 mg Albumin Human (Albumin Human 25% (12.5 Gm/50 Ml)) 12.5 gm IV Q6H [facility] Stop: 07/11/17 10:30 Last Admin: 07/10/17 11:59 Dose: 12.5 gm Albuterol/Ipratropium (Duoneb 3 Mg/0.5 Mg (3 Ml) Ud) 3 ml IH [id number] [facility] Last Admin: 07/10/17 13:04 Dose: 3 ml Aspirin (Aspirin Chewable) 81 mg PO DAILY [facility] Last Admin: 07/10/17 09:35 Dose: 81 mg Atorvastatin Calcium (Lipitor) 20 mg PO DIN [facility] Last Admin: 07/09/17 17:50 Dose: 20 mg Clopidogrel Bisulfate (Plavix) 75 mg PO DAILY [facility] Last Admin: 07/10/17 09:35 Dose: 75 mg Dextrose (Dextrose 50% Inj) 50 ml IVP PRN PRN PRN Reason: blood glucose less than 80 Last Admin: 07/05/17 03:51 Dose: 50 ml Digoxin (Lanoxin) 0.25 mg IVP ONCE ONE Stop: 07/10/17 16:01 Heparin Sodium (Porcine) (Heparin) 5,000 units SC Q12 CARRIE PRN Reason: Protocol Last Admin: 07/10/17 09:35 Dose: 5,000 units Meropenem (Merrem Iv 1 Gm Premix) 50 mls @ 100 mls/hr IVPB Q12 CARRIE PRN Reason: Protocol Stop: 07/17/17 10:01 Last Admin: 07/10/17 11:44 Dose: 100 mls/hr NOREPINEPHRINE BIT/0.9 % NACL (Levophed 4 Mg/ 250 Ml Ns Premixed) 4 mg in 250 mls @ 15 mls/hr IV .[id number] PRN; Protocol; 4 MCG/MIN PRN Reason: TITRATE PER MD ORDER Sodium Chloride (Sodium Chloride 0.9%) 1,000 mls @ 50 mls/hr IV .Q20H [facility] Last Admin: 07/10/17 10:30 Dose: 50 mls/hr Insulin Human Regular (Humulin R Low) 0 units SC [facility] PRN Reason: Protocol Last Admin: 07/10/17 12:00 Dose: Not Given Loratadine (Claritin) 10 mg PO DAILY [facility] Last Admin: 07/10/17 09:35 Dose: 10 mg Metoprolol Tartrate (Lopressor) 12.5 mg PO BID [facility] Last Admin: 07/10/17 11:58 Dose: Not Given Non-Formulary Medication (Alfuzosin Hcl [Uroxatral]) 10 mg PO DAILY [facility] Last Admin: 07/10/17 14:20 Dose: Not Given Non-Formulary Medication (Dutasteride [Dutasteride]) 0.5 mg PO DAILY [facility] Last Admin: 07/10/17 12:47 Dose: Not Given Pantoprazole Sodium (Protonix Ec Tab) 40 mg PO ACB [facility] Last Admin: 07/10/17 09:38 Dose: 40 mg Physical Exam - Constitutional Appears: Cachectic, Chronically Ill - Head Exam Head Exam: NORMAL INSPECTION - Eye Exam Eye Exam: Normal appearance, PERRL - ENT Exam ENT Exam: Mucous Membranes Moist, Normal Oropharynx - Neck Exam Neck exam: Positive for: Normal Inspection - Respiratory Exam Respiratory Exam: Decreased Breath Sounds - Cardiovascular Exam Cardiovascular Exam: Tachycardia, Irregular Rhythm, +S1, +S2 - GI/Abdominal Exam GI & Abdominal Exam: Distended, Soft, Tenderness - Extremities Exam Extremities exam: Positive for: pedal edema - Back Exam Back exam: NORMAL INSPECTION - Neurological Exam Neurological exam: Alert Additional comments: confused - Skin Skin Exam: Dry, Pallor - Additional Findings Additional findings: Palliative performance rating 40 % Results - Vital Signs Recent Vital Signs: Last Vital Signs Temp 98.4 F 07/10/17 13:00 Pulse 95 H 07/10/17 13:00 Resp 24 07/10/17 13:00 BP 105/68 07/10/17 13:00 Pulse Ox 94 L 07/10/17 13:00 - Labs Result Diagrams: 07/10/17 12:10 07/10/17 05:30 Labs: Laboratory Results - last 24 hr 07/05/17 07/09/17 07/09/17 10:33 16:22 20:13 WBC RBC Hgb Hct MCV MCH MCHC RDW Plt Count MPV Gran % Lymph % (Auto) Powell % (Auto) Eos % (Auto) Baso % (Auto) Gran # Lymph # (Auto) Powell # (Auto) Eos # (Auto) Baso # (Auto) PT INR APTT pCO2 pO2 HCO3 ABG pH ABG Total CO2 ABG O2 Saturation ABG Base Excess ABG Potassium VBG pH VBG pCO2 VBG HCO3 VBG Total CO2 VBG O2 Sat (Calc) VBG Base Excess VBG Potassium Glucose Lactate FiO2 Sodium 148 Potassium 3.7 Chloride 113 H Carbon Dioxide 18 L Anion Gap 20 BUN 56 H Creatinine 2.2 H Est GFR ( Amer) 35 Est GFR (Non-Af Amer) 29 POC Glucose (mg/dL) 202 H Random Glucose 134 H Lactic Acid Calcium 7.9 L Phosphorus Magnesium Total Bilirubin 0.7 AST 55 ALT 42 Alkaline Phosphatase 257 H Total Protein 5.8 Albumin 2.5 L Globulin 3.3 Albumin/Globulin Ratio 0.8 L Procalcitonin Arterial Blood Potassium Venous Blood Potassium Urine Color Urine Appearance Urine pH Ur Specific [place] Urine Protein Urine Glucose (UA) Urine Ketones Urine Blood Urine Nitrate Urine Bilirubin Urine Urobilinogen Ur Leukocyte Esterase Urine RBC Urine WBC Ur Epithelial Cells Amorphous Sediment Urine Bacteria Fluid Albumin 0.5 07/09/17 07/09/17 07/09/17 20:30 21:00 21:15 WBC 11.5 H D RBC 3.18 L Hgb 9.5 L Hct 28.1 L MCV 88.4 MCH 29.9 MCHC 33.8 RDW 16.2 H Plt Count 125 MPV 12.0 H Gran % Lymph % (Auto) Powell % (Auto) Eos % (Auto) Baso % (Auto) Gran # Lymph # (Auto) Powell # (Auto) Eos # (Auto) Baso # (Auto) PT INR APTT pCO2 20 L pO2 158.0 H HCO3 14.2 L ABG pH 7.46 H ABG Total CO2 14.8 L ABG O2 Saturation 98.7 H ABG Base Excess -7.3 L ABG Potassium 3.4 L VBG pH VBG pCO2 VBG HCO3 VBG Total CO2 VBG O2 Sat (Calc) VBG Base Excess VBG Potassium Glucose 120 H Lactate 3.9 H FiO2 100.0 Sodium 141.0 Potassium Chloride 116.0 H Carbon Dioxide Anion Gap BUN Creatinine Est GFR ( Amer) Est GFR (Non-Af Amer) POC Glucose (mg/dL) 125 H Random Glucose Lactic Acid Calcium Phosphorus Magnesium Total Bilirubin AST ALT Alkaline Phosphatase Total Protein Albumin Globulin Albumin/Globulin Ratio Procalcitonin Arterial Blood Potassium 3.4 L Venous Blood Potassium Urine Color Urine Appearance Urine pH Ur Specific [place] Urine Protein Urine Glucose (UA) Urine Ketones Urine Blood Urine Nitrate Urine Bilirubin Urine Urobilinogen Ur Leukocyte Esterase Urine RBC Urine WBC Ur Epithelial Cells Amorphous Sediment Urine Bacteria Fluid Albumin 07/09/17 07/09/17 07/10/17 21:15 21:35 00:20 WBC RBC Hgb Hct MCV MCH MCHC RDW Plt Count MPV Gran % Lymph % (Auto) Powell % (Auto) Eos % (Auto) Baso % (Auto) Gran # Lymph # (Auto) Powell # (Auto) Eos # (Auto) Baso # (Auto) PT INR APTT pCO2 pO2 25 L HCO3 ABG pH ABG Total CO2 ABG O2 Saturation ABG Base Excess ABG Potassium VBG pH 7.34 VBG pCO2 35.0 L VBG HCO3 18.9 L VBG Total CO2 20.0 L VBG O2 Sat (Calc) 49.5 VBG Base Excess -6.1 L VBG Potassium 3.2 L Glucose 203 H Lactate 3.2 H FiO2 21.0 Sodium 145 140.0 Potassium 3.5 L Chloride 113 H 109.0 H Carbon Dioxide 17 L Anion Gap 19 BUN 55 H Creatinine 2.2 H Est GFR ( Amer) 35 Est GFR (Non-Af Amer) 29 POC Glucose (mg/dL) Random Glucose 114 H Lactic Acid Calcium 7.5 L Phosphorus Magnesium Total Bilirubin 0.7 AST 50 ALT 38 Alkaline Phosphatase 243 H Total Protein 5.4 L Albumin 2.2 L Globulin 3.2 Albumin/Globulin Ratio 0.7 L Procalcitonin Arterial Blood Potassium Venous Blood Potassium 3.2 L Urine Color Yellow Urine Appearance Clear Urine pH 5.5 Ur Specific [place] 1.020 Urine Protein 100 H Urine Glucose (UA) Negative Urine Ketones Negative Urine Blood Large H Urine Nitrate Negative Urine Bilirubin Negative Urine Urobilinogen 0.2 Ur Leukocyte Esterase Trace H Urine RBC Tntc Urine WBC 5 - 10 Ur Epithelial Cells None Amorphous Sediment Few Urine Bacteria Many Fluid Albumin 07/10/17 07/10/17 07/10/17 00:20 05:30 05:30 WBC 18.5 H D RBC 2.90 L Hgb 8.6 L Hct 25.7 L MCV 88.6 MCH 29.7 MCHC 33.5 RDW 16.4 H Plt Count 110 L MPV Gran % 87.7 H Lymph % (Auto) 6.3 L Powell % (Auto) 5.9 Eos % (Auto) 0.0 L Baso % (Auto) 0.1 Gran # 16.27 H Lymph # (Auto) 1.2 Powell # (Auto) 1.1 H Eos # (Auto) 0.0 Baso # (Auto) 0.01 PT INR APTT pCO2 pO2 HCO3 ABG pH ABG Total CO2 ABG O2 Saturation ABG Base Excess ABG Potassium VBG pH VBG pCO2 VBG HCO3 VBG Total CO2 VBG O2 Sat (Calc) VBG Base Excess VBG Potassium Glucose Lactate FiO2 Sodium Potassium Chloride Carbon Dioxide Anion Gap BUN Creatinine Est GFR ( Amer) Est GFR (Non-Af Amer) POC Glucose (mg/dL) Random Glucose Lactic Acid 3.2 H Calcium Phosphorus Magnesium Total Bilirubin AST ALT Alkaline Phosphatase Total Protein Albumin Globulin Albumin/Globulin Ratio Procalcitonin 7.53 H Arterial Blood Potassium Venous Blood Potassium Urine Color Urine Appearance Urine pH Ur Specific [place] Urine Protein Urine Glucose (UA) Urine Ketones Urine Blood Urine Nitrate Urine Bilirubin Urine Urobilinogen Ur Leukocyte Esterase Urine RBC Urine WBC Ur Epithelial Cells Amorphous Sediment Urine Bacteria Fluid Albumin 07/10/17 07/10/17 07/10/17 05:30 07:32 09:30 WBC RBC Hgb Hct MCV MCH MCHC RDW Plt Count MPV Gran % Lymph % (Auto) Powell % (Auto) Eos % (Auto) Baso % (Auto) Gran # Lymph # (Auto) Powell # (Auto) Eos # (Auto) Baso # (Auto) PT INR APTT pCO2 pO2 HCO3 ABG pH ABG Total CO2 ABG O2 Saturation ABG Base Excess ABG Potassium VBG pH VBG pCO2 VBG HCO3 VBG Total CO2 VBG O2 Sat (Calc) VBG Base Excess VBG Potassium Glucose Lactate FiO2 Sodium 140 Potassium 3.4 L Chloride 111 H Carbon Dioxide 16 L Anion Gap 17 BUN 58 H Creatinine 2.1 H Est GFR ( Amer) 37 Est GFR (Non-Af Amer) 30 POC Glucose (mg/dL) 340 H Random Glucose 294 H Lactic Acid 2.0 Calcium 6.7 L* Phosphorus 3.6 Magnesium 1.8 Total Bilirubin 0.5 AST 48 ALT 41 Alkaline Phosphatase 205 H Total Protein 4.9 L Albumin 2.0 L Globulin 2.9 Albumin/Globulin Ratio 0.7 L Procalcitonin Arterial Blood Potassium Venous Blood Potassium Urine Color Urine Appearance Urine pH Ur Specific [place] Urine Protein Urine Glucose (UA) Urine Ketones Urine Blood Urine Nitrate Urine Bilirubin Urine Urobilinogen Ur Leukocyte Esterase Urine RBC Urine WBC Ur Epithelial Cells Amorphous Sediment Urine Bacteria Fluid Albumin 07/10/17 07/10/17 09:30 12:10 WBC 5.7 D RBC 3.33 L Hgb 9.7 L Hct 30.2 L MCV 90.7 MCH 29.1 MCHC 32.1 RDW 16.6 H Plt Count 148 MPV Gran % 83.6 H Lymph % (Auto) 14.3 L Powell % (Auto) 1.7 Eos % (Auto) 0.2 L Baso % (Auto) 0.2 Gran # 4.78 Lymph # (Auto) 0.8 L Powell # (Auto) 0.1 Eos # (Auto) 0.0 Baso # (Auto) 0.01 PT 14.6 H INR 1.26 H APTT 41.3 H pCO2 pO2 HCO3 ABG pH ABG Total CO2 ABG O2 Saturation ABG Base Excess ABG Potassium VBG pH VBG pCO2 VBG HCO3 VBG Total CO2 VBG O2 Sat (Calc) VBG Base Excess VBG Potassium Glucose Lactate FiO2 Sodium Potassium Chloride Carbon Dioxide Anion Gap BUN Creatinine Est GFR ( Amer) Est GFR (Non-Af Amer) POC Glucose (mg/dL) Random Glucose Lactic Acid Calcium Phosphorus Magnesium Total Bilirubin AST ALT Alkaline Phosphatase Total Protein Albumin Globulin Albumin/Globulin Ratio Procalcitonin Arterial Blood Potassium Venous Blood Potassium Urine Color Urine Appearance Urine pH Ur Specific [place] Urine Protein Urine Glucose (UA) Urine Ketones Urine Blood Urine Nitrate Urine Bilirubin Urine Urobilinogen Ur Leukocyte Esterase Urine RBC Urine WBC Ur Epithelial Cells Amorphous Sediment Urine Bacteria Fluid Albumin Assessment & Plan - Assessment and Plan (Free Text) Assessment: 87 year old male with history of CVA,left sided weakness, DM weigh loss who is admitted with ascites, sepsis, JN,hypotension and altered mental status. Patient is weak with shaking chills and dyspnea.complains of ain in both hips I spoke with patients karen Aquino via phone. I asked specifically advance directive and resuscitation status. Burdens of aggressive resuscitation explained. Son states he will talk with family. Son intends to come to hospital later this afternoon. Patient's son Miles now at bedside. Dr. Khanh Alcazar updated Miles of patients medical condition. Miles recognizes that his father's health has been declining , specifically his stamina and continuing weight loss. Son awaiting results of pancreatic biopsy understanding that his father may have pancreatic cancer. Goals of care and advance care planning discussion ensued. Son states he does not want CPR or intubation. DNR/DNI directive signed by Miles. After continued discussion regarding goals of care, son also stated he did not want aggressive interventions such a central line and blood draw. Son prefers his father be kept comfortable. Option for hospice introduced. Encouraged son to consider all options before making any decision. Son inferred that intention was to place his father in a fpc. Family will now give consideration of NH with hospice care. Psychosocial support provided. Time spent in discussion regarding goals of care and advance care planning, 30 minutes Plan: Cardiology, ID, neurology and renal notes reviewed. Medications reviewed Sepsis:IVF, antibiotics, monge cultures. ID recommendations Atrial Fibrillation: Plavix, telemetry monitoring. Goals of care and advance care planning
[2017-07-10 15:27] VITALS: PULSE 124
--- NOTE | 2017-07-10 15:53 | PN ---
DATE: REASON FOR CONSULTATION AND FOLLOWUP: Cardiac evaluation, swelling of the leg, status post rapid response, hypotensive, AFib with rapid ventricular rate, rule out sepsis. SUBJECTIVE: Patient is lying flat in ICU 128, bed 6. Denies any chest pain, shortness of breath, or any palpitation. OBJECTIVE: GENERAL: Not in any apparent distress. VITAL SIGNS: As follows: Temperature afebrile, heart rate 125, in AFib, blood pressure 66/45. HEENT: PERRLA. Extraocular muscles intact. NECK: Supple. No carotid bruit or thyromegaly. CHEST: Clear to auscultation. HEART: S1 and S2, regular. ABDOMEN: Soft. EXTREMITIES: Clubbing and cyanosis negative. Blood pressure improved after 500 mL of fluid to 88/28. Currently, awake and alert. Denies any chest pain. LABORATORY DATA: Blood workup as follows: WBC 18.5, hemoglobin 8.6, hematocrit 25.7, and platelet count 110. Chemistry showed sodium 140, potassium 3.4, chloride 111, carbon dioxide 15, anion gap 17, BUN 58, creatinine 2.1. Total protein 4.9, albumin 2, albumin and globulin ratio 0.7. IMPRESSION: Hypotension, atrial fibrillation with new onset of atrial fibrillation. Baseline, patient had a normal sinus with atrial premature complexes in the floor; rule out sepsis; ascites; rule out abdominal malignancy; pancreatic mass, status post biopsy, result pending; status post large volume abdominal paracentesis, 1750 mL of fluid from the right lower quadrant. Paracentesis was done. Recently, echo was done yesterday that showed aortic regurgitation, systolic function mildly impaired, ejection fraction 45%, trace mitral regurgitation. Baseline renal insufficiency, stage 3 to 4 chronic kidney disease. Anemia; hypotension, multifactorial; hypoalbuminemia; severe protein-calorie malnutrition which was present on admission, it was 2.8, [id number], now is severe; rule out sepsis. RECOMMENDATIONS: Ni culture, blood culture. Gives stat dose of IV albumin 1, and then four doses. Continue gentle hydration. Broad spectrum antibiotics, repeat blood culture stat and start Levophed systolic, keep on 90. Overall, patient's condition is critical, will not start anticoagulation for now because of obvious hemoglobin count is low. We are not sure whether patient is bleeding or not, also patient has low platelet count. Also, patient has biopsy done, the result is pending, so we will hold anticoagulation for now, but treat aggressively with broad spectrum antibiotics. Discussed with the resident. Overall, patient's condition is critical. Long-term prognosis is extremely guarded. Patient is on Plavix, reason unknown. If there is no obvious reason for Plavix, we will discontinue because Plavix does not substitute for anticoagulation for atrial fibrillation and no evidence of any coronary event. Patient has a history of multiple strokes in the past and history of CVA could be the reason that patient is on Plavix. We will follow the recommendation of Neuro. From neurologic point of view, it is not a strong reason to put Plavix, so we will discontinue. Patient does not need Plavix from the Cardiology point of view. We will discuss with Dr. Montana. We will continue gentle hydration and followup with you. Saji Ramirez MD
[2017-07-10] MEDS ORDERED: Morphine 4 mg/ml ISec IVP PRN (18:29)
[2017-07-11] MEDS: Albumin Human 25% (12.5 gm/50 ml) IV SCH ×2 (00:30→08:58)
--- NOTE | 2017-07-11 02:09 | PN ---
DATE: 07/10/2017 PULMONARY CRITICAL CARE PROGRESS NOTE REFERRING PHYSICIAN: Delmy Montana MD. SUBJECTIVE: He is lying in the bed on Venturi mask. Awake, alert. Does follow simple command. No hemoptysis. No hematemesis. No hematuria. Does have recurrent ascites. No leg swelling. OBJECTIVE: VITAL SIGNS: Temp is 98, heart rate is 97, respiratory rate is 20, blood pressure 110/59, pulse ox 93% on Venturi mask HEENT: Moist mucous membrane. Crowded airway. NECK: Supple. No JVD. LUNGS: Have decreased breath sounds at bases. HEART: S1 and S2. ABDOMEN: Has ascites. EXTREMITIES: There is no edema. NEUROLOGICAL: Sleepy, arousable. Follows simple command. LABORATORY DATA: Shows hemoglobin 9.7, hematocrit 30.2, WBC 5.7, platelet is 148. INR 1.26, PTT 41. Has VBG done, which shows pH 7.34, pCO2 of 35, O2 is 20. Sodium 140, potassium 3.4, chloride is 111, bicarbonate is 16, BUN 58, creatinine 2.1, glucose 180, lactic acid 2, calcium 6.7, phosphorus 3.6, magnesium 1.8, AST 48, ALT 41, alk phos is 205, albumin is 2. Microbiology: Blood culture has gram-negative yaneth. Has a CAT scan of the abdomen done, which shows large ascites, shrunken nodular liver suggesting cirrhotic liver, pneumobilia, probably secondary to sphincterectomy, prominent soft tissue in the region of the pancreatic head. MEDICATIONS: He is on albumin 12.5 g IV every 6 hours, also getting aspirin 81 mg daily, Claritin 10 mg daily, albuterol/Atrovent nebulizer every 6 hour round the clock, dutasteride 0.5 mg daily, heparin 5000 units subcu every 12 hours, insulin coverage, he is on Levophed, Lipitor 20 mg daily, metoprolol tartrate 12.5 mg twice a day, meropenem 1 g every 12 hours, morphine 2 g IV every 4 hours p.r.n., Plavix 75 mg daily, Protonix 40 mg daily, IV fluid normal saline 50 mL/hour. Tylenol p.r.n. basis. IMPRESSION AND PLAN: Septic shock, bacteremia, probably peritoneal origin, has a pancreatic mass, chronic lung disease, history of aortic aneurysm, diabetes, renal insufficiency, history of old stroke. Seen by Palliative Care. The patient is do not resuscitate. Family wishes supportive care. For now, continue supplement oxygen, pain management. Continue broad-spectrum antibiotics covering gram-negative rods. Follow up labs in the morning. Thank you and we will follow with you. Saji King MD
[2017-07-11] MEDS: Albuterol-Ipratrop 3 mg / 0.5 (3 ml) UD IH SCH ×4 (02:30→19:33)
--- NOTE | 2017-07-11 03:11 | CON ---
DATE: 07/10/2017 LOCATION: The patient was seen earlier today in ICU 128, bed 6. CHIEF COMPLAINT: Temperature of 103 last night x1 day duration. HISTORY OF PRESENT ILLNESS: This is an 87-year-old chronically ill cachectic male, who was admitted, was found to have a right leg DVT, has a history of diabetes mellitus, hypertension, coronary artery disease, gastritis, prostate cancer, dementia, schizophrenia, hard of hearing. He had a pancreatic mass with obstructive jaundice and biliary stent placement in the past with cerebrovascular accident , who was initially admitted with diffuse edema, shortness of breath and a right leg DVT that was on the 07/03/2017 and the patient had a temperature of 103 last night. Code sepsis was called and Infectious Disease consultation requested. REVIEW OF SYSTEMS: Revealed the patient's temperature is down now and there has been mild shortness of breath. There is no abdominal pain reported. No chest pain. No headache. No blurred vision. No dysuria or frequency. He has mild shortness of breath and no diarrhea or constipation. Twelve-point review of systems is performed. PAST MEDICAL HISTORY: Significant for diabetes mellitus, hypertension, dementia, schizophrenia, prostate cancer, coronary artery disease, gastritis, hard of hearing, obstructive jaundice, cerebrovascular accident, pancreatic mass and renal disease. PAST SURGICAL HISTORY: Significant for hernia surgery. ALLERGIES: THE PATIENT HAS NO KNOWN ALLERGY. MEDICATIONS AT HOME: Noted to have insulin and Seroquel, glipizide, Lasix. PHYSICAL EXAMINATION: GENERAL: The patient is in bed with appearing chronically ill and debilitated. VITAL SIGNS: Temperature of 98, T-max is 103.3, blood pressure is 105/60, respiratory rate of 24, heart rate of 95. HEENT: Examination of HEENT is unremarkable. There is temporal wasting. NECK: Supple. LUNGS: Have decreased breath sounds. HEART: Normal S1 and S2. ABDOMEN: Soft, nontender. No organomegaly. No rebound. No guarding. No masses. LABORATORY DATA: Laboratory examination reveals a white count of 5.7, hemoglobin of 9. The white count yesterday was 18,500 and platelets of 148. BUN of 58, creatinine of 2.1. Urinalysis is noted. Peritoneal fluid reveals 209 wbc's. Peritoneal culture is negative. The patient had a CAT scan of the abdomen and pelvis, large ascites, nodular liver suggesting cirrhosis, pneumobilia, gallbladder with possible stone, atrophic pancreas. Lower thorax on the CAT scan reveals bilateral lower lobe infiltrate. The patient also had a chest x-ray. No active lung disease. ASSESSMENT AND PLAN: An 87-year-old male with diabetes, hypertension, coronary artery disease, prostate cancer, hard of hearing, pancreatic mass with obstructive jaundice requiring biliary stents in the past, cerebrovascular accident with dementia, schizophrenia, prostate cancer, who was admitted with a right leg deep venous thrombosis and now with a new fever, tachycardia, leukocytosis and hypoxia and infiltrate on CAT scan. Reveals #1 is severs sepsis secondary to healthcare-associated pneumonia, which is bilateral. We will check on the blood cultures and the urine cultures and sputum cultures and we will check on the procalcitonin and pancultures. The patient was given a dose of vancomycin and now empirically started on meropenem. Overall prognosis is quite poor. I will follow closely with you. Molina Shukla MD
[2017-07-11 07:06] LABS: BASO # 0.01 K/mm3 (0.0-2.0); BASO % 0.1 % (0.0-3.0); GRAN # 11.88 (1.4-6.5); GRAN % 88.7 % (50.0-68.0); HEMOGLOBIN 8.4 g/dL (14.0-18.0); LYMPH # 0.8 (1.2-3.4); LYMPH % 6.1 % (22.0-35.0); MEAN CELL VOLUME 87.1 fl (80.0-105.0); MEAN CORPUSCULAR HEMOGLOBIN 29.4 pg (25.0-35.0); MEAN CORPUSCULAR HGB CONC 33.7 g/dl (31.0-37.0); MONO # 0.7 (0.1-0.6); MONO % 5.1 % (1.0-6.0); PLATELET COUNT 99 10^3/uL (120.0-450.0); RBC 2.86 10^6/uL (3.5-6.1); RED CELL DISTRIBUTION WIDTH 16.4 % (11.5-14.5); WHITE BLOOD COUNT 13.4 10^3/ul (4.5-11.0)
[2017-07-11 07:20] LABS: ALB/GLOB RATIO 0.8 (1.1-1.8); ALBUMIN 2.2 g/dL (3.0-4.8); CALCIUM 7.4 mg/dL (8.4-10.5); INR 1.28 (0.93-1.08); PARTIAL THROMBOPLASTIN TIME 40.1 Seconds (25.1-36.5); PROTHROMBIN TIME 14.8 SECONDS (9.4-12.5)
[2017-07-11] MEDS: Insulin Reg-LOW-Coverage SC SCH ×4 (08:27→21:51)
[2017-07-11] MEDS: Pantoprazole 40 mg EC Tab PO SCH (09:49)
[2017-07-11] MEDS: DUTASTERIDE 0.5 MG PO SCH (09:50)
[2017-07-11] MEDS: Meropenem IV 1 gm in NS 50 ML IVPB SCH (09:50)
[2017-07-11] MEDS: ALFUZOSIN HCL 10 MG PO SCH (09:50)
[2017-07-11] MEDS: Sodium Chloride 0.9% 1,000 ML IV SCH (09:52)
--- NOTE | 2017-07-11 10:28 | CARD ---
APPROVED REPORT EKG Measurement Heart [id number] <Conclusion> Atrial fibrillation with rapid ventricular response Low voltage QRS Possible Lateral infarct, age undetermined Abnormal ECG
--- NOTE | 2017-07-11 17:13 | PN ---
DATE: REASON FOR THE CONSULTATION AND FOLLOWUP: Cardiac evaluation, swelling of the leg, status post rapid response, hypotension, AFib, rapid ventricular rate, sepsis, now converted to normal sinus. SUBJECTIVE: The patient denies any chest pain or shortness of breath. OBJECTIVE: GENERAL: Not in apparent distress, lying flat on the bed, converted to normal sinus. VITAL SIGNS: Temperature afebrile, heart rate 80, blood pressure 98/61. HEENT: PERRLA. Extraocular muscles intact. NECK: Supple. No carotid bruit or thyromegaly. CHEST: Clear to auscultation. HEART: S1 and S2, regular. ABDOMEN: Soft. EXTREMITIES: Clubbing and cyanosis negative. LABORATORY DATA: Blood workup as follows: WBC 13.1, hemoglobin 8.2, hematocrit 24.9, and platelet count 99. Chemistry shows sodium 143, potassium 4.6, chloride 101.5, carbon dioxide 16, anion gap of 17. BUN 66, creatinine 2.4. Total protein 5, albumin 2.2. IMPRESSION: Protein-calorie malnutrition, hypotension, paroxysmal atrial fibrillation, large volume abdominal paracentesis, sepsis, septic shock, pancreatic mass. Given 2 doses of albumin, patient improved, patient converted to normal sinus. Continue gentle hydration. Overall, the patient's condition is critical, long-term prognosis is extremely guarded. Discussed DNR/DNI, now patient is agreeable for DNR/DNI. Continue supportive care. Overall, the patient's condition is critical, long-term prognosis is extremely guarded and poor. Continue medical treatment. Continue as blood pressure is tolerated, low dose of beta-vitaly. We will follow with you. Continue IV fluids, supportive care. Saji Ramirez MD
--- NOTE | 2017-07-11 20:16 | PN ---
DATE: 07/11/2017 PULMONARY PROGRESS NOTE REFERRING PHYSICIAN: Delmy Montana MD. SUBJECTIVE: He is lying in the bed, head at 45 degrees, on supplement oxygen, sleepy, arousable. No hemoptysis. No hematemesis. No hematuria. No diarrhea. Has abdominal distention. PHYSICAL EXAMINATION: GENERAL: In no acute distress. VITAL SIGNS: Temperature is 98, heart rate is 112, respiratory rate is 24, blood pressure 98/61, pulse ox 95% on nasal cannula. HEENT: Moist mucous membrane. Small oral cavity. Crowded airway. NECK: Supple. No JVD. LUNGS: Have a few crackles. HEART: S1 and S2. ABDOMEN: Distended, has ascites. EXTREMITIES: There is no edema. NEUROLOGIC: Sleepy, arousable. Follows simple commands. MEDICATIONS: He is on aspirin 81 mg daily, Claritin 10 mg daily, IV fluid D50 p.r.n. basis, DuoNeb every 6 hours around the clock, dutasteride 0.5 mg daily, heparin 5000 units subcu every 12 hours, insulin coverage, Lipitor 20 mg daily, metoprolol tartrate 12.5 mg twice a day, meropenem 500 mg every 12 hours, morphine 2 mg every 4 hours p.r.n., Plavix 75 mg daily, Protonix 40 mg daily, IV fluid normal saline 50 mL/hour, and Tylenol p.r.n. basis. LABORATORY DATA: Shows hemoglobin 8.4, hematocrit 24.9, WBC 13.4, platelet count is 99. INR 1.28, PTT is 40. VBG show pH 7.34, pCO2 is 35, and O2 is 20, this is venous. Sodium 143, potassium 4.6, chloride 115, bicarbonate is 16, BUN 66, creatinine 2.4, glucose 189, calcium 7.4, phosphorus , magnesium 1.9. AST 62, ALT 51, alkaline phosphatase is 189, albumin is 2.2. Microbiology, blood culture and urine culture have gram-negative rods. IMPRESSION AND PLAN: Septic shock, bacteremia, probably origin is genitourinary tract, pancreatic mass with ascites, chronic obstructive lung disease, aortic aneurysm, diabetes, renal failure, history of old stroke. Clinically, doing very poor. The patient is DNR and DNI. Family wishing supportive care. 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 Thank you and we will follow with you. Saji King MD
[2017-07-11] MEDS: Meropenem 500 MG in Sodium Chloride 0.9% 50 ML IVPB SCH (21:58)
--- NOTE | 2017-07-11 21:58 | CP.PCM.PN ---
Subjective - Date & Time of Evaluation Date of Evaluation: 07/11/17 Time of Evaluation: 13:40 - Subjective Subjective: No fevers, no shortness of breath, still feels weak. Objective - Vital Signs/Intake and Output Vital Signs (last 24 hours): Temp Pulse Resp BP Pulse Ox 98.2 F 128 H 20 94/42 L 99 07/11/17 14:00 07/11/17 14:00 07/11/17 14:00 07/11/17 14:00 07/11/17 14:00 Intake and Output: 07/11/17 07/12/17 18:59 06:59 Intake Total 1200 Output Total 600 Balance 600 - Medications Medications: Current Medications Acetaminophen (Tylenol 325mg Tab) 650 mg PO Q6H PRN PRN Reason: Fever >100.4 F Last Admin: 07/09/17 19:54 Dose: 650 mg Albuterol/Ipratropium (Duoneb 3 Mg/0.5 Mg (3 Ml) Ud) 3 ml IH [id number] [facility] Last Admin: 07/11/17 19:33 Dose: 3 ml Aspirin (Aspirin Chewable) 81 mg PO DAILY [facility] Last Admin: 07/11/17 09:49 Dose: 81 mg Atorvastatin Calcium (Lipitor) 20 mg PO DIN [facility] Last Admin: 07/11/17 17:15 Dose: 20 mg Clopidogrel Bisulfate (Plavix) 75 mg PO DAILY [facility] Last Admin: 07/11/17 09:49 Dose: 75 mg Dextrose (Dextrose 50% Inj) 50 ml IVP PRN PRN PRN Reason: blood glucose less than 80 Last Admin: 07/05/17 03:51 Dose: 50 ml Heparin Sodium (Porcine) (Heparin) 5,000 units SC Q12 [facility] PRN Reason: Protocol Last Admin: 07/11/17 09:50 Dose: 5,000 units NOREPINEPHRINE BIT/0.9 % NACL (Levophed 4 Mg/ 250 Ml Ns Premixed) 4 mg in 250 mls @ 15 mls/hr IV .[id number] PRN; Protocol; 4 MCG/MIN PRN Reason: TITRATE PER MD ORDER Sodium Chloride (Sodium Chloride 0.9%) 1,000 mls @ 50 mls/hr IV .Q20H [facility] Last Admin: 07/11/17 09:52 Dose: 50 mls/hr Meropenem 500 mg/ Sodium (Chloride) 50 mls @ 100 mls/hr IVPB Q12 [facility] PRN Reason: Protocol Stop: 07/17/17 10:01 Insulin Human Regular (Humulin R Low) 0 units SC ACHS [facility] PRN Reason: Protocol Last Admin: 07/11/17 21:51 Dose: Not Given Loratadine (Claritin) 10 mg PO DAILY [facility] Last Admin: 07/11/17 09:49 Dose: 10 mg Metoprolol Tartrate (Lopressor) 12.5 mg PO BID [facility] Last Admin: 07/11/17 17:15 Dose: 12.5 mg Morphine Sulfate (Morphine) 2 mg IVP Q4H PRN PRN Reason: Pain, severe (8-10) Last Admin: 07/10/17 19:01 Dose: 2 mg Non-Formulary Medication (Alfuzosin Hcl [Uroxatral]) 10 mg PO DAILY [facility] Last Admin: 07/11/17 09:50 Dose: Not Given Non-Formulary Medication (Dutasteride [Dutasteride]) 0.5 mg PO DAILY [facility] Last Admin: 07/11/17 09:50 Dose: Not Given Pantoprazole Sodium (Protonix Ec Tab) 40 mg PO ACB [facility] Last Admin: 07/11/17 09:49 Dose: 40 mg - Labs Labs: 07/11/17 06:25 07/11/17 06:25 PT 14.8 SECONDS (9.4-12.5) H 07/11/17 06:25 INR 1.28 (0.93-1.08) H 07/11/17 06:25 APTT 40.1 Seconds (25.1-36.5) H 07/11/17 06:25 - Constitutional Appears: Chronically Ill - Head Exam Head Exam: NORMAL INSPECTION - Respiratory Exam Respiratory Exam: Decreased Breath Sounds - Cardiovascular Exam Cardiovascular Exam: +S1, +S2 - GI/Abdominal Exam GI & Abdominal Exam: Soft. absent: Tenderness Assessment and Plan - Assessment and Plan (Free Text) Plan: Assessment sepsis due to gram negative bacilli bacteremia, R/O due to UTI R/O intra- abdominal infection, in this patient with bilateral HCAP DM HTN dementia schizophrenia prostate cancer CAD CVA pancreatic mass Plan continue Merrem pending identification and sensitivities of the gram negative bacilli in the blood and urine - follow up repeat blood cx will monitor clinically overall prognosis is poor
--- NOTE | 2017-07-11 23:01 | CP.PCM.PN ---
Subjective - Date & Time of Evaluation Date of Evaluation: 07/10/17 Time of Evaluation: 18:00 - Subjective Subjective: Patient transferred to ICU for sepsis. CT guided biopsy is consistent with pancreatic cancer. He not communicative. Has advanced dementia. Objective - Vital Signs/Intake and Output Vital Signs (last 24 hours): Temp Pulse Resp BP Pulse Ox 98.2 F 128 H 20 94/42 L 99 07/11/17 14:00 07/11/17 14:00 07/11/17 14:00 07/11/17 14:00 07/11/17 14:00 Intake and Output: 07/11/17 07/12/17 18:59 06:59 Intake Total 1200 200 Output Total 600 100 Balance 600 100 - Medications Medications: Current Medications Acetaminophen (Tylenol 325mg Tab) 650 mg PO Q6H PRN PRN Reason: Fever >100.4 F Last Admin: 07/09/17 19:54 Dose: 650 mg Albuterol/Ipratropium (Duoneb 3 Mg/0.5 Mg (3 Ml) Ud) 3 ml IH [id number] [facility] Last Admin: 07/11/17 19:33 Dose: 3 ml Aspirin (Aspirin Chewable) 81 mg PO DAILY [facility] Last Admin: 07/11/17 09:49 Dose: 81 mg Atorvastatin Calcium (Lipitor) 20 mg PO DIN [facility] Last Admin: 07/11/17 17:15 Dose: 20 mg Clopidogrel Bisulfate (Plavix) 75 mg PO DAILY [facility] Last Admin: 07/11/17 09:49 Dose: 75 mg Dextrose (Dextrose 50% Inj) 50 ml IVP PRN PRN PRN Reason: blood glucose less than 80 Last Admin: 07/05/17 03:51 Dose: 50 ml Heparin Sodium (Porcine) (Heparin) 5,000 units SC Q12 [facility] PRN Reason: Protocol Last Admin: 07/11/17 21:58 Dose: 5,000 units NOREPINEPHRINE BIT/0.9 % NACL (Levophed 4 Mg/ 250 Ml Ns Premixed) 4 mg in 250 mls @ 15 mls/hr IV .[id number] PRN; Protocol; 4 MCG/MIN PRN Reason: TITRATE PER MD ORDER Sodium Chloride (Sodium Chloride 0.9%) 1,000 mls @ 50 mls/hr IV .Q20H [facility] Last Admin: 07/11/17 09:52 Dose: 50 mls/hr Meropenem 500 mg/ Sodium (Chloride) 50 mls @ 100 mls/hr IVPB Q12 [facility] PRN Reason: Protocol Stop: 07/17/17 10:01 Last Admin: 07/11/17 21:58 Dose: 100 mls/hr Insulin Human Regular (Humulin R Low) 0 units SC ACHS [facility] PRN Reason: Protocol Last Admin: 07/11/17 21:51 Dose: Not Given Loratadine (Claritin) 10 mg PO DAILY [facility] Last Admin: 07/11/17 09:49 Dose: 10 mg Metoprolol Tartrate (Lopressor) 12.5 mg PO BID [facility] Last Admin: 07/11/17 17:15 Dose: 12.5 mg Morphine Sulfate (Morphine) 2 mg IVP Q4H PRN PRN Reason: Pain, severe (8-10) Last Admin: 07/10/17 19:01 Dose: 2 mg Non-Formulary Medication (Alfuzosin Hcl [Uroxatral]) 10 mg PO DAILY [facility] Last Admin: 07/11/17 09:50 Dose: Not Given Non-Formulary Medication (Dutasteride [Dutasteride]) 0.5 mg PO DAILY [facility] Last Admin: 07/11/17 09:50 Dose: Not Given Pantoprazole Sodium (Protonix Ec Tab) 40 mg PO ACB [facility] Last Admin: 07/11/17 09:49 Dose: 40 mg - Labs Labs: 07/11/17 06:25 07/11/17 06:25 PT 14.8 SECONDS (9.4-12.5) H 07/11/17 06:25 INR 1.28 (0.93-1.08) H 07/11/17 06:25 APTT 40.1 Seconds (25.1-36.5) H 07/11/17 06:25 - Constitutional Appears: Cachectic, Chronically Ill - Head Exam Head Exam: ATRAUMATIC, NORMAL INSPECTION, NORMOCEPHALIC - Eye Exam Eye Exam: Normal appearance - ENT Exam ENT Exam: Mucous Membranes Moist, Normal Exam - Neck Exam Neck Exam: Normal Inspection - Respiratory Exam Respiratory Exam: NORMAL BREATHING PATTERN - Cardiovascular Exam Cardiovascular Exam: REGULAR RHYTHM, +S1, +S2 - GI/Abdominal Exam GI & Abdominal Exam: Distended, Diminished Bowel Sounds - Extremities Exam Extremities Exam: Pedal Edema - Back Exam Back Exam: NORMAL INSPECTION - Neurological Exam Neurological Exam: Altered - Skin Skin Exam: Pallor Assessment and Plan - Assessment and Plan (Free Text) Assessment: 1. Pancreatic Cancer : stage IV . recent CT guided biopsy consistent with adenocarcinoma pancreatic origin. 2. Poor performance status. 3. advanced dementia. 4. Multiple co-morbid conditions. Discussed with son Mr. Aquino. he wants hospice care. with advanced disease he has poor prognosis. Palliative services consulted. Discussed with Dr. Montana.
--- NOTE | 2017-07-12 01:49 | CP.PCM.PN ---
Subjective - Date & Time of Evaluation Date of Evaluation: 07/12/17 Time of Evaluation: 01:36 - Subjective Subjective: Patient was seen at bedside as nurse called and told that HR was 145/min. He has no complaints. Denies chest pain, sob, nausea,sweating. Medical record was reviewed. This 87 year old male was admitted with Has PMH of DM, HTN, CVA, COPD, pancreatic lesion,smoker, prostate cancer, AAA repair . Objective - Vital Signs/Intake and Output Vital Signs (last 24 hours): Temp Pulse Resp BP Pulse Ox 97.5 F L 148 H 18 105/55 L 90 L 07/12/17 01:35 07/12/17 01:35 07/12/17 01:35 07/12/17 01:35 07/12/17 01:35 Intake and Output: 07/11/17 07/12/17 18:59 06:59 Intake Total 1200 200 Output Total 600 100 Balance 600 100 - Medications Medications: Current Medications Acetaminophen (Tylenol 325mg Tab) 650 mg PO Q6H PRN PRN Reason: Fever >100.4 F Last Admin: 07/09/17 19:54 Dose: 650 mg Albuterol/Ipratropium (Duoneb 3 Mg/0.5 Mg (3 Ml) Ud) 3 ml IH [id number] [facility] Last Admin: 07/11/17 19:33 Dose: 3 ml Aspirin (Aspirin Chewable) 81 mg PO DAILY [facility] Last Admin: 07/11/17 09:49 Dose: 81 mg Atorvastatin Calcium (Lipitor) 20 mg PO DIN [facility] Last Admin: 07/11/17 17:15 Dose: 20 mg Clopidogrel Bisulfate (Plavix) 75 mg PO DAILY [facility] Last Admin: 07/11/17 09:49 Dose: 75 mg Dextrose (Dextrose 50% Inj) 50 ml IVP PRN PRN PRN Reason: blood glucose less than 80 Last Admin: 07/05/17 03:51 Dose: 50 ml Heparin Sodium (Porcine) (Heparin) 5,000 units SC Q12 [facility] PRN Reason: Protocol Last Admin: 07/11/17 21:58 Dose: 5,000 units NOREPINEPHRINE BIT/0.9 % NACL (Levophed 4 Mg/ 250 Ml Ns Premixed) 4 mg in 250 mls @ 15 mls/hr IV .[id number] PRN; Protocol; 4 MCG/MIN PRN Reason: TITRATE PER MD ORDER Sodium Chloride (Sodium Chloride 0.9%) 1,000 mls @ 50 mls/hr IV .Q20H [facility] Last Admin: 07/11/17 09:52 Dose: 50 mls/hr Meropenem 500 mg/ Sodium (Chloride) 50 mls @ 100 mls/hr IVPB Q12 [facility] PRN Reason: Protocol Stop: 07/17/17 10:01 Last Admin: 07/11/17 21:58 Dose: 100 mls/hr Insulin Human Regular (Humulin R Low) 0 units SC ACHS [facility] PRN Reason: Protocol Last Admin: 07/11/17 21:51 Dose: Not Given Loratadine (Claritin) 10 mg PO DAILY [facility] Last Admin: 07/11/17 09:49 Dose: 10 mg Metoprolol Tartrate (Lopressor) 12.5 mg PO BID [facility] Last Admin: 07/11/17 17:15 Dose: 12.5 mg Morphine Sulfate (Morphine) 2 mg IVP Q4H PRN PRN Reason: Pain, severe (8-10) Last Admin: 07/10/17 19:01 Dose: 2 mg Non-Formulary Medication (Alfuzosin Hcl [Uroxatral]) 10 mg PO DAILY [facility] Last Admin: 07/11/17 09:50 Dose: Not Given Non-Formulary Medication (Dutasteride [Dutasteride]) 0.5 mg PO DAILY [facility] Last Admin: 07/11/17 09:50 Dose: Not Given Pantoprazole Sodium (Protonix Ec Tab) 40 mg PO ACB [facility] Last Admin: 07/11/17 09:49 Dose: 40 mg - Labs Labs: 07/11/17 06:25 07/11/17 06:25 PT 14.8 SECONDS (9.4-12.5) H 07/11/17 06:25 INR 1.28 (0.93-1.08) H 07/11/17 06:25 APTT 40.1 Seconds (25.1-36.5) H 07/11/17 06:25 - Constitutional Appears: Well, No Acute Distress - Head Exam Head Exam: ATRAUMATIC, NORMAL INSPECTION, NORMOCEPHALIC - Eye Exam Eye Exam: Normal appearance - ENT Exam ENT Exam: Normal External Ear Exam - Neck Exam Neck Exam: Normal Inspection - Respiratory Exam Respiratory Exam: NORMAL BREATHING PATTERN - Cardiovascular Exam Cardiovascular Exam: absent: JVD - GI/Abdominal Exam GI & Abdominal Exam: absent: Distended - Rectal Exam Rectal Exam: Deferred - Exam Additional comments: Deferred. - Extremities Exam Extremities Exam: Normal Inspection - Back Exam Back Exam: NORMAL INSPECTION - Neurological Exam Neurological Exam: Alert, Awake, Oriented x3 - Psychiatric Exam Psychiatric exam: Normal Affect, Normal Mood - Skin Skin Exam: Normal Color Assessment and Plan - Assessment and Plan (Free Text) Assessment: Sinus tachycardia. HTN. DM II. History prostate cancer. COPD. Plan: EKG------> Supraventricular tachycardia.No acute changes. CBC CMP MG PHOS Monitor.
[2017-07-12 02:11] LABS: BASO # 0.01 K/mm3 (0.0-2.0); BASO % 0.1 % (0.0-3.0); EOS % 0.1 % (1.5-5.0); GRAN # 7.99 (1.4-6.5); GRAN % 88.2 % (50.0-68.0); LYMPH # 0.6 (1.2-3.4); LYMPH % 6.1 % (22.0-35.0); MEAN CELL VOLUME 85.9 fl (80.0-105.0); MEAN CORPUSCULAR HEMOGLOBIN 29.6 pg (25.0-35.0); MEAN CORPUSCULAR HGB CONC 34.5 g/dl (31.0-37.0); MONO # 0.5 (0.1-0.6); MONO % 5.5 % (1.0-6.0); PLATELET COUNT 88 10^3/uL (120.0-450.0); RED CELL DISTRIBUTION WIDTH 16.4 % (11.5-14.5); WHITE BLOOD COUNT 9.1 10^3/ul (4.5-11.0)
[2017-07-12 02:21] LABS: ALB/GLOB RATIO 0.8 (1.1-1.8); ALBUMIN 2.1 g/dL (3.0-4.8); CALCIUM 7.5 mg/dL (8.4-10.5)
[2017-07-12] MEDS: Albuterol-Ipratrop 3 mg / 0.5 (3 ml) UD IH SCH ×4 (03:20→19:40)
[2017-07-12 07:22] LABS: INR 1.34 (0.93-1.08); PROTHROMBIN TIME 15.5 SECONDS (9.4-12.5)
[2017-07-12] MEDS: Insulin Reg-LOW-Coverage SC SCH ×4 (08:47→22:42)
[2017-07-12] MEDS ORDERED: Morphine 4 mg/ml ISec IVP PRN (10:05)
[2017-07-12] MEDS: Meropenem 500 MG in Sodium Chloride 0.9% 50 ML IVPB SCH ×2 (12:09→21:32)
[2017-07-12] MEDS: DUTASTERIDE 0.5 MG PO SCH (12:10)
[2017-07-12] MEDS: ALFUZOSIN HCL 10 MG PO SCH (12:10)
[2017-07-12] MEDS: Pantoprazole 40 mg EC Tab PO SCH (12:11)
--- NOTE | 2017-07-12 13:06 | CARD ---
APPROVED REPORT EKG Measurement Heart [id number] <Conclusion> Supraventricular tachycardia with occasional premature ventricular complexes and fusion complexes Left axis deviation Low voltage QRS Possible Lateral infarct, age undetermined Abnormal ECG
--- NOTE | 2017-07-12 13:26 | PN ---
DATE: 07/11/2017 SUBJECTIVE: Patient is 87 years old male. No nausea, vomiting or diarrhea. Patient is lying down comfortably with supplemental oxygen. Otherwise, having shortness of breath. Abdomen is distended. Patient is a very poor historian. Looks like no fever. No chills. No headache. No dizziness. PHYSICAL EXAMINATION: VITAL SIGNS: Temperature 98.1, heart rate 100, respiratory rate 24, blood pressure 100/60, pulse oximetry 96% on nasal cannula. HEENT: Head: Normocephalic, atraumatic. Eyes: PERRLA. Extraocular muscles intact. Conjunctivae clear. Nose patent. Mucous membranes moist. NECK: Supple. No carotid bruit. No JVD or thyromegaly. CHEST: Bilaterally symmetrical. HEART: S1 and S2 positive. LUNGS: Clear to auscultation. ABDOMEN: Soft. Bowel sounds positive. No organomegaly. Abdomen is distended. Fluid thrill is positive. EXTREMITIES: No edema. No cyanosis. MEDICATIONS: Aspirin, Claritin, DuoNeb, heparin, insulin, Lipitor, metoprolol, meropenem, morphine, Plavix, Protonix, Tylenol. LABORATORY DATA: Hemoglobin 8.4, hematocrit 24.9, white blood cells 13.4, platelets 99. Sodium 143, potassium 4.6, BUN 56, creatinine 2.4, AST 52, ALT 51. ASSESSMENT AND PLAN: Mr. Godwin Link had septic shock, bacteremia, probably origin is genitourinary tract, pancreatic cancer with ascites, status post paracentesis, diabetes 2, chronic obstructive lung disease, aortic aneurysm, diabetes mellitus, uncontrolled, renal failure, history of old stroke. Patient's prognosis is poor. Family made patient do not resuscitate and do not intubate, but family wants comfort care. Pancreatic mass shows moderately-differentiated adenocarcinoma, so we will continue supportive care, bronchodilators. Family is aware of the patient's situation. Length of time discussion done with patient's both sons and appreciated other strategic sourcing consultant's input. We will follow up. Delmy Montana MD
[2017-07-12] MEDS ORDERED: Morphine 2 mg/2 mL syringe IVP PRN (13:34)
--- NOTE | 2017-07-12 15:02 | PN ---
DATE: 07/12/2017 LOCATION: The patient is in room 560, bed 1. REASON FOR CONSULTATION: Swelling of legs, ascites, hypotension, atrial fibrillation, rapid rate, sepsis, now converted to normal sinus rhythm. SUBJECTIVE: The patient is lying flat in bed without any chest pain, palpitation, shortness of breath. PHYSICAL EXAMINATION: VITAL SIGNS: Blood pressure 103/53, respirations 17, pulse of 102, temperature is 97.9. HEENT: Head is normocephalic. Eyes: Pupils normal. Conjunctivae pale. NECK: JVP low. Carotids equal. THORAX: AP diameter normal. LUNGS: No significant rales. CARDIOVASCULAR: S1 and S2. ABDOMEN: Enlarged because of ascites. EXTREMITIES: No clubbing or cyanosis. LABORATORY DATA: WBC 9.1, hemoglobin 8, hematocrit 23.2, platelets 88. Sodium 143, potassium 3.7, BUN 69, creatinine 2.6, sugar 219, calcium 7.5, phosphorus 3.4, magnesium 1.9. AST, ALT normal. Total protein 4.9, albumin 2.1. DIAGNOSES: Severe protein-calorie malnutrition; hypotension; paroxysmal atrial fibrillation now converted to sinus rhythm;sepsis; septic shock; pancreatic mass; dehydration; kidney dysfunction, anemia, hypokalemia. The patient is on aspirin 81 daily, heparin 5000 units every 12 hours subcu, Lipitor 20 daily, metoprolol 12.5 b.i.d., meropenem 500 mg IV every 12 hours, Plavix 75 mg daily, Protonix 40 mg daily, IV fluids 50 mL an hour. The patient's condition is very poor. We will continue present therapy and we will follow with you. Saji Vieira MD
--- NOTE | 2017-07-12 15:25 | PN ---
DATE: 07/10/2017 SUBJECTIVE: The patient was seen and examined at the bedside, lying in bed comfortably, having VentiMask. Awake and alert. Does follow simple commands. No fever. No chills. No hematuria. No hematochezia. Does have recurrent ascites. No dysuria. PHYSICAL EXAMINATION: VITAL SIGNS: Temperature 98, heart rate 57, respiratory rate 20, blood pressure 110/58, pulse oximetry 93% on Venturi mask. HEENT: Head: Normocephalic, atraumatic. Eyes: PERRLA. Extraocular muscles intact. Conjunctivae clear. Nose patent. Mucous membranes moist. NECK: Supple. No carotid bruit. No JVD or thyromegaly. CHEST: Bilaterally symmetrical. HEART: S1 and S2 positive. LUNGS: Clear to auscultation. ABDOMEN: Soft. Bowel sounds positive. No organomegaly. EXTREMITIES: No edema. No cyanosis. NEUROLOGICAL: The patient is awake and alert. Moving all extremities. No focal deficit. LABORATORY DATA: Hemoglobin 9.7, hematocrit 30.2, white blood cells 5.7, platelets 148. Sodium 140, potassium 3.4. AST 48, ALT 41. MEDICATIONS: Albumin, aspirin, Claritin, heparin, insulin, Levophed, Lipitor, metoprolol, meropenem, Plavix, Protonix. ASSESSMENT AND PLAN: Mr. Godwin Link had septic shock, bacteremia probably peritoneal origin, has a pancreatic mass, chronic obstructive lung disease, history of aortic aneurysm, diabetes mellitus, renal insufficiency, history of old stroke. Seen by Palliative Care, status post paracentesis x2. The patient is do not resuscitate and do not intubate. Family is very cooperative. Length of time discussion done with son, all questions answered. The patient is on broad-spectrum antibiotics covering gram-negative rods and we will follow up. Delmy Montana MD
[2017-07-12] MEDS: Sodium Chloride 0.9% 1,000 ML IV SCH (17:26)
[2017-07-12] MEDS: Albuterol-Ipratrop 3 mg / 0.5 (3 ml) UD IH PRN (21:17)
--- NOTE | 2017-07-12 22:51 | PN ---
DATE: 07/12/2017 SUBJECTIVE: Patient is in bed, in no acute distress, nontoxic. PHYSICAL EXAMINATION: VITAL SIGNS: Temperature is 97, blood pressure is 114/60, respiratory rate of 22, heart rate of 140. HEENT: Unremarkable. NECK: Supple. LUNGS: Have decreased breath sounds. HEART: Normal S1 and S2. ABDOMEN: Soft, nontender. LABORATORY EXAMINATION: Reveals a white count of 9.1, hemoglobin of 8, platelets of 88,000. Chemistries reveal BUN of 69, creatinine of 2.6. Urinalysis is noted and microbiology reveals the blood cultures with gram-negative yaneth, identified E. coli in one bottle and he has E. coli in urine. The E. coli is relatively sensitive, resistant to ampicillin, sensitive to Bactrim, sensitive to Cipro and patient is on meropenem. ASSESSMENT AND PLAN: This is an 87-year-old male who was seen earlier this morning in room 560, bed 1, with sepsis with Escherichia coli bacteremia with Escherichia coli in the urine, diabetes, hypertension, dementia, schizophrenia, prostate cancer, coronary artery disease, cerebrovascular accident, pancreatic mass, on meropenem, awaiting for the repeat cultures, also has gram-negative yaneth on identification and sensitivity. Molina Shukla MD
--- NOTE | 2017-07-13 00:52 | PN ---
DATE: 07/11/2017 SUBJECTIVE: The patient was seen and examined on the bedside on 07/11/2017. The patient's son, daughter and other family members were around the patient. The patient is a little bit more awake, but still getting a little bit lethargic. No nausea, vomiting, diarrhea. No hematuria or hematochezia. No headache or dizziness. No chest pain or palpitations. PHYSICAL EXAMINATION: VITAL SIGNS: Temperature 98.2, pulse 90, blood pressure 109/59, respiratory rate 20, pulse oxygenation 92. HEENT: Head normocephalic, atraumatic. Eyes PERRLA. Extraocular muscles are intact. Conjunctivae clear. Nose patent. Mucous membrane moist. NECK: Supple. No carotid bruit. No JVD or thyromegaly. CHEST: Bilaterally symmetrical. HEART: S1 and S2 positive. LUNGS: Clear to auscultation. ABDOMEN: Soft. Bowel sounds positive. No organomegaly. EXTREMITIES: No edema. No cyanosis. NEUROLOGICAL: The patient is awake and alert. Moving all 4 extremities. No focal deficits. LABORATORY DATA: White blood cells 9.1, hemoglobin 8, hematocrit 23.2, platelets 88. Sodium 143, potassium 3.7, BUN 69, creatinine 2.6, glucose 209, calcium 7.5. MEDICATIONS: Aspirin, loratadine, dextrose, DuoNeb, heparin, norepinephrine, Lipitor, Plavix, Protonix, morphine, meropenem, Lopressor, NS, Tylenol. ASSESSMENT AND PLAN: Ms. Godwin Link, 87-year-old male with history of leukocytosis, improved; anemia; thrombocytopenia; hyperchloremia; renal insufficiency; diabetes mellitus, uncontrolled; hypocalcemia; abnormal liver function test; proteinuria; hematuria; urinary tract infection; has pancreatic cancer; adenocarcinoma. The patient has sepsis with Escherichia coli bacteremia with Escherichia coli in the urine, dementia, schizophrenia, prostate cancer, coronary artery disease, cerebrovascular accident. The patient is on meropenem. Waiting for the repeat culture. Also, has gram-negative rods on identification and sensitivity. We will continue present treatment. Gastrointestinal/deep venous thrombosis prophylaxis. Repeat labs. We will follow up. Length of time discussion done with the patient, the social workers and the patient's family. Delmy Montana MD [facility] # [id number]
[2017-07-13] MEDS: Albuterol-Ipratrop 3 mg / 0.5 (3 ml) UD IH SCH ×3 (01:14→13:38)
[2017-07-13] MEDS: Albuterol-Ipratrop 3 mg / 0.5 (3 ml) UD IH PRN (04:09)
--- NOTE | 2017-07-13 04:14 | PN ---
DATE: 07/12/2017 PULMONARY PROGRESS NOTE REFERRING PHYSICIAN: Delmy Montana MD. SUBJECTIVE: He is lying in the bed, head at 45 degrees. Awake, alert, follows simple commands. On supplement oxygen. Daughter is at bedside. No headache. No rhinitis. No nausea. No vomiting. Complaining of some leg pain. PHYSICAL EXAMINATION: GENERAL: In no acute distress. VITAL SIGNS: Temperature is 98, heart rate is 90, respiratory rate is 20, blood pressure 109/59, pulse ox 92% on nasal cannula. HEENT: Small oral cavity. Crowded airway. NECK: Supple. No JVD. LUNGS: Have a fair airflow with few rhonchi. HEART: S1 and S2. ABDOMEN: Distended, positive bowel sounds. EXTREMITIES: There is no edema, tender to touch though. NEUROLOGIC: Awake, alert. Follows simple commands. MEDICATIONS: He is on aspirin 81 mg daily, Claritin 10 mg daily, IV fluid p.r.n., DuoNeb every 6 hour lehd-ymhrs-nkr-clock though, dutasteride 0.5 mg daily, heparin 5000 units subcu every 12 hours, insulin coverage, Lipitor 20 mg daily, metoprolol tartrate 12.5 mg twice a day, meropenem 500 mg every 12 hours, morphine 1 mg every 8 hours p.r.n., Plavix 75 mg daily, Protonix 40 mg a.c.b., IV fluid normal saline 50 mL/hour, Tylenol p.r.n. basis. LABORATORY DATA: Shows hemoglobin 8, hematocrit 23.2, WBC 9.1, platelet is 88. INR 1.34. Sodium 143, potassium 3.7, chloride 115, bicarbonate 15, BUN 69, creatinine 2.6. Glucose 290, calcium 7.5, phosphorus 3.4, magnesium 1.9. AST of 48, ALT of 55, alkaline phosphatase is 239, albumin is 2.1. Microbiology, repeat blood culture is negative. IMPRESSION AND PLAN: Resolving septic shock, bacteremia, probably genitourinary origin, has probably pancreatic cancer with biopsy proven adenocarcinoma, chronic obstructive lung disease, aortic aneurysm, diabetes, renal failure, old stroke. I spoke to the patient's daughter at bedside. All the questions answered. The patient is DNR and DNI. Continue supportive care, pain management, supplement oxygen, bronchodilator. Thank you and we will follow with you. Saji King MD
[2017-07-13 06:50] LABS: BASO # 0.02 K/mm3 (0.0-2.0); BASO % 0.1 % (0.0-3.0); GRAN # 12.72 (1.4-6.5); GRAN % 91.8 % (50.0-68.0); HEMOGLOBIN 7.4 g/dL (14.0-18.0); LYMPH # 0.5 (1.2-3.4); LYMPH % 3.7 % (22.0-35.0); MEAN CELL VOLUME 85.2 fl (80.0-105.0); MEAN CORPUSCULAR HEMOGLOBIN 29.6 pg (25.0-35.0); MEAN CORPUSCULAR HGB CONC 34.7 g/dl (31.0-37.0); MONO # 0.6 (0.1-0.6); MONO % 4.4 % (1.0-6.0); PLATELET COUNT 101 10^3/uL (120.0-450.0); RED CELL DISTRIBUTION WIDTH 16.4 % (11.5-14.5); WHITE BLOOD COUNT 13.9 10^3/ul (4.5-11.0)
--- NOTE | 2017-07-13 06:57 | CP.PCM.PN ---
Subjective - Date & Time of Evaluation Date of Evaluation: 07/13/17 Time of Evaluation: 06:53 - Subjective Subjective: Nurse calls and tells that pulse ox is 88%. Patient was seen at bedside. Has No complaints. Medical record was reviewed. This 87 year old male was admitted with abdominal pain, leg swelling. Has PMH of DM II, HTN, COPD, prostate cancer. Objective - Vital Signs/Intake and Output Vital Signs (last 24 hours): Temp Pulse Resp BP Pulse Ox 98.2 F 90 22 109/59 L 92 L 07/12/17 21:10 07/12/17 21:10 07/12/17 21:10 07/12/17 21:10 07/12/17 21:30 Intake and Output: 07/12/17 07/13/17 18:59 06:59 Intake Total 480 280 Output Total 350 250 Balance 130 30 - Medications Medications: Current Medications Acetaminophen (Tylenol 325mg Tab) 650 mg PO Q6H PRN PRN Reason: Fever >100.4 F Last Admin: 07/09/17 19:54 Dose: 650 mg Albuterol/Ipratropium (Duoneb 3 Mg/0.5 Mg (3 Ml) Ud) 3 ml IH [id number] [facility] Last Admin: 07/13/17 01:14 Dose: 3 ml Albuterol/Ipratropium (Duoneb 3 Mg/0.5 Mg (3 Ml) Ud) 3 ml IH Q2H PRN PRN Reason: Shortness of Breath Last Admin: 07/13/17 04:09 Dose: 3 ml Aspirin (Aspirin Chewable) 81 mg PO DAILY [facility] Last Admin: 07/12/17 12:10 Dose: 81 mg Atorvastatin Calcium (Lipitor) 20 mg PO DIN [facility] Last Admin: 07/12/17 17:27 Dose: 20 mg Clopidogrel Bisulfate (Plavix) 75 mg PO DAILY [facility] Last Admin: 07/12/17 12:11 Dose: 75 mg Dextrose (Dextrose 50% Inj) 50 ml IVP PRN PRN PRN Reason: blood glucose less than 80 Last Admin: 07/05/17 03:51 Dose: 50 ml Heparin Sodium (Porcine) (Heparin) 5,000 units SC Q12 [facility] PRN Reason: Protocol Last Admin: 07/12/17 21:33 Dose: 5,000 units NOREPINEPHRINE BIT/0.9 % NACL (Levophed 4 Mg/ 250 Ml Ns Premixed) 4 mg in 250 mls @ 15 mls/hr IV .[id number] PRN; Protocol; 4 MCG/MIN PRN Reason: TITRATE PER MD ORDER Sodium Chloride (Sodium Chloride 0.9%) 1,000 mls @ 50 mls/hr IV .Q20H [facility] Last Admin: 07/12/17 17:26 Dose: 50 mls/hr Meropenem 500 mg/ Sodium (Chloride) 50 mls @ 100 mls/hr IVPB Q12 [facility] PRN Reason: Protocol Stop: 07/17/17 10:01 Last Admin: 07/12/17 21:32 Dose: 100 mls/hr Insulin Human Regular (Humulin R Low) 0 units SC ACHS [facility] PRN Reason: Protocol Last Admin: 07/12/17 22:42 Dose: Not Given Loratadine (Claritin) 10 mg PO DAILY [facility] Last Admin: 07/12/17 12:10 Dose: 10 mg Metoprolol Tartrate (Lopressor) 12.5 mg PO BID [facility] Last Admin: 07/12/17 17:27 Dose: 12.5 mg Morphine Sulfate (Morphine) 1 mg IVP Q8H PRN PRN Reason: Pain, severe (8-10) Non-Formulary Medication (Alfuzosin Hcl [Uroxatral]) 10 mg PO DAILY [facility] Last Admin: 07/12/17 12:10 Dose: Not Given Non-Formulary Medication (Dutasteride [Dutasteride]) 0.5 mg PO DAILY [facility] Last Admin: 07/12/17 12:10 Dose: Not Given Pantoprazole Sodium (Protonix Ec Tab) 40 mg PO ACB [facility] Last Admin: 07/12/17 12:11 Dose: 40 mg - Labs Labs: 07/12/17 02:00 07/12/17 02:00 PT 15.5 SECONDS (9.4-12.5) H 07/12/17 06:20 INR 1.34 (0.93-1.08) H 07/12/17 06:20 APTT 36.6 Seconds (25.1-36.5) H 07/12/17 06:20 - Constitutional Appears: Well, No Acute Distress - Head Exam Head Exam: ATRAUMATIC, NORMAL INSPECTION, NORMOCEPHALIC - Eye Exam Eye Exam: Normal appearance - ENT Exam ENT Exam: Normal External Ear Exam - Neck Exam Neck Exam: Normal Inspection - Respiratory Exam Respiratory Exam: Wheezes (+), NORMAL BREATHING PATTERN. absent: Accessory Muscle Use, Prolonged Expiratory Phase, Rales, Rhonchi - Cardiovascular Exam Cardiovascular Exam: absent: JVD - GI/Abdominal Exam GI & Abdominal Exam: absent: Distended - Rectal Exam Rectal Exam: Deferred - Exam Additional comments: Deferred. - Extremities Exam Extremities Exam: Normal Inspection - Back Exam Back Exam: NORMAL INSPECTION - Neurological Exam Neurological Exam: Alert, Awake, Oriented x3 - Psychiatric Exam Psychiatric exam: Normal Affect, Normal Mood - Skin Skin Exam: Normal Color Assessment and Plan - Assessment and Plan (Free Text) Assessment: Hypoxia. COPD. HTN. DM. history prostate cancer. Plan: Duoneb neb treatment Q2H prn (x 6 doses) sob/wheezing. Observation. Continue present management. Patient was rechecked later . Doing better.Pulse ox 93%.
[2017-07-13 07:12] LABS: INR 1.53 (0.93-1.08); PARTIAL THROMBOPLASTIN TIME 34.9 Seconds (25.1-36.5); PROTHROMBIN TIME 17.7 SECONDS (9.4-12.5)
[2017-07-13 07:18] LABS: ALB/GLOB RATIO 0.7 (1.1-1.8); ALBUMIN 2.2 g/dL (3.0-4.8); CALCIUM 7.9 mg/dL (8.4-10.5)
[2017-07-13] MEDS: Insulin Reg-LOW-Coverage SC SCH ×3 (08:08→17:37)
[2017-07-13] MEDS: Pantoprazole 40 mg EC Tab PO SCH (08:09)
[2017-07-13 09:21] LABS: LYMPHOCYTE 2 % (22.0-35.0); MONOCYTE 2 % (1.0-6.0); NEUTROPHIL 96 % (50.0-70.0)
[2017-07-13 09:22] LABS: PLATELET ESTIMATE LOW (NORMAL)
[2017-07-13] MEDS: Meropenem 500 MG in Sodium Chloride 0.9% 50 ML IVPB SCH (10:30)
[2017-07-13] MEDS: ALFUZOSIN HCL 10 MG PO SCH (11:43)
[2017-07-13] MEDS: DUTASTERIDE 0.5 MG PO SCH (11:44)
--- NOTE | 2017-07-13 13:16 | PN ---
DATE: 07/13/2017 LOCATION: The patient is in room 560, bed 1. REASON FOR CONSULTATION: Swelling of legs, ascites, hypotension, atrial fibrillation, rapid rate, sepsis, now converted to normal sinus rhythm. SUBJECTIVE: The patient is lying comfortably in bed without any cardiac symptoms like chest pain, shortness of breath or palpitation. PHYSICAL EXAMINATION: VITAL SIGNS: Blood pressure 118/46, respirations 22, pulse 97, temperature 97.5. HEENT: Head is normocephalic. Eyes: Pupils normal. Conjunctivae pale. NECK: JVP low. Carotids equal. THORAX: AP diameter normal. LUNGS: Clear. CARDIOVASCULAR: S1 and S2. ABDOMEN: Soft. Bowel sounds normal. EXTREMITIES: No clubbing. No cyanosis. LABORATORY DATA: WBC 13.9, hemoglobin 7.4, hematocrit 21.3, platelets 101. Sodium 147, potassium 4.5, BUN 83, creatinine 3, random sugar 146, calcium 7.9, AST 74, ALT 58, total bilirubin 1.4, total protein 5.3, albumin 2.2. DIAGNOSES: Severe protein-calorie malnutrition, hypotension, paroxysmal atrial fibrillation, now was maintaining sinus rhythm, sepsis, septic shock, pancreatic mass, dehydration, kidney dysfunction, anemia. The patient is on aspirin 81 mg daily, heparin 5000 units subcu every 12 hours, atorvastatin 20 daily, metoprolol 12.5 b.i.d., meropenem 500 mg IV every 12 hours, Plavix 75 daily, Protonix 40 daily. The patient is getting IV fluid 50 mL an hour. The patient's condition is very critical. Prognosis is poor. We will continue present therapy. We will follow with you. Saji Vieira MD
--- NOTE | 2017-07-13 14:18 | CP.PCM.PN ---
Subjective - Date & Time of Evaluation Date of Evaluation: 07/13/17 Time of Evaluation: 11:55 - Subjective Subjective: Now able to eat better, more awake, no fevers. Objective - Vital Signs/Intake and Output Vital Signs (last 24 hours): Temp Pulse Resp BP Pulse Ox 97.5 F L 97 H 22 118/46 L 90 L 07/13/17 06:00 07/13/17 06:00 07/13/17 06:00 07/13/17 10:29 07/13/17 06:00 Intake and Output: 07/13/17 07/13/17 06:59 18:59 Intake Total 280 Output Total 250 Balance 30 - Medications Medications: Current Medications Acetaminophen (Tylenol 325mg Tab) 650 mg PO Q6H PRN PRN Reason: Fever >100.4 F Last Admin: 07/09/17 19:54 Dose: 650 mg Albuterol/Ipratropium (Duoneb 3 Mg/0.5 Mg (3 Ml) Ud) 3 ml IH [id number] COUNTS [facility]CLUDE 234 BEDS AT [facility] Last Admin: 07/13/17 07:22 Dose: 3 ml Albuterol/Ipratropium (Duoneb 3 Mg/0.5 Mg (3 Ml) Ud) 3 ml IH Q2H PRN PRN Reason: Shortness of Breath Last Admin: 07/13/17 04:09 Dose: 3 ml Aspirin (Aspirin Chewable) 81 mg PO DAILY [facility] 234 BEDS AT [facility] Last Admin: 07/12/17 12:10 Dose: 81 mg Atorvastatin Calcium (Lipitor) 20 mg PO DIN [facility] 234 BEDS AT [facility] Last Admin: 07/12/17 17:27 Dose: 20 mg Clopidogrel Bisulfate (Plavix) 75 mg PO DAILY [facility] 234 BEDS AT [facility] Last Admin: 07/12/17 12:11 Dose: 75 mg Dextrose (Dextrose 50% Inj) 50 ml IVP PRN PRN PRN Reason: blood glucose less than 80 Last Admin: 07/05/17 03:51 Dose: 50 ml Heparin Sodium (Porcine) (Heparin) 5,000 units SC Q12 [facility] PRN Reason: Protocol Last Admin: 07/12/17 21:33 Dose: 5,000 units NOREPINEPHRINE BIT/0.9 % NACL (Levophed 4 Mg/ 250 Ml Ns Premixed) 4 mg in 250 mls @ 15 mls/hr IV .[id number] PRN; Protocol; 4 MCG/MIN PRN Reason: TITRATE PER MD ORDER Sodium Chloride (Sodium Chloride 0.9%) 1,000 mls @ 50 mls/hr IV .Q20H [facility] 234 BEDS AT [facility] Last Admin: 07/12/17 17:26 Dose: 50 mls/hr Meropenem 500 mg/ Sodium (Chloride) 50 mls @ 100 mls/hr IVPB Q12 [facility] PRN Reason: Protocol Stop: 07/17/17 10:01 Last Admin: 07/13/17 10:30 Dose: 100 mls/hr Insulin Human Regular (Humulin R Low) 0 units SC ACHS [facility] 234 BEDS AT [facility] PRN Reason: Protocol Last Admin: 07/13/17 08:08 Dose: 2 units Loratadine (Claritin) 10 mg PO DAILY [facility] 234 BEDS AT [facility] Last Admin: 07/13/17 10:23 Dose: 10 mg Metoprolol Tartrate (Lopressor) 12.5 mg PO BID [facility] 234 BEDS AT [facility] Last Admin: 07/13/17 10:29 Dose: Not Given Morphine Sulfate (Morphine) 1 mg IVP Q8H PRN PRN Reason: Pain, severe (8-10) Non-Formulary Medication (Alfuzosin Hcl [Uroxatral]) 10 mg PO DAILY [facility] 234 BEDS AT [facility] Last Admin: 07/12/17 12:10 Dose: Not Given Non-Formulary Medication (Dutasteride [Dutasteride]) 0.5 mg PO DAILY [facility] 234 BEDS AT [facility] Last Admin: 07/12/17 12:10 Dose: Not Given Pantoprazole Sodium (Protonix Ec Tab) 40 mg PO ACB [facility] 234 BEDS AT [facility] Last Admin: 07/13/17 08:09 Dose: 40 mg - Labs Labs: 07/13/17 06:00 07/13/17 06:00 PT 17.7 SECONDS (9.4-12.5) H 07/13/17 06:00 INR 1.53 (0.93-1.08) H 07/13/17 06:00 APTT 34.9 Seconds (25.1-36.5) 07/13/17 06:00 - Constitutional Appears: Cachectic, Chronically Ill - Head Exam Head Exam: NORMAL INSPECTION - Neck Exam Neck Exam: absent: Meningismus - Respiratory Exam Respiratory Exam: Decreased Breath Sounds - Cardiovascular Exam Cardiovascular Exam: +S1, +S2 - GI/Abdominal Exam GI & Abdominal Exam: Soft. absent: Tenderness Assessment and Plan - Assessment and Plan (Free Text) Plan: Assessment sepsis due to E. coli bacteremia, R/O due to UTI R/O intra-abdominal infection, in this patient with bilateral HCAP DM HTN dementia schizophrenia prostate cancer CAD CVA pancreatic mass Plan continue Merrem to complete 10 to 14 days of therapy overall prognosis is poor
[2017-07-13 17:40] VITALS: BP 116/44
[2017-07-13 17:58] VITALS: PULSE 96; RESP 16; TEMP 98.1; O2SAT 88
--- NOTE | 2017-07-13 22:51 | PN ---
DATE: 07/13/2017 PULMONARY PROGRESS NOTE REFERRING PHYSICIAN: Delmy oMntana MD SUBJECTIVE: He is lying in the bed at 45 degrees, on nasal cannula oxygen. Nursing staff is at bedside. Pulse ox runs about 92% to 93%. Mild cough. No sputum production. No hemoptysis or emesis. Does have a trace of blood with stool. No leg swelling. OBJECTIVE: GENERAL: In no acute distress. VITAL SIGNS: Temperature is 98, heart rate 97, respiratory rate is 22, blood pressure 118/46, pulse ox 92% on nasal cannula. HEENT: Moist mucous membranes. Small oral cavity. NECK: Supple. No JVD. LUNGS: Fair airflow with few rhonchi. HEART: S1 and S2. ABDOMEN: Soft, mildly distended. EXTREMITIES: There is no edema. NEUROLOGIC: Awake and follows simple command. MEDICATIONS: He is on aspirin 81 mg daily, loratadine 10 mg daily, albuterol/Atrovent nebulizer every 6 hours [id number], dutasteride 0.5 mg daily, heparin 5000 subcu every 12 hours, Lipitor 20 mg daily, metoprolol tartrate 12.5 mg twice a day, meropenem 500 mg every 12 hours, morphine 1 mg every 6 hours p.r.n., Plavix 75 mg daily, Protonix 40 mg before meals, IV fluid normal saline 50 mL/hour, Tylenol p.r.n. basis. LABORATORY DATA: Shows hemoglobin 7.4, hematocrit 21.3, WBC 13,000, platelets 101. INR 1.53. PTT 35. Sodium 147, potassium 4.5, chloride 118, bicarbonate 14. BUN 83, creatinine 0.3. Glucose 198. Calcium is 7.9. Total bili 1.4, AST 74, ALT 58, alk phos is 329. Albumin is 2.2. IMPRESSION AND PLAN: Septic shock with bacteremia, pancreatic cancer with malignant ascites, chronic lung disease, aortic aneurysm, diabetes, renal failure, stroke, may have a mild gastrointestinal bleed, hemodynamically stable. Spoke to the patient at the bedside. All other questions answered. Family wishing supportive care. Agree with the plan. Patient is DNR and DNI. We will continue supplemental oxygen, bronchodilator, antibiotics, pain management, may go to subacute. Thank you and we will follow with you. Saji King MD [facility] # [id number]
== END 2017-07-13 19:07 | DRG 435 ==
LOC: ED 12:07 → ERH 14:48 → 2RNO 23:39 → 5RSO 07-09 18:13 → ICU 07-10 01:59 → 5RSO 07-11 11:06 → 5RNO 07-11 22:57
PROVIDERS: ADMIT Internal Medicine; ATTEND Internal Medicine
PROC: 0W9G3ZZ Drainage of Peritoneal Cavity, Percutaneous Approach (ICD-10-PCS; 2017-07-04)
PROC: 3E0F7GC Introduction of Other Therapeutic Substance into Respiratory Tract, Via Natural or Artificial Opening (ICD-10-PCS; 2017-07-04)
PROC: 0W9G3ZZ Drainage of Peritoneal Cavity, Percutaneous Approach (ICD-10-PCS; 2017-07-06)
PROC: 0FBG3ZX Excision of Pancreas, Percutaneous Approach, Diagnostic (ICD-10-PCS; principal; 2017-07-06 15:00)
DX: C25.0 Malignant neoplasm of head of pancreas (principal); A41.51 Sepsis due to Escherichia coli [E. coli]; R65.21 Severe sepsis with septic shock; J18.9 Pneumonia, unspecified organism; E43 Unspecified severe protein-calorie malnutrition; I82.411 Acute embolism and thrombosis of right femoral vein; R18.8 Other ascites; I69.354 Hemiplegia and hemiparesis following cerebral infarction affecting left non-dominant side; R64 Cachexia; Z68.1 Body mass index [BMI] 19.9 or less, adult; J44.0 Chronic obstructive pulmonary disease with (acute) lower respiratory infection; N18.4 Chronic kidney disease, stage 4 (severe); N17.9 Acute kidney failure, unspecified; I13.0 Hypertensive heart and chronic kidney disease with heart failure and stage 1 through stage 4 chronic kidney disease, or unspecified chronic kidney disease; N39.0 Urinary tract infection, site not specified; F03.90 Unspecified dementia, unspecified severity, without behavioral disturbance, psychotic disturbance, mood disturbance, and anxiety; D63.8 Anemia in other chronic diseases classified elsewhere; D50.9 Iron deficiency anemia, unspecified; I25.10 Atherosclerotic heart disease of native coronary artery without angina pectoris; I50.9 Heart failure, unspecified; E11.22 Type 2 diabetes mellitus with diabetic chronic kidney disease; E11.649 Type 2 diabetes mellitus with hypoglycemia without coma; E78.00 Pure hypercholesterolemia, unspecified; R62.7 Adult failure to thrive; R13.12 Dysphagia, oropharyngeal phase; Z66 Do not resuscitate; I48.0 Paroxysmal atrial fibrillation; F20.9 Schizophrenia, unspecified; C61 Malignant neoplasm of prostate; E86.0 Dehydration; E87.6 Hypokalemia; Y95 Nosocomial condition; Z51.5 Encounter for palliative care; H91.90 Unspecified hearing loss, unspecified ear; Z87.891 Personal history of nicotine dependence